=== PATIENT | female | born 1945 | race Caucasian/White ===

== ENCOUNTER 2016-08-31 19:28 | Inpatient (IN) ==
[2016-09-01] MEDS ORDERED: Ipratropium/Albuterol Neb 3 ML IH ONE (00:36)
[2016-09-01 00:55] LABS: Basophils # 0.1 K/mcL (0.0-0.2); Basophils % 1.6 %; Eosinophils # 1.2 K/mcL (0.0-0.6); Eosinophils % 13.2 %; Hematocrit 43.1 % (35.3-44.9); Hemoglobin 14.5 g/dL (11.5-15.4); Immature Granulocytes % 0.3 % (0-4); Immature Platelets 3.9 % (1.1-6.1); Lymphocytes # 2.8 K/mcL (0.6-4.6); Lymphocytes % 31.7 %; Mean Corpuscular HGB Conc 33.6 g/dL (31.6-35.5); Mean Corpuscular Hemoglobin 31.2 pg (28.0-33.3); Mean Corpuscular Volume 92.7 fL (83.0-100.0); Mean Platelet Volume 10.3 fL (9.4-12.4); Monocytes # 0.6 K/mcL (0.0-1.3); Monocytes % 7.2 %; Platelet Count 366 K/mcL (140-400); Red Blood Count 4.65 M/mcL (3.82-4.97); Red Cell Distribution Width 13.3 % (11.5-14.5)
[2016-09-01 01:10] LABS: BUN/Creatinine Ratio 14 (6-26); Blood Urea Nitrogen 15 mg/dL (7-20); Calcium 10.4 mg/dL (8.6-10.8); Carbon Dioxide 29 mEq/L (19-29); Chloride 99 mEq/L (98-109); Glucose 279 mg/dL (70-99); Osmolality,Calculated 295 (280-300); Potassium 3.5 mEq/L (3.5-4.5); Sodium 137 mEq/L (136-145); eGFR For African Americans > 60 (> 60); eGFR For Non-African Americans 51 (> 60)
[2016-09-01] MEDS ORDERED: methylPREDNISolone 125 MG/2 ML VIAL IVP ONE (01:24)
[2016-09-01] MEDS ORDERED: Levofloxacin 750 MG/150 ML 750 MG/150 ML BAG IVPB ONE (01:25)
--- NOTE | 2016-09-01 01:58 | Emergency Department Note ---
Disposition Clinical Impression: Community acquired pneumonia Disposition: Admitted As Inpatient Condition: Good SOB HPI - General Chief Complaint: ED Shortness of Breath/Dyspnea Stated Complaint: "Poss. Pneumonia/COPD/" Time Seen by Provider: 08/31/16 23:27 Source: patient Mode of arrival: private vehicle Limitations: no limitations Nursing Notes Reviewed: Yes Vital Signs Reviewed: Yes - History of Present Illness 71-year-old female history of oxygen-dependent COPD 2 L continuous with CPAP at night who presents to the ER with a chief complaint of cough and shortness of breath. Patient reports that she has been ill for most of this where. She states worsening shortness of breath and cough for the last week in duration. Patient reports intermittent cough with productive green sputum. Patient denies fevers, chest pain, sick contacts. Denies any history of MS, DVT or PE. Patient reports that she had increased her oxygen at home. No other complaints. Pt Subjective Complaint: shortness of breath, cough Onset (ago): week(s) Context: recent illness Severity: moderate Consistency/Duration: constant Improves with: oxygen Worsens with: nothing Known history of: COPD Associated symptoms: Reports: cough, wheezing, sputum production. Denies: chest pain, fever, nausea/vomiting Treatment prior to arrival: oxygen Cough present: Yes Cough Description: Involuntary Cough Frequency: Intermittent Sputum production: Yes Sputum Amount: Small Sputum Color: Green - Related Data Home oxygen amount: 2 liters Home Medications Medication Instructions Recorded Confirmed Albuterol Sulfate [Proair Hfa] 2 puff IH Q4H PRN 09/10/15 09/01/16 Alprazolam [Xanax 1 MG Tablet] 1 mg PO BID PRN 09/10/15 09/01/16 Budesonide/Formoterol 160/4.5 2 puff IH BIDR 09/10/15 09/01/16 [Symbicort 160/4.5] Bupropion HCl [Bupropion HCl Sr] 200 mg PO DAILY 09/10/15 09/01/16 Lisinopril/Hydrochlorothiazide 1 tab PO DAILY 09/10/15 09/01/16 [Zestoretic 20-12.5 mg Tablet] Metformin HCl [Fortamet] 500 mg PO BID 09/10/15 09/01/16 Quetiapine Fumarate [Seroquel] 50 mg PO HS 09/10/15 09/01/16 Tiotropium [Spiriva] 1 cap IH DAILY 09/10/15 09/01/16 Venlafaxine XR (24 HR) [Effexor Xr] 150 mg PO DAILY 09/10/15 09/01/16 Albuterol Neb [Proventil Neb] 2.5 mg IH Q6H PRN 09/01/16 09/01/16 Allergies Allergy/AdvReac Type Severity Reaction Status Date / Time morphine Allergy Hallucinati Verified 08/31/16 21:28 ng simvastatin AdvReac Cramping Verified 08/31/16 21:28 of the Muscles All systems ED: reviewed and negative except as stated. Constitutional: Denies: fever Cardiovascular: Denies: chest pain Respiratory: Reports: cough, dyspnea, sputum production Gastrointestinal: Denies: abdominal pain, nausea, vomiting Past Medical History - Past Medical History Attestation: Yes The following information was validated with the patient. Source: patient Medical history: Reports: COPD, diabetes, hyperlipidemia, hypertension, other Surgical history: Reports: non-contributory Psychiatric history: Reports: depression - Social History Smoking Status: Current every day smoker Smokeless Tobacco Status: No Alcohol use: Reports: none Drug use: Reports: none Physical Exam - General Limitations: no limitations General appearance: alert, in no apparent distress - Head Head exam: atraumatic, normocephalic, normal inspection - Eye Eye exam: Present: normal appearance, EOMI - ENT ENT exam: normal exam - Neck Neck exam: Present: normal inspection - Chest Chest inspection: Present: normal inspection, symmetric chest wall rise - Respiratory Respiratory exam: Present: wheezes (Patient exhibits bilateral end expiratory wheezing with mild accessory muscle use.), accessory muscle use, prolonged expiratory phase. Absent: respiratory distress - Cardiovascular Cardiovascular exam: Present: normal rhythm, tachycardia, normal heart sounds - Abdominal Exam Abdominal exam: Present: soft, Non-Tender. Absent: tenderness - Extremities Exam Extremities exam: Present: normal inspection, full ROM - Expanded Upper Extremity Exam Shoulder exam: Present: normal inspection, full ROM Arm exam: Present: normal inspection, full ROM Elbow exam: Present: normal inspection, full ROM Forearm/Wrist exam: Present: normal inspection, full ROM Hand exam: Present: normal inspection, full ROM - Expanded Lower Extremity Exam Hip/Pelvis exam: Present: normal inspection, full ROM Upper leg exam: Present: normal inspection, full ROM Knee exam: Present: normal inspection, full ROM Lower leg exam: Present: normal inspection, full ROM Ankle exam: Present: normal inspection, full ROM Foot/toe exam: Present: normal inspection, full ROM - Neurological Exam Neurological exam: Present: alert - Psychiatric Psychiatric exam: Present: normal affect, normal mood - Skin Skin exam: Present: warm, dry, intact, normal color Course Course Narrative: Patient seen and examined. Vital signs reviewed. We will get an EKG, chest x- ray as well as basic labs. Reviewed her chest x-ray performed earlier which shows concern for left lower lobe pneumonia. We will order a sputum culture and begin the patient on Levaquin. In the meantime we will give her some breathing treatments and Solu-Medrol. Vital Signs Temperature 98.1 F 08/31/16 21:25 Pulse Rate 101 08/31/16 21:25 Respiratory Rate 20 08/31/16 21:25 Blood Pressure 141/95 08/31/16 21:25 O2 Sat by Pulse Oximetry 95 08/31/16 21:25 Temperature 97.7 F 09/01/16 22:51 Pulse Rate 108 09/01/16 22:51 Respiratory Rate 20 09/02/16 00:16 Blood Pressure 112/70 09/01/16 22:51 O2 Sat by Pulse Oximetry 93 L 09/02/16 00:16 Oxygen Delivery Oxygen Delivery Nasal Cannula Shortness of Breath/Dyspnea - [facility] Narrative Medical decision making narrative: 71-year-old female presents to the ER due to cough and shortness of breath for one week in duration. EKG here is sinus rhythm. Chest x-ray shows concern for left lower lobe infiltrate versus atelectasis. She has had worsening cough and productive sputum for one week. No recent hospitalizations. We will treat her for community-acquired pneumonia. Sputum and blood cultures obtained. Patient given Levaquin. Admitted to the hospitalist service. - Lab Data Lab results reviewed: Yes I reviewed the patient's lab results. Result diagrams: 09/01/16 00:47 09/01/16 00:47 Lab Results 09/01/16 09/01/16 09/01/16 Range/Units 00:47 00:47 00:47 WBC 8.7 (4.3-11.1) K/mcL RBC 4.65 (3.82-4.97) M/mcL Hgb 14.5 (11.5-15.4) g/dL Hct 43.1 (35.3-44.9) % MCV 92.7 (83.0-100.0) fL MCH 31.2 (28.0-33.3) pg MCHC 33.6 (31.6-35.5) g/dL RDW 13.3 (11.5-14.5) % Plt Count 366 (140-400) K/mcL MPV 10.3 (9.4-12.4) fL Immature Gran % 0.3 (0-4) % Seg Neutrophils % 46.0 % Lymphocytes % 31.7 % Monocytes % 7.2 % Eosinophils % 13.2 % Basophils % 1.6 % Neutrophils # 4.0 (1.6-8.9) K/mcL Lymphocytes # 2.8 (0.6-4.6) K/mcL Monocytes # 0.6 (0.0-1.3) K/mcL Eosinophils # 1.2 H (0.0-0.6) K/mcL Basophils # 0.1 (0.0-0.2) K/mcL Immature Plt Fraction 3.9 (1.1-6.1) % Sodium 137 (136-145) mEq/L Potassium 3.5 (3.5-4.5) mEq/L Chloride 99 (98-109) mEq/L Carbon Dioxide 29 (19-29) mEq/L BUN 15 (7-20) mg/dL Creatinine 1.07 (0.57-1.11) mg/dL Est GFR ( Amer) > 60 (> 60) Est GFR (Non-Af Amer) 51 L (> 60) BUN/Creatinine Ratio 14 (6-26) Glucose 279 H (70-99) mg/dL POC Glucose (58-89) Est Mean Plasma Glucose mg/dl Hemoglobin A1c ( - 5.6) % Calculated Osmolality 295 (280-300) Calcium 10.4 (8.6-10.8) mg/dL Troponin I 0.01 (0-0.03) ng/mL B-Natriuretic Peptide (0-100) pg/mL 09/01/16 09/01/16 09/01/16 Range/Units 00:47 00:47 08:33 WBC (4.3-11.1) K/mcL RBC (3.82-4.97) M/mcL Hgb (11.5-15.4) g/dL Hct (35.3-44.9) % MCV (83.0-100.0) fL MCH (28.0-33.3) pg MCHC (31.6-35.5) g/dL RDW (11.5-14.5) % Plt Count (140-400) K/mcL MPV (9.4-12.4) fL Immature Gran % (0-4) % Seg Neutrophils % % Lymphocytes % % Monocytes % % Eosinophils % % Basophils % % Neutrophils # (1.6-8.9) K/mcL Lymphocytes # (0.6-4.6) K/mcL Monocytes # (0.0-1.3) K/mcL Eosinophils # (0.0-0.6) K/mcL Basophils # (0.0-0.2) K/mcL Immature Plt Fraction (1.1-6.1) % Sodium (136-145) mEq/L Potassium (3.5-4.5) mEq/L Chloride (98-109) mEq/L Carbon Dioxide (19-29) mEq/L BUN (7-20) mg/dL Creatinine (0.57-1.11) mg/dL Est GFR ( Amer) (> 60) Est GFR (Non-Af Amer) (> 60) BUN/Creatinine Ratio (6-26) Glucose (70-99) mg/dL POC Glucose 393 H (58-89) Est Mean Plasma Glucose 200 mg/dl Hemoglobin A1c 8.6 H ( - 5.6) % Calculated Osmolality (280-300) Calcium (8.6-10.8) mg/dL Troponin I (0-0.03) ng/mL B-Natriuretic Peptide < 10 (0-100) pg/mL - Radiology Data Radiology results reviewed: Yes I reviewed the patient's radiology results. Chest X-Ray 08/31/16 21:29 IMPRESSION: Left lower lobe atelectasis or, less likely, pneumonia. D/ / Gerrado Segovia MD / Gerardo Segovia MD Interpreting Provider: Gerardo Segovia MD - EKG Data EKG attestation: Yes I reviewed and interpreted this EKG. EKG results narrative: EKG demonstrates sinus rhythm with a rate of 91 bpm. Normal axis. MD interval 163 QRS duration 82 QTc 387 T wave flattening in lead V1 and V2 unchanged from previous. No ST elevations or depressions. No acute ischemic findings. Sanjeev - Sanjeev Situation: Demographics, MOA Background: Presenting Complaint, Relevant PMH, Meds, & Allergies Assessment: Vital Signs, Course and respsone to treatment, Exam Concerns, Patient/Family Expectation, Pertinant Lab Results, Outstanding Labs Recommendation: Barrier(s) to disposition, Recommendation based on pending studies, treatments, or consults SBean Report Given to: Dr. Nikolay Pace Repor Time: 02:11 Attestation Statement - Attestation Attestation: I personally interviewed and examined this patient and my medical decision- making was reviewed with the ED Resident Physician, Dr. Taylor. I agree with the documented findings, disposition and treatment plan as described in the documentation. Patient is a 71-year-old white female with a history of COPD who comes in today with complaints of gradually worsening productive cough and subjective fevers and chills and increased shortness of breath or difficulty breathing. Patient at bedside is hypoxic on supplemental O2, conversational dyspnea and noticeable increased work of breathing with tachypnea. Patient denies any foreign chest pain or pressure associated with this shortness of breath no increase in lower extremity edema or abdominal bloating. No abdominal pain, flank pain, nausea vomiting or posttussive emesis. Patient was placed on nasal cannula oxygen higher than home O2. He was given IV steroids and albuterol nebs. Two-view chest x-ray shows right lower lobe infiltrate and on auscultation of the lungs she has diminished breath sounds in the right base. Labs are unremarkable with the exception of a mild elevation in her blood glucose. No evidence of acidosis. Troponin and BNP are within normal limits. EKG shows normal sinus rhythm at 91 bpm with no acute ST or T-wave changes nonspecific findings. Following breathing treatments patient still has increased work of breathing and hypoxia on room air. We will admit the patient for right lower lobe pneumonia with hypoxia and acute exacerbation of COPD. Patient is improved clinically following aerosols although still requiring supplemental nasal cannula oxygen to maintain sats. IV antibiotics were administered and patient' s admission is pending at this time.
[2016-09-01] MEDS ORDERED: Naloxone 0.4 MG/ML INJ IVP PRN (07:32)
[2016-09-01] MEDS ORDERED: *HR* OxyCODONE Immed Rel 5 MG TABLET PO PRN (07:32)
[2016-09-01] MEDS ORDERED: Acetaminophen 325 MG TABLET PO PRN (07:32)
[2016-09-01] MEDS ORDERED: *HR* Dextrose 50 % in Water (Syg) 50 ML SYRINGE IVP PRN (07:37)
[2016-09-01] MEDS ORDERED: Dextrose Gel 15 GM PO PRN ×2 (07:37)
[2016-09-01] MEDS ORDERED: D5% in Water 1,000 ML IV PRN (07:37)
[2016-09-01] MEDS: Insulin LISPRO 300 UNITS/3 ML VIAL SQ SCH ×6 (08:54→17:21)
[2016-09-01 09:31] LABS: Hemoglobin A1C 8.6 %
--- NOTE | 2016-09-01 09:41 | Internal Med History&Physical ---
Date of Encounter: 09/01/16 Time of Encounter: 09:36 Assessment and Plan (1) COPD exacerbation Current visit: Yes Status: Acute We will treat patient with IV Solu-Medrol, inhaled albuterol and Atrovent and supplemental oxygen by nasal cannula to maintain oxygen saturation above 92%. (2) Respiratory distress Current visit: Yes Status: Acute Oxygen supplementation and Ativan as needed for anxiety. (3) Acute respiratory failure with hypoxia Current visit: Yes Status: Acute Supplemental oxygen. BiPAP as needed. (4) Diabetes mellitus type 2, insulin dependent Current visit: Yes Status: Acute Insulin sliding scale. Add Levemir insulin. Hold oral antidiabetic medication. (5) DVT prophylaxis Current visit: Yes Status: Acute Encourage early ambulation. She does not require pharmacological prophylaxis. Internal Medicine - H&P: HPI Chief complaint: Shortness of breath Admitted From: Emergency Dept Plans for Post Hospital Care: Home History of present illness: Ms. Metcalf is a 71 year old female with past medical history significant for hypertension diabetes and COPD who presented to the hospital for 1 week history of worsening shortness of breath which became severe both at rest and exacerbated by minimal exertion. Reports associated cough wheezing and severe anxiety. Denies any sputum production. She presented to the hospital for evaluation and was found to be in respiratory distress and was treated with supplemental oxygen, inhaled dual nebs and Solu-Medrol. She was referred for admission A 10 point review of systems was positive for chronic back pain, chills no fevers and shortness of breath and anxiety as above. The remainder of the 10 point review of systems was negative Past medical history as above Surgical history right knee and right ankle surgery Family history positive for Alzheimer's dementia and the patient's father and diabetes and heart failure and the patient's mother. Social history the patient is a chronic smoker of 10 cigarettes a day she denies alcohol and drug use. Past Med Surg Social Fam HX - Past Medical History Medical history: COPD, diabetes, hyperlipidemia, hypertension, other Psychiatric history: depression - Past Surgical History Surgical History: non-contributory - Social History Smoking Status: Current every day smoker Smokeless Tobacco Status: No Alcohol use: none Drug use: none - Family History Mother History Unknown: Yes Internal Medicine - H&P: Meds Albuterol Sulfate [Proair Hfa] 2 puff IH Q4H PRN 09/10/15 [History] Alprazolam [Xanax 1 MG Tablet] 1 mg PO BID PRN 09/10/15 [History] Budesonide/Formoterol 160/4.5 [Symbicort 160/4.5] 2 puff IH BIDR 09/10/15 [ History] Bupropion HCl [Bupropion HCl Sr] 200 mg PO DAILY 09/10/15 [History] Lisinopril/Hydrochlorothiazide [Zestoretic 20-12.5 mg Tablet] 1 tab PO DAILY [History] Metformin HCl [Fortamet] 500 mg PO BID 09/10/15 [History] Quetiapine Fumarate [Seroquel] 50 mg PO HS 09/10/15 [History] Tiotropium [Spiriva] 1 cap IH DAILY 09/10/15 [History] Venlafaxine XR (24 HR) [Effexor Xr] 150 mg PO DAILY 09/10/15 [History] Albuterol Neb [Proventil Neb] 2.5 mg IH Q6H PRN 09/01/16 [History] Allergies morphine Allergy (Verified 08/31/16 21:28) Hallucinating simvastatin Adverse Reaction (Verified 08/31/16 21:28) Cramping of the Muscles All Systems PM: A 10-system review of systems was performed and is negative for pertinent findings except as documented above in the HPI. - Constitutional Vitals: Temp Pulse Resp BP Pulse Ox 97.5 F L 98 28 128/82 92 L 09/01/16 07:17 09/01/16 07:17 09/01/16 07:17 09/01/16 07:17 09/01/16 07:17 General appearance: Present: A&O X 3 Exam: Appears anxious, moderate respiratory distress, speaks in broken sentences. - Eye Eye exam: Present: PERRL, conjuntiva pink, sclera anicteric Pupils: Present: PERRL - Neck Neck exam general surgery: Present: supple, trachea midline. Absent: lymphadenopathy - Respiratory Respiratory exam: Present: prolonged expiratory phase, wheezes, tachypnea. Absent: accessory muscle use, rales, rhonchi - Cardiovascular Cardiovascular exam: Present: RRR, +S1, +S2. Absent: diastolic murmur, gallop, rubs, systolic murmur - GI/Abdominal GI/Abdominal exam: Present: normal bowel sounds, soft, no peritoneal signs. Absent: distended, tenderness - Extremities Exam Extremities exam: Present: warm, radial pulses palpable and symetrical. Absent : calf tenderness, cyanotic, pedal edema - Neurological Exam Neurological exam: Present: CN II-XII intact, oriented X3, no focal deficits. Absent: pronater drift, facial droop, speech deficit - Skin Skin exam: Present: dry, intact Internal Med - H&P Results - Labs CBC & Chem 7: 09/01/16 00:47 09/01/16 00:47
[2016-09-01] MEDS ORDERED: Ipratropium/Albuterol Neb 3 ML IH PRN (09:46)
[2016-09-01] MEDS: Ipratropium/Albuterol Neb 3 ML IH SCH ×4 (09:48→20:10)
[2016-09-01] MEDS ORDERED: Budesonide/Formoterol 160/4.5 MDI IH SCH (10:00)
[2016-09-01] MEDS: Venlafaxine XR (24 HR) 150 MG CAP.ER.24H PO SCH (10:10)
[2016-09-01] MEDS: Lisinopril-HCTZ 20-12.5mg TABLET PO SCH (10:10)
[2016-09-01] MEDS: ALPRAZolam 1 MG TABLET PO PRN ×2 (10:16→20:56)
[2016-09-01] MEDS: BuPROPion SR (12 HR) 100 MG TABLET PO SCH (10:16)
[2016-09-01 10:22] LABS: ABG Base Excess 0.7 mEq/L (-2.0 to 3.0); ABG HCO3 24.5 mEQ/L (21-27); ABG Oxygen Saturation 95 % (95-98); ABG PCO2 36 mmHg (35-45); ABG PH 7.44 pH Units (7.32-7.45); ABG PO2 75 mmHg (85-104); ABG TCO2 25.6 mEq/L (20-26)
[2016-09-01 10:24] LABS: Blood Gas FiO2 32 %
[2016-09-01] MEDS ORDERED: Insulin LISPRO 300 UNITS/3 ML VIAL SQ SCH ×2 (11:30→21:00)
[2016-09-01] MEDS: methylPREDNISolone 125 MG/2 ML VIAL IVP SCH ×3 (12:19→23:42)
--- NOTE | 2016-09-01 16:08 | Electrocardiograph Report ---
[place] [id number] Test Date: 2016-09-01 Pat Name: Nova Metcalf Department: 104 Room: 2A22 Gender: F [employer]: : 1945 Requested By: Jj Taylor Order Number: [id number] Reading MD: Aby Warren Measurements Intervals [place] Rate: 91 P: 73 WV: 163 QRS: 3 QRSD: 82 T: 116 QT: 338 QTc: 387 Interpretive Statements SINUS RHYTHM NONSPECIFIC T-WAVE ABNORMALITY Electronically Signed On 09-01-2016 16:07:29 EDT by Aby Warren
[2016-09-01] MEDS: Insulin DETEMIR 100 UNIT/ML X5UNITS SQ SCH (20:59)
[2016-09-02] MEDS: Ipratropium/Albuterol Neb 3 ML IH SCH ×7 (00:16→23:52)
[2016-09-02] MEDS: methylPREDNISolone 125 MG/2 ML VIAL IVP SCH (05:14)
[2016-09-02 06:41] LABS: Basophils % 0.1 %; Hematocrit 39.6 % (35.3-44.9); Hemoglobin 13.1 g/dL (11.5-15.4); Immature Granulocytes % 0.8 % (0-4); Lymphocytes % 7.1 %; Mean Corpuscular HGB Conc 33.1 g/dL (31.6-35.5); Mean Corpuscular Hemoglobin 30.6 pg (28.0-33.3); Mean Corpuscular Volume 92.5 fL (83.0-100.0); Mean Platelet Volume 10.6 fL (9.4-12.4); Monocytes # 0.3 K/mcL (0.0-1.3); Monocytes % 1.9 %; Platelet Count 319 K/mcL (140-400); Red Blood Count 4.28 M/mcL (3.82-4.97); Segmented Neutrophils % 90.1 %
[2016-09-02 06:44] LABS: Neutrophils # 13.2 K/mcL (1.6-8.9)
[2016-09-02 07:00] LABS: BUN/Creatinine Ratio 24 (6-26); Blood Urea Nitrogen 25 mg/dL (7-20); Calcium 9.4 mg/dL (8.6-10.8); Carbon Dioxide 26 mEq/L (19-29); Chloride 98 mEq/L (98-109); Glucose 325 mg/dL (70-99); Osmolality,Calculated 293 (280-300); Potassium 3.9 mEq/L (3.5-4.5); Sodium 133 mEq/L (136-145); eGFR For African Americans > 60 (> 60); eGFR For Non-African Americans 53 (> 60)
[2016-09-02 07:59] LABS: Adenovirus Not Detected (Not Detect); Bordetella Pertussis Not Detected (Not Detect); Chlamydophila pneumoniae Not Detected (Not Detect); Coronavirus 229E Not Detected (Not Detect); Coronavirus HKU1 Not Detected (Not Detect); Coronavirus NL63 Not Detected (Not Detect); Coronavirus OC43 Not Detected (Not Detect); Human Metapneumovirus Not Detected (Not Detect); Human Rhinovirus/Enterovirus Not Detected (Not Detect); Influenza A Subtype 2009 H1 Not Detected (Not Detect); Influenza A Untypeable Not Detected (Not Detect); Influenza B Not Detected (Not Detect); Mycoplasma pneumoniae Not Detected (Not Detect); Parainfluenza Virus 1 Not Detected (Not Detect); Parainfluenza Virus 2 Not Detected (Not Detect); Parainfluenza Virus 3 Not Detected (Not Detect); Parainfluenza Virus 4 Not Detected (Not Detect); Respiratory Syncytial Virus Not Detected (Not Detect)
[2016-09-02] MEDS: ALPRAZolam 1 MG TABLET PO PRN ×2 (08:14→20:31)
[2016-09-02] MEDS: Venlafaxine XR (24 HR) 150 MG CAP.ER.24H PO SCH (08:14)
[2016-09-02] MEDS: Lisinopril-HCTZ 20-12.5mg TABLET PO SCH (08:14)
[2016-09-02] MEDS: BuPROPion SR (12 HR) 100 MG TABLET PO SCH (08:14)
[2016-09-02] MEDS: Insulin LISPRO 300 UNITS/3 ML VIAL SQ SCH ×7 (08:15→20:36)
[2016-09-02] MEDS: predniSONE 20 MG TABLET PO SCH (08:59)
[2016-09-02] MEDS ORDERED: Levofloxacin 750 MG/150 ML 750 MG/150 ML BAG IVPB SCH (09:00)
[2016-09-02] MEDS ORDERED: Albuterol 2.5 MG/3 ML NEBULIZER IH PRN (12:21)
--- NOTE | 2016-09-02 13:12 | Internal Med Progress Note ---
<Abel Granado Hector - Last Filed: 09/02/16 13:57> Date of Encounter: 09/02/16 Time of Encounter: 13:11 - Assessment and plan (1) COPD with respiratory distress, acute Current Visit: No Status: Acute Assessment and plan: Mrs. Metcalf 71-year-old female known history of COPD uses 2 L nasal cannula oxygen at home during the day with BiPAP at night. Presented with increased shortness of breath. She was tachypneic and hypoxic requiring increased oxygen demand. Original ABG demonstrates pH 7.4, PCO2 36, PO2 75, bicarbonate 24.5. Tolerating nasal cannula oxygen with intermittent BiPAP. Plan: - Prednisone 40 mg by mouth daily - Levaquin 750 mg by mouth daily - Continue scheduled breathing treatments. (2) Diabetes mellitus type 2, insulin dependent Current Visit: Yes Status: Acute Assessment and plan: Known history of type 2 diabetes with hyperglycemic control including metformin 500 mg by mouth twice a day at home. - Hyperglycemic with glucoses greater than 300 on Levemir 14 units at bedtime, Humalog 4 units 3 times a day, low-dose sliding scale - Her hyperglycemia likely secondary to high-dose Solu-Medrol. Adjusted prednisone dose to 40 mg by mouth daily. We will increase sliding scale to high -dose but will likely need to be reduced tomorrow now that there is a reduction in steroid administration. Plan: - Before meals at bedtime glucose checks - Continue Levemir, Humalog, high-dose sliding scale. (3) DVT prophylaxis Current Visit: Yes Status: Acute Assessment and plan: 40 mg Lovenox daily. - Subjective Interval history: Ms. Metcalf has been seen and evaluated at bedside this am. She was awake, alert and interactive and tolerating her BiPAP, oxygen saturation at 90%. She said that she is breathing better with the BiPAP on and feels more comfortable. She has had difficulty at home with breathing and usually wears 2 L nasal cannula continuous; BiPAP at night. She denies cough or sputum production, fever, chills, nausea vomiting diarrhea. - Constitutional Vitals: Temp Pulse Resp BP Pulse Ox 97.6 F 102 18 123/73 90 L 09/02/16 10:30 09/02/16 10:30 09/02/16 11:15 09/02/16 10:30 09/02/16 11:15 General appearance: Present: cooperative, A&O X 3, pleasant, no acute distress - Head Head exam: Present: atraumatic, normocephalic - Eye Eye exam: Present: PERRL, conjuntiva pink, sclera anicteric Pupils: Present: PERRL - ENT ENT exam: Present: mucous membranes moist - Neck Neck exam general surgery: Present: supple, trachea midline. Absent: lymphadenopathy - Respiratory Respiratory exam: Present: wheezes. Absent: accessory muscle use, rales, rhonchi Additional comments: Diffuse wheezing all lung hernandez with inspiratory and expiratory effort. - Cardiovascular Cardiovascular exam: Present: RRR, +S1, +S2. Absent: diastolic murmur, gallop, rubs, systolic murmur - GI/Abdominal GI/Abdominal exam: Present: normal bowel sounds, soft, no peritoneal signs. Absent: distended, tenderness - Extremities Exam Extremities exam: Present: warm, radial pulses palpable and symetrical. Absent : calf tenderness, cyanotic, pedal edema - Neurological Exam Neurological exam: Present: alert, oriented X3, no focal deficits. Absent: pronater drift, facial droop, speech deficit - Psychiatric Psychiatric exam: Present: normal affect, normal mood - Skin Skin exam: Present: dry, intact Internal Medicine: Result - Labs CBC & Chem 7: 09/02/16 05:37 09/02/16 05:37 Labs: Short CBC 09/02/16 Range/Units 05:37 WBC 14.7 H D (4.3-11.1) K/mcL Hgb 13.1 (11.5-15.4) g/dL Hct 39.6 (35.3-44.9) % Plt Count 319 (140-400) K/mcL Neutrophils # 13.2 H (1.6-8.9) K/mcL BMP 09/02/16 05:37 Sodium 133 L Potassium 3.9 Chloride 98 Carbon Dioxide 26 BUN 25 H D Creatinine 1.03 Glucose 325 H Calcium 9.4 - ABG Interpretation ABG results: ABG ABG pH 7.44 pH Units (7.32-7.45) 09/01/16 10:15 ABG pCO2 36 mmHg (35-45) 09/01/16 10:15 ABG pO2 75 mmHg (85-104) L 09/01/16 10:15 ABG O2 Saturation 95 % (95-98) 09/01/16 10:15 Consult Discharge Plan - Plan Referrals: Codie Lloyd MD [Primary Care Provider] - 09/09/16 10:30 am (Please follow up as schedule!!!) <Oscar Leiva Wojciech - Last Filed: 09/02/16 17:30> - Assessment and plan (1) Acute and chronic respiratory failure with hypoxia Current Visit: Yes Status: Acute Assessment and plan: Oxygen supplementation. Treatment of COPD exacerbation (2) COPD exacerbation Current Visit: Yes Status: Acute Assessment and plan: Steroids, aerosols, abx Bipap at night (3) Diabetes mellitus type 2, insulin dependent Current Visit: Yes Status: Acute (4) Community acquired pneumonia Current Visit: Yes Status: Acute Assessment and plan: On abx coverage. (5) JUAN (obstructive sleep apnea) Current Visit: Yes Status: Acute Assessment and plan: On bipap at night. - Constitutional Vitals: Temp Pulse Resp BP Pulse Ox 98.0 F 112 20 133/77 91 L 09/02/16 15:14 09/02/16 15:14 09/02/16 16:53 09/02/16 15:14 09/02/16 16:53 Internal Medicine: Result - Labs CBC & Chem 7: 09/02/16 05:37 09/02/16 05:37 Labs: Short CBC 09/02/16 Range/Units 05:37 WBC 14.7 H D (4.3-11.1) K/mcL Hgb 13.1 (11.5-15.4) g/dL Hct 39.6 (35.3-44.9) % Plt Count 319 (140-400) K/mcL Neutrophils # 13.2 H (1.6-8.9) K/mcL BMP 09/02/16 05:37 Sodium 133 L Potassium 3.9 Chloride 98 Carbon Dioxide 26 BUN 25 H D Creatinine 1.03 Glucose 325 H Calcium 9.4 - ABG Interpretation ABG results: ABG ABG pH 7.44 pH Units (7.32-7.45) 09/01/16 10:15 ABG pCO2 36 mmHg (35-45) 09/01/16 10:15 ABG pO2 75 mmHg (85-104) L 09/01/16 10:15 ABG O2 Saturation 95 % (95-98) 09/01/16 10:15 - Attending Attestation I examined this patient and my medical decision-making was reviewed with the Resident Physician on 09/02/16. I agree with the documented findings, disposition and treatment plan as described except to the extent set forth below. Ms. Metcalf is currently admitted for acute exac COPD and hypoxemia. She is moderate to high risk due to potential for worsening respiratory status. Ms. Metcalf feels a little better than yesterday. She is still dyspneic with movement. Denies CP or GI issues. Exam Alert Comfortable in bed Mucus membranes dry Heart reg Lungs with some wheeze throughout I/P 1. Acute on chronic hypoxic resp failure 2. Acute exac COPD 3. Diabetes Further diagnoses and plan as above.
[2016-09-02] MEDS: Insulin DETEMIR 100 UNIT/ML X5UNITS SQ SCH (20:37)
[2016-09-03] MEDS ORDERED: levoFLOXacin 750 MG TABLET PO SCH (01:00)
[2016-09-03] MEDS: Ipratropium/Albuterol Neb 3 ML IH SCH ×6 (03:55→23:03)
[2016-09-03] MEDS: *HR* Enoxaparin 40 MG/0.4 ML SYRINGE SQ SCH (06:11)
[2016-09-03 07:14] LABS: BUN/Creatinine Ratio 30 (6-26); Blood Urea Nitrogen 26 mg/dL (7-20); Calcium 9.4 mg/dL (8.6-10.8); Carbon Dioxide 30 mEq/L (19-29); Chloride 101 mEq/L (98-109); Glucose 128 mg/dL (70-99); Osmolality,Calculated 294 (280-300); Potassium 3.4 mEq/L (3.5-4.5); Sodium 139 mEq/L (136-145); eGFR For African Americans > 60 (> 60); eGFR For Non-African Americans > 60 (> 60)
[2016-09-03 07:24] LABS: Hematocrit 40.2 % (35.3-44.9); Hemoglobin 13.1 g/dL (11.5-15.4); Mean Corpuscular HGB Conc 32.6 g/dL (31.6-35.5); Mean Corpuscular Hemoglobin 30.7 pg (28.0-33.3); Mean Corpuscular Volume 94.1 fL (83.0-100.0); Mean Platelet Volume 10.3 fL (9.4-12.4); Platelet Count 326 K/mcL (140-400); Red Blood Count 4.27 M/mcL (3.82-4.97); Red Cell Distribution Width 13.1 % (11.5-14.5)
[2016-09-03] MEDS: Insulin LISPRO 300 UNITS/3 ML VIAL SQ SCH ×7 (07:54→22:31)
[2016-09-03] MEDS: Lisinopril-HCTZ 20-12.5mg TABLET PO SCH (07:58)
[2016-09-03] MEDS: predniSONE 20 MG TABLET PO SCH (07:58)
[2016-09-03] MEDS: levoFLOXacin 750 MG TABLET PO SCH (07:58)
[2016-09-03] MEDS: BuPROPion SR (12 HR) 100 MG TABLET PO SCH (07:58)
[2016-09-03] MEDS: Venlafaxine XR (24 HR) 150 MG CAP.ER.24H PO SCH (07:58)
[2016-09-03] MEDS: ALPRAZolam 1 MG TABLET PO PRN ×2 (10:32→20:50)
--- NOTE | 2016-09-03 12:52 | Internal Med Progress Note ---
<Abel Granado Hector - Last Filed: 09/03/16 12:49> Date of Encounter: 09/03/16 Time of Encounter: 12:50 - Assessment and plan (1) COPD with respiratory distress, acute Current Visit: No Status: Acute Assessment and plan: Mrs. Metcalf 71-year-old female known history of COPD uses 2 L nasal cannula oxygen at home during the day with BiPAP at night. Presented with increased shortness of breath. She was tachypneic and hypoxic requiring increased oxygen demand. Original ABG demonstrates pH 7.4, PCO2 36, PO2 75, bicarbonate 24.5. Tolerating nasal cannula oxygen with intermittent BiPAP. 09/03/2016 patient seen and evaluated at bedside and clinically improving. Oxygen requirements reduced. Plan: - Prednisone 40 mg by mouth daily - Levaquin 750 mg by mouth daily - Continue scheduled breathing treatments. - Plan for discharge tomorrow if patient continues to remain stable. (2) Diabetes mellitus type 2, insulin dependent Current Visit: Yes Status: Acute Assessment and plan: Known history of type 2 diabetes with hyperglycemic control including metformin 500 mg by mouth twice a day at home. Glucoses were elevated overnight but are stable today. Improvement after starting by mouth prednisone. Plan: - Before meals at bedtime glucose checks - Continue Levemir, Humalog, high-dose sliding scale. (3) Hypokalemia Current Visit: Yes Status: Acute Assessment and plan: Potassium 3.4, demonstrated low potassium since admission. Plan: Potassium chloride 40 once Recheck potassium in a.m. (4) DVT prophylaxis Current Visit: Yes Status: Acute Assessment and plan: 40 mg Lovenox daily. - Subjective Interval history: Ms. Metcalf has been seen and evaluated at bedside this am. She was awake, alert and interactive and tolerating nasal cannula. She has had coughing but describes it as dry and without production. She denies any chest discomfort, CP , chest pressure or palpitations. She has not had a bowel movement in 2 days but says this is not abnormal. She has no further questions. - Constitutional Vitals: Temp Pulse Resp BP Pulse Ox 98.2 F 84 18 149/86 96 09/03/16 11:38 09/03/16 11:38 09/03/16 11:29 09/03/16 11:38 09/03/16 11:38 General appearance: Present: cooperative, A&O X 3, pleasant, no acute distress - Head Head exam: Present: atraumatic, normocephalic - Eye Eye exam: Present: PERRL, conjuntiva pink, sclera anicteric Pupils: Present: PERRL - ENT ENT exam: Present: mucous membranes moist - Neck Neck exam general surgery: Present: supple, trachea midline. Absent: lymphadenopathy - Respiratory Respiratory exam: Present: decreased breath sounds, wheezes (Diffuse inspiratory expiratory wheezing, reduced breath sounds bilateral but improving.) . Absent: accessory muscle use, rales, rhonchi - Cardiovascular Cardiovascular exam: Present: RRR, +S1, +S2. Absent: diastolic murmur, gallop, rubs, systolic murmur - GI/Abdominal GI/Abdominal exam: Present: normal bowel sounds, soft, no peritoneal signs. Absent: distended, tenderness - Extremities Exam Extremities exam: Present: warm, radial pulses palpable and symetrical. Absent : mottling, pedal edema - Neurological Exam Neurological exam: Present: CN II-XII intact, oriented X3, no focal deficits. Absent: pronater drift, facial droop, speech deficit - Psychiatric Psychiatric exam: Present: normal affect, normal mood Internal Medicine: Result - Labs CBC & Chem 7: 09/03/16 06:28 09/03/16 06:28 Labs: Short CBC 09/03/16 Range/Units 06:28 WBC 13.5 H (4.3-11.1) K/mcL Hgb 13.1 (11.5-15.4) g/dL Hct 40.2 (35.3-44.9) % Plt Count 326 (140-400) K/mcL [facility] 09/03/16 06:28 Sodium 139 Potassium 3.4 L Chloride 101 Carbon Dioxide 30 H BUN 26 H Creatinine 0.88 Glucose 128 H Calcium 9.4 - ABG Interpretation ABG results: ABG ABG pH 7.44 pH Units (7.32-7.45) 09/01/16 10:15 ABG pCO2 36 mmHg (35-45) 09/01/16 10:15 ABG pO2 75 mmHg (85-104) L 09/01/16 10:15 ABG O2 Saturation 95 % (95-98) 09/01/16 10:15 Consult Discharge Plan - Plan Referrals: Codie Lloyd MD [Primary Care Provider] - 09/09/16 10:30 am (Please follow up as schedule!!!) <Oscar Leiva - Last Filed: 09/03/16 18:15> - Assessment and plan (1) Acute and chronic respiratory failure with hypoxia Current Visit: Yes Status: Acute Assessment and plan: Continue to wean oxygen as able. (2) COPD exacerbation Current Visit: Yes Status: Acute (3) Diabetes mellitus type 2, insulin dependent Current Visit: Yes Status: Acute (4) Community acquired pneumonia Current Visit: Yes Status: Acute (5) JUAN (obstructive sleep apnea) Current Visit: Yes Status: Acute - Constitutional Vitals: Temp Pulse Resp BP Pulse Ox 97.6 F 84 16 154/85 93 L 09/03/16 16:28 09/03/16 16:28 09/03/16 16:28 09/03/16 16:28 09/03/16 16:28 Internal Medicine: Result - Labs CBC & Chem 7: 09/03/16 06:28 09/03/16 06:28 Labs: Short CBC 09/03/16 Range/Units 06:28 WBC 13.5 H (4.3-11.1) K/mcL Hgb 13.1 (11.5-15.4) g/dL Hct 40.2 (35.3-44.9) % Plt Count 326 (140-400) K/mcL [facility] 09/03/16 06:28 Sodium 139 Potassium 3.4 L Chloride 101 Carbon Dioxide 30 H BUN 26 H Creatinine 0.88 Glucose 128 H Calcium 9.4 - ABG Interpretation ABG results: ABG ABG pH 7.44 pH Units (7.32-7.45) 09/01/16 10:15 ABG pCO2 36 mmHg (35-45) 09/01/16 10:15 ABG pO2 75 mmHg (85-104) L 09/01/16 10:15 ABG O2 Saturation 95 % (95-98) 09/01/16 10:15 - Attending Attestation I examined this patient and my medical decision-making was reviewed with the Resident Physician on 09/03/16. I agree with the documented findings, disposition and treatment plan as described except to the extent set forth below. Ms. Metcalf is currently admitted for acute on chronic hypoxic resp failure due to COPD. She is moderate to high risk due to potential of worsening respiratory status. Ms. Metcalf is beginning to feel better. She is breathing better and tolerating more activity. No new symptoms. No GI symptoms Exam Alert. Comfortable. Resting on bipap Heart reg Lungs with scant wheeze I/P 1. Acute on chronic hypoxic resp failure 2. Acute exac COPD Further diagnoses and plan as above.
[2016-09-03] MEDS: Insulin DETEMIR 100 UNIT/ML X5UNITS SQ SCH (20:51)
[2016-09-04] MEDS: Ipratropium/Albuterol Neb 3 ML IH SCH ×6 (03:28→23:53)
[2016-09-04] MEDS: *HR* Enoxaparin 40 MG/0.4 ML SYRINGE SQ SCH (04:57)
[2016-09-04 06:36] LABS: Basophils # 0.1 K/mcL (0.0-0.2); Basophils % 0.5 %; Eosinophils # 0.2 K/mcL (0.0-0.6); Eosinophils % 2.3 %; Hemoglobin 13.5 g/dL (11.5-15.4); Immature Granulocytes % 1.1 % (0-4); Lymphocytes # 3.2 K/mcL (0.6-4.6); Lymphocytes % 34.1 %; Mean Corpuscular HGB Conc 32.1 g/dL (31.6-35.5); Mean Corpuscular Hemoglobin 30.3 pg (28.0-33.3); Mean Corpuscular Volume 94.2 fL (83.0-100.0); Mean Platelet Volume 10.2 fL (9.4-12.4); Monocytes # 0.9 K/mcL (0.0-1.3); Monocytes % 9.4 %; Neutrophils # 4.9 K/mcL (1.6-8.9); Platelet Count 316 K/mcL (140-400); Red Blood Count 4.46 M/mcL (3.82-4.97); Red Cell Distribution Width 12.9 % (11.5-14.5); Segmented Neutrophils % 52.6 %
[2016-09-04 06:56] LABS: Alanine Aminotransferase 18 Units/L (0-55); Alkaline Phosphatase 84 Units/L (38-126); Aspartate Amino Transferase 11 Units/L (5-34); BUN/Creatinine Ratio 29 (6-26); Bilirubin,Total 0.2 mg/dL (0.2-1.2); Blood Urea Nitrogen 23 mg/dL (7-20); Calcium 9.7 mg/dL (8.6-10.8); Carbon Dioxide 29 mEq/L (19-29); Chloride 101 mEq/L (98-109); Globulin 3.1 g/dL (2.4-3.5); Glucose 97 mg/dL (70-99); Osmolality,Calculated 292 (280-300); Potassium 3.6 mEq/L (3.5-4.5); Sodium 139 mEq/L (136-145); Total Protein 6.1 g/dL (6.0-8.3); eGFR For African Americans > 60 (> 60); eGFR For Non-African Americans > 60 (> 60)
[2016-09-04] MEDS: Insulin LISPRO 300 UNITS/3 ML VIAL SQ SCH ×7 (08:00→20:37)
[2016-09-04] MEDS: levoFLOXacin 750 MG TABLET PO SCH (08:01)
[2016-09-04] MEDS: Venlafaxine XR (24 HR) 150 MG CAP.ER.24H PO SCH (08:01)
[2016-09-04] MEDS: Lisinopril-HCTZ 20-12.5mg TABLET PO SCH (08:01)
[2016-09-04] MEDS: BuPROPion SR (12 HR) 100 MG TABLET PO SCH (08:01)
[2016-09-04] MEDS: predniSONE 20 MG TABLET PO SCH (08:01)
--- NOTE | 2016-09-04 08:21 | Discharge Summary ---
Time of Encounter: 08:19 - Discharge Diagnosis (1) COPD with respiratory distress, acute Priority: Primary Status: Acute (2) Diabetes mellitus type 2, insulin dependent Priority: Secondary Status: Acute (3) Hypokalemia Priority: Secondary Status: Acute (4) DVT prophylaxis Priority: Secondary Status: Acute - Discharge Medications Home Medications: Albuterol Sulfate [Proair Hfa] 2 puff IH Q4H PRN 09/10/15 [History] Alprazolam [Xanax 1 MG Tablet] 1 mg PO BID PRN 09/10/15 [History] Budesonide/Formoterol 160/4.5 [Symbicort 160/4.5] 2 puff IH BIDR 09/10/15 [ History] Bupropion HCl [Bupropion HCl Sr] 200 mg PO DAILY 09/10/15 [History] Lisinopril/Hydrochlorothiazide [Zestoretic 20-12.5 mg Tablet] 1 tab PO DAILY [History] Metformin HCl [Fortamet] 500 mg PO BID 09/10/15 [History] Quetiapine Fumarate [Seroquel] 50 mg PO HS 09/10/15 [History] Tiotropium [Spiriva] 1 cap IH DAILY 09/10/15 [History] Venlafaxine XR (24 HR) [Effexor Xr] 150 mg PO DAILY 09/10/15 [History] Albuterol Neb [Proventil Neb] 2.5 mg IH Q6H PRN 09/01/16 [History] Allergies/Adverse Reactions: Allergies morphine Allergy (Verified 08/31/16 21:28) Hallucinating simvastatin Adverse Reaction (Verified 08/31/16 21:28) Cramping of the Muscles Date of admission: 09/01/16 09:55 Primary care physician: Codie Lloyd MD Discharging clinician: Abel Granado Anticipated date of discharge: 09/04/16 - Patient Status Disposition: Home, Self-Care Condition: Good Functional capacity at discharge: independent ambulation Overall status at discharge: patient is progressing back to baseline - Discharge Instructions Follow Up With: Codie Lloyd MD [Primary Care Provider] - 09/09/16 10:30 am (Please follow up as schedule!!!) Additional Instructions: Follow up with your PCP in the next 3-5 days. Complete Rx as prescribed. If symptoms do not improve or worsen contact your PCP for evaluation or Return to the Emergency department. - Diet and Activity Activity: increase activity as tolerated, wear oxygen at all times Diet: advance to your usual diet Hospital course: Ms. Metcalf is a 71 year old female - Time Spent with Patient Total time spent providing and/or coordinating discharge services: - Constitutional Vitals: Temp Pulse Resp BP Pulse Ox 97.7 F 70 18 137/85 89 L 09/04/16 07:48 09/04/16 07:48 09/04/16 07:48 09/04/16 07:48 09/04/16 07:48 General appearance: Present: cooperative, A&O X 3, pleasant, no acute distress
[2016-09-04 11:19] LABS: ABG Base Excess 9.5 mEq/L (-2.0 to 3.0); ABG HCO3 35.8 mEQ/L (21-27); ABG Oxygen Saturation 87 % (95-98); ABG PCO2 54 mmHg (35-45); ABG PH 7.43 pH Units (7.32-7.45); ABG PO2 52 mmHg (85-104); ABG TCO2 37.5 mEq/L (20-26); Blood Gas FiO2 32 %
--- NOTE | 2016-09-04 13:20 | Internal Med Progress Note ---
<Abel Granado - Last Filed: 09/04/16 13:18> Date of Encounter: 09/04/16 Time of Encounter: 13:19 - Assessment and plan (1) COPD with respiratory distress, acute Current Visit: No Status: Acute Assessment and plan: Mrs. Metcalf 71-year-old female known history of COPD uses 2 L nasal cannula oxygen at home during the day with BiPAP at night. Presented with increased shortness of breath. She was tachypneic and hypoxic requiring increased oxygen demand. Original ABG demonstrates pH 7.4, PCO2 36, PO2 75, bicarbonate 24.5. Tolerating nasal cannula oxygen with intermittent BiPAP. 09/03/2016 patient seen and evaluated at bedside and clinically improving. Oxygen requirements reduced. 09/04/2016: Ms. Metcalf is feeling more short of breath this morning. With her CPAP on her oxygen sats were 89%. ABG demonstrates pH 7.43, PCO2 54, PO2 52, bicarbonate 35.8. Serum bicarbonate 29. Patient's oxygen saturations improved with BiPAP. Plan: - Prednisone 40 mg by mouth daily - Levaquin 750 mg by mouth daily - Continue scheduled breathing treatments. - Patient will undergo BiPAP qualification site. - Plan for discharge tomorrow if patient continues to remain stable. (2) Diabetes mellitus type 2, insulin dependent Current Visit: Yes Status: Acute Assessment and plan: Known history of type 2 diabetes with hyperglycemic control including metformin 500 mg by mouth twice a day at home. Glucoses were elevated overnight but are stable today. Improvement after starting by mouth prednisone. 09/04/2016: Glucose stable. Plan: - Before meals at bedtime glucose checks - Continue Levemir, Humalog, high-dose sliding scale. (3) Hypokalemia Current Visit: Yes Status: Acute Assessment and plan: Potassium 3.6, Will continue with PO replacement. Plan: Potassium chloride 40 once Recheck potassium in a.m. (4) DVT prophylaxis Current Visit: Yes Status: Acute Assessment and plan: 40 mg Lovenox daily. - Subjective Interval history: Ms. Metcalf has been seen and evaluated at bedside this am. She was awake, alert and interactive and tolerating nasal cannula. She feels tired this morning and short of breath. She feels that she needs to be wearing her CPAP machine because of nasal cannula oxygen is not working for her. She feels short of breath. - Constitutional Vitals: Temp Pulse Resp BP Pulse Ox 97 F L 82 23 136/86 91 L 09/04/16 11:28 09/04/16 11:28 09/04/16 11:45 09/04/16 11:28 09/04/16 11:45 General appearance: Present: cooperative, A&O X 3, pleasant, no acute distress - Head Head exam: Present: atraumatic, normocephalic - Eye Eye exam: Present: PERRL, conjuntiva pink, sclera anicteric Pupils: Present: PERRL - ENT ENT exam: Present: mucous membranes moist - Neck Neck exam general surgery: Present: supple, trachea midline. Absent: lymphadenopathy - Respiratory Respiratory exam: Present: decreased breath sounds, wheezes Additional comments: Diffuse restrictive bronchial vesicular breath sounds - Cardiovascular Cardiovascular exam: Present: RRR, +S1, +S2. Absent: diastolic murmur, gallop, rubs, systolic murmur - GI/Abdominal GI/Abdominal exam: Present: normal bowel sounds, soft, no peritoneal signs. Absent: distended, tenderness - Extremities Exam Extremities exam: Present: warm, radial pulses palpable and symetrical. Absent : calf tenderness, cyanotic, pedal edema - Neurological Exam Neurological exam: Present: alert, oriented X3, no focal deficits, strengths equal and symetr throughout. Absent: pronater drift, facial droop, speech deficit - Psychiatric Psychiatric exam: Present: normal affect, normal mood - Skin Skin exam: Present: dry, intact Internal Medicine: Result - Labs CBC & Chem 7: 09/04/16 05:53 09/04/16 05:53 Labs: Short CBC 09/04/16 Range/Units 05:53 WBC 9.4 (4.3-11.1) K/mcL Hgb 13.5 (11.5-15.4) g/dL Hct 42.0 (35.3-44.9) % Plt Count 316 (140-400) K/mcL Neutrophils # 4.9 (1.6-8.9) K/mcL BMP 09/04/16 05:53 Sodium 139 Potassium 3.6 Chloride 101 Carbon Dioxide 29 BUN 23 H Creatinine 0.80 Glucose 97 Calcium 9.7 Liver Function 09/04/16 Range/Units 05:53 Total Bilirubin 0.2 (0.2-1.2) mg/dL AST 11 (5-34) Units/L ALT 18 (0-55) Units/L Alkaline Phosphatase 84 (38-126) Units/L Albumin 3.0 L (3.5-5.0) g/dL - ABG Interpretation ABG results: ABG ABG pH 7.43 pH Units (7.32-7.45) 09/04/16 11:12 ABG pCO2 54 mmHg (35-45) H 09/04/16 11:12 ABG pO2 52 mmHg (85-104) L 09/04/16 11:12 ABG O2 Saturation 87 % (95-98) L 09/04/16 11:12 - Impressions Impressions Chest X-Ray 09/04/16 08:46 IMPRESSION: 1. Hyperexpanded lungs as can be seen with COPD. 2. Mild bibasilar atelectasis. D/ / Mert Us MD / Mert Us MD Interpreting Provider: Mert Us MD Consult Discharge Plan - Plan Additional Instructions: Follow up with your PCP in the next 3-5 days. Complete Rx as prescribed. If symptoms do not improve or worsen contact your PCP for evaluation or Return to the Emergency department. Referrals: Codie Lloyd MD [Primary Care Provider] - 09/09/16 10:30 am (Please follow up as schedule!!!) <Oscar Leiva - Last Filed: 09/04/16 14:53> - Assessment and plan (1) Acute and chronic respiratory failure with hypoxia Current Visit: Yes Status: Acute (2) Acute hypercapnic respiratory failure Current Visit: Yes Status: Acute Assessment and plan: Trial of bipap this afternoon. (3) COPD exacerbation Current Visit: Yes Status: Acute (4) Diabetes mellitus type 2, insulin dependent Current Visit: Yes Status: Acute (5) Community acquired pneumonia Current Visit: Yes Status: Acute (6) JUAN (obstructive sleep apnea) Current Visit: Yes Status: Acute - Constitutional Vitals: Temp Pulse Resp BP Pulse Ox 97 F L 82 23 136/86 91 L 09/04/16 11:28 09/04/16 11:28 09/04/16 11:45 09/04/16 11:28 09/04/16 11:45 Internal Medicine: Result - Labs CBC & Chem 7: 09/04/16 05:53 09/04/16 05:53 Labs: Short CBC 09/04/16 Range/Units 05:53 WBC 9.4 (4.3-11.1) K/mcL Hgb 13.5 (11.5-15.4) g/dL Hct 42.0 (35.3-44.9) % Plt Count 316 (140-400) K/mcL Neutrophils # 4.9 (1.6-8.9) K/mcL BMP 09/04/16 05:53 Sodium 139 Potassium 3.6 Chloride 101 Carbon Dioxide 29 BUN 23 H Creatinine 0.80 Glucose 97 Calcium 9.7 Liver Function 09/04/16 Range/Units 05:53 Total Bilirubin 0.2 (0.2-1.2) mg/dL AST 11 (5-34) Units/L ALT 18 (0-55) Units/L Alkaline Phosphatase 84 (38-126) Units/L Albumin 3.0 L (3.5-5.0) g/dL - ABG Interpretation ABG results: ABG ABG pH 7.43 pH Units (7.32-7.45) 09/04/16 11:12 ABG pCO2 54 mmHg (35-45) H 09/04/16 11:12 ABG pO2 52 mmHg (85-104) L 09/04/16 11:12 ABG O2 Saturation 87 % (95-98) L 09/04/16 11:12 - Impressions Impressions Chest X-Ray 09/04/16 08:46 IMPRESSION: 1. Hyperexpanded lungs as can be seen with COPD. 2. Mild bibasilar atelectasis. D/ / Mert Us MD / Mert Us MD Interpreting Provider: Mert Us MD - Attending Attestation I examined this patient and my medical decision-making was reviewed with the Resident Physician on 09/04/16. I agree with the documented findings, disposition and treatment plan as described except to the extent set forth below. Ms. Metcalf is currently admitted for acute on chronic hypoxic respiratory failure. She is moderate to high risk due to potential for worsening respiratory status. Ms. Metcalf feels very tired. She slept most of yesterday and is still tired. She feels more dyspneic as well. No fever or chills. No GI symptoms Exam Alert. Comfortable Heart reg Lungs diminished with scattered rhonchi No edema ABGs - Acute resp acidosis and metabolic alkalosis I/P 1. Resp acidosis - trial of bipap and nighttime qualification study. 2. Acute exac COPD 3. DM Further diagnoses and plan as above.
[2016-09-04] MEDS: ALPRAZolam 1 MG TABLET PO PRN ×3 (14:02→23:43)
[2016-09-04] MEDS: Insulin DETEMIR 100 UNIT/ML X5UNITS SQ SCH (20:37)
[2016-09-05] MEDS: Ipratropium/Albuterol Neb 3 ML IH SCH ×6 (03:48→23:12)
[2016-09-05 04:08] LABS: ABG Base Excess 12.8 mEq/L (-2.0 to 3.0); ABG HCO3 40.2 mEQ/L (21-27); ABG Oxygen Saturation 86 % (95-98); ABG PCO2 62 mmHg (35-45); ABG PH 7.42 pH Units (7.32-7.45); ABG TCO2 42.1 mEq/L (20-26); Blood Gas Liter Flow 3 L/MIN
[2016-09-05 04:09] LABS: ABG PO2 50 mmHg (85-104)
[2016-09-05] MEDS: ALPRAZolam 1 MG TABLET PO PRN (06:00)
[2016-09-05] MEDS: *HR* Enoxaparin 40 MG/0.4 ML SYRINGE SQ SCH (06:21)
[2016-09-05] MEDS: predniSONE 20 MG TABLET PO SCH (07:41)
[2016-09-05] MEDS: Lisinopril-HCTZ 20-12.5mg TABLET PO SCH (07:41)
[2016-09-05] MEDS: BuPROPion SR (12 HR) 100 MG TABLET PO SCH (07:41)
[2016-09-05] MEDS: Venlafaxine XR (24 HR) 150 MG CAP.ER.24H PO SCH (07:41)
[2016-09-05] MEDS: levoFLOXacin 750 MG TABLET PO SCH (07:41)
[2016-09-05 07:51] LABS: Basophils # 0.1 K/mcL (0.0-0.2); Basophils % 0.5 %; Eosinophils # 0.3 K/mcL (0.0-0.6); Eosinophils % 2.4 %; Hemoglobin 14.5 g/dL (11.5-15.4); Immature Granulocytes % 0.9 % (0-4); Lymphocytes # 2.9 K/mcL (0.6-4.6); Lymphocytes % 27.3 %; Mean Corpuscular Hemoglobin 30.7 pg (28.0-33.3); Mean Corpuscular Volume 93.2 fL (83.0-100.0); Mean Platelet Volume 10.6 fL (9.4-12.4); Monocytes # 0.7 K/mcL (0.0-1.3); Monocytes % 6.7 %; Neutrophils # 6.7 K/mcL (1.6-8.9); Platelet Count 336 K/mcL (140-400); Red Blood Count 4.72 M/mcL (3.82-4.97); Red Cell Distribution Width 12.7 % (11.5-14.5); Segmented Neutrophils % 62.2 %
[2016-09-05] MEDS: Insulin LISPRO 300 UNITS/3 ML VIAL SQ SCH ×7 (07:54→22:00)
[2016-09-05 08:08] LABS: Alanine Aminotransferase 20 Units/L (0-55); Albumin 3.1 g/dL (3.5-5.0); Albumin/Globulin Ratio 0.9 (1.1-2.2); Alkaline Phosphatase 80 Units/L (38-126); Aspartate Amino Transferase 13 Units/L (5-34); BUN/Creatinine Ratio 24 (6-26); Bilirubin,Total 0.3 mg/dL (0.2-1.2); Blood Urea Nitrogen 21 mg/dL (7-20); Calcium 9.8 mg/dL (8.6-10.8); Carbon Dioxide 31 mEq/L (19-29); Chloride 100 mEq/L (98-109); Globulin 3.3 g/dL (2.4-3.5); Glucose 83 mg/dL (70-99); Osmolality,Calculated 292 (280-300); Potassium 3.5 mEq/L (3.5-4.5); Sodium 140 mEq/L (136-145); Total Protein 6.4 g/dL (6.0-8.3); eGFR For African Americans > 60 (> 60); eGFR For Non-African Americans > 60 (> 60)
--- NOTE | 2016-09-05 16:48 | Internal Med Progress Note ---
Date of Encounter: 09/05/16 Time of Encounter: 08:30 - Assessment and plan (1) Acute and chronic respiratory failure with hypoxia Current Visit: Yes Status: Acute Assessment and plan: Doing better with bipap. Need to make arrangements at home. (2) Acute hypercapnic respiratory failure Current Visit: Yes Status: Acute Assessment and plan: Qualified for bipap at night. Will attempt to make arrangements with home care. (3) COPD exacerbation Current Visit: Yes Status: Acute Assessment and plan: Steroids, aerosols, abx Bipap at night Continue treatment for tonight. (4) Diabetes mellitus type 2, insulin dependent Current Visit: Yes Status: Acute Assessment and plan: Known history of type 2 diabetes with hyperglycemic control including metformin 500 mg by mouth twice a day at home. Glucoses were elevated overnight but are stable today. Improvement after starting by mouth prednisone. 09/05/2016: Glucose stable. Plan: - Before meals at bedtime glucose checks - Continue Levemir, Humalog, high-dose sliding scale. (5) Community acquired pneumonia Current Visit: Yes Status: Acute Assessment and plan: On abx coverage. (6) JUAN (obstructive sleep apnea) Current Visit: Yes Status: Acute Assessment and plan: On bipap at night. - Subjective Interval history: Ms. Metcalf is currently admitted for acute hypoxic respiratory failure. She is moderate to high risk due to potential for worsening respiratory status. Ms. Metcalf is still quite dyspneic. She seems to be doing better with bipap and did qualify. No CP. No GI symptoms. Slept OK last night. - Constitutional Vitals: Temp Pulse Resp BP Pulse Ox 97.5 F L 83 18 127/80 92 L 09/05/16 11:28 09/05/16 11:28 09/05/16 11:28 09/05/16 11:28 09/05/16 11:28 General appearance: Present: cooperative, A&O X 3, pleasant, no acute distress - Head Head exam: Present: normocephalic - Eye Eye exam: Present: conjuntiva pink - ENT ENT exam: Present: mucous membranes moist - Respiratory Respiratory exam: Present: decreased breath sounds, wheezes - Cardiovascular Cardiovascular exam: Present: RRR - GI/Abdominal GI/Abdominal exam: Present: soft. Absent: tenderness - Extremities Exam Extremities exam: Present: pedal edema, warm - Neurological Exam Neurological exam: Present: alert, oriented X3 - Psychiatric Psychiatric exam: Present: normal affect, normal mood - Skin Skin exam: Present: dry, warm. Absent: rash Internal Medicine: Result - Labs CBC & Chem 7: 09/05/16 06:45 09/05/16 06:45 Labs: Short CBC 09/05/16 Range/Units 06:45 WBC 10.7 (4.3-11.1) K/mcL Hgb 14.5 (11.5-15.4) g/dL Hct 44.0 (35.3-44.9) % Plt Count 336 (140-400) K/mcL Neutrophils # 6.7 (1.6-8.9) K/mcL BMP 09/05/16 06:45 Sodium 140 Potassium 3.5 Chloride 100 Carbon Dioxide 31 H BUN 21 H Creatinine 0.89 Glucose 83 Calcium 9.8 Liver Function 09/05/16 Range/Units 06:45 Total Bilirubin 0.3 (0.2-1.2) mg/dL AST 13 (5-34) Units/L ALT 20 (0-55) Units/L Alkaline Phosphatase 80 (38-126) Units/L Albumin 3.1 L (3.5-5.0) g/dL - ABG Interpretation ABG results: ABG ABG pH 7.42 pH Units (7.32-7.45) 09/05/16 04:00 ABG pCO2 62 mmHg (35-45) H 09/05/16 04:00 ABG pO2 50 mmHg (85-104) L* 09/05/16 04:00 ABG O2 Saturation 86 % (95-98) L 09/05/16 04:00 Consult Discharge Plan - Plan Additional Instructions: Follow up with your PCP in the next 3-5 days. Complete Rx as prescribed. If symptoms do not improve or worsen contact your PCP for evaluation or Return to the Emergency department. Referrals: Codie Lloyd MD [Primary Care Provider] - 09/09/16 10:30 am (Please follow up as schedule!!!)
[2016-09-05] MEDS: Insulin DETEMIR 100 UNIT/ML X5UNITS SQ SCH (22:00)
[2016-09-06] MEDS: Ipratropium/Albuterol Neb 3 ML IH SCH ×6 (03:36→23:48)
[2016-09-06] MEDS: *HR* Enoxaparin 40 MG/0.4 ML SYRINGE SQ SCH (05:57)
[2016-09-06] MEDS: Venlafaxine XR (24 HR) 150 MG CAP.ER.24H PO SCH (08:50)
[2016-09-06] MEDS: Lisinopril-HCTZ 20-12.5mg TABLET PO SCH (08:50)
[2016-09-06] MEDS: levoFLOXacin 750 MG TABLET PO SCH (08:50)
[2016-09-06] MEDS: predniSONE 20 MG TABLET PO SCH (08:50)
[2016-09-06] MEDS: BuPROPion SR (12 HR) 100 MG TABLET PO SCH (08:50)
[2016-09-06] MEDS: Insulin LISPRO 300 UNITS/3 ML VIAL SQ SCH ×7 (08:50→22:24)
[2016-09-06] MEDS: ALPRAZolam 1 MG TABLET PO PRN ×2 (08:50→20:10)
--- NOTE | 2016-09-06 15:25 | Internal Med Progress Note ---
Date of Encounter: 09/06/16 Time of Encounter: 07:40 - Assessment and plan (1) Acute and chronic respiratory failure with hypoxia Current Visit: Yes Status: Acute Assessment and plan: She is doing better on bipap at night. Will need set up at home and I have been unable to coordinate it this weekend. (2) Acute hypercapnic respiratory failure Current Visit: Yes Status: Acute Assessment and plan: Qualified for bipap at night. Plan d/c home on bipap tomorrow. (3) COPD exacerbation Current Visit: Yes Status: Acute Assessment and plan: Steroids, aerosols, abx Bipap at night Continue treatment (4) Diabetes mellitus type 2, insulin dependent Current Visit: Yes Status: Acute Assessment and plan: Known history of type 2 diabetes with hyperglycemic control including metformin 500 mg by mouth twice a day at home. Glucoses were elevated overnight but are stable today. Improvement after starting by mouth prednisone. 09/05/2016: Glucose stable. Plan: - Before meals at bedtime glucose checks - Continue Levemir, Humalog, high-dose sliding scale. (5) Community acquired pneumonia Current Visit: Yes Status: Acute Assessment and plan: On abx coverage. (6) JUAN (obstructive sleep apnea) Current Visit: Yes Status: Acute Assessment and plan: On bipap at night. - Subjective Interval history: Ms. Metcalf is currently admitted for acute hypoxic respiratory failure. She is moderate to high risk due to potential for worsening respiratory status. Ms. Metcalf feels better today after using bipap last night. No new issues. Feels ready to go home but needs bipap. I spoke to [facility] care that referred me to [place] [facility]. I spoke to [place] [facility] and was told this cannot be set up on the weekend and will have to wait till Wednesday. - Constitutional Vitals: Temp Pulse Resp BP Pulse Ox 97.8 F 76 18 114/67 91 L 09/06/16 04:30 09/06/16 04:30 09/06/16 10:57 09/06/16 04:30 09/06/16 10:57 General appearance: Present: cooperative, A&O X 3, pleasant, no acute distress - Head Head exam: Present: normocephalic - Eye Eye exam: Present: conjuntiva pink - ENT ENT exam: Present: mucous membranes dry - Respiratory Respiratory exam: Present: decreased breath sounds. Absent: wheezes - Cardiovascular Cardiovascular exam: Present: RRR. Absent: tachycardia - GI/Abdominal GI/Abdominal exam: Present: soft. Absent: tenderness - Extremities Exam Extremities exam: Present: warm. Absent: pedal edema - Neurological Exam Neurological exam: Present: alert, oriented X3 - Psychiatric Psychiatric exam: Present: normal affect, normal mood - Skin Skin exam: Present: warm. Absent: rash Internal Medicine: Result - Labs CBC & Chem 7: 09/05/16 06:45 09/05/16 06:45 - ABG Interpretation ABG results: ABG ABG pH 7.42 pH Units (7.32-7.45) 09/05/16 04:00 ABG pCO2 62 mmHg (35-45) H 09/05/16 04:00 ABG pO2 50 mmHg (85-104) L* 09/05/16 04:00 ABG O2 Saturation 86 % (95-98) L 09/05/16 04:00 Consult Discharge Plan - Plan Additional Instructions: Follow up with your PCP in the next 3-5 days. Complete Rx as prescribed. If symptoms do not improve or worsen contact your PCP for evaluation or Return to the Emergency department. Referrals: Codie Lloyd MD [Primary Care Provider] - 09/09/16 10:30 am (Please follow up as schedule!!!)
[2016-09-06] MEDS: Insulin DETEMIR 100 UNIT/ML X5UNITS SQ SCH (20:10)
[2016-09-07] MEDS: Ipratropium/Albuterol Neb 3 ML IH SCH ×3 (03:57→11:25)
[2016-09-07] MEDS: *HR* Enoxaparin 40 MG/0.4 ML SYRINGE SQ SCH (06:08)
[2016-09-07] MEDS: Insulin LISPRO 300 UNITS/3 ML VIAL SQ SCH ×4 (08:13→11:40)
[2016-09-07] MEDS: predniSONE 20 MG TABLET PO SCH (08:18)
[2016-09-07] MEDS: Venlafaxine XR (24 HR) 150 MG CAP.ER.24H PO SCH (08:18)
[2016-09-07] MEDS: levoFLOXacin 750 MG TABLET PO SCH (08:18)
[2016-09-07] MEDS: BuPROPion SR (12 HR) 100 MG TABLET PO SCH (08:19)
[2016-09-07] MEDS: Lisinopril-HCTZ 20-12.5mg TABLET PO SCH (08:59)
--- NOTE | 2016-09-07 11:22 | Discharge Summary ---
<Abel Granado - Last Filed: 09/07/16 15:07> Date of Encounter: 09/07/16 Time of Encounter: 11:20 - Discharge Diagnosis (1) COPD with respiratory distress, acute Priority: Primary Status: Acute (2) Diabetes mellitus type 2, insulin dependent Priority: Primary Status: Acute (3) Hypokalemia Priority: Primary Status: Acute (4) DVT prophylaxis Priority: Primary Status: Acute - Discharge Medications Home Medications: Albuterol Sulfate [Proair Hfa] 2 puff IH Q4H PRN 09/10/15 [History] Alprazolam [Xanax 1 MG Tablet] 1 mg PO BID PRN 09/10/15 [History] Budesonide/Formoterol 160/4.5 [Symbicort 160/4.5] 2 puff IH BIDR 09/10/15 [ History] Bupropion HCl [Bupropion HCl Sr] 200 mg PO DAILY 09/10/15 [History] Lisinopril/Hydrochlorothiazide [Zestoretic 20-12.5 mg Tablet] 1 tab PO DAILY [History] Metformin HCl [Fortamet] 500 mg PO BID 09/10/15 [History] Quetiapine Fumarate [Seroquel] 50 mg PO HS 09/10/15 [History] Tiotropium [Spiriva] 1 cap IH DAILY 09/10/15 [History] Venlafaxine XR (24 HR) [Effexor Xr] 150 mg PO DAILY 09/10/15 [History] Albuterol Neb [Proventil Neb] 2.5 mg IH Q6H PRN 09/01/16 [History] Allergies/Adverse Reactions: Allergies morphine Allergy (Verified 08/31/16 21:28) Hallucinating simvastatin Adverse Reaction (Verified 08/31/16 21:28) Cramping of the Muscles Date of admission: 09/01/16 09:55 Primary care physician: Codie Lloyd MD Discharging clinician: Abel Granado Anticipated date of discharge: 09/07/16 - Patient Status Disposition: Home, Self-Care Condition: Good Functional capacity at discharge: independent ambulation Overall status at discharge: patient is progressing back to baseline - Discharge Instructions Instructions: Using Oxygen at Home (DC), Chronic Obstructive Pulmonary Disease (DC), BiPAP (GEN) Follow Up With: Codie Lloyd MD [Primary Care Provider] - 09/09/16 10:30 am (Please follow up as schedule!!!) Additional Instructions: Follow up with your PCP in the next 3-5 days. Complete Rx as prescribed. If symptoms do not improve or worsen contact your PCP for evaluation or Return to the Emergency department. - Diet and Activity Activity: increase activity as tolerated Diet: advance to your usual diet Interval History: Mrs. Metcalf 71-year-old female with past medical history significant for hypertension, diabetes, COPD presented to [facility] with one -week history of worsening shortness of breath that progressed to shortness of breath at rest and with exertion minimally. Chest x-ray was completed which did not demonstrate any signs of opacification or acute disease. She was found to be hypoxic and clinical examination demonstrated COPD exacerbation. She is admitted to the general medical floor and started on IV steroids, Levaquin by mouth daily. She was placed on nasal cannula oxygen with her home baseline O2 2 L she required 3-4 L and occasionally wore her CPAP as she thought it improved her shortness of breath. She was switched over the by mouth prednisone daily. Despite the patient wearing her CPAP she continued to have difficulty with shortness of breath and was placed on BiPAP. She underwent BiPAP qualifications for which she met. Patient's ABG demonstrated pH 7.42, PCO2 62, PO2 50, bicarbonate 40.2. Through the remainder of her hospitalization she continued to clinically improve and completed her course of oral antibiotics and oral steroids. She was weaned down to her home baseline of 2 L nasal cane oxygens and discharged on 09/07/2016 with BiPAP set up. During her hospitalization her underlying chronic diseases were also addressed with treatment for her diabetes, hypertension. Hospital course: Ms. Metcalf is a 71 year old female - Time Spent with Patient Total time spent providing and/or coordinating discharge services: - Constitutional Vitals: Temp Pulse Resp BP Pulse Ox 97.6 F 84 19 103/67 93 L 09/07/16 07:42 09/07/16 07:42 09/07/16 07:42 09/07/16 07:42 09/07/16 08:15 General appearance: Present: cooperative, A&O X 3, pleasant, no acute distress - Head Head exam: Present: atraumatic, normocephalic - Eye Eye exam: Present: PERRL, conjuntiva pink, sclera anicteric Pupils: Present: PERRL - ENT ENT exam: Present: mucous membranes moist - Neck Neck exam general surgery: Present: supple, trachea midline. Absent: lymphadenopathy - Respiratory Respiratory exam: Present: CTAB. Absent: accessory muscle use, rales, rhonchi, wheezes - Cardiovascular Cardiovascular exam: Present: RRR, +S1, +S2. Absent: diastolic murmur, gallop, rubs, systolic murmur - GI/Abdominal GI/Abdominal exam: Present: normal bowel sounds, soft, no peritoneal signs. Absent: distended, tenderness - Extremities Exam Extremities exam: Present: warm, radial pulses palpable and symetrical. Absent : calf tenderness, cyanotic, pedal edema - Neurological Exam Neurological exam: Present: CN II-XII intact, oriented X3, no focal deficits. Absent: pronater drift, facial droop, speech deficit - Psychiatric Psychiatric exam: Present: normal affect, normal mood <Oscar Leiva - Last Filed: 09/07/16 18:52> - Discharge Diagnosis (1) Acute and chronic respiratory failure with hypoxia Status: Acute (2) Acute hypercapnic respiratory failure Priority: Primary Status: Acute (3) COPD exacerbation Priority: Primary Status: Acute (4) Diabetes mellitus type 2, insulin dependent Status: Acute (5) Community acquired pneumonia Priority: Secondary Status: Acute (6) JUAN (obstructive sleep apnea) Priority: Secondary Status: Acute Date of admission: 09/01/16 09:55 Primary care physician: Codie Lloyd MD Hospital course: Ms. Metcalf is a 71 year old female - Time Spent with Patient Total time spent providing and/or coordinating discharge services: 40min - Constitutional Vitals: Temp Pulse Resp BP Pulse Ox 97.9 F 82 17 108/62 92 L 09/07/16 11:39 09/07/16 11:39 09/07/16 11:39 09/07/16 11:39 09/07/16 11:39 - Attending Attestation I examined this patient and my medical decision-making was reviewed with the Resident Physician on 09/07/16. I agree with the documented findings, disposition and treatment plan as described except to the extent set forth below. Ms. Metcalf feels well today. Bipap has been set up and is ready at home. Exam Alert. Comfortable Heart reg Lungs clear Plan D/C home today. Follow up as outpatient.
[2016-09-07 11:40] VITALS: BP 108/62
[2016-09-07] MEDS ORDERED: FLU VACC QS2016-17 36MOS UP/PF 0.5 ML SYRINGE IM ONE (13:42)
== END 2016-09-07 14:09 | disposition home or self-care (01) | DRG 189 ==
LOC: 2ANU 19:28 → EMEROO 19:28 → 2ANU 09-01 03:01
PROVIDERS: ADMIT Internal Medicine; ATTEND Internal Medicine

== ENCOUNTER 2016-10-23 21:53 | Inpatient (IN) ==
[2016-10-23] MEDS ORDERED: Ipratropium/Albuterol Neb 3 ML ONE (21:59)
[2016-10-23] MEDS ORDERED: Azithromycin 500 MG in D5% in Water 250 ML IVPB ONE (22:03)
[2016-10-23] MEDS ORDERED: methylPREDNISolone 125 MG/2 ML VIAL IVP ONE (22:03)
[2016-10-23] MEDS ORDERED: Ipratropium/Albuterol Neb 3 ML IH ONE (22:03)
[2016-10-23] MEDS ORDERED: *HR* LORazepam 2 MG/ML VIAL IVP ONE (22:07)
[2016-10-23 22:51] LABS: Basophils # 0.1 K/mcL (0.0-0.2); Basophils % 1.1 %; Eosinophils # 0.9 K/mcL (0.0-0.6); Eosinophils % 6.9 %; Hematocrit 43.5 % (35.3-44.9); Hemoglobin 13.9 g/dL (11.5-15.4); Immature Granulocytes % 0.3 % (0-4); Immature Platelets 4.9 % (1.1-6.1); Lymphocytes # 2.4 K/mcL (0.6-4.6); Lymphocytes % 19.1 %; Mean Corpuscular Hemoglobin 29.6 pg (28.0-33.3); Mean Corpuscular Volume 92.8 fL (83.0-100.0); Monocytes # 0.7 K/mcL (0.0-1.3); Monocytes % 5.7 %; Neutrophils # 8.4 K/mcL (1.6-8.9); Platelet Count 333 K/mcL (140-400); Red Blood Count 4.69 M/mcL (3.82-4.97); Red Cell Distribution Width 12.6 % (11.5-14.5); Segmented Neutrophils % 66.9 %
[2016-10-23 22:55] LABS: VBG HCO3 32.8 mEq/L (21-27); VBG PH 7.4 pH Units (7.32-7.42)
[2016-10-23 23:04] LABS: BUN/Creatinine Ratio 22 (6-26); Blood Urea Nitrogen 20 mg/dL (7-20); Calcium 10.2 mg/dL (8.6-10.8); Carbon Dioxide 30 mEq/L (19-29); Chloride 98 mEq/L (98-109); Glucose 223 mg/dL (70-99); Osmolality,Calculated 302 (280-300); Potassium 3.3 mEq/L (3.5-4.5); Sodium 141 mEq/L (136-145); eGFR For African Americans > 60 (> 60); eGFR For Non-African Americans 59 (> 60)
--- NOTE | 2016-10-24 00:28 | Emergency Department Note ---
Disposition Clinical Impression: COPD exacerbation Disposition: Admitted As Inpatient Condition: Serious General Adult HPI - General Chief complaint: ED Shortness of Breath/Dyspnea Stated complaint: SOB Source: patient Limitations: no limitations Nursing Notes Reviewed: Yes Vital Signs Reviewed: Yes - History of Present Illness HPI Narrative: This is a 71-year-old female presents with concern for dyspnea. She has a history of COPD. Today she had increasing dyspnea and was not responsive to her home oxygen or bronchodilator treatments. She had no increase in productive sputum. She has no hemoptysis. She has no Pain or leg tenderness. She has no fever or chills. She admits that her dyspnea has been worsening over the past week. . Pain Scale: 0 - Related Data Home Medications Medication Instructions Recorded Confirmed ALPRAZolam [Xanax 1 MG Tablet] 1 mg PO BID PRN 09/10/15 10/23/16 Albuterol Sulfate [Proair Hfa] 2 puff IH Q4H PRN 09/10/15 10/23/16 Lisinopril/Hydrochlorothiazide 2 tab PO DAILY 09/10/15 10/23/16 [Zestoretic 20-12.5 mg Tablet] Metformin HCl [Fortamet] 1,500 mg PO DAILY 09/10/15 10/23/16 Quetiapine Fumarate [Seroquel] 50 mg PO HS 09/10/15 10/23/16 Tiotropium [Spiriva] 18 mcg IH DAILY 09/10/15 10/23/16 Venlafaxine XR (24 HR) [Effexor Xr] 150 mg PO DAILY 09/10/15 10/23/16 buPROPion HCl [Bupropion HCl Sr] 200 mg PO QAM 09/10/15 10/23/16 Albuterol Neb [Proventil Neb] 2.5 mg IH Q6H 09/01/16 10/23/16 Ipratropium/Albuterol Neb [Duoneb] 3 ml IH Q6HR PRN 10/23/16 10/23/16 Allergies Allergy/AdvReac Type Severity Reaction Status Date / Time morphine Allergy Hallucinati Verified 08/31/16 21:28 ng simvastatin AdvReac Cramping Verified 08/31/16 21:28 of the Muscles All systems ED: reviewed and negative except as stated. Constitutional: Reports: as per HPI Eyes: Reports: as per HPI ENT ED: Reports: as per HPI Past Medical History - Past Medical History Medical history: Reports: asthma, COPD, diabetes, hyperlipidemia, hypertension, other Surgical history: Reports: non-contributory Psychiatric history: Reports: anxiety, depression - Social History Smoking Status: Current every day smoker Smokeless Tobacco Status: No Alcohol use: Reports: none Drug use: Reports: none Physical Exam - General Limitations: no limitations General appearance: alert - Head Head exam: atraumatic - Eye Eye exam: Present: normal appearance - ENT ENT exam: normal exam - Neck Neck exam: Present: normal inspection - Chest Chest inspection: Present: normal inspection - Respiratory Respiratory exam: Present: wheezes - Cardiovascular Cardiovascular exam: Present: regular rate, normal rhythm - Abdominal Exam Abdominal exam: Present: soft, Non-Tender - Extremities Exam Extremities exam: Present: normal inspection, full ROM - Expanded Lower Extremity Exam Hip/Pelvis exam: Present: normal inspection, full ROM Upper leg exam: Present: normal inspection, full ROM Foot/toe exam: Present: normal inspection Neurovascular/Tendon exam: Present: normal capillary refill Gait: observed and normal - Back Exam Back exam: Present: normal inspection, full ROM - Neurological Exam Neurological exam: Present: alert, oriented X3, CN II-XII intact - Psychiatric Psychiatric exam: Present: normal affect, normal mood - Skin Skin exam: Present: warm, dry Course Vital Signs Temperature 98 F 10/23/16 21:55 Pulse Rate 109 10/23/16 21:55 Respiratory Rate 28 10/23/16 21:55 Blood Pressure 143/105 10/23/16 21:55 O2 Sat by Pulse Oximetry 88 10/23/16 21:55 Temperature 98 F 10/23/16 21:55 Pulse Rate 97 10/23/16 23:39 Respiratory Rate 20 10/24/16 00:19 Blood Pressure 109/91 10/24/16 00:19 O2 Sat by Pulse Oximetry 96 10/23/16 23:39 Oxygen Delivery Oxygen Delivery Bipap Medical Decision Making - [facility] Narrative Medical decision making narrative: EMS was called and the patient was found to be hypoxemic. She was initiated on bronchodilator treatments prior to arrival. She did have increase in her SPO2 was still having moderate dyspnea. She does wear BiPAP at home. I did proceed with initiation of BiPAP therapy. Antibiotic therapy was initiated for COPD exacerbation. Cultures were sent. Bronchodilator treatments were provided. Additionally steroids were administered. The patient will be admitted to the hospitalist team. Her blood gas does not demonstrate significant arrangement however clinically she does have signs of COPD exacerbation. I would proceed with admission for bronchodilator treatments, BiPAP needs and antibiotic therapy - Medical Records Medical records reviewed: Yes I reviewed the patient's medical records. - Lab Data Lab results reviewed: Yes I reviewed the patient's lab results. Result diagrams: 10/23/16 22:39 10/23/16 22:39 Lab Results 10/23/16 10/23/16 10/23/16 Range/Units 22:39 22:39 22:39 WBC 12.6 H (4.3-11.1) K/mcL RBC 4.69 (3.82-4.97) M/mcL Hgb 13.9 (11.5-15.4) g/dL Hct 43.5 (35.3-44.9) % MCV 92.8 (83.0-100.0) fL MCH 29.6 (28.0-33.3) pg MCHC 32.0 (31.6-35.5) g/dL RDW 12.6 (11.5-14.5) % Plt Count 333 (140-400) K/mcL MPV 10.0 (9.4-12.4) fL Immature Gran % 0.3 (0-4) % Seg Neutrophils % 66.9 % Lymphocytes % 19.1 % Monocytes % 5.7 % Eosinophils % 6.9 % Basophils % 1.1 % Neutrophils # 8.4 (1.6-8.9) K/mcL Lymphocytes # 2.4 (0.6-4.6) K/mcL Monocytes # 0.7 (0.0-1.3) K/mcL Eosinophils # 0.9 H (0.0-0.6) K/mcL Basophils # 0.1 (0.0-0.2) K/mcL Immature Plt Fraction 4.9 (1.1-6.1) % VBG pH (7.32-7.42) pH Units VBG pCO2 (41-51) mmHg VBG pO2 (25-40) mmHg VBG HCO3 (21-27) mEq/L Sodium 141 (136-145) mEq/L Potassium 3.3 L (3.5-4.5) mEq/L Chloride 98 (98-109) mEq/L Carbon Dioxide 30 H (19-29) mEq/L BUN 20 (7-20) mg/dL Creatinine 0.93 (0.57-1.11) mg/dL Est GFR ( Amer) > 60 (> 60) Est GFR (Non-Af Amer) 59 L (> 60) BUN/Creatinine Ratio 22 (6-26) Glucose 223 H (70-99) mg/dL Calculated Osmolality 302 H (280-300) Calcium 10.2 (8.6-10.8) mg/dL Troponin I 0.02 (0-0.03) ng/mL B-Natriuretic Peptide (0-100) pg/mL 10/23/16 10/23/16 Range/Units 22:39 22:39 WBC (4.3-11.1) K/mcL RBC (3.82-4.97) M/mcL Hgb (11.5-15.4) g/dL Hct (35.3-44.9) % MCV (83.0-100.0) fL MCH (28.0-33.3) pg MCHC (31.6-35.5) g/dL RDW (11.5-14.5) % Plt Count (140-400) K/mcL MPV (9.4-12.4) fL Immature Gran % (0-4) % Seg Neutrophils % % Lymphocytes % % Monocytes % % Eosinophils % % Basophils % % Neutrophils # (1.6-8.9) K/mcL Lymphocytes # (0.6-4.6) K/mcL Monocytes # (0.0-1.3) K/mcL Eosinophils # (0.0-0.6) K/mcL Basophils # (0.0-0.2) K/mcL Immature Plt Fraction (1.1-6.1) % VBG pH 7.40 (7.32-7.42) pH Units VBG pCO2 53 H (41-51) mmHg VBG pO2 79 H (25-40) mmHg VBG HCO3 32.8 H (21-27) mEq/L Sodium (136-145) mEq/L Potassium (3.5-4.5) mEq/L Chloride (98-109) mEq/L Carbon Dioxide (19-29) mEq/L BUN (7-20) mg/dL Creatinine (0.57-1.11) mg/dL Est GFR ( Amer) (> 60) Est GFR (Non-Af Amer) (> 60) BUN/Creatinine Ratio (6-26) Glucose (70-99) mg/dL Calculated Osmolality (280-300) Calcium (8.6-10.8) mg/dL Troponin I (0-0.03) ng/mL B-Natriuretic Peptide 33 (0-100) pg/mL Critical Care Time Total Critical Care Time: 31 Attestation: I spent greater than 31 minutes providing acute critical care to this patient having respiratory failure. She required noninvasive ventilatory support. Critical care time was excluding billable procedures.
[2016-10-24] MEDS ORDERED: D5% in Water 1,000 ML IVC PRN (05:58)
[2016-10-24] MEDS ORDERED: Naloxone 0.4 MG/ML INJ IVP PRN (05:58)
[2016-10-24] MEDS ORDERED: Albuterol 2.5 MG/3 ML NEBULIZER IH PRN (05:58)
[2016-10-24] MEDS ORDERED: Acetaminophen 325 MG TABLET PO PRN (05:58)
[2016-10-24] MEDS ORDERED: *HR* Dextrose 50 % in Water (Syg) 50 ML SYRINGE IVP PRN (05:58)
[2016-10-24] MEDS ORDERED: Dextrose Gel 15 GM PO PRN ×2 (05:58)
[2016-10-24] MEDS ORDERED: Ondansetron 4 MG/2 ML VIAL IVP PRN (05:58)
--- NOTE | 2016-10-24 06:15 | Internal Med History&Physical ---
Date of Encounter: 10/24/16 Time of Encounter: 06:08 Assessment and Plan (1) Acute and chronic respiratory failure with hypoxia Current visit: No Status: Acute 1. Pt on BiPap since ER admission. 2. She feels better on BiPap. Will continue it QHS and PRN for daytime. 3. Wean oxygen as able to maintain O2 sats 88-92%. 4. Frequent aerosols with Mucomyst added. 5. Patient smoke free for the last month and a half. (2) COPD exacerbation Current visit: No Status: Acute 1. IV steroids, IV antibiotics, frequent aerosols, supportive measures as above. 2. Pt currently smoke free. 3. Wean off BiPap as tolerated. (3) Type 2 diabetes mellitus Current visit: Yes Status: Chronic 1. Hold Metformin. 2. Will check A1C. 3. Will use SSI for coverage and adjust as necessary. 4. Monitor glucose and adjust accordingly. Qualifiers: Diabetes mellitus complication status: without complication Diabetes mellitus intermediate project manager insulin use: without intermediate project manager use Qualified Code(s): E11.9 - Type 2 diabetes mellitus without complications (4) DVT prophylaxis Current visit: No Status: Acute 1. Heparin SQ. Internal Medicine - H&P: HPI Chief complaint: cough, wheeze, SOB Admitted From: Emergency Dept Plans for Post Hospital Care: Home History of present illness: Ms. Metcalf is a 71 year old female who presents with about 1 week history of coughing, wheezing, worsening shortness of breath, and progressive respiratory distress. She wears oxygen at home and uses a nebulizer, but, despite these, her symptoms worsened to the point where she could not catch her breath. She was having significant anxiety and air hunger. She therefore came to the ER for evaluation. She was seen and evaluated and treated for COPD flareups with respiratory failure. She was placed on BiPAP with stabilization of symptoms. She was subsequently admitted to the hospitalist service. Upon my assessment of the patient, she is sleeping comfortably on the BiPAP. I temporarily removed her BiPAP to assess her and to talk with her. She had a little increased shortness of breath and air hunger off BiPAP, but she seems to be improving compared to her presentation in the ER. She is audibly wheezing, tachypneic, using accessory muscles to breathe, and has some conversational dyspnea. Nonetheless, she states she has improved immensely since her ER visit tonight. She denies any fevers, but she does confirm her cough, congestion, profound wheezing and shortness of breath, and anxiety secondary to her air hunger. She was recently hospitalized about a month and half ago for similar symptoms. She had been a chronic heavy smoker until then. However, she has been smoke free since her last admission about a month and half ago. She denies any ill contacts other than her hospital exposure last month or two. She denies any vomiting or diarrhea. Appetite has been stable. Past Med Surg Social Fam HX - Past Medical History Attestation: Yes The following information was validated with the patient. Source: patient, old records reviewed Medical history: asthma, COPD, diabetes, hyperlipidemia, hypertension Psychiatric history: anxiety, depression - Past Surgical History Surgical History: orthopedic, other (right knee and ankle) - Social History Smoking Status: Former smoker Smokeless Tobacco Status: No Alcohol use: none Drug use: none Current living situation: Home, With Family Activity Level: Independent ambulation, Uses cane/walker - Family History Mother Living Status: Cause of : chf Hx Family Cardiac Disorders: Yes (chf) Hx Family Endocrine Disorder: Yes (dm) Father Living Status: Age at : 71 Cause of : alzheimers Internal Medicine - H&P: Meds ALPRAZolam [Xanax 1 MG Tablet] 1 mg PO BID PRN 09/10/15 [History] Albuterol Sulfate [Proair Hfa] 2 puff IH Q4H PRN 09/10/15 [History] Lisinopril/Hydrochlorothiazide [Zestoretic 20-12.5 mg Tablet] 2 tab PO DAILY [History] Metformin HCl [Fortamet] 1,500 mg PO DAILY 09/10/15 [History] Quetiapine Fumarate [Seroquel] 50 mg PO HS 09/10/15 [History] Tiotropium [Spiriva] 18 mcg IH DAILY 09/10/15 [History] Venlafaxine XR (24 HR) [Effexor Xr] 150 mg PO DAILY 09/10/15 [History] buPROPion HCl [Bupropion HCl Sr] 200 mg PO QAM 09/10/15 [History] Albuterol Neb [Proventil Neb] 2.5 mg IH Q6H 09/01/16 [History] Ipratropium/Albuterol Neb [Duoneb] 3 ml IH Q6HR PRN 10/23/16 [History] Allergies morphine Allergy (Verified 08/31/16 21:28) Hallucinating simvastatin Adverse Reaction (Verified 08/31/16 21:28) Cramping of the Muscles - Constitutional Constitutional: no chills, no fever(s) - EENT Eyes: no blurry vision, no change in vision Ears: no ear pain, no tinnitus Nose, mouth and throat: nasal congestion, post-nasal drip, no sinus pain, no sinus pressure, no sore throat - Cardiovascular Cardiovascular ROS IM: dyspnea, dyspnea on exertion, no chest pain, no edema, no lightheadedness, no syncope - Respiratory Respiratory: cough, dyspnea, dyspnea on exertion, wheezing, chest congestion, excessive phlegm production, change in phlegm color, no hemoptysis, no pain on inspiration - Gastrointestinal Gastrointestinal: no abdominal pain, no diarrhea, no hematemesis, no hematochezia, no melena, no vomiting - Genitourinary Genitourinary: no dysuria, no flank pain, no hematuria - Musculoskeletal Musculoskeletal ROS IM: arthralgias, no back pain - Integumentary Integumentary IM: no rash, no jaundice - Neurological Neurological ROS: no disequilibrium, no dizziness, no focal weakness, no frequent falls, no headache(s) - Psychiatric Psychiatric: no anxiety, no confusion - Endocrine Endocrine IM: no cold intolerance, no heat intolerance, no polydipsia, no polyuria - Hematologic/Lymphatic Hematologic/Lymphatic: easy bruising, no lymphadenopathy - Allergic/Immunologic Allergic/Immunologic: wheezing, no GI upset with certain foods - Constitutional Vitals: Temp Pulse Resp BP Pulse Ox 97.0 F L 87 14 134/94 92 10/24/16 05:13 10/24/16 05:13 10/24/16 05:13 10/24/16 05:13 10/24/16 05:13 General appearance: Present: cooperative, mild distress, A&O X 3, pleasant, answers questions appropriately - Head Head exam: Present: atraumatic, normal inspection - Expanded Head Exam Head exam expanded: Absent: abrasion, contusion, general tenderness - Eye Eye exam: Present: EOMI, normal appearance, PERRL. Absent: scleral icterus Pupils: Present: normal accommodation - ENT ENT exam: Present: mucous membranes dry, normal exam, normal oropharynx - Neck Neck exam general surgery: Present: full ROM, supple. Absent: lymphadenopathy, nuchal rigidity, thyromegaly - Respiratory Respiratory exam: Present: accessory muscle use, decreased breath sounds, prolonged expiratory phase, respiratory distress (mild), rhonchi, wheezes, tachypnea. Absent: CTAB, rales - Cardiovascular Cardiovascular exam: Present: RRR, +S1, +S2. Absent: diastolic murmur, systolic murmur - GI/Abdominal GI/Abdominal exam: Present: normal bowel sounds, soft. Absent: guarding, hepatomegaly, mass, rebound, splenomegaly, tenderness - Extremities Exam Extremities exam: Present: full ROM. Absent: calf tenderness, tenderness, warm - Back Exam Back exam: Present: normal inspection. Absent: CVA tenderness (L), CVA tenderness (R) - Neurological Exam Neurological exam: Present: alert, CN II-XII intact, oriented X3, no focal deficits, strengths equal and symetr throughout - Psychiatric Psychiatric exam: Present: normal affect, normal mood - Skin Skin exam: Present: dry, warm Internal Med - H&P Results - Labs CBC & Chem 7: 10/23/16 22:39 10/23/16 22:39 - Diagnostic Studies Chest x-ray Status: image reviewed by me (negative)
[2016-10-24 06:38] LABS: Basophils % 0.4 %; Eosinophils % 0.3 %; Hematocrit 42.7 % (35.3-44.9); Hemoglobin 13.9 g/dL (11.5-15.4); Immature Granulocytes % 0.5 % (0-4); Lymphocytes # 0.7 K/mcL (0.6-4.6); Mean Corpuscular HGB Conc 32.6 g/dL (31.6-35.5); Mean Corpuscular Hemoglobin 30.3 pg (28.0-33.3); Mean Platelet Volume 10.4 fL (9.4-12.4); Monocytes # 0.1 K/mcL (0.0-1.3); Neutrophils # 6.9 K/mcL (1.6-8.9); Platelet Count 306 K/mcL (140-400); Red Blood Count 4.59 M/mcL (3.82-4.97); Red Cell Distribution Width 12.8 % (11.5-14.5); Segmented Neutrophils % 88.8 %
[2016-10-24 06:43] LABS: BUN/Creatinine Ratio 26 (6-26); Blood Urea Nitrogen 24 mg/dL (7-20); Calcium 10.2 mg/dL (8.6-10.8); Carbon Dioxide 25 mEq/L (19-29); Chloride 99 mEq/L (98-109); Glucose 239 mg/dL (70-99); Osmolality,Calculated 300 (280-300); Potassium 3.8 mEq/L (3.5-4.5); Sodium 139 mEq/L (136-145); eGFR For African Americans > 60 (> 60); eGFR For Non-African Americans > 60 (> 60)
[2016-10-24] MEDS: *HR* Heparin 5,000 UNIT/ML VIAL SQ SCH ×2 (06:57→17:09)
[2016-10-24 07:02] LABS: Platelet Estimate Normal (Normal)
[2016-10-24 07:41] LABS: Hemoglobin A1C 7.8 %
[2016-10-24] MEDS: Azithromycin 250 MG TABLET PO SCH (09:03)
[2016-10-24] MEDS: Acetylcysteine 10% 2 ML INHSOL IH SCH ×4 (09:03→23:19)
[2016-10-24] MEDS: Ipratropium/Albuterol Neb 3 ML IH SCH ×4 (09:03→21:52)
[2016-10-24] MEDS: Venlafaxine XR (24 HR) 150 MG CAP.ER.24H PO SCH (09:04)
[2016-10-24] MEDS: BuPROPion SR (12 HR) 100 MG TABLET PO SCH (09:04)
[2016-10-24] MEDS: Insulin LISPRO 300 UNITS/3 ML VIAL SQ SCH ×4 (09:04→21:07)
[2016-10-24] MEDS: methylPREDNISolone 125 MG/2 ML VIAL IVP SCH ×2 (09:05→17:10)
[2016-10-24] MEDS: 0.9 % Sodium Chloride w KCl 20 MEQ/1,000 ML MLS IVC SCH (09:06)
[2016-10-24] MEDS ORDERED: GuaiFENesin Liq 200 MG/10 ML UDC PO PRN (11:39)
[2016-10-24] MEDS ORDERED: GuaiFENesin Liq 200 MG/10 ML UDC PO SCH (12:00)
[2016-10-24] MEDS: ALPRAZolam 1 MG TABLET PO PRN (21:06)
[2016-10-25] MEDS: methylPREDNISolone 125 MG/2 ML VIAL IVP SCH ×4 (00:12→23:40)
[2016-10-25] MEDS: 0.9 % Sodium Chloride w KCl 20 MEQ/1,000 ML MLS IVC SCH (00:15)
[2016-10-25] MEDS: Ipratropium/Albuterol Neb 3 ML IH SCH ×4 (04:48→22:45)
[2016-10-25] MEDS: Acetylcysteine 10% 2 ML INHSOL IH SCH ×4 (04:49→22:45)
[2016-10-25] MEDS: *HR* Heparin 5,000 UNIT/ML VIAL SQ SCH ×2 (05:36→17:39)
[2016-10-25] MEDS: Azithromycin 250 MG TABLET PO SCH (05:37)
[2016-10-25] MEDS: Venlafaxine XR (24 HR) 150 MG CAP.ER.24H PO SCH (09:31)
[2016-10-25] MEDS: Insulin LISPRO 300 UNITS/3 ML VIAL SQ SCH ×4 (09:31→20:27)
[2016-10-25] MEDS: BuPROPion SR (12 HR) 100 MG TABLET PO SCH (09:31)
--- NOTE | 2016-10-25 10:03 | Internal Med Progress Note ---
Date of Encounter: 10/25/16 Time of Encounter: 09:45 - Assessment and plan (1) Acute and chronic respiratory failure with hypoxia Current Visit: Yes Status: Acute Assessment and plan: Wean oxygen down as able. Continue supportive care at this time. (2) COPD exacerbation Current Visit: Yes Status: Acute Assessment and plan: Continues to have significant issues with secretions. On aerosols, steroids, abx and oxygen. Will make sure on mucolytic. Continuing same plan of care for today. (3) Type 2 diabetes mellitus Current Visit: Yes Status: Chronic Assessment and plan: Blood sugars worse with steroids. Continue meds and coverage. Qualifiers: Diabetes mellitus complication status: with hyperglycemia Diabetes mellitus medical terminologist insulin use: without jail use Qualified Code(s): E11.65 - Type 2 diabetes mellitus with hyperglycemia (4) JUAN (obstructive sleep apnea) Current Visit: Yes Status: Chronic Assessment and plan: Continue home treatment. - Subjective Interval history: Ms. Metcalf is currently admitted for acute exac COPD and hypoxic resp failure. She is moderate to high risk due to potential for worsening respiratory status. Ms Metcalf feels OK but still has a lot of congestion in her chest. She is having trouble mobilizing secretions especially from L side. No fever or chills. No GI symptoms. - Constitutional Vitals: Temp Pulse Resp BP Pulse Ox 98.3 F 108 18 163/98 91 10/25/16 07:38 10/25/16 07:38 10/25/16 07:38 10/25/16 07:38 10/25/16 07:38 General appearance: Present: cooperative, A&O X 3, pleasant, answers questions appropriately - Head Head exam: Present: normocephalic - Eye Eye exam: Present: EOMI, conjuntiva pink - ENT ENT exam: Present: mucous membranes moist - Respiratory Respiratory exam: Present: prolonged expiratory phase, rhonchi, wheezes - Cardiovascular Cardiovascular exam: Present: RRR. Absent: systolic murmur, tachycardia - GI/Abdominal GI/Abdominal exam: Present: soft. Absent: mass, tenderness - Extremities Exam Extremities exam: Present: warm. Absent: pedal edema, tenderness - Neurological Exam Neurological exam: Present: alert, oriented X3, no focal deficits - Psychiatric Psychiatric exam: Present: normal affect, normal mood - Skin Skin exam: Present: dry, warm. Absent: rash Internal Medicine: Result - Labs CBC & Chem 7: 10/24/16 06:23 10/24/16 06:23 Consult Discharge Plan - Plan Referrals: Codie Lloyd MD [Primary Care Provider] -
[2016-10-25] MEDS: Lisinopril-HCTZ 20-12.5mg TABLET PO SCH (12:26)
--- NOTE | 2016-10-25 12:35 | Electrocardiograph Report ---
[place] [id number] Test Date: 2016-10-23 Pat Name: Nova Metcalf Department: 105 Room: 2N8 Gender: F Irrigator: ADITHYA : 1945 Requested By: Som Mari Order Number: [id number] Reading MD: Pj Warren Measurements Intervals [place] Rate: 106 P: 73 GA: 148 QRS: 31 QRSD: 77 T: 71 QT: 328 QTc: 390 Interpretive Statements SINUS TACHYCARDIA ABNORMAL RHYTHM ECG Electronically Signed On 10-25-2016 12:34:18 EDT by Pj Warren
[2016-10-25] MEDS: ALPRAZolam 1 MG TABLET PO PRN (20:26)
[2016-10-26 03:49] LABS: Hematocrit 40.8 % (35.3-44.9); Hemoglobin 13.3 g/dL (11.5-15.4); Mean Corpuscular HGB Conc 32.6 g/dL (31.6-35.5); Mean Corpuscular Hemoglobin 29.5 pg (28.0-33.3); Mean Corpuscular Volume 90.5 fL (83.0-100.0); Mean Platelet Volume 10.4 fL (9.4-12.4); Platelet Count 342 K/mcL (140-400); Red Blood Count 4.51 M/mcL (3.82-4.97); Red Cell Distribution Width 12.1 % (11.5-14.5)
[2016-10-26 03:56] LABS: BUN/Creatinine Ratio 29 (6-26); Blood Urea Nitrogen 25 mg/dL (7-20); Calcium 10.2 mg/dL (8.6-10.8); Carbon Dioxide 28 mEq/L (19-29); Chloride 98 mEq/L (98-109); Glucose 269 mg/dL (70-99); Magnesium 1.9 mg/dL (1.6-2.6); Osmolality,Calculated 298 (280-300); Potassium 3.8 mEq/L (3.5-4.5); Sodium 137 mEq/L (136-145); eGFR For African Americans > 60 (> 60); eGFR For Non-African Americans > 60 (> 60)
[2016-10-26] MEDS: Ipratropium/Albuterol Neb 3 ML IH SCH ×4 (04:30→21:10)
[2016-10-26] MEDS: Acetylcysteine 10% 2 ML INHSOL IH SCH ×3 (04:30→16:06)
[2016-10-26] MEDS: Azithromycin 250 MG TABLET PO SCH (05:35)
[2016-10-26] MEDS: *HR* Heparin 5,000 UNIT/ML VIAL SQ SCH ×2 (05:36→17:34)
[2016-10-26] MEDS: Lisinopril-HCTZ 20-12.5mg TABLET PO SCH (08:42)
[2016-10-26] MEDS: ALPRAZolam 1 MG TABLET PO PRN ×3 (08:42→20:33)
[2016-10-26] MEDS: BuPROPion SR (12 HR) 100 MG TABLET PO SCH (08:43)
[2016-10-26] MEDS: methylPREDNISolone 125 MG/2 ML VIAL IVP SCH ×2 (08:43→17:34)
[2016-10-26] MEDS: Venlafaxine XR (24 HR) 150 MG CAP.ER.24H PO SCH (08:43)
[2016-10-26] MEDS: Insulin LISPRO 300 UNITS/3 ML VIAL SQ SCH ×4 (08:44→20:33)
--- NOTE | 2016-10-26 11:34 | Internal Med Progress Note ---
<Kamari Jimenes - Last Filed: 10/26/16 16:34> Date of Encounter: 10/26/16 Time of Encounter: 11:32 - Assessment and plan (1) Acute and chronic respiratory failure with hypoxia Current Visit: Yes Status: Acute Assessment and plan: 71-year-old female history of COPD, generalized anxiety disorder, hypertension presents with chief complaint of shortness of breath that has been worsening for the last 3 days with worsening cough that is nonproductive. Patient states that she had increasing chest congestion, and her shortness of breath was refractory to bronchodilators, nebulizer treatments. She is on 2 L of oxygen at home. Patient was admitted for COPD exacerbation. Last month patient was discharged for pneumonia and she has had multiple previous admissions for COPD exacerbation. Patient had chest CT on 02/27 which showed 2-3 mm pulmonary nodules scattered throughout. Patient quit tobacco smoking 1 month ago. Secondary to COPD exacerbation. Chest x-ray is negative for any acute process. Lung exam clear to auscultation bilaterally however patient continues to have symptoms of shortness of breath and chest tightness. PFTs: FEV1/FVC <80%, FEV1 65%, obstructive process. Continue ceftriaxone, azithromycin, prednisone, bronchodilators, acetylcysteine. Patient states that the acetylcysteine has not helped break down her sputum. Repeat CT chest w/ contrast. (2) Chest tightness Current Visit: Yes Status: Acute Assessment and plan: Patient states that she had chest tightness starting this morning. If substernal, does not radiate, not associated nausea, sweating, does not worsen or improve her shortness of breath. On admission troponin was 0.02. She was sinus tachycardic. Patient does have a history of anxiety and states that she has had similar symptoms with panic attacks. She has risk factors for heart disease including history of smoking, age, hypertension, hyperlipidemia, sleep apnea. We will obtain echocardiogram for further evaluation. We will start patient on 81 mg aspirin and atorvastatin 40 mg. (3) COPD exacerbation Current Visit: Yes Status: Acute Assessment and plan: Continue bronchodilators, Solu-Medrol, ceftriaxone, Zithromax. patient is right now requiring 3 L oxygen via nasal cannula which is increased over 2 L at home. Continue to monitor respiratory status. (4) JUAN (obstructive sleep apnea) Current Visit: Yes Status: Chronic Assessment and plan: Patient is on BiPAP at night at home. She states that it does not seem to be helping her breathing. We will consult respiratory for evaluation of BiPAP settings. (5) DVT prophylaxis Current Visit: Yes Status: Acute Assessment and plan: Heparin subcutaneous. (6) Type 2 diabetes mellitus Current Visit: Yes Status: Chronic Assessment and plan: Patient's glucose has been elevated secondary to steroid use. start 20 units Levemir at night. Continue sliding scale insulin. Continue diabetic diet. Qualifiers: Diabetes mellitus complication status: with hyperglycemia Diabetes mellitus residential insulin use: without tank terminal gauger use Qualified Code(s): E11.65 - Type 2 diabetes mellitus with hyperglycemia (7) Anxiety Current Visit: Yes Status: Acute Assessment and plan: Patient has history of generalized anxiety. She is being treated with Wellbutrin, Seroquel, Xanax, venlafaxine. We will continue this today. - Subjective Interval history: This morning patient states that she has substernal chest tightness. She has not had this at admission. Chest tightness does not worsen or improve with breathing. She denies any nausea, sweating, lightheadedness. Patient's shortness of breath is improved since admission. She is requiring 3 L of oxygen via nasal cannula an increase from her 2 L at home. Patient does say she has history of anxiety, panic attacks and has chest tightness during those episodes. Patient also states that she has BiPAP at night which does not seem to help her. She may require a change of BiPAP settings. - Constitutional Vitals: Temp Pulse Resp BP Pulse Ox 97.2 F L 87 16 154/88 95 10/26/16 07:06 10/26/16 09:01 10/26/16 10:50 10/26/16 09:01 10/26/16 10:50 General appearance: Present: cooperative, A&O X 3, pleasant, answers questions appropriately - Respiratory Respiratory exam: Present: CTAB - Cardiovascular Cardiovascular exam: Present: RRR, +S1, +S2. Absent: diastolic murmur, gallop, rubs, systolic murmur - Extremities Exam Extremities exam: Present: warm, radial pulses palpable and symetrical. Absent : calf tenderness, cyanotic, pedal edema - Psychiatric Psychiatric exam: Present: anxious Internal Medicine: Result - Labs CBC & Chem 7: 10/26/16 03:31 10/26/16 03:31 Labs: Short CBC 10/26/16 Range/Units 03:31 WBC 16.8 H D (4.3-11.1) K/mcL Hgb 13.3 (11.5-15.4) g/dL Hct 40.8 (35.3-44.9) % Plt Count 342 (140-400) K/mcL [facility] 10/26/16 03:31 Sodium 137 Potassium 3.8 Chloride 98 Carbon Dioxide 28 BUN 25 H Creatinine 0.85 Glucose 269 H Calcium 10.2 Consult Discharge Plan - Plan Referrals: Codie Lloyd MD [Primary Care Provider] - <Oscar Leiva - Last Filed: 10/26/16 18:10> Date of Encounter: 10/26/16 - Assessment and plan (1) Acute and chronic respiratory failure with hypoxia Current Visit: Yes Status: Acute (2) COPD exacerbation Current Visit: Yes Status: Acute (3) Type 2 diabetes mellitus Current Visit: Yes Status: Chronic Qualifiers: Diabetes mellitus complication status: with hyperglycemia Diabetes mellitus tank terminal gauger insulin use: without residential use Qualified Code(s): E11.65 - Type 2 diabetes mellitus with hyperglycemia (4) JUAN (obstructive sleep apnea) Current Visit: Yes Status: Chronic (5) Anxiety Current Visit: Yes Status: Acute - Constitutional Vitals: Temp Pulse Resp BP Pulse Ox 98.0 F 88 20 161/96 91 10/26/16 15:39 10/26/16 15:39 10/26/16 16:08 10/26/16 15:39 10/26/16 16:08 Internal Medicine: Result - Labs CBC & Chem 7: 10/26/16 03:31 10/26/16 03:31 Labs: Short CBC 10/26/16 Range/Units 03:31 WBC 16.8 H D (4.3-11.1) K/mcL Hgb 13.3 (11.5-15.4) g/dL Hct 40.8 (35.3-44.9) % Plt Count 342 (140-400) K/mcL [facility] 10/26/16 03:31 Sodium 137 Potassium 3.8 Chloride 98 Carbon Dioxide 28 BUN 25 H Creatinine 0.85 Glucose 269 H Calcium 10.2 - Impressions Impressions Chest CT 10/26/16 13:45 IMPRESSION: Bronchitis, with endobronchial secretions within lower lobe bronchi and bilateral lower lobe atelectasis Chronic atelectasis in the right middle lobe and lingula Pulmonary emphysema and stable tiny left lung nodules compatible with granulomas D/ / Kendrick Sheikh MD / Kendrick Sheikh MD Interpreting Provider: Kendrick Sheikh MD - Attending Attestation I examined this patient and my medical decision-making was reviewed with the Resident Physician on 10/26/16. I agree with the documented findings, disposition and treatment plan as described except to the extent set forth below. Ms. Metcalf is currently admitted for acute resp failure and COPD. She is moderate to high risk due to potential for worsening resp status. Ms. Metcalf had a panic attack this AM. She is worried about the progression of her disease and the future. She is breathing better now. Exam Alert. Comfortable Some wheeze noted at rest Heart reg I/P 1. Resp failure 2. COPD Further diagnoses and plan as above.
[2016-10-26] MEDS: Aspirin Enteric Coated 81 MG Tablet PO SCH (15:11)
--- NOTE | 2016-10-26 15:57 | Pulmonology Consult Note ---
<LoyAbel Young - Last Filed: 10/26/16 17:34> Date of Encounter: 10/26/16 Time of Encounter: 15:52 Assessment and Plan (1) Acute and chronic respiratory failure with hypoxia Current Visit: Yes Status: Acute 71-year-old female with a history of moderate COPD, oxygen dependent on 2 L at home, obstructive sleep apnea admitted to the emergency department on 2016 with acute respiratory distress with a VBG of pH 7.40, PCO2 53, PO2 79 and bicarbonate 32.8 and was placed on BiPAP. - She is currently on 3 L nasal cannula oxygen, continues to have dyspnea but improving clinically. - Chest CT demonstrated bronchitis with endobronchial secretions within lower lobe bronchiolitis and bilateral lower lobe atelectasis, chronic atelectasis and right middle lobe and lingula, pulmonary emphysema and stable tiny left lung nodules compatible with granulomas. Atalectasis may be from mucous causing distal bronchial obstruction, in association with recurrent COPD exacerbations will likely benefit from Bronchoscope. Plan: - Continue treatment of acute COPD exacerbation - Continue to wean oxygen down to patient's baseline with a goal oxygen saturation of 89-92% - Continue DuoNeb every 6 hours scheduled, albuterol nebulizer every 2 hours when necessary - Discontinue methylprednisone and start prednisone by mouth 40 mg for a total of 5 days. - Discontinue acetylcysteine inhaled - NPO after midnight for possible bronchoscopy tomorrow - Start scheduled Acapella at bedside (2) COPD exacerbation Current Visit: Yes Status: Acute Known history of COPD requiring 2 L oxygen baseline at home, recent hospital discharge for acute COPD exacerbation in August 2016. - Current symptoms of hypoxia, increased oxygen demand, admitted with leukocytosis, currently leukocytosis likely secondary to steroids. - Pulmonary function tests completed 03/13/2016 demonstrated [id number] 63% pre- bronchial and 65% post-bronchial, FEV1 was 65% pre-bronchial and 68% post- bronchial correlates with a gold stage II moderate COPD. - Home therapies include Spiriva, DuoNeb's every 6 hours when necessary, albuterol nebulizer every 6 hours when necessary, pro-air inhaler every 4 hours when necessary, nasal cannula oxygen. Plan: - Treatments and steroids as listed above - Continue azithromycin and ceftriaxone (3) JUAN (obstructive sleep apnea) Current Visit: Yes Status: Chronic Patient has checked his sleep apnea uses BiPAP at home. - Continue BiPAP therapy during inpatient stay. (4) Diabetes mellitus type 2, insulin dependent Current Visit: No Status: Acute Patient is a known type II diabetic with a hemoglobin A1c of 7.8. Patient is been hyperglycemic since admission. Current therapy is complicated by IV Solu- Medrol. Plan: Continue ACHS glucose checks - Continue treatment with basal insulin and in patient's sliding scale. Defer diabetes control to primary team - Appropriate glucose control is optimal for healing. History of Present Illness Consult date: 10/26/16 Requesting physician: Kamari Jimenes Reason for consult: hypoxemia Chief complaint: shortness of breath History of present illness: Mrs. Metcalf 71-year-old female with known COPD 2 L oxygen dependent at home, obstructive sleep apnea with BiPAP use at night, hypertension, type 2 diabetes was admitted to [facility] 10/24/2016 with COPD exacerbation. She presented with 1 week history of coughing, wheezing, worsening shortness of breath, and progressive respiratory distress. She wears oxygen at home and uses a nebulizer, but, despite these, her symptoms worsened to the point where she could not catch her breath. She describes symptoms of air hunger and induced anxiety. She has been coughing without sputum production. She denies any fevers, chills, sweating, hemoptysis, weight loss. She was recently discharged 09/07/2016 after treatment for acute COPD exacerbation. She has been wearing her BiPAP nightly, wears 2 L nasal cannula oxygen throughout the day. She has been compliant with her inhalers and nebulizers. She followed up recently with Dr. Clayton post hospitalization in the outpatient pulmonology clinic in the evening of September. 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 She denies any dust or other toxic exposures. She has a 50 year pack history regarding smoking and quit after her last hospitalization in August. She has not smoked since. Past Med Surg Social Fam HX - Past Medical History Medical history: asthma, COPD, diabetes, hyperlipidemia, hypertension Psychiatric history: anxiety, depression - Past Surgical History Surgical History: orthopedic, other (right knee and ankle) - Social History Smoking Status: Former smoker Smokeless Tobacco Status: No Alcohol use: none Drug use: none - Family History Mother Living Status: Cause of : chf Hx Family Cardiac Disorders: Yes (chf) Hx Family Endocrine Disorder: Yes (dm) Father Living Status: Age at : 71 Cause of : alzheimers Medications and Allergies ALPRAZolam [Xanax 1 MG Tablet] 1 mg PO BID PRN 09/10/15 [History] Albuterol Sulfate [Proair Hfa] 2 puff IH Q4H PRN 09/10/15 [History] Lisinopril/Hydrochlorothiazide [Zestoretic 20-12.5 mg Tablet] 2 tab PO DAILY [History] Metformin HCl [Fortamet] 1,500 mg PO DAILY 09/10/15 [History] Quetiapine Fumarate [Seroquel] 50 mg PO HS 09/10/15 [History] Tiotropium [Spiriva] 18 mcg IH DAILY 09/10/15 [History] Venlafaxine XR (24 HR) [Effexor Xr] 150 mg PO DAILY 09/10/15 [History] buPROPion HCl [Bupropion HCl Sr] 200 mg PO QAM 09/10/15 [History] Albuterol Neb [Proventil Neb] 2.5 mg IH Q6H 09/01/16 [History] Ipratropium/Albuterol Neb [Duoneb] 3 ml IH Q6HR PRN 10/23/16 [History] Allergies morphine Allergy (Verified 08/31/16 21:28) Hallucinating simvastatin Adverse Reaction (Verified 08/31/16 21:28) Cramping of the Muscles All Systems: A 10-system review of systems was performed and is negative for pertinent findings except as documented above in the HPI. - Constitutional Constitutional: no anorexia, no chills, no excessive sweating, no fatigue, no night sweats, no weakness - EENT Eyes: no loss of vision - Cardiovascular Cardiovascular: dyspnea, dyspnea on exertion, no chest pain, no edema, no irregular heart rhythm, no leg edema, no orthopnea - Respiratory Respiratory: cough, dyspnea, dyspnea on exertion, wheezing, chest congestion, no hemoptysis, no excessive phlegm production - Gastrointestinal Gastrointestinal: no abdominal pain - Genitourinary Genitourinary: no dysuria, no urinary frequency - Musculoskeletal Musculoskeletal: no weakness, no myalgias, no numbness - Neurological Neurological: no dizziness, no weakness - Psychiatric Psychiatric: no anxiety - Allergic/Immunologic Allergic/Immunologic: wheezing, no throat swelling, no itchy eyes Physical Examination Vital Signs: Vital Signs, Last 4 Hours Temp Pulse Resp BP Pulse Ox 10/26/16 15:39 98.0 F 88 16 161/96 91 10/26/16 15:23 89 20 153/82 92 10/26/16 15:20 94 10/26/16 11:57 97.2 F L 94 16 131/96 94 General appearance: no acute distress, alert Eyes: nonicteric ENT: oropharynx moist Mallampati (class): 3 Neck: supple Effort: normal Inspection: normal Auscultation: bilateral: wheezes, rhonchi Cardiovascular: regular rate and rhythm Gastrointestinal: normoactive bowel sounds, soft, non-distended Integumentary: normal Extremities: no cyanosis, pink and warm Musculoskeletal: no deformities normal mental status, non-focal exam, pupils equal and round mood appropriate, affect normal Results - Laboratory Findings CBC and BMP: 10/26/16 03:31 10/26/16 03:31 Abnormal lab findings: Abnormal lab results WBC 16.8 K/mcL (4.3-11.1) H D 10/26/16 03:31 VBG pCO2 53 mmHg (41-51) H 10/23/16 22:39 VBG pO2 79 mmHg (25-40) H 10/23/16 22:39 VBG HCO3 32.8 mEq/L (21-27) H 10/23/16 22:39 BUN 25 mg/dL (7-20) H 10/26/16 03:31 BUN/Creatinine Ratio 29 (6-26) H 10/26/16 03:31 Glucose 269 mg/dL (70-99) H 10/26/16 03:31 POC Glucose 264 (58-89) H 10/25/16 20:07 Hemoglobin A1c 7.8 % (-5.6) H 10/24/16 06:23 - Clinical Findings Intake & Output: Intake & Output 10/25/16 10/26/16 10/26/16 23:59 07:59 15:59 Intake Total 240 / 240 1050 / 1050 Output Total 1999 / 1999 2600 / 2600 Balance -1760 / -1760 -1550 / -1550 Weight 78.1 kg 78.1 kg 78.1 kg Consult Discharge Plan - Plan Referrals: Codie Lloyd MD [Primary Care Provider] - <Otf Gibbons W - Last Filed: 10/26/16 17:51> Date of Encounter: 10/26/16 All Systems: A 10-system review of systems was performed and is negative for pertinent findings except as documented above in the HPI. Physical Examination Vital Signs: Vital Signs, Last 4 Hours Temp Pulse Resp BP Pulse Ox 10/26/16 16:08 20 91 10/26/16 15:39 98.0 F 88 16 161/96 91 10/26/16 15:23 89 20 153/82 92 10/26/16 15:20 94 Results - Laboratory Findings CBC and BMP: 10/26/16 03:31 10/26/16 03:31 Abnormal lab findings: Abnormal lab results WBC 16.8 K/mcL (4.3-11.1) H D 10/26/16 03:31 VBG pCO2 53 mmHg (41-51) H 10/23/16 22:39 VBG pO2 79 mmHg (25-40) H 10/23/16 22:39 VBG HCO3 32.8 mEq/L (21-27) H 10/23/16 22:39 BUN 25 mg/dL (7-20) H 10/26/16 03:31 BUN/Creatinine Ratio 29 (6-26) H 10/26/16 03:31 Glucose 269 mg/dL (70-99) H 10/26/16 03:31 POC Glucose 273 (58-89) H 10/26/16 07:10 Hemoglobin A1c 7.8 % (-5.6) H 10/24/16 06:23 - Clinical Findings Intake & Output: Intake & Output 10/26/16 10/26/16 10/26/16 07:59 15:59 23:59 Intake Total 1050 / 1050 Output Total 2600 / 2600 Balance -1550 / -1550 Weight 78.1 kg 78.1 kg - Attending Attestation I examined this patient and my medical decision-making was reviewed with the RN ONCOLOGY RESEARCH/PA/Advanced Practice Nurse/Resident Physician. I agree with the documented findings, disposition and treatment plan as described except to the extent set forth below. This is a 71-year-old woman with COPD with multiple admissions for exacerbation. Presented with acute dyspnea consistent with prior COPD exacerbations despite bronchodilators IV steroids and bilevel positive airway pressure patient's clinical course was not improving repeat CT scan notable for continued right middle lobe atelectasis. When evaluated patient today she was much more comfortable breathing was still mildly labored but improved per her she continues to have cough but has been unable to mobilize secretions which has to some degree been improved with use of guaifenesin I recommend transitioning from IV to antral steroids prednisone taper starting at 40 mg daily can be decreased over 2 weeks Empiric azithromycin is reasonable antimicrobial coverage Continue bronchodilators as scheduled Stop N-acetylcysteine both IV and by mouth formulations I recommend bedside incentive spirometer and Acapella therapy scheduled 3 times a day; ambulation and out of bed to chair would also help I discussed with the patient and given ongoing evidence of atelectasis on the right side and patient's prior smoking history recommend proceeding with bronchoscopy this will also help rule out atypical infection such as nontuberculous mycobacteria or less likely fungal Continue positive airway pressure at night for patient's known diagnosis of obstructive sleep apnea A bronchoscopy is recommended. The procedure , risks, benefits, complications, and expected outcomes have been reviewed. Benefits of diagnosis, as well as risks to include bleeding, infection, pneumothorax which may require surgical intervention, and in a small population. The patient is aware that sometimes test is nondiagnostic. Discussed with patient and agrees to proceed. I updated the primary internal medicine service attending Dr. Leiva with my impression and recommendations
[2016-10-26] MEDS: Insulin DETEMIR 100 UNIT/ML X5UNITS SQ SCH (20:33)
[2016-10-27] MEDS: Ipratropium/Albuterol Neb 3 ML IH SCH ×4 (03:35→22:48)
[2016-10-27 03:59] LABS: Basophils % 0.3 %; Hematocrit 40.9 % (35.3-44.9); Hemoglobin 13.5 g/dL (11.5-15.4); Immature Granulocytes % 2.6 % (0-4); Lymphocytes # 1.4 K/mcL (0.6-4.6); Lymphocytes % 8.9 %; Mean Corpuscular Hemoglobin 29.7 pg (28.0-33.3); Mean Corpuscular Volume 90.1 fL (83.0-100.0); Mean Platelet Volume 10.3 fL (9.4-12.4); Monocytes # 0.9 K/mcL (0.0-1.3); Monocytes % 5.7 %; Neutrophils # 13.2 K/mcL (1.6-8.9); Platelet Count 352 K/mcL (140-400); Red Blood Count 4.54 M/mcL (3.82-4.97); Red Cell Distribution Width 12.3 % (11.5-14.5); Segmented Neutrophils % 82.5 %
[2016-10-27 04:11] LABS: BUN/Creatinine Ratio 28 (6-26); Blood Urea Nitrogen 26 mg/dL (7-20); Calcium 9.8 mg/dL (8.6-10.8); Carbon Dioxide 29 mEq/L (19-29); Chloride 97 mEq/L (98-109); Glucose 252 mg/dL (70-99); Osmolality,Calculated 293 (280-300); Potassium 3.6 mEq/L (3.5-4.5); Sodium 135 mEq/L (136-145); eGFR For African Americans > 60 (> 60); eGFR For Non-African Americans 59 (> 60)
[2016-10-27] MEDS: *HR* Heparin 5,000 UNIT/ML VIAL SQ SCH ×2 (05:12→16:50)
[2016-10-27] MEDS: Azithromycin 250 MG TABLET PO SCH (05:18)
--- NOTE | 2016-10-27 07:11 | Pulmonology Progress Note ---
Date of Encounter: 10/27/16 Time of Encounter: 07:11 Assessment and Plan (1) Acute and chronic respiratory failure with hypoxia Current Visit: Yes Status: Acute 71-year-old woman with COPD presenting with acute on chronic respiratory failure from COPD exacerbation CT findings notable for right middle lobe atelectasis which has been chronic Overall appears responding to therapy Recommend transitioned to enteral prednisone 40 mg to complete two-week taper Continue home bronchodilators and supplemental short acting bronchodilators as needed Agree with treatment with azithromycin 5 days Would encourage airway clearance including incentive spirometry and Acapella 3 times daily to chair and ambulation Plan for bronchoscopy tomorrow morning keep nothing by mouth at midnight Plan discussed with patient along with nursing staff (2) Atelectasis of right lung Current Visit: Yes Status: Acute (3) COPD exacerbation Current Visit: Yes Status: Acute (4) JUAN (obstructive sleep apnea) Current Visit: Yes Status: Chronic (5) COPD exacerbation Current Visit: Yes Status: Acute Subjective Principal diagnosis: COPD exacerbation Interval history: Saw the patient issues waking up this morning she says that she is comfortable breathing has improved a bit over the course of the evening she wore positive airway pressure mask for the entire night was getting ready to undergo an echocardiogram Objective PUL Vital signs: Last Vital Signs Temp 97.6 F 10/27/16 03:36 Pulse 68 10/27/16 03:36 Resp 18 10/27/16 03:36 BP 134/88 10/27/16 03:36 Pulse Ox 94 10/27/16 03:36 General appearance: no acute distress Effort: normal Auscultation: bilateral: diminished breath sounds, wheezes Cardiovascular: regular rate and rhythm Extremities: no clubbing normal mental status, non-focal exam Results - Laboratory Findings CBC and BMP: 10/27/16 03:48 10/27/16 03:48 Abnormal lab findings: Abnormal lab results WBC 15.9 K/mcL (4.3-11.1) H 10/27/16 03:48 Neutrophils # 13.2 K/mcL (1.6-8.9) H 10/27/16 03:48 VBG pCO2 53 mmHg (41-51) H 10/23/16 22:39 VBG pO2 79 mmHg (25-40) H 10/23/16 22:39 VBG HCO3 32.8 mEq/L (21-27) H 10/23/16 22:39 Sodium 135 mEq/L (136-145) L 10/27/16 03:48 Chloride 97 mEq/L (98-109) L 10/27/16 03:48 BUN 26 mg/dL (7-20) H 10/27/16 03:48 Est GFR (Non-Af Amer) 59 (> 60) L 10/27/16 03:48 BUN/Creatinine Ratio 28 (6-26) H 10/27/16 03:48 Glucose 252 mg/dL (70-99) H 10/27/16 03:48 POC Glucose 385 (58-89) H 10/26/16 20:31 Hemoglobin A1c 7.8 % (-5.6) H 10/24/16 06:23 - Clinical Findings Intake & Output: Intake & Output 10/26/16 10/26/16 10/27/16 15:59 23:59 07:59 Intake Total 1050 / 1050 400 / 400 Output Total 2600 / 2600 1000 / 1000 Balance -1550 / -1550 400 / 400 -1000 / -1000 Weight 78.1 kg 79.3 kg Consult Discharge Plan - Plan Referrals: Codie Lloyd MD [Primary Care Provider] -
[2016-10-27] MEDS: Venlafaxine XR (24 HR) 150 MG CAP.ER.24H PO SCH (08:29)
[2016-10-27] MEDS: predniSONE 20 MG TABLET PO SCH (08:29)
[2016-10-27] MEDS: ALPRAZolam 1 MG TABLET PO PRN ×2 (08:29→20:09)
[2016-10-27] MEDS: Lisinopril-HCTZ 20-12.5mg TABLET PO SCH (08:29)
[2016-10-27] MEDS: BuPROPion SR (12 HR) 100 MG TABLET PO SCH (08:29)
[2016-10-27] MEDS: Aspirin Enteric Coated 81 MG Tablet PO SCH (08:29)
[2016-10-27] MEDS: Insulin LISPRO 300 UNITS/3 ML VIAL SQ SCH ×6 (08:32→20:10)
--- NOTE | 2016-10-27 10:25 | Internal Med Progress Note ---
<Kamari Jimenes - Last Filed: 10/27/16 11:24> Date of Encounter: 10/27/16 Time of Encounter: 10:23 - Assessment and plan (1) Acute and chronic respiratory failure with hypoxia Current Visit: Yes Status: Acute Assessment and plan: 71-year-old female history of COPD, generalized anxiety disorder, hypertension presents with chief complaint of shortness of breath that has been worsening for the last 3 days with worsening cough that is nonproductive. Patient states that she had increasing chest congestion, and her shortness of breath was refractory to bronchodilators, nebulizer treatments. She is on 2 L of oxygen at home. Patient was admitted for COPD exacerbation. Last month patient was discharged for pneumonia and she has had multiple previous admissions for COPD exacerbation. Patient had chest CT on 02/27 which showed 2-3 mm pulmonary nodules scattered throughout. Patient quit tobacco smoking 1 month ago. Secondary to COPD exacerbation. Chest x-ray is negative for any acute process. PFTs: FEV1/FVC <80%, FEV1 65%, obstructive process. Continue ceftriaxone, azithromycin prednisone for total of five days. Continue bronchodilators, acetylcysteine. Patient states that the acetylcysteine has not helped break down her sputum. CT chest showed stable microgranulomas and atelectasis of right middle lobe that has worsened when compared to her CT chest in February. Patient will undergo bronchoscopy tomorrow. (2) Chest tightness Current Visit: Yes Status: Acute Assessment and plan: Patient states that she had chest tightness starting this morning. If substernal, does not radiate, not associated nausea, sweating, does not worsen or improve her shortness of breath. On admission troponin was 0.02. She was sinus tachycardic. Patient does have a history of anxiety and states that she has had similar symptoms with panic attacks. She has risk factors for heart disease including history of smoking, age, hypertension, hyperlipidemia, sleep apnea. Echocardiogram results pending. Continue 81 mg aspirin and atorvastatin 40 mg. Patient also was hypertensive. She was started on lisinopril. We will continue this. Her blood pressure this morning was 130/88. (3) COPD exacerbation Current Visit: Yes Status: Acute Assessment and plan: Continue bronchodilators, prednisone , ceftriaxone, Zithromax. patient is right now requiring 3 L oxygen via nasal cannula which is increased over 2 L at home. Continue to monitor respiratory status. (4) JUAN (obstructive sleep apnea) Current Visit: Yes Status: Chronic Assessment and plan: Patient is on BiPAP at night at home. She states that it does not seem to be helping her breathing. We will consult respiratory for evaluation of BiPAP settings. (5) DVT prophylaxis Current Visit: Yes Status: Acute Assessment and plan: Heparin subcutaneous. (6) Type 2 diabetes mellitus Current Visit: Yes Status: Chronic Assessment and plan: Patient's glucose has been elevated secondary to steroid use. Continue basal insulin and start preprandial insulin at 6 units. Continue sliding scale insulin. Continue diabetic diet. Qualifiers: Diabetes mellitus complication status: with hyperglycemia Diabetes mellitus chcf insulin use: without watermaster use Qualified Code(s): E11.65 - Type 2 diabetes mellitus with hyperglycemia (7) Anxiety Current Visit: Yes Status: Acute Assessment and plan: Patient has history of generalized anxiety. She is being treated with Wellbutrin, Seroquel, Xanax, venlafaxine. We will continue this today. Patient's anxiety has improved compared to yesterday. (8) Goals of care, counseling/discussion Current Visit: Yes Status: Acute Assessment and plan: Patient would like to discuss progression of her lung disease and had a conversation about what end-of-life would entail. Patient had a sister who secondary to emphysema, and her family and the patient had a difficult time when he came to end of life decisions. We will contact palliative care's of patient can have her questions answered. Patient also would like to establish a power of litigation attorney associate and advanced directives. - Subjective Interval history: Substernal chest pain has improved. Patient states her shortness of breath is improved as well. Patient would like to have a conversation with palliative care about goals of care. No problems overnight. Patient states her anxiety is much better controlled today. - Constitutional Vitals: Temp Pulse Resp BP Pulse Ox 97.9 F 87 15 150/96 93 10/27/16 08:30 10/27/16 08:30 10/27/16 08:30 10/27/16 08:30 10/27/16 08:30 General appearance: Present: cooperative, A&O X 3, pleasant, answers questions appropriately - Respiratory Respiratory exam: Present: decreased breath sounds, rhonchi (Right upper and middle lobe.) - Cardiovascular Cardiovascular exam: Present: RRR, +S1, +S2. Absent: diastolic murmur, gallop, rubs, systolic murmur - GI/Abdominal GI/Abdominal exam: Present: normal bowel sounds, soft, no peritoneal signs. Absent: distended, tenderness - Extremities Exam Extremities exam: Present: warm, radial pulses palpable and symetrical. Absent : calf tenderness, cyanotic, pedal edema - Psychiatric Psychiatric exam: Present: normal affect, normal mood Internal Medicine: Result - Labs CBC & Chem 7: 10/27/16 03:48 10/27/16 03:48 Labs: Short CBC 10/27/16 Range/Units 03:48 WBC 15.9 H (4.3-11.1) K/mcL Hgb 13.5 (11.5-15.4) g/dL Hct 40.9 (35.3-44.9) % Plt Count 352 (140-400) K/mcL Neutrophils # 13.2 H (1.6-8.9) K/mcL BMP 10/27/16 03:48 Sodium 135 L Potassium 3.6 Chloride 97 L Carbon Dioxide 29 BUN 26 H Creatinine 0.94 Glucose 252 H Calcium 9.8 - Impressions Impressions Chest CT 10/26/16 13:45 IMPRESSION: Bronchitis, with endobronchial secretions within lower lobe bronchi and bilateral lower lobe atelectasis Chronic atelectasis in the right middle lobe and lingula Pulmonary emphysema and stable tiny left lung nodules compatible with granulomas D/ / Kendrick Sheikh MD / Kendrick Sheikh MD Interpreting Provider: Kednrick Sheikh MD Consult Discharge Plan - Plan Referrals: Codie Lloyd MD [Primary Care Provider] - <Oscar Leiva - Last Filed: 10/27/16 16:24> Date of Encounter: 10/27/16 - Assessment and plan (1) Acute and chronic respiratory failure with hypoxia Current Visit: Yes Status: Acute (2) COPD exacerbation Current Visit: Yes Status: Acute (3) Type 2 diabetes mellitus Current Visit: Yes Status: Chronic Qualifiers: Diabetes mellitus complication status: with hyperglycemia Diabetes mellitus chcf insulin use: without watermaster use Qualified Code(s): E11.65 - Type 2 diabetes mellitus with hyperglycemia (4) JUAN (obstructive sleep apnea) Current Visit: Yes Status: Chronic (5) Anxiety Current Visit: Yes Status: Acute - Constitutional Vitals: Temp Pulse Resp BP Pulse Ox 97.8 F 89 18 153/98 93 10/27/16 11:29 10/27/16 11:29 10/27/16 15:23 10/27/16 11:29 10/27/16 15:23 Internal Medicine: Result - Labs CBC & Chem 7: 10/27/16 03:48 10/27/16 03:48 Labs: Short CBC 10/27/16 Range/Units 03:48 WBC 15.9 H (4.3-11.1) K/mcL Hgb 13.5 (11.5-15.4) g/dL Hct 40.9 (35.3-44.9) % Plt Count 352 (140-400) K/mcL Neutrophils # 13.2 H (1.6-8.9) K/mcL BMP 10/27/16 03:48 Sodium 135 L Potassium 3.6 Chloride 97 L Carbon Dioxide 29 BUN 26 H Creatinine 0.94 Glucose 252 H Calcium 9.8 - Attending Attestation I examined this patient and my medical decision-making was reviewed with the Resident Physician on 10/27/16. I agree with the documented findings, disposition and treatment plan as described except to the extent set forth below. Ms. Metcalf is currently admitted for acute exac COPD and hypoxemia. She is to have bronch tomorrow. She is moderate to high risk due to potential for worsening respiratory status. Ms. Metcalf feels OK. Her breathing is slowly improving every day. Cough still present. Congested but seems better. No fever or chills. Exam Alert. Comfortable Heart reg Diminished lungs. I/P 1. Hypoxic resp failure 2. COPD 3. Bronch tomorrow. Further diagnoses and plan as above.
--- NOTE | 2016-10-27 10:33 | ECHO - Doppler Report ---
Echocardiogram Name: Nova Metcalf Date of Study: 10/27/2016 Date: 1945 Ht: 61.0 in Medical Record#: [id number] Age: 71 Wt: 174.0 lb Gender: Female BSA: 1.78 Order #: [id number] Location: [facility] Room #: [id number] Reading Physician: Yue Mccord DO Parimutuel Cashier: Cyndy Oro RDCS Ordering Physician: Kamari Jimenes DO Primary Physician: Estefanía Lloyd MD Indications: Shortness of breath Impressions: LVEF 50-55%. There is evidence of mild diastolic dysfunction of the left ventricle. Normal right ventricular size and function. No significant valvular dysfunction. No pulmonary hypertension. Left Ventricular Wall Motion: Rest Echo Findings All wall segments showed normal motion. Findings: Study Quality * Technically adequate exam. ECG Findings * Normal sinus rhythm. Left Ventricle * Normal LV chamber size, wall thickness and function. * Mild left ventricular diastolic dysfunction. * LVEF 50-55%. Left Atrium * Normal left atrial size. Aortic Valve * No aortic regurgitation. * Aortic valve not well visualized. * No aortic stenosis. Mitral Valve * No mitral regurgitation. * Normal mitral valve structure. * No mitral stenosis. Tricuspid Valve * Tricuspid valve not well visualized. * No tricuspid regurgitation. * Estimated RA pressure is 3 mmHg. Pulmonic Valve * Pulmonic valve is not well visualized. * No pulmonic stenosis. * No pulmonic regurgitation. Pulmonary Artery * Pulmonary artery not well visualized. Right Atrium * Normal right atrial size. Right Ventricle * Normal right ventricular structure and function. Interatrial Septum * No evidence of PFO by color Doppler. Pericardium * There is no pericardial effusion present. IVC * Normal IVC dimensions and inspiratory collapse. Aorta * Normally sized aortic root. History Hypertension Diabetes Hypercholesteremia Family History of CAD Measurements: BP: 134/ 88 2D Normal Values RVIDd: 2.73 cm <2.7 cm IVSd: .91 cm 0.6 - 1.0 cm LVIDd: 4.81 cm 3.7 - 5.6 cm LVPWd: .90 cm 0.6 - 1.1 cm LVIDs: 2.31 cm 1.5 - 3.6 cm AO: 3.10 cm < 4.0 cm LA: 3.40 cm 2.0 - 4.0cm %FS: 52.00 cm >25 % LA volume: 29 Mitral Valve Peak E:.83 m/sec Peak A:1.13 m/sec E/A Ratio:0.7 Peak E' Lat Dave:6.64 cm/s Peak E' Med Dave:5.87 cm/s E/E' Lat Ratio:12.6 E/E' Med Ratio:14.2 Updated by Yue Mccord on 10/27/2016 10:26:11 AM electronically signed on 10/27/2016 10:26:46 AM with status of Final [employer]rera: 1=Normal, 2=Hypokinesis, 3=Akinesis, 4=Dyskinesis, 5=Aneurysmal, 6=Hyperkinetic, X=Not Visualized (Blank)=Missing
--- NOTE | 2016-10-27 14:13 | Palliative - Consult Note ---
Date of Encounter: 10/27/16 Time of Encounter: 14:00 - Assessment and Plan (1) Dyspnea Current Visit: Yes Status: Acute Assessment and plan: Improved with current therapy including steroids, bronchodilators, oxygen, and intermittent bipap. Monitor and follow pulmonology recommendations Qualifiers: Dyspnea type: unspecified Qualified Code(s): R06.00 - Dyspnea, unspecified (2) Anxiety Current Visit: Yes Status: Acute Assessment and plan: She is on multiple medications prescribed from mental health including effexor, wellbutrin, xanax, and seroquel. Continues with home regimen. Monitor. Discussed some relaxation techniques, and discussed how advanced care planning and including her daughters in conversations regarding her wishes for future decisions can help alleviate some anxiety as well. (3) Counseling regarding advanced care planning and goals of care Current Visit: Yes Status: Acute Assessment and plan: Discussed at length trajectory of COPD illness as requesting by patient, and we discussed some decision that may need made in the future pertaining to her health care. Discussed completing POA and forms given to pt for review and will complete tomorrow after she has time to discuss with daughters. She has stopped smoking which will hopefully slow the progress of her lung disease. She follows closely with primary physician and veterinary surgery technologist and states that she is compliant with medications. She has oxygen/neb/bipap through [facility]. She desires to remain full code status at this time, but however, does not desire care home life sustaining measures if she were doing poorly and unable to wean off of ventilator. We discussed how important it is for her to have conversations with her daughters regarding her wishes, and that would take a great deal of stress off of them if they were ever in a position to make medical decisions for her. She acknowledged and stated that she would speak with them. We also discussed that if/when her health fails, or lung disease progresses, there are options to help keep her comfortable and prevent/ alleviate suffering at the end of life. She has a great deal of anxiety r/t this as she witnessed family members who did not have a comfortable passing. Will make f/u visit tomorrow re: completion of healthcare POA. Thanks for the consult on this very nice lady. (4) COPD exacerbation Current Visit: Yes Status: Acute (5) Acute and chronic respiratory failure with hypoxia Current Visit: Yes Status: Acute Palliative-CN HPI - Data of Consult Requesting Physician: Oscar Leiva DO Primary Care Provider: Codie Lloyd MD - Consult Narrative History of present illness: Ms. Metcalf is a very pleasant 71 year old female with a history of moderate COPD who presented with increasing shortness of breath of 1 week duration with c /o coughing, wheezing and respiratory distress. She was admitted and is currently receiving treatment for COPD exacerbation and respiratory failure. Was requiring bipap initially, but has not required recently. States her breathing is much better and she is hoping to be discharged later tomorrow after bronchoscopy. Currently pt of Dr. Tony Gibbons with [facility], Dr. Jerson Lloyd as primary physician, and also follows for mental health counseling with Jacey Carter NP. She states she has been smoke free for close to 2 months. At my visit, her sister is at bedside and she appears in no acute distress. She is able to speak in complete sentences, however, does need occasional rest breaks to ease breathlessness during conversation. She expresses a lot of anxiety related to her illness, and states she has had experiences with other family members who became ill and had difficult time at end of life. Palliative care was consulted to assist with goals of care discussions and advanced care planning. CC: Oscar Leiva DO Past Med Surg Social Fam HX - Past Medical History Medical history: asthma, COPD, diabetes, hyperlipidemia, hypertension Psychiatric history: anxiety, depression - Past Surgical History Surgical History: orthopedic, other (right knee and ankle) - Social History Smoking Status: Former smoker Smokeless Tobacco Status: No Alcohol use: none Drug use: none - Family History Mother Living Status: Cause of : chf Hx Family Cardiac Disorders: Yes (chf) Hx Family Endocrine Disorder: Yes (dm) Father Living Status: Age at : 71 Cause of : alzheimers Medications and Allergies ALPRAZolam [Xanax 1 MG Tablet] 1 mg PO BID PRN 09/10/15 [History] Albuterol Sulfate [Proair Hfa] 2 puff IH Q4H PRN 09/10/15 [History] Lisinopril/Hydrochlorothiazide [Zestoretic 20-12.5 mg Tablet] 2 tab PO DAILY [History] Metformin HCl [Fortamet] 1,500 mg PO DAILY 09/10/15 [History] Quetiapine Fumarate [Seroquel] 50 mg PO HS 09/10/15 [History] Tiotropium [Spiriva] 18 mcg IH DAILY 09/10/15 [History] Venlafaxine XR (24 HR) [Effexor Xr] 150 mg PO DAILY 09/10/15 [History] buPROPion HCl [Bupropion HCl Sr] 200 mg PO QAM 09/10/15 [History] Albuterol Neb [Proventil Neb] 2.5 mg IH Q6H 09/01/16 [History] Ipratropium/Albuterol Neb [Duoneb] 3 ml IH Q6HR PRN 10/23/16 [History] Allergies morphine Allergy (Verified 08/31/16 21:28) Hallucinating simvastatin Adverse Reaction (Verified 08/31/16 21:28) Cramping of the Muscles All systems: reviewed and no additional remarkable complaints except as stated ( dry cough, shortness of breath with any activity, anxiety, hemmorhoids,) Palliative Care-Exam - Constitutional Vitals: Temp Pulse Resp BP Pulse Ox 97.8 F 89 16 153/98 93 10/27/16 11:29 10/27/16 11:29 10/27/16 11:29 10/27/16 11:29 10/27/16 11:29 General appearance: Present: no acute distress - Head Head Exam: Present: normal inspection, normocephalic - Eye Eye exam: Present: normal appearance, PERRL - Respiratory Respiratory exam: Present: decreased breath sounds, CTAB Additional comments: faint expiratory wheezed posterior chest - Cardiovascular Cardiovascular exam: Present: +S1, +S2 - GI/Abdominal Exam GI/Abdominal exam: Present: normal bowel sounds, soft - Extremities Exam Extremities exam: Present: normal capillary refill, normal inspection - Neurological Exam Neurological exam: Present: alert, oriented X3, strengths equal and symetr throughout - Skin Skin exam: Present: dry, pallor, warm Internal Medicine - CN: Reslt - Labs CBC & Chem 7: 10/27/16 03:48 10/27/16 03:48 Labs: Short CBC 10/27/16 Range/Units 03:48 WBC 15.9 H (4.3-11.1) K/mcL Hgb 13.5 (11.5-15.4) g/dL Hct 40.9 (35.3-44.9) % Plt Count 352 (140-400) K/mcL Neutrophils # 13.2 H (1.6-8.9) K/mcL BMP 10/27/16 03:48 Sodium 135 L Potassium 3.6 Chloride 97 L Carbon Dioxide 29 BUN 26 H Creatinine 0.94 Glucose 252 H Calcium 9.8 - Impressions Impressions Chest CT 10/26/16 13:45 IMPRESSION: Bronchitis, with endobronchial secretions within lower lobe bronchi and bilateral lower lobe atelectasis Chronic atelectasis in the right middle lobe and lingula Pulmonary emphysema and stable tiny left lung nodules compatible with granulomas D/ / Kendrick Sheikh MD / Kendrick Sheikh MD Interpreting Provider: Kendrick Sheikh MD Consult Discharge Plan - Plan Referrals: Codie Lloyd MD [Primary Care Provider] - Palliative Quality Palliative Quality: Screen for Code Status: Yes, Screen for Goals of Care: Yes, Screen for Pain: Yes, If Pain Regimen Started, Initiate Bowel Regimen: NA, Screen for Nausea/Vomitting: Yes
[2016-10-27] MEDS: Insulin DETEMIR 100 UNIT/ML X5UNITS SQ SCH (20:11)
[2016-10-28] MEDS: Ipratropium/Albuterol Neb 3 ML IH SCH ×3 (04:05→16:26)
[2016-10-28] MEDS: *HR* Heparin 5,000 UNIT/ML VIAL SQ SCH (04:54)
[2016-10-28] MEDS: Azithromycin 250 MG TABLET PO SCH (06:40)
[2016-10-28] MEDS ORDERED: *HR* Midazolam HCl 5 MG/5 ML VIAL IVP PRN (07:06)
[2016-10-28] MEDS ORDERED: Tetracaine/Benzocaine/Butamben 200MG/SPRAY (100SPY/BOT) MM ONE (07:06)
[2016-10-28] MEDS ORDERED: *HR* EPINEPHrine 1 MG/10 ML SYRINGE INTRATRACH PRN (07:06)
--- NOTE | 2016-10-28 07:06 | Pre-Sedation Evaluation ---
Pre-sedation evaluation - Pre-sedation checklist Date of procedure: 10/28/16 Procedure: Bronchoscopy Recent Vitals: Last Vital Signs Temp 97.7 F 10/28/16 07:01 Pulse 72 10/28/16 07:01 Resp 18 10/28/16 07:01 BP 140/94 10/28/16 07:01 Pulse Ox 92 10/28/16 07:01 H&P (including ROS) documented in medical record: Yes Previous reaction to sedatives/anesthetics: No Dietary Status: NPO after Midnight Airway Assessment: Patient can open mouth completely, TMJ function normal Dentition: dentures removed Possible difficult airway: Yes If Yes;: History of Obstructive Sleep Apnea ASA Classification *see protocol: CLASS IV-Severe systemic disease/constant threat to pt's life Plan of Care: Pt appropriate candidate for procedure/moderate/conscious sedation , Risks/benefits of procedure/sedation discussed w/ patient/family
[2016-10-28] MEDS ORDERED: 0.9 % Sodium Chloride 1,000 ML IVC SCH (07:15)
[2016-10-28] MEDS ORDERED: *HR* Midazolam HCl 5 MG/5 ML VIAL IVP ONE (08:53)
[2016-10-28] MEDS ORDERED: Lidocaine Viscous Oral Soln 15 ML SOLUTION ONE (08:54)
[2016-10-28] MEDS ORDERED: *HR* FentaNYL (PF) 100 MCG/2 ML VIAL ONE (08:54)
[2016-10-28] MEDS: *HR* FentaNYL (PF) 100 MCG/2 ML VIAL IVP PRN ×2 (09:44→09:47)
--- NOTE | 2016-10-28 11:03 | Event Note ---
Date of Encounter: 10/28/16 Time of Encounter: 11:01 Status post bronchoscopy. Patient tolerated procedure well. Right middle lobe notable for chronic inflammation and narrowing but I was able to internally visualize the entire right middle lobe were no endobronchial obstructing lesions BAL was performed in this area along with cytological brushing From pulmonary standpoint no further recommendations at this time pending results of BAL/cytology I would like to follow-up with the patient within a month at discharge Pulmonary signing off please call with any questions
[2016-10-28 11:09] VITALS: BP 135/84
[2016-10-28] MEDS: Insulin LISPRO 300 UNITS/3 ML VIAL SQ SCH ×4 (11:15→12:19)
--- NOTE | 2016-10-28 11:29 | Event Note ---
Date of Encounter: 10/28/16 Time of Encounter: 11:20 Patient awake and alert, 2 sisters at bedside. Bronchoscopy completed this am. Patient feeling well hoping to get home. She wants to wait and complete power of employment attorney when she can sit down and discuss with her 2 daughters. Informed her she would require notary or 2 non-related witnesses to sign to make it valid. She verbalized understanding. She expressed no other questions for follow up from goals of care discussion yesterday. Palliative will sign off. Please reconsult if needed.
--- NOTE | 2016-10-28 11:58 | Cardiology Consult Note ---
Date of Encounter: 10/28/16 Assessment and Plan (1) Diabetes mellitus type 2, insulin dependent Current Visit: No Status: Acute Discussion w patient/family: The assessment and plan as outlined above was discussed with the patient and/or family members who expressed understanding and agreement. All questions were answered. Thank you for involving us in the care of your patient. Please call with any questions. History of Present Illness History of present illness: Ms. Metcalf is a 71 year old female Past Med Surg Social Fam HX - Past Medical History Medical history: asthma, COPD, diabetes, hyperlipidemia, hypertension Psychiatric history: anxiety, depression - Past Surgical History Surgical History: orthopedic, other (right knee and ankle) - Social History Smoking Status: Former smoker Smokeless Tobacco Status: No Alcohol use: none Drug use: none - Family History Mother Living Status: Cause of : chf Hx Family Cardiac Disorders: Yes (chf) Hx Family Endocrine Disorder: Yes (dm) Father Living Status: Age at : 71 Cause of : alzheimers Medications and Allergies ALPRAZolam [Xanax 1 MG Tablet] 1 mg PO BID PRN 09/10/15 [History] Albuterol Sulfate [Proair Hfa] 2 puff IH Q4H PRN 09/10/15 [History] Lisinopril/Hydrochlorothiazide [Zestoretic 20-12.5 mg Tablet] 2 tab PO DAILY [History] Metformin HCl [Fortamet] 1,500 mg PO DAILY 09/10/15 [History] Quetiapine Fumarate [Seroquel] 50 mg PO HS 09/10/15 [History] Tiotropium [Spiriva] 18 mcg IH DAILY 09/10/15 [History] Venlafaxine XR (24 HR) [Effexor Xr] 150 mg PO DAILY 09/10/15 [History] buPROPion HCl [Bupropion HCl Sr] 200 mg PO QAM 09/10/15 [History] Albuterol Neb [Proventil Neb] 2.5 mg IH Q6H 09/01/16 [History] Ipratropium/Albuterol Neb [Duoneb] 3 ml IH Q6HR PRN 10/23/16 [History] Allergies morphine Allergy (Verified 08/31/16 21:28) Hallucinating simvastatin Adverse Reaction (Verified 08/31/16 21:28) Cramping of the Muscles All Systems Review: A 10-system review of systems was performed and is negative for pertinent findings except as documented above in the HPI. Physical Examination Vital Signs, Last 4 Hours Temp Pulse Resp BP Pulse Ox 10/28/16 11:27 97 91 10/28/16 11:00 97.8 F 72 97 135/84 91 10/28/16 09:54 97.7 F 83 16 164/95 90 10/28/16 09:49 97.7 F 82 16 151/92 94 10/28/16 09:44 97.7 F 78 16 147/103 93 10/28/16 09:39 97.7 F 68 16 151/92 96 10/28/16 09:34 97.7 F 71 16 117/67 100 Results 10/27/16 03:48 10/27/16 03:48 Active Medications Acetaminophen (Tylenol) 650 mg PO Q6HR PRN PRN Reason: Mild Pain (1-3) Stop: 04/25/17 05:59 Albuterol Sulfate (Proventil Neb) 2.5 mg IH Q2H PRN; Protocol PRN Reason: Shortness Of Breath/Wheezing Stop: 04/25/17 05:59 Albuterol/Ipratropium (Duoneb) 3 ml IH [id number] CHELLE PRN Reason: Protocol Stop: 04/25/17 06:01 Last Admin: 10/28/16 11:26 Dose: 3 ml Alprazolam (Xanax) 1 mg PO BID PRN; Protocol PRN Reason: Anxiety Stop: 04/25/17 06:06 Last Admin: 10/27/16 20:09 Dose: 1 mg Aspirin (Aspirin Ec) 81 mg PO DAILY CHELLE Stop: 04/27/17 12:01 Last Admin: 10/27/16 08:29 Dose: 81 mg Atorvastatin Calcium (Lipitor) 40 mg PO HS CHELLE Stop: 04/27/17 12:01 Last Admin: 10/27/16 20:09 Dose: 40 mg Azithromycin (Zithromax) 250 mg PO Q24H CHELLE Stop: 04/25/17 06:01 Last Admin: 10/28/16 06:40 Dose: 250 mg Bupropion HCl (Wellbutrin Sr) 200 mg PO QAM CHELLE Stop: 04/25/17 09:01 Last Admin: 10/27/16 08:29 Dose: 200 mg Dextrose/Water (Dextrose 50% (Syg)) 25 ml IVP AD PRN PRN Reason: Hypoglycemia Stop: 04/25/17 05:59 Glucagon (Glucagen) 1 mg IM ONCE PRN PRN Reason: Hypoglycemia Stop: 04/25/17 05:59 Glucose (Gluctose) 15 gm PO ONCE PRN PRN Reason: Hypoglycemia Stop: 04/25/17 05:59 Glucose (Gluctose) 30 gm PO ONCE PRN PRN Reason: Hypoglycemia Stop: 04/25/17 05:59 Guaifenesin (Mucinex) 1,200 mg PO BID [facility] Stop: 04/26/17 11:01 Last Admin: 10/27/16 20:09 Dose: 1,200 mg Lisinopril/HCTZ (Prinzide 20-12.5) 2 each PO DAILY [facility] Stop: 04/26/17 12:16 Last Admin: 10/27/16 08:29 Dose: 2 each Heparin Sodium (Porcine) (Heparin) 5,000 unit SQ Q12HCO [facility] Stop: 04/25/17 06:01 Last Admin: 10/28/16 04:54 Dose: Not Given Ceftriaxone Sodium 1,000 mg/ (Dextrose) 100 mls @ 200 mls/hr IVPB Q24H [facility] Stop: 04/25/17 06:01 Last Admin: 10/28/16 06:40 Dose: 200 mls/hr Dextrose (Dextrose 5%) 1,000 mls @ 100 mls/hr IVC .Q10H PRN PRN Reason: HYPOGLYCEMIA Stop: 04/25/17 05:59 Sodium Chloride (0.9 % Sodium Chloride) 1,000 mls @ 50 mls/hr IVC .Q20H [facility] Stop: 04/29/17 07:16 Last Admin: 10/28/16 11:17 Dose: Not Given Insulin Detemir (Levemir) 20 unit 0.25 unit/kg (20 unit) SQ [facility] Stop: 04/27/17 21:01 Last Admin: 10/27/16 20:11 Dose: 20 unit Insulin Human Lispro (Humalog) 0 units SQ TIDAC [facility] PRN Reason: Protocol Stop: 04/25/17 07:31 Last Admin: 10/28/16 11:15 Dose: Not Given Insulin Human Lispro (Humalog) 0 units SQ HS [facility] PRN Reason: Protocol Stop: 04/25/17 21:01 Last Admin: 10/27/16 20:10 Dose: 3 units Insulin Human Lispro (Humalog) 6 units 0.08 units/kg (6 units) SQ TIDWM CHELLE Stop: 04/28/17 12:01 Last Admin: 10/28/16 11:16 Dose: Not Given Naloxone HCl (Narcan) 0.4 mg IVP Q2MIN PRN PRN Reason: Opioid Reversal Stop: 04/25/17 05:59 Ondansetron HCl (Zofran) 4 mg IVP Q8HR PRN PRN Reason: Nausea And Vomiting Stop: 04/25/17 05:59 Prednisone (Prednisone) 40 mg PO DAILY [facility] Stop: 04/28/17 09:01 Last Admin: 10/27/16 08:29 Dose: 40 mg Quetiapine Fumarate (Seroquel) 50 mg PO HS CHELLE PRN Reason: Protocol Stop: 04/27/17 21:01 Last Admin: 10/27/16 20:08 Dose: 50 mg Venlafaxine HCl (Effexor Xr) 150 mg PO DAILY CHELLE PRN Reason: Protocol Stop: 04/25/17 09:01 Last Admin: 10/27/16 08:29 Dose: 150 mg - EKG Interpretation EKG results cardiology: other Consult Discharge Plan - Plan Referrals: Codie Lloyd MD [Primary Care Provider] -
[2016-10-28] MEDS: BuPROPion SR (12 HR) 100 MG TABLET PO SCH (12:15)
[2016-10-28] MEDS: Aspirin Enteric Coated 81 MG Tablet PO SCH (12:15)
[2016-10-28] MEDS: Lisinopril-HCTZ 20-12.5mg TABLET PO SCH (12:16)
[2016-10-28] MEDS: Venlafaxine XR (24 HR) 150 MG CAP.ER.24H PO SCH (12:16)
[2016-10-28] MEDS: predniSONE 20 MG TABLET PO SCH (12:16)
--- NOTE | 2016-10-28 13:44 | Discharge Summary ---
<Kamari Jimenes - Last Filed: 10/28/16 15:43> Date of Encounter: 10/28/16 Time of Encounter: 13:38 - Discharge Diagnosis (1) Acute and chronic respiratory failure with hypoxia Priority: Primary Status: Acute (2) Chest tightness Priority: Secondary Status: Acute (3) COPD exacerbation Priority: Secondary Status: Acute (4) JUAN (obstructive sleep apnea) Priority: Secondary Status: Chronic (5) DVT prophylaxis Priority: Secondary Status: Acute (6) Type 2 diabetes mellitus Priority: Secondary Status: Chronic Qualifiers: Diabetes mellitus complication status: with hyperglycemia Diabetes mellitus prison insulin use: without prison use Qualified Code(s): E11.65 - Type 2 diabetes mellitus with hyperglycemia (7) Anxiety Priority: Secondary Status: Acute (8) Goals of care, counseling/discussion Priority: Secondary Status: Acute - Discharge Medications Prescriptions: predniSONE [Prednisone] 10 mg PO TAPER #10 tab.ds.pk Home Medications: ALPRAZolam [Xanax 1 MG Tablet] 1 mg PO BID PRN 09/10/15 [History] Albuterol Sulfate [Proair Hfa] 2 puff IH Q4H PRN 09/10/15 [History] Lisinopril/Hydrochlorothiazide [Zestoretic 20-12.5 mg Tablet] 2 tab PO DAILY [History] Metformin HCl [Fortamet] 1,500 mg PO DAILY 09/10/15 [History] Quetiapine Fumarate [Seroquel] 50 mg PO HS 09/10/15 [History] Tiotropium [Spiriva] 18 mcg IH DAILY 09/10/15 [History] Venlafaxine XR (24 HR) [Effexor Xr] 150 mg PO DAILY 09/10/15 [History] buPROPion HCl [Bupropion HCl Sr] 200 mg PO QAM 09/10/15 [History] Albuterol Neb [Proventil Neb] 2.5 mg IH Q6H 09/01/16 [History] Ipratropium/Albuterol Neb [Duoneb] 3 ml IH Q6HR PRN 10/23/16 [History] predniSONE [Prednisone] 10 mg PO TAPER #10 tab.ds.pk 10/28/16 [Rx] Allergies/Adverse Reactions: Allergies morphine Allergy (Verified 08/31/16 21:28) Hallucinating simvastatin Adverse Reaction (Verified 08/31/16 21:28) Cramping of the Muscles Procedures/tests Complete & Pending: Procedures Performed prior 72 hours Category Date Time Status CT chest w con [CT] Routine Cat Scan 10/26/16 13:45 Completed EV echocardiogram Routine Y 10/27/16 11:00 Completed Date of admission: 10/24/16 05:58 Primary care physician: Codie Lloyd MD Consults: 10/26/16 11:51 Consult to Respiratory Therapy [CONS] Routine Reason for Consult: BIPAP settings evaluation. Patient states she continues to feel sob at night. Call Completed: No 10/26/16 15:28 Consult to Pulmonology [CONS] Routine Consulting Provider: Pulm Crit [facility] Sleep Elbert Reason for Consult: Ct Chest right lower lobe atelectasis. Call Completed: Yes 10/27/16 10:18 Consult to Palliative Care [CONS] Routine Comment: Consulting Provider: Palliative Care Jammie Reason for Consult: goals of care Call Completed: Yes Discharging clinician: Kamari Jimenes Anticipated date of discharge: 10/28/16 - Patient Status Disposition: Home, Self-Care Condition: Good Functional capacity at discharge: independent ambulation Overall status at discharge: patient is progressing back to baseline - Discharge Instructions Instructions: Prednisone (By mouth), Chronic Obstructive Pulmonary Disease (DC) , Anxiety (DC) Follow Up With: Codie Lloyd MD [Primary Care Provider] - 11/03/16 1:30 pm Otf Gibbons MD [Partnered Physician] - 11/30/16 3:30 pm (one month from now) Forms: ED Satisfaction Letter Additional Instructions: Please return to ER if worsening shortness of breath, productive cough, fevers, chills, chest pain. Please follow-up with pulmonology. Please follow up with primary care physician. - Diet and Activity Activity: increase activity as tolerated, wear oxygen at all times Diet: diabetic diet, low fat, low cholesterol, low salt diet Hospital course: 71-year-old female presents with chief complaint of shortness of breath that has been worsening for the last 3 days with worsening cough that is nonproductive. Patient states that she had increasing chest congestion, and her shortness of breath was refractory to bronchodilators, nebulizer treatments. She is on 2 L of oxygen at home at night. Patient was admitted for COPD exacerbation. Last month patient was discharged for pneumonia and she has had multiple previous admissions for COPD exacerbation. Patient had chest CT on 02/27 which showed 2-3 mm pulmonary nodules scattered throughout. Patient quit tobacco smoking 1 month ago. Patient was treated on ceftriaxone, azithromycin, steroids for five days, and also with broncodialators for COPD exacerbation. She was continued on home BIPAP at night. CT Chest was repeated which showed right middle lobe atelectasis worse than CT Chest on 02/2016. Pulmonology was consulted and patient underwent broncoscopy which showed: right middle lobe atelectasis, chornic inflammation. BAL was performed. Results are pending. Patient also reported chest tightness on day 2 of admission. on admission troponin was 0.02, and EKG showed sinus tachycardia. Patient has a history of anxiety and panic attacks. Her risk factors for heart disease include history of smoking, age, hypertension, hyperlipidemia, sleep apnea. Echocardiogram showed LVEF of 50-55% with mild diastolic dysfunction and no wall or valvular abnormalities, no pulmonary hypertension. Patient's chest tightness resolved on day 3 of admission. Patient's face is most likely secondary to having a panic attack as she thought her emphysema is going to kill her. Palliative care consultation to have a conversation with the patient about goals of care. She continues to be full code. Patient states she does not want long-term life sustaining measures. She completed her power of [place] attorney and advanced directives. Patient's shortness of breath improved during her stay. She will go home on a 4 day prednisone taper. She will follow up with pulmonology for BAL results in the next month. She will follow-up with her PCP the next 7 days. Patient will use 2 L of oxygen . Continue BIPAP. - Time Spent with Patient Total time spent providing and/or coordinating discharge services: - Constitutional Vitals: Temp Pulse Resp BP Pulse Ox 97.8 F 72 97 135/84 91 10/28/16 11:00 10/28/16 11:00 10/28/16 11:27 10/28/16 11:00 10/28/16 11:27 General appearance: Present: cooperative, A&O X 3, pleasant, answers questions appropriately - Head Head exam: Present: atraumatic, normocephalic - Eye Eye exam: Present: PERRL, conjuntiva pink, sclera anicteric Pupils: Present: PERRL - Neck Neck exam general surgery: Present: supple, trachea midline. Absent: lymphadenopathy - Respiratory Respiratory exam: Present: wheezes (right upper lobe other maria clear throughout ) - Cardiovascular Cardiovascular exam: Present: RRR, +S1, +S2. Absent: diastolic murmur, gallop, rubs, systolic murmur - GI/Abdominal GI/Abdominal exam: Present: normal bowel sounds, soft, no peritoneal signs. Absent: distended, tenderness - Extremities Exam Extremities exam: Present: warm, radial pulses palpable and symetrical. Absent : calf tenderness, cyanotic, pedal edema - Neurological Exam Neurological exam: Present: CN II-XII intact, oriented X3, no focal deficits. Absent: pronater drift, facial droop, speech deficit <Oscar Leiva - Last Filed: 10/28/16 17:29> Date of Encounter: 10/28/16 - Discharge Diagnosis (1) Acute and chronic respiratory failure with hypoxia Status: Acute (2) COPD exacerbation Priority: Secondary Status: Acute (3) Type 2 diabetes mellitus Status: Chronic Qualifiers: Diabetes mellitus complication status: with hyperglycemia Diabetes mellitus prison insulin use: without prison use Qualified Code(s): E11.65 - Type 2 diabetes mellitus with hyperglycemia (4) JUAN (obstructive sleep apnea) Status: Chronic (5) Anxiety Status: Acute Procedures/tests Complete & Pending: Procedures Performed prior 72 hours Category Date Time Status CT chest w con [CT] Routine Cat Scan 10/26/16 13:45 Completed EV echocardiogram Routine Y 10/27/16 11:00 Completed Date of admission: 10/24/16 05:58 Primary care physician: Codie Lloyd MD Consults: 10/26/16 11:51 Consult to Respiratory Therapy [CONS] Routine Reason for Consult: BIPAP settings evaluation. Patient states she continues to feel sob at night. Call Completed: No 10/26/16 15:28 Consult to Pulmonology [CONS] Routine Consulting Provider: Pulm Crit [facility]bert Reason for Consult: Ct Chest right lower lobe atelectasis. Call Completed: Yes 10/27/16 10:18 Consult to Palliative Care [CONS] Routine Comment: Consulting Provider: Palliative Care Elbert Reason for Consult: goals of care Call Completed: Yes Hospital course: Ms. Metcalf is a 71 year old female - Time Spent with Patient Total time spent providing and/or coordinating discharge services: 25min - Constitutional Vitals: Temp Pulse Resp BP Pulse Ox 97.8 F 72 97 135/84 89 10/28/16 11:00 10/28/16 11:00 10/28/16 11:27 10/28/16 11:00 10/28/16 13:39 - Attending Attestation I examined this patient and my medical decision-making was reviewed with the Resident Physician on 10/28/16. I agree with the documented findings, disposition and treatment plan as described except to the extent set forth below. Ms. Metcalf had bronchoscopy today and tolerated well. She feels OK now. She is afebrile with stable vitals and is ready for discharge home. Exam Alert. Comfortable No wheeze Heart reg Plan D/C home
[2016-10-28 13:54] LABS: Appearance of Body Fluid Hazy (Clear); Volume of Body Fluid 18 mL
== END 2016-10-28 16:35 | disposition home or self-care (01) | DRG 167 ==
LOC: EMEROO 21:53 → 2NENU 21:53
PROVIDERS: ADMIT Internal Medicine; ATTEND Internal Medicine
PROC: ENDOBRF (2016-10-28 15:30)

== ENCOUNTER 2017-02-08 16:59 | Inpatient (IN) ==
[2017-02-08] MEDS ORDERED: methylPREDNISolone 125 MG/2 ML VIAL IVP ONE (17:03)
[2017-02-08] MEDS ORDERED: Ipratropium/Albuterol Neb 3 ML IH ONE (17:03)
[2017-02-08] MEDS ORDERED: predniSONE 20 MG TABLET PO ONE (17:11)
--- NOTE | 2017-02-08 17:14 | Emergency Department Note ---
START Narrative - START START: I examined this patient and my medical decision-making was reviewed with the REFRIGERATION SERVICE INSPECTOR/PA/Advanced Practice Nurse/Resident Physician. I agree with the documented findings, disposition and treatment plan as described except to the extent set forth below. ED attending: Patient's emergency medicine resident Dr. CHINCHILLA. Please see copy of this note for H&P evaluation and management and ED disposition. We both had independent [id number] time contact with this patient. Briefly: A 71-year-old female by EMS for shortness of breath and wheezing. History of COPD current smoker home O2 dependent with CPAP at home. Bilateral expiratory wheezing. See urgent care week ago given steroids and "antibiotic shot". Cystoscopy was feeling better. Patient will get a trouble doing IV steroids EKG screening labs and chest x-ray. Provided 35 minutes critical care service for this patient. Disposition pending
--- NOTE | 2017-02-08 17:15 | Emergency Department Note ---
Disposition Clinical Impression: Acute exacerbation of chronic obstructive airways disease Pneumonia Qualifiers: Pneumonia type: due to unspecified organism Laterality: unspecified laterality Lung location: unspecified part of lung Qualified Code(s): J18.9 - Pneumonia, unspecified organism Disposition: Admitted As Inpatient Condition: Fair Referrals: Unassigned,Provider [Primary Care Provider] - Forms: ED Satisfaction Letter Time of Disposition: 18:49 SOB HPI - General Chief Complaint: ED Shortness of Breath/Dyspnea Stated Complaint: AALIYAH Time Seen by Provider: 02/08/17 17:02 Source: patient, EMS Limitations: no limitations Nursing Notes Reviewed: Yes Vital Signs Reviewed: Yes - History of Present Illness 71-year-old female presented to the ED via EMS complaining of shortness of breath for one week. She was seen at urgent care approximately one week ago and diagnosed with pneumonia given an antibiotic that started with "C" as well as steroids. She states these have not helped her at all. She says that the shortness of breath has increased today to where she does had a very hard time breathing. She is always on 4 L of oxygen per nasal cannula. Still smokes. She has had these COPD exacerbations before where she will had to be admitted most of them were due to pneumonia. She has never had to be intubated for these exacerbations but has had be put on a BiPAP machine. She does have a BiPAP machine at home always and as well does breathing treatments at home. She has history of diabetes and hypertension and currently still is still taking all of her medications. She has never had any cardiac history diagnosed with CHF or acute coronary syndrome. - Related Data Home Medications Medication Instructions Recorded Confirmed ALPRAZolam [Xanax 1 MG Tablet] 1 mg PO BID PRN 09/10/15 10/23/16 Albuterol Sulfate [Proair Hfa] 2 puff IH Q4H PRN 09/10/15 10/23/16 Lisinopril/Hydrochlorothiazide 2 tab PO DAILY 09/10/15 10/23/16 [Zestoretic 20-12.5 mg Tablet] Metformin HCl [Fortamet] 1,500 mg PO DAILY 09/10/15 10/23/16 Quetiapine Fumarate [Seroquel] 50 mg PO HS 09/10/15 10/23/16 Tiotropium [Spiriva] 18 mcg IH DAILY 09/10/15 10/23/16 Venlafaxine XR (24 HR) [Effexor Xr] 150 mg PO DAILY 09/10/15 10/23/16 buPROPion HCl [Bupropion HCl Sr] 200 mg PO QAM 09/10/15 10/23/16 Albuterol Neb [Proventil Neb] 2.5 mg IH Q6H 09/01/16 10/23/16 Ipratropium/Albuterol Neb [Duoneb] 3 ml IH Q6HR PRN 10/23/16 10/23/16 Previous Rx's Medication Instructions Recorded predniSONE [Prednisone] 10 mg PO TAPER #10 tab.ds.pk 10/28/16 Benzonatate [Tessalon] 200 mg PO TID PRN #30 capsule 01/26/17 GuaiFENesin ER [Mucinex] 1,200 mg PO BID #20 tbbp.12hr 01/26/17 cephALEXin [Keflex] 500 mg PO QID #40 capsule 01/26/17 predniSONE [PredniSONE] 60 mg PO DAILY 5 Days 01/26/17 Allergies Allergy/AdvReac Type Severity Reaction Status Date / Time morphine Allergy Hallucinati Verified 08/31/16 21:28 ng simvastatin AdvReac Cramping Verified 08/31/16 21:28 of the Muscles Constitutional: Denies: fever, chills, weakness, weight change Eyes: Denies: eye pain, eye discharge, vision change ENT ED: Denies: ear pain, throat pain, dental pain, hearing loss, epistaxis, congestion, dysphagia Cardiovascular: Reports: dyspnea on exertion. Denies: chest pain, palpitations , edema, syncope Respiratory: Reports: dyspnea, wheezes. Denies: cough, hemoptysis, stridor Gastrointestinal: Denies: abdominal pain, nausea, vomiting, diarrhea, constipation, hematemesis, melena, hematochezia Genitourinary: Denies: dysuria, frequency, hematuria, discharge Musculoskeletal: Denies: back pain, neck pain, arthralgia, myalgia Integumentary: Denies: rash, abrasion, lesions Neurological: Denies: headache, weakness, numbness, paresthesias, confusion, abnormal gait, vertigo Psychiatric: Denies: anxiety, depression, suicidal thoughts, homicidal thoughts , auditory hallucinations, visual hallucinations Endocrine: Denies: fatigue Hematological/Lymphatic: Denies: easy bleeding, easy bruising Allergic/Immunologic: Denies: facial swelling, urticaria Past Medical History - Past Medical History Medical history: Reports: COPD, diabetes, other Surgical history: Reports: orthopedic, other (right knee and ankle) Psychiatric history: Reports: anxiety, depression 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 history - Social History Smoking Status: Former smoker Smokeless Tobacco Status: No Alcohol use: Reports: none Drug use: Reports: none Physical Exam - General Limitations: no limitations General appearance: alert - Head Head exam: atraumatic, normocephalic, normal inspection - Eye Eye exam: Present: normal appearance, PERRL, EOMI - ENT ENT exam: normal exam, normal oropharynx, mucous membranes moist - Neck Neck exam: Present: normal inspection, full ROM, trachea midline - Chest Chest inspection: Present: normal inspection, symmetric chest wall rise - Respiratory Respiratory exam: Present: respiratory distress (Mildly distressed and very tachypneic), wheezes (Bilaterally in all lung hernandez.), accessory muscle use - Cardiovascular Cardiovascular exam: Present: regular rate, normal rhythm, normal heart sounds - Abdominal Exam Abdominal exam: Present: soft, Non-Tender. Absent: tenderness, distention, guarding, rebound, rigidity - Expanded Lower Extremity Exam Lower leg exam: Present: normal inspection, full ROM. Absent: swelling - Back Exam Back exam: Present: normal inspection, full ROM. Absent: tenderness, CVA tenderness (R), CVA tenderness (L) - Neurological Exam Neurological exam: Present: alert, oriented X3 - Skin Skin exam: Present: warm, dry, intact, normal color Course Course Narrative: 71-year-old female presents the ED with difficulty breathing for one week with a history of COPD and being on antibiotics and steroids for the past week. She states that she is still not feeling good after being diagnosed and treated for pneumonia. She has not been around any other sick contacts or around any hospitals or nursing homes. We will do a chest x-ray, CBC, BMP to look for any signs of infection that could be exacerbating her COPD. She has no history of cardiac events or CHF but will do EKG and troponin Hang any acute coronary syndromes. We will give her a triple DuoNeb treatment as well as oral prednisone. She is still on 4 L of oxygen per nasal cannula and satting at 98% is her normal home dosage of oxygen. At this time we are currently awaiting disposition pending with the chest x-ray and labs show. Patient okay with this plan at this time - Reevaluation(s) Reevaluation #1: She was reevaluated during the DuoNeb treatments and she was having a much harder time to breathe and was very to Neck at about 35-40 respirations per minute. By looking at the chest x-ray at bedside that was done on the portable machine it looked like she had some patches on the left side for possible pneumonia we will start her on Zosyn and Levaquin as well as 1 L of normal saline here with plan for admission. She was also started on BiPAP by respiratory due to her difficulty in breathing and we will reassess to see how that helps with her breathing. Also order a lactate, blood cultures. Time: 17:45 - Consultations Consultation #1: Spoke with hospitalist Sarah St who agreed to accept the patient for COPD exacerbation with pneumonia. Time: 18:45 Vital Signs O2 Sat by Pulse Oximetry 99 02/08/17 17:05 Temperature 98.1 F 02/08/17 17:06 Pulse Rate 92 02/08/17 18:40 Respiratory Rate 24 02/08/17 17:14 Blood Pressure 137/106 02/08/17 17:06 O2 Sat by Pulse Oximetry 99 02/08/17 18:40 Oxygen Delivery Oxygen Delivery Bipap Shortness of Breath/Dyspnea - MDM Narrative Medical decision making narrative: 71-year-old female presenting to the ED with shortness of breath. She was seen approximately one week ago at urgent care and diagnosed with pneumonia and given an antibiotic and steroid but states that she has not felt better since then. She is always on 4 L of oxygen by nasal cannula. She does have a CPAP machine at home to sleep with. She states that she has had COPD exacerbations in the past most of them have been due to pneumonia. She has no cardiac history or signs of CHF. She came to was via EMS after having one albuterol treatment in satting at 99% on 4 L of oxygen. After giving her a triple DuoNeb treatment she seemed a hard time breathing so we decided to put her on BiPAP to help her with her breathing. She states that she feels much better after the BiPAP and the BiPAP is still on. Due to have him be on BiPAP and history of pneumonia we decided that admission would be the best plan of action. Chest x- ray did not show pneumonia and all labs were within normal limits. Even though all labs and radiographs not show pneumonia clinically she does seem to have pneumonia that exacerbated her COPD. and blood cultures as well as gave her 1 L of normal saline and started her on Zosyn and Levaquin. Patient is okay with this plan. Spoke with hospitalist Harley St who agreed to admit the patient. Patient admitted at this time. Chest X-Ray 02/08/17 17:35 IMPRESSION: 1. No radiographic finding to account for patient's shortness of breath. D/ / Nithin Guy MD / Nithin Guy MD Interpreting Provider: Nithin Guy MD - Medical Records Medical records reviewed: Yes I reviewed the patient's medical records. - Lab Data Lab results reviewed: Yes I reviewed the patient's lab results. Result diagrams: 02/08/17 17:30 02/08/17 17:30 Lab Results 02/08/17 02/08/17 02/08/17 Range/Units 17:30 17:30 17:30 WBC 11.9 H (4.3-11.1) K/mcL RBC 4.54 (3.82-4.97) M/mcL Hgb 13.4 (11.5-15.4) g/dL Hct 42.0 (35.3-44.9) % MCV 92.5 (83.0-100.0) fL MCH 29.5 (28.0-33.3) pg MCHC 31.9 (31.6-35.5) g/dL RDW 13.2 (11.5-14.5) % Plt Count 331 (140-400) K/mcL MPV 10.3 (9.4-12.4) fL Immature Gran % 0.7 (0-4) % Seg Neutrophils % 60.8 % Lymphocytes % 22.7 % Monocytes % 6.6 % Eosinophils % 8.4 % Basophils % 0.8 % Neutrophils # 7.2 (1.6-8.9) K/mcL Lymphocytes # 2.7 (0.6-4.6) K/mcL Monocytes # 0.8 (0.0-1.3) K/mcL Eosinophils # 1.0 H (0.0-0.6) K/mcL Basophils # 0.1 (0.0-0.2) K/mcL Sodium 141 (136-145) mEq/L Potassium 3.8 (3.5-4.5) mEq/L Chloride 101 (98-109) mEq/L Carbon Dioxide 32 H (19-29) mEq/L BUN 13 (7-20) mg/dL Creatinine 0.80 (0.57-1.11) mg/dL Est GFR ( Amer) > 60 (> 60) Est GFR (Non-Af Amer) > 60 (> 60) BUN/Creatinine Ratio 16 (6-26) Glucose 173 H (70-99) mg/dL Calculated Osmolality 296 (280-300) Lactic Acid (0.5-2.2) mmol/L Calcium 10.6 (8.6-10.8) mg/dL Magnesium 1.7 (1.6-2.6) mg/dL Troponin I 0.00 (0-0.03) ng/mL 02/08/17 Range/Units 18:05 WBC (4.3-11.1) K/mcL RBC (3.82-4.97) M/mcL Hgb (11.5-15.4) g/dL Hct (35.3-44.9) % MCV (83.0-100.0) fL MCH (28.0-33.3) pg MCHC (31.6-35.5) g/dL RDW (11.5-14.5) % Plt Count (140-400) K/mcL MPV (9.4-12.4) fL Immature Gran % (0-4) % Seg Neutrophils % % Lymphocytes % % Monocytes % % Eosinophils % % Basophils % % Neutrophils # (1.6-8.9) K/mcL Lymphocytes # (0.6-4.6) K/mcL Monocytes # (0.0-1.3) K/mcL Eosinophils # (0.0-0.6) K/mcL Basophils # (0.0-0.2) K/mcL Sodium (136-145) mEq/L Potassium (3.5-4.5) mEq/L Chloride (98-109) mEq/L Carbon Dioxide (19-29) mEq/L BUN (7-20) mg/dL Creatinine (0.57-1.11) mg/dL Est GFR ( Amer) (> 60) Est GFR (Non-Af Amer) (> 60) BUN/Creatinine Ratio (6-26) Glucose (70-99) mg/dL Calculated Osmolality (280-300) Lactic Acid 1.3 (0.5-2.2) mmol/L Calcium (8.6-10.8) mg/dL Magnesium (1.6-2.6) mg/dL Troponin I (0-0.03) ng/mL - Radiology Data Radiology results reviewed: Yes I reviewed the patient's radiology results. - EKG Data EKG attestation: Yes I reviewed and interpreted this EKG. EKG results narrative: EKG was done 17:19 and reviewed by myself. This is a normal sinus rhythm EKG at a rate of 92 bpm, [place] interval 164, QRS 82, QTc 355, normal axis. There are no acute ST changes. There are no acute T-wave changes. There are no signs of any heart strain. There are no signs of the WPW or Brugada syndrome. There was no old EKG to compare with. Overall impression is this is a normal EKG with no acute changes. EKG shows normal: Reports: sinus rhythm, axis, intervals, QRS complexes, ST-T waves Rate: Reports: normal Rhythm: Reports: NSR [place]/QRS: Reports: normal When compared to previous EKG there are: previous EKG unavailable Interpretation: Reports: no acute changes, normal EKG
[2017-02-08 17:38] LABS: Basophils # 0.1 K/mcL (0.0-0.2); Basophils % 0.8 %; Eosinophils % 8.4 %; Hemoglobin 13.4 g/dL (11.5-15.4); Immature Granulocytes % 0.7 % (0-4); Lymphocytes # 2.7 K/mcL (0.6-4.6); Lymphocytes % 22.7 %; Mean Corpuscular HGB Conc 31.9 g/dL (31.6-35.5); Mean Corpuscular Hemoglobin 29.5 pg (28.0-33.3); Mean Corpuscular Volume 92.5 fL (83.0-100.0); Mean Platelet Volume 10.3 fL (9.4-12.4); Monocytes # 0.8 K/mcL (0.0-1.3); Monocytes % 6.6 %; Neutrophils # 7.2 K/mcL (1.6-8.9); Platelet Count 331 K/mcL (140-400); Red Blood Count 4.54 M/mcL (3.82-4.97); Red Cell Distribution Width 13.2 % (11.5-14.5); Segmented Neutrophils % 60.8 %
[2017-02-08] MEDS ORDERED: Levofloxacin 750 MG/150 ML 750 MG/150 ML BAG IVPB ONE (17:47)
[2017-02-08] MEDS ORDERED: Piperacillin/Tazobactam 4.5 GM in D5% in Water (Mini-Bag+) 100 ML IVPB ONE (17:47)
[2017-02-08] MEDS ORDERED: 0.9 % Sodium Chloride 1,000 ML IVC ONE (17:47)
[2017-02-08 17:50] LABS: BUN/Creatinine Ratio 16 (6-26); Blood Urea Nitrogen 13 mg/dL (7-20); Calcium 10.6 mg/dL (8.6-10.8); Carbon Dioxide 32 mEq/L (19-29); Chloride 101 mEq/L (98-109); Glucose 173 mg/dL (70-99); Osmolality,Calculated 296 (280-300); Sodium 141 mEq/L (136-145); eGFR For African Americans > 60 (> 60); eGFR For Non-African Americans > 60 (> 60)
[2017-02-08 17:53] LABS: Potassium 3.8 mEq/L (3.5-4.5)
[2017-02-08 17:59] LABS: Magnesium 1.7 mg/dL (1.6-2.6)
[2017-02-08] MEDS ORDERED: Naloxone 0.4 MG/ML INJ IVP PRN (20:47)
[2017-02-08] MEDS ORDERED: Acetaminophen 325 MG TABLET PO PRN (20:47)
[2017-02-08] MEDS ORDERED: Ipratropium/Albuterol Neb 3 ML IH PRN (20:53)
[2017-02-08] MEDS ORDERED: D5% in Water 1,000 ML IVC PRN (20:55)
[2017-02-08] MEDS ORDERED: Dextrose Gel 15 GM PO PRN ×2 (20:55)
[2017-02-08] MEDS ORDERED: *HR* Dextrose 50 % in Water (Syg) 50 ML SYRINGE IVP PRN (20:55)
[2017-02-08] MEDS ORDERED: Magnesium Sulfate 2 GM in D5% in Water 100 ML IVPB ONE (20:57)
[2017-02-08] MEDS: methylPREDNISolone 125 MG/2 ML VIAL IVP SCH (23:00)
[2017-02-08] MEDS: ALPRAZolam 1 MG TABLET PO PRN (23:01)
[2017-02-08] MEDS: Insulin LISPRO 300 UNITS/3 ML VIAL SQ SCH (23:10)
[2017-02-08] MEDS: Ipratropium/Albuterol Neb 3 ML IH SCH (23:43)
--- NOTE | 2017-02-09 02:59 | Internal Med History&Physical ---
Date of Encounter: 02/08/17 Time of Encounter: 20:00 Assessment and Plan (1) COPD exacerbation Current visit: No Status: Acute Patient has a history of COPD. Worsening shortness of breath with wheezing. Response to nebulizer treatment. Chest x-ray negative for pneumonia. - Consider COPD exacerbation. - We will continue antibiotic, steroid, nebulizer of bronchodilator. - Continue oxygen and BiPAP supportive treatment. (2) Acute respiratory failure with hypoxia Current visit: No Status: Acute Management as above. Continuous pulse oximetry monitoring. (3) Diabetes mellitus type 2, insulin dependent Current visit: No Status: Acute Cover patient with sliding scale (4) DVT prophylaxis Current visit: No Status: Acute Heparin subcutaneously (5) Anxiety Current visit: No Status: Acute Continue home medications. (6) Hypertension Current visit: Yes Status: Acute Continue home medications Qualifiers: Hypertension type: essential hypertension Qualified Code(s): I10 - Essential (primary) hypertension Internal Medicine - H&P: HPI Chief complaint: Shortness of breath Admitted From: Home Plans for Post Hospital Care: Home History of present illness: Ms. Metcalf is a 71 year old female with history of COPD, diabetes, hypertension presented to emergency room for shortness of breath. Patient said she had worsening shortness of breath since 7 days ago. Patient has cough with greenish mucus. Patient denies a fever, denies nausea or chest pain. She was admitted to the hospital several times for COPD exacerbation. No history of intubation. In the emergency room, patient was found wheezing. She was given nebulizer treatment and was placed on BiPAP. Her symptoms or has improved after treatment. She was admitted as a COPD exacerbation for further management. Past Med Surg Social Fam HX - Past Medical History Medical history: COPD, diabetes, other Psychiatric history: anxiety, depression - Past Surgical History Surgical History: orthopedic, other - Social History Smoking Status: Former smoker Smokeless Tobacco Status: No Alcohol use: none Drug use: none - Family History Mother Living Status: Age at : 70 Cause of : CHF Hx Family Cardiac Disorders: Yes (CHF) Hx Family Endocrine Disorder: Yes (DM) Father Living Status: Age at : 72 Cause of : Dementia Hx Family Neurologic Disorders: Yes Internal Medicine - H&P: Meds ALPRAZolam [Xanax 1 MG Tablet] 1 mg PO BID PRN 09/10/15 [History] Albuterol Sulfate [Proair Hfa] 2 puff IH Q4H PRN 09/10/15 [History] Lisinopril/Hydrochlorothiazide [Zestoretic 20-12.5 mg Tablet] 2 tab PO DAILY [History] Metformin HCl [Fortamet] 1,500 mg PO DAILY 09/10/15 [History] Quetiapine Fumarate [Seroquel] 50 mg PO HS 09/10/15 [History] Tiotropium [Spiriva] 18 mcg IH DAILY 09/10/15 [History] Venlafaxine XR (24 HR) [Effexor Xr] 150 mg PO DAILY 09/10/15 [History] buPROPion HCl [Bupropion HCl Sr] 200 mg PO QAM 09/10/15 [History] Albuterol Neb [Proventil Neb] 2.5 mg IH Q6H PRN 09/01/16 [History] Ipratropium/Albuterol Neb [Duoneb] 3 ml IH Q6HR PRN 10/23/16 [History] Milo-3/Dha/Epa/Fish Oil [Fish Oil 1,000 mg Softgel] 1,000 mg PO DAILY 02/08/17 [History] 3 Allergy/AdvReac Type Severity Reaction Status Date / Time morphine Allergy Hallucinati Verified 08/31/16 21:28 ng simvastatin AdvReac Cramping Verified 08/31/16 21:28 of the Muscles All Systems PM: A 10-system review of systems was performed and is negative for pertinent findings except as documented above in the HPI. - Constitutional Vitals: Temp Pulse Resp BP Pulse Ox 97 F L 86 18 128/75 96 02/08/17 20:34 02/08/17 20:34 02/08/17 23:45 02/08/17 20:34 02/08/17 23:45 General appearance: Present: mild distress, A&O X 3, answers questions appropriately - Head Head exam: Present: atraumatic, normocephalic - Eye Eye exam: Present: PERRL, conjuntiva pink, sclera anicteric Pupils: Present: PERRL - Neck Neck exam general surgery: Present: supple, trachea midline. Absent: lymphadenopathy - Respiratory Respiratory exam: Present: CTAB, wheezes (Diffused wheezes bilaterally). Absent : accessory muscle use, rales, rhonchi - Cardiovascular Cardiovascular exam: Present: RRR, +S1, +S2. Absent: diastolic murmur, gallop, rubs, systolic murmur - GI/Abdominal GI/Abdominal exam: Present: normal bowel sounds, soft, no peritoneal signs. Absent: distended, tenderness - Extremities Exam Extremities exam: Present: warm, radial pulses palpable and symmetrical. Absent : calf tenderness, cyanotic, pedal edema - Neurological Exam Neurological exam: Present: CN II-XII intact, oriented X3, no focal deficits. Absent: pronater drift, facial droop, speech deficit - Skin Skin exam: Present: dry, intact Internal Med - H&P Results - Labs CBC & Chem 7: 02/08/17 17:30 02/08/17 17:30 - EKG Data -: EKG Interpreted by Myself EKG shows normal: sinus rhythm Rate: normal
[2017-02-09] MEDS: Ipratropium/Albuterol Neb 3 ML IH SCH ×6 (03:58→23:18)
[2017-02-09] MEDS: *HR* Heparin 5,000 UNIT/ML VIAL SQ SCH ×2 (06:11→18:32)
[2017-02-09 06:16] LABS: Basophils % 0.3 %; Eosinophils % 0.2 %; Hematocrit 39.6 % (35.3-44.9); Hemoglobin 12.8 g/dL (11.5-15.4); Immature Granulocytes % 0.5 % (0-4); Lymphocytes # 0.5 K/mcL (0.6-4.6); Lymphocytes % 4.2 %; Mean Corpuscular HGB Conc 32.3 g/dL (31.6-35.5); Mean Corpuscular Hemoglobin 29.9 pg (28.0-33.3); Mean Corpuscular Volume 92.5 fL (83.0-100.0); Mean Platelet Volume 10.7 fL (9.4-12.4); Monocytes # 0.1 K/mcL (0.0-1.3); Monocytes % 0.6 %; Neutrophils # 10.9 K/mcL (1.6-8.9); Platelet Count 294 K/mcL (140-400); Red Blood Count 4.28 M/mcL (3.82-4.97); Red Cell Distribution Width 13.1 % (11.5-14.5); Segmented Neutrophils % 94.2 %
[2017-02-09 06:30] LABS: BUN/Creatinine Ratio 17 (6-26); Blood Urea Nitrogen 15 mg/dL (7-20); Calcium 9.6 mg/dL (8.6-10.8); Carbon Dioxide 27 mEq/L (19-29); Chloride 102 mEq/L (98-109); Glucose 385 mg/dL (70-99); Magnesium 1.8 mg/dL (1.6-2.6); Osmolality,Calculated 303 (280-300); Potassium 4.4 mEq/L (3.5-4.5); Sodium 138 mEq/L (136-145); eGFR For African Americans > 60 (> 60); eGFR For Non-African Americans > 60 (> 60)
[2017-02-09] MEDS: NON-FORMULARY MEDICATION 1 EACH EACH PO SCH (08:20)
[2017-02-09] MEDS: methylPREDNISolone 125 MG/2 ML VIAL IVP SCH (08:24)
[2017-02-09] MEDS: Venlafaxine XR (24 HR) 150 MG CAP.ER.24H PO SCH (08:24)
[2017-02-09] MEDS: Insulin LISPRO 300 UNITS/3 ML VIAL SQ SCH ×4 (08:25→21:00)
[2017-02-09] MEDS: BuPROPion SR (12 HR) 100 MG TABLET PO SCH (08:25)
[2017-02-09] MEDS: Lisinopril-HCTZ 20-12.5mg TABLET PO SCH (08:25)
[2017-02-09] MEDS: Doxycycline 100 MG CAPSULE PO SCH ×2 (08:38→20:58)
--- NOTE | 2017-02-09 10:28 | Event Note ---
Date of Encounter: 02/09/17 Time of Encounter: 08:30 71-year-old female admitted early this morning due to worsening shortness of breath over the past week and diagnosed as COPD exacerbation. Currently, the patient reports that she is more short of breath than her baseline. She reports chronic use of oxygen at 4 L at home around the clock. She also reports cough, wheezing. She reports some chest tightness. On exam, she has reduced air entry bilaterally. End expiratory wheezing present. First and second heart sounds present. Labs reviewed. Assessment/plan: 1. COPD with exacerbation-continue intravenous steroids. By mouth antibiotics for 5 days. Breathing treatments around the clock. Patient will be changed to inpatient status. High risk due to COPD exacerbation and risk of worsening respiratory failure which may require noninvasive positive pressure ventilation. Expected to be in the hospital for at least overnight. Expected discharge disposition is to home. Anticipate discharge within the next 1-2 days. 2. Chronic hypoxic respiratory failure-continue oxygen supplementation
[2017-02-09] MEDS: MethylPREDNISolone 40 MG/ML VIAL IVP SCH ×2 (16:07→23:28)
--- NOTE | 2017-02-09 17:02 | Electrocardiograph Report ---
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
[2017-02-09] MEDS ORDERED: Levofloxacin 750 MG/150 ML 750 MG/150 ML BAG IVPB SCH (20:00)
[2017-02-09] MEDS: ALPRAZolam 1 MG TABLET PO PRN (20:59)
[2017-02-09] MEDS ORDERED: Insulin DETEMIR 100 UNIT/ML X5UNITS SQ SCH (21:00)
[2017-02-10] MEDS: Ipratropium/Albuterol Neb 3 ML IH SCH ×6 (03:45→23:31)
[2017-02-10] MEDS: *HR* Heparin 5,000 UNIT/ML VIAL SQ SCH ×2 (06:13→16:19)
[2017-02-10] MEDS: Insulin LISPRO 300 UNITS/3 ML VIAL SQ SCH ×4 (07:49→21:43)
[2017-02-10] MEDS: Doxycycline 100 MG CAPSULE PO SCH ×2 (08:31→21:42)
[2017-02-10] MEDS: BuPROPion SR (12 HR) 100 MG TABLET PO SCH (08:31)
[2017-02-10] MEDS: Lisinopril-HCTZ 20-12.5mg TABLET PO SCH (08:31)
[2017-02-10] MEDS: Venlafaxine XR (24 HR) 150 MG CAP.ER.24H PO SCH (08:32)
[2017-02-10] MEDS: MethylPREDNISolone 40 MG/ML VIAL IVP SCH (08:32)
[2017-02-10] MEDS: *HR* Metformin 500 MG TABLET PO SCH (08:32)
[2017-02-10] MEDS: NON-FORMULARY MEDICATION 1 EACH EACH PO SCH (08:34)
--- NOTE | 2017-02-10 09:35 | Internal Med Progress Note ---
Date of Encounter: 02/10/17 Time of Encounter: 08:15 - Assessment and plan (1) Acute exacerbation of chronic obstructive airways disease Current Visit: Yes Status: Acute Assessment and plan: Improving COPD exacerbation. Change steroids to by mouth route. Continue by mouth doxycycline. Continue breathing treatments. Acapella for clearance of secretions. Patient is high risk due to unresolved COPD exacerbation and is at risk of intervention and mechanical ventilation for worsening respiratory failure. (2) Respiratory failure Current Visit: Yes Status: Chronic Assessment and plan: Continue oxygen supplementation. Qualifiers: Chronicity: chronic Respiratory failure complication: hypoxia Qualified Code(s): J96.11 - Chronic respiratory failure with hypoxia (3) Hypertension Current Visit: Yes Status: Chronic Assessment and plan: Controlled blood pressure. Continue home medications. Qualifiers: Hypertension type: essential hypertension Qualified Code(s): I10 - Essential (primary) hypertension (4) Type 2 diabetes mellitus Current Visit: Yes Status: Chronic Assessment and plan: Patient continues to have hypoglycemia. Change Levemir to twice a day. Resume metformin. Reduce the dose of steroids. Sliding scale insulin. 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 She continues to report cough. She also reports intermittent wheezing. Denies any chest pain, lightheadedness or palpitations. - Constitutional Vitals: Temp Pulse Resp BP Pulse Ox 97.4 F L 89 19 118/82 99 02/10/17 07:29 02/10/17 07:29 02/10/17 07:34 02/10/17 07:29 02/10/17 07:34 Exam: Gen.: Lying in bed. No acute distress. Chest: Clear to auscultation bilaterally. No adventitious sounds present. CVS: First and second heart sounds present. No murmurs, rubs or gallops. Abdomen: Soft, nontender, obese. Bowel sounds present. No hepatosplenomegaly. Internal Medicine: Result - Labs CBC & Chem 7: 02/09/17 05:33 02/09/17 05:33 Consult Discharge Plan - Plan Referrals: Codie Lloyd MD [Primary Care Provider] -
[2017-02-10] MEDS: Insulin DETEMIR 100 UNIT/ML X5UNITS SQ SCH ×2 (10:00→21:43)
[2017-02-10] MEDS: ALPRAZolam 1 MG TABLET PO PRN (21:42)
[2017-02-11] MEDS: Ipratropium/Albuterol Neb 3 ML IH SCH ×2 (03:44→07:56)
[2017-02-11 06:31] VITALS: BP 114/77
[2017-02-11] MEDS: *HR* Heparin 5,000 UNIT/ML VIAL SQ SCH (06:31)
[2017-02-11] MEDS: Doxycycline 100 MG CAPSULE PO SCH (07:43)
[2017-02-11] MEDS: Insulin LISPRO 300 UNITS/3 ML VIAL SQ SCH (07:43)
[2017-02-11] MEDS: *HR* Metformin 500 MG TABLET PO SCH (07:43)
[2017-02-11] MEDS: BuPROPion SR (12 HR) 100 MG TABLET PO SCH (07:43)
[2017-02-11] MEDS: Lisinopril-HCTZ 20-12.5mg TABLET PO SCH (07:43)
[2017-02-11] MEDS: Venlafaxine XR (24 HR) 150 MG CAP.ER.24H PO SCH (07:48)
[2017-02-11] MEDS: Insulin DETEMIR 100 UNIT/ML X5UNITS SQ SCH (08:15)
--- NOTE | 2017-02-11 08:31 | Discharge Summary ---
Date of Encounter: 02/11/17 Time of Encounter: 08:27 - Discharge Diagnosis (1) Acute exacerbation of chronic obstructive airways disease Priority: Primary Status: Acute (2) Respiratory failure Priority: Secondary Status: Chronic Qualifiers: Chronicity: chronic Respiratory failure complication: hypoxia Qualified Code(s): J96.11 - Chronic respiratory failure with hypoxia (3) Hypertension Priority: Secondary Status: Chronic Qualifiers: Hypertension type: essential hypertension Qualified Code(s): I10 - Essential (primary) hypertension (4) Type 2 diabetes mellitus Priority: Secondary Status: Chronic Qualifiers: Diabetes mellitus complication status: with hyperglycemia Diabetes mellitus retirement insulin use: without retirement use Qualified Code(s): E11.65 - Type 2 diabetes mellitus with hyperglycemia - Discharge Medications Prescriptions: Doxycycline 100 mg PO BID #7 Metformin HCl [Glucophage] 1,000 mg PO BID #120 tablet predniSONE [PredniSONE] 20 mg PO AD #7 tab Home Medications: ALPRAZolam [Xanax 1 MG Tablet] 1 mg PO BID PRN 09/10/15 [History] Albuterol Sulfate [Proair Hfa] 2 puff IH Q4H PRN 09/10/15 [History] Lisinopril/Hydrochlorothiazide [Zestoretic 20-12.5 mg Tablet] 2 tab PO DAILY [History] Quetiapine Fumarate [Seroquel] 50 mg PO HS 09/10/15 [History] Tiotropium [Spiriva] 18 mcg IH DAILY 09/10/15 [History] Venlafaxine XR (24 HR) [Effexor Xr] 150 mg PO DAILY 09/10/15 [History] buPROPion HCl [Bupropion HCl Sr] 200 mg PO QAM 09/10/15 [History] Albuterol Neb [Proventil Neb] 2.5 mg IH Q6H PRN 09/01/16 [History] Ipratropium/Albuterol Neb [Duoneb] 3 ml IH Q6HR PRN 10/23/16 [History] [place]-3/Dha/Epa/Fish Oil [Fish Oil 1,000 mg Softgel] 1,000 mg PO DAILY 02/08/17 [History] Doxycycline 100 mg PO BID #7 02/11/17 [Rx] Metformin HCl [Glucophage] 1,000 mg PO BID #120 tablet 08/31/17 [Rx] predniSONE [PredniSONE] 20 mg PO AD #7 tab 02/11/17 [Rx] Allergies/Adverse Reactions: 3 Allergy/AdvReac Type Severity Reaction Status Date / Time morphine Allergy Hallucinati Verified 08/31/16 21:28 ng simvastatin AdvReac Cramping Verified 08/31/16 21:28 of the Muscles Date of admission: 02/10/17 12:27 Primary care physician: Codie Lloyd MD Consults: None Discharging clinician: Rudy Walker Anticipated date of discharge: 02/11/17 - Patient Status Disposition: Home, Self-Care Condition: Fair Functional capacity at discharge: independent ambulation Overall status at discharge: patient is progressing back to baseline - Discharge Instructions Follow Up With: Codie Lloyd MD [Primary Care Provider] - (1 week) - Diet and Activity Activity: increase activity as tolerated, resume usual activities as tolerated, wear oxygen at all times Diet: diabetic diet, low fat, low cholesterol, low salt diet Hospital course: Ms. Metcalf is a 71 year old female with a history of COPD on home oxygen, diabetes mellitus, hypertension who presented to the emergency room due to worsening shortness of breath that has been going on for 7 days. She did not have any fever or chills. Chest x-ray was negative for pneumonia. She was admitted with a diagnosis of COPD exacerbation. She was given intravenous steroids and by mouth antibiotics. Her symptoms improved with conservative management. The patient's breathing is much improved and she is back to her baseline. Hence, she has been deemed stable to be discharged home today. She has been given a prescription for steroid taper. - Time Spent with Patient Total time spent providing and/or coordinating discharge services: Greater than 30 minutes (45 min) - Constitutional Vitals: Temp Pulse Resp BP Pulse Ox 98.9 F 85 16 114/77 95 02/11/17 06:30 02/11/17 06:30 02/11/17 07:57 02/11/17 06:30 02/11/17 07:57 Exam: Gen.: Lying in bed. No acute distress. Chest: Clear to auscultation bilaterally. No adventitious sounds present. CVS: First and second heart sounds present. No murmurs, rubs or gallops. Abdomen: Soft, nontender, obese. Bowel sounds present.
[2017-02-11] MEDS ORDERED: predniSONE 20 MG TABLET PO SCH (09:00)
== END 2017-02-11 10:46 | disposition home or self-care (01) | DRG 191 ==
LOC: 2NENU 16:59 → EMEROO 16:59 → 2NENU 20:04
PROVIDERS: ADMIT Internal Medicine Sleep Medicine; ATTEND Internal Medicine Sleep Medicine

== ENCOUNTER 2019-03-13 07:58 | Observation (INO) ==
[2019-03-13] MEDS ORDERED: Ipratropium/Albuterol Neb 3 ML IH ONE (08:02)
[2019-03-13] MEDS ORDERED: methylPREDNISolone 125 MG/2 ML VIAL IVP ONE (08:03)
[2019-03-13 08:15] LABS: Basophils # 0.1 K/mcL (0.0-0.2); Eosinophils # 1.4 K/mcL (0.0-0.6); Eosinophils % 11.9 %; Hematocrit 44.1 % (35.3-44.9); Immature Granulocytes % 0.5 % (0-4); Lymphocytes % 26.1 %; Mean Corpuscular HGB Conc 31.7 g/dL (31.6-35.5); Mean Corpuscular Hemoglobin 29.9 pg (28.0-33.3); Mean Platelet Volume 10.1 fL (9.4-12.4); Monocytes # 0.7 K/mcL (0.0-1.3); Monocytes % 6.4 %; Neutrophils # 6.3 K/mcL (1.6-8.9); Platelet Count 341 K/mcL (140-400); Red Blood Count 4.69 M/mcL (3.82-4.97); Red Cell Distribution Width 13.1 % (11.5-14.5); Segmented Neutrophils % 54.1 %; White Blood Count 11.6 K/mcL (4.3-11.1)
[2019-03-13] MEDS ORDERED: methylPREDNISolone 125 MG/2 ML VIAL ONE (08:21)
[2019-03-13 08:35] LABS: BUN/Creatinine Ratio 22 (6-26); Blood Urea Nitrogen 25 mg/dL (8-23); Calcium 10.3 mg/dL (8.6-10.3); Carbon Dioxide 24 mEq/L (23-29); Chloride 108 mEq/L (98-107); Glucose 208 mg/dL (70-105); Osmolality,Calculated 294 (280-300); Potassium 4.8 mEq/L (3.5-5.1); Sodium 137 mEq/L (136-145); Troponin I < 0.03 ng/mL (< 0.04); eGFR For African Americans 58 (> 60); eGFR For Non-African Americans 48 (> 60)
[2019-03-13] MEDS ORDERED: Azithromycin 500 MG in 0.9 % Sodium Chloride 250 ML IVPB ONE (08:37)
[2019-03-13 09:00] LABS: VBG HCO3 23 mEq/L (21-27); VBG PCO2 52 mmHg (41-51); VBG PH 7.26 pH Units (7.32-7.42); VBG PO2 124 mmHg (25-50)
[2019-03-13] MEDS ORDERED: Naloxone 0.4 MG/ML INJ IVP PRN (10:00)
[2019-03-13] MEDS ORDERED: Acetaminophen 325 MG TABLET PO PRN (10:00)
[2019-03-13] MEDS ORDERED: Ondansetron 4 MG/2 ML VIAL IVP PRN (10:00)
[2019-03-13] MEDS ORDERED: D5% in Water 1,000 ML IVC PRN (10:12)
[2019-03-13] MEDS ORDERED: Dextrose Gel 15 GM/37.5 ML TUBE PO PRN ×2 (10:12)
[2019-03-13] MEDS ORDERED: *HR* Dextrose 50 % in Water (Syg) 50 ML SYRINGE IVP PRN (10:12)
[2019-03-13] MEDS: ALPRAZolam 1 MG TABLET PO PRN ×2 (12:47→22:03)
[2019-03-13] MEDS: Insulin LISPRO 300 UNITS/3 ML VIAL SQ SCH ×2 (13:15→17:09)
[2019-03-13] MEDS: Insulin DETEMIR 100 UNIT/ML X5UNITS SQ SCH ×2 (13:15→22:04)
[2019-03-13] MEDS: *HR* Heparin 5,000 UNIT/ML VIAL SQ SCH ×2 (15:33→22:03)
[2019-03-13] MEDS: Ipratropium/Albuterol Neb 3 ML IH SCH ×2 (15:35→21:46)
[2019-03-13] MEDS ORDERED: Insulin DETEMIR 100 UNIT/ML X5UNITS SQ SCH (21:00)
[2019-03-13] MEDS: MethylPREDNISolone 40 MG/ML VIAL IVP SCH (22:03)
[2019-03-14] MEDS: Ipratropium/Albuterol Neb 3 ML IH SCH ×4 (03:40→21:40)
[2019-03-14 04:44] LABS: Basophils % 0.1 %; Hematocrit 40.6 % (35.3-44.9); Hemoglobin 13.2 g/dL (11.5-15.4); Immature Granulocytes % 1.1 % (0-4); Lymphocytes # 1.1 K/mcL (0.6-4.6); Lymphocytes % 7.2 %; Mean Corpuscular HGB Conc 32.5 g/dL (31.6-35.5); Mean Corpuscular Hemoglobin 30.1 pg (28.0-33.3); Mean Corpuscular Volume 92.5 fL (83.0-100.0); Mean Platelet Volume 10.8 fL (9.4-12.4); Monocytes # 0.2 K/mcL (0.0-1.3); Monocytes % 1.5 %; Neutrophils # 13.5 K/mcL (1.6-8.9); Platelet Count 317 K/mcL (140-400); Red Blood Count 4.39 M/mcL (3.82-4.97); Red Cell Distribution Width 12.8 % (11.5-14.5); Segmented Neutrophils % 90.1 %
[2019-03-14 05:06] LABS: Calcium 10.1 mg/dL (8.6-10.3); Magnesium 1.7 mg/dL (1.6-2.6); Potassium 4.5 mEq/L (3.5-5.1)
[2019-03-14] MEDS: *HR* Heparin 5,000 UNIT/ML VIAL SQ SCH ×3 (06:15→20:41)
[2019-03-14 07:32] LABS: Estimated Average Glucose 203 mg/dl
[2019-03-14] MEDS: Insulin DETEMIR 100 UNIT/ML X5UNITS SQ SCH ×2 (08:39→20:41)
[2019-03-14] MEDS: BuPROPion XL (24 HR) 150 MG TABLET PO SCH (08:39)
[2019-03-14] MEDS: Insulin LISPRO 300 UNITS/3 ML VIAL SQ SCH ×3 (08:39→16:42)
[2019-03-14] MEDS: Venlafaxine XR (24 HR) 150 MG CAP.ER.24H PO SCH (08:40)
[2019-03-14] MEDS: MethylPREDNISolone 40 MG/ML VIAL IVP SCH (08:40)
[2019-03-14] MEDS ORDERED: BUPROPION HCL 200 MG PO SCH (09:00)
[2019-03-14] MEDS ORDERED: Azithromycin 500 MG in 0.9 % Sodium Chloride 250 ML IVPB SCH (09:00)
[2019-03-14] MEDS ORDERED: Lisinopril-HCTZ 20-12.5mg TABLET PO SCH (09:00)
[2019-03-14] MEDS ORDERED: BuPROPion XL (24 HR) 150 MG TABLET PO SCH (09:00)
[2019-03-14] MEDS: ALPRAZolam 1 MG TABLET PO PRN ×2 (11:00→20:41)
[2019-03-15 01:52] LABS: Basophils # 0.1 K/mcL (0.0-0.2); Basophils % 0.3 %; Eosinophils % 0.2 %; Hematocrit 39.5 % (35.3-44.9); Hemoglobin 12.7 g/dL (11.5-15.4); Immature Granulocytes % 0.8 % (0-4); Lymphocytes # 2.4 K/mcL (0.6-4.6); Lymphocytes % 13.4 %; Mean Corpuscular HGB Conc 32.2 g/dL (31.6-35.5); Mean Corpuscular Hemoglobin 30.2 pg (28.0-33.3); Mean Platelet Volume 10.7 fL (9.4-12.4); Monocytes % 5.7 %; Neutrophils # 14.4 K/mcL (1.6-8.9); Platelet Count 304 K/mcL (140-400); Red Cell Distribution Width 12.8 % (11.5-14.5); Segmented Neutrophils % 79.6 %; White Blood Count 18.1 K/mcL (4.3-11.1)
[2019-03-15 02:07] LABS: Calcium 9.5 mg/dL (8.6-10.3); Potassium 3.6 mEq/L (3.5-5.1)
[2019-03-15] MEDS: Ipratropium/Albuterol Neb 3 ML IH SCH ×3 (03:22→15:27)
[2019-03-15] MEDS: *HR* Heparin 5,000 UNIT/ML VIAL SQ SCH ×2 (05:10→16:17)
[2019-03-15] MEDS ORDERED: 0.9 % Sodium Chloride 1,000 ML IVC SCH ×2 (07:15→08:23)
[2019-03-15] MEDS ORDERED: predniSONE 20 MG TABLET PO SCH (09:00)
[2019-03-15] MEDS: Insulin LISPRO 300 UNITS/3 ML VIAL SQ SCH ×2 (09:35→12:21)
[2019-03-15] MEDS ORDERED: Azithromycin 250 MG TABLET PO SCH (10:03)
[2019-03-15] MEDS: Venlafaxine XR (24 HR) 150 MG CAP.ER.24H PO SCH (10:07)
[2019-03-15] MEDS: Insulin DETEMIR 100 UNIT/ML X5UNITS SQ SCH (10:08)
[2019-03-15] MEDS: BuPROPion XL (24 HR) 150 MG TABLET PO SCH (10:08)
[2019-03-15 14:14] LABS: Calcium 9.1 mg/dL (8.6-10.3); Potassium 3.8 mEq/L (3.5-5.1)
[2019-03-15 15:42] VITALS: BP 136/80
== END 2019-03-15 17:31 | disposition home or self-care (01) ==
LOC: EMEROOARM 07:58 → 2ANU 07:58 → SUATTDRO 08:53 → 2ANU 10:01
PROVIDERS: ADMIT Pharmacist; ATTEND Internal Medicine

== ENCOUNTER 2019-05-03 03:51 | Inpatient (IN) ==
[2019-05-03] MEDS ORDERED: Ipratropium/Albuterol Neb 3 ML IH ONE (03:56)
[2019-05-03] MEDS ORDERED: methylPREDNISolone 125 MG/2 ML VIAL IVP ONE (03:56)
[2019-05-03 04:15] LABS: Basophils # 0.1 K/mcL (0.0-0.2); Basophils % 1.4 %; Eosinophils # 1.4 K/mcL (0.0-0.6); Eosinophils % 13.2 %; Hematocrit 39.6 % (35.3-44.9); Hemoglobin 12.8 g/dL (11.5-15.4); Immature Granulocytes % 0.5 % (0-4); Lymphocytes # 2.9 K/mcL (0.6-4.6); Lymphocytes % 28.2 %; Mean Corpuscular HGB Conc 32.3 g/dL (31.6-35.5); Mean Corpuscular Hemoglobin 30.8 pg (28.0-33.3); Mean Corpuscular Volume 95.2 fL (83.0-100.0); Mean Platelet Volume 9.6 fL (9.4-12.4); Monocytes # 0.6 K/mcL (0.0-1.3); Monocytes % 6.2 %; Neutrophils # 5.2 K/mcL (1.6-8.9); Platelet Count 369 K/mcL (140-400); Red Blood Count 4.16 M/mcL (3.82-4.97); Red Cell Distribution Width 13.2 % (11.5-14.5); Segmented Neutrophils % 50.5 %; White Blood Count 10.3 K/mcL (4.3-11.1)
[2019-05-03 04:42] LABS: BUN/Creatinine Ratio 25 (6-26); Blood Urea Nitrogen 38 mg/dL (8-23); Calcium 9.6 mg/dL (8.6-10.3); Carbon Dioxide 28 mEq/L (23-29); Chloride 103 mEq/L (98-107); Glucose 171 mg/dL (70-105); Osmolality,Calculated 305 (280-300); Potassium 3.7 mEq/L (3.5-5.1); Sodium 141 mEq/L (136-145); Troponin I < 0.03 ng/mL (< 0.04); eGFR For African Americans 41 (> 60); eGFR For Non-African Americans 33 (> 60)
[2019-05-03] MEDS ORDERED: Azithromycin 500 MG in 0.9 % Sodium Chloride 250 ML IVPB ONE (05:39)
[2019-05-03] MEDS ORDERED: 0.9 % Sodium Chloride 1,000 ML IVC ONE (05:57)
[2019-05-03 07:39] LABS: VBG HCO3 20 mEq/L (21-27); VBG PCO2 43 mmHg (41-51); VBG PH 7.28 pH Units (7.32-7.42); VBG PO2 165 mmHg (25-50)
[2019-05-03] MEDS: 0.9 % Sodium Chloride 1,000 ML IVC SCH ×2 (08:10→18:06)
[2019-05-03] MEDS ORDERED: Naloxone 0.4 MG/ML INJ IVP PRN (08:13)
[2019-05-03] MEDS ORDERED: Ondansetron 4 MG/2 ML VIAL IVP PRN (08:13)
[2019-05-03] MEDS ORDERED: D5% in Water 1,000 ML IVC PRN (08:19)
[2019-05-03] MEDS ORDERED: *HR* Dextrose 50 % in Water (Syg) 50 ML SYRINGE IVP PRN (08:19)
[2019-05-03] MEDS ORDERED: Dextrose Gel 15 GM/37.5 ML TUBE PO PRN ×2 (08:19)
[2019-05-03 09:13] LABS: Bilirubin,Urine Negative (Negative); Blood,Urine Negative (Negative); Clarity,Urine Clear (Clear); Color,Urine Yellow (Yellow); Glucose,Urine (UA) Normal (Normal); Ketones,Urine Negative (Negative); Leukocyte Esterase,Urine Small (Negative); Nitrite,Urine Negative (Negative); PH,Urine 5.5 pH Units (5.0-8.0); Protein,Urine Trace mg/dL (Neg-Trace); Specific Gravity,Urine 1.016 (1.010-1.025); Urobilinogen,Urine Normal (Normal)
[2019-05-03 09:16] LABS: Bacteria,Urine None Seen per hpf (None-Few); Hyaline Casts,Urine None Seen per lpf (None-Few); Squamous Epithelial Cell,Urine Many per lpf (None-Few)
[2019-05-03 09:18] LABS: INR 0.9; Prothrombin Time 10.1 Seconds (9.4-12.1)
[2019-05-03 09:21] LABS: Activated Partial Thrombo Time 30.5 Seconds (26.0-36.0)
[2019-05-03 10:19] LABS: Estimated Average Glucose 192 mg/dl
[2019-05-03] MEDS: Venlafaxine XR (24 HR) 150 MG CAP.ER.24H PO SCH (10:25)
[2019-05-03] MEDS: cefTRIAXone 1,000 MG in Water for inj. (sterile) 20 ML IVP SCH (10:27)
[2019-05-03] MEDS: Ipratropium/Albuterol Neb 3 ML IH SCH ×3 (10:33→21:43)
[2019-05-03] MEDS: ALPRAZolam 1 MG TABLET PO PRN ×2 (11:55→19:32)
[2019-05-03] MEDS: MethylPREDNISolone 40 MG/ML VIAL IVP SCH ×3 (11:55→23:41)
[2019-05-03] MEDS: Insulin LISPRO 300 UNITS/3 ML VIAL SQ SCH ×3 (11:56→21:10)
[2019-05-03 13:56] LABS: Adenovirus Not Detected (Not Detect); Bordetella Pertussis Not Detected (Not Detect); Chlamydophila pneumoniae Not Detected (Not Detect); Coronavirus 229E Not Detected (Not Detect); Coronavirus HKU1 Not Detected (Not Detect); Coronavirus NL63 Not Detected (Not Detect); Coronavirus OC43 Not Detected (Not Detect); Human Metapneumovirus Not Detected (Not Detect); Human Rhinovirus/Enterovirus Not Detected (Not Detect); Influenza A Subtype 2009 H1 Not Detected (Not Detect); Influenza A Untypeable Not Detected (Not Detect); Influenza B Not Detected (Not Detect); Mycoplasma pneumoniae Not Detected (Not Detect); Parainfluenza Virus 1 Not Detected (Not Detect); Parainfluenza Virus 2 Not Detected (Not Detect); Parainfluenza Virus 3 Not Detected (Not Detect); Parainfluenza Virus 4 Not Detected (Not Detect); Respiratory Syncytial Virus Not Detected (Not Detect)
[2019-05-03] MEDS: Acetylcysteine 10% 2 ML INHSOL IH SCH ×2 (16:08→21:43)
[2019-05-03] MEDS: *HR* Heparin 5,000 UNIT/ML VIAL SQ SCH (18:16)
[2019-05-03] MEDS ORDERED: Albuterol 2.5 MG/3 ML NEBULIZER IH PRN (22:15)
[2019-05-04] MEDS: Ipratropium/Albuterol Neb 3 ML IH SCH ×4 (03:40→21:53)
[2019-05-04 04:37] LABS: Basophils % 0.1 %; Hematocrit 34.9 % (35.3-44.9); Immature Granulocytes % 0.8 % (0-4); Lymphocytes # 0.7 K/mcL (0.6-4.6); Lymphocytes % 5.1 %; Mean Corpuscular HGB Conc 31.8 g/dL (31.6-35.5); Mean Corpuscular Hemoglobin 30.5 pg (28.0-33.3); Mean Corpuscular Volume 95.9 fL (83.0-100.0); Mean Platelet Volume 10.3 fL (9.4-12.4); Monocytes # 0.4 K/mcL (0.0-1.3); Monocytes % 3.1 %; Neutrophils # 12.5 K/mcL (1.6-8.9); Platelet Count 315 K/mcL (140-400); Red Blood Count 3.64 M/mcL (3.82-4.97); Red Cell Distribution Width 13.1 % (11.5-14.5); Segmented Neutrophils % 90.9 %; White Blood Count 13.8 K/mcL (4.3-11.1)
[2019-05-04 04:40] LABS: Hemoglobin 11.1 g/dL (11.5-15.4)
[2019-05-04 05:00] LABS: Albumin 3.7 g/dL (3.5-5.7); Albumin/Globulin Ratio 1.5 (1.1-2.2); Bilirubin,Total 0.2 mg/dL (0.3-1.0); Globulin 2.5 g/dL (2.4-3.5); Potassium 4.1 mEq/L (3.5-5.1); Total Protein 6.2 g/dL (6.4-8.9)
[2019-05-04] MEDS: *HR* Heparin 5,000 UNIT/ML VIAL SQ SCH ×2 (05:50→17:41)
[2019-05-04] MEDS: MethylPREDNISolone 40 MG/ML VIAL IVP SCH ×3 (05:51→22:01)
[2019-05-04] MEDS: 0.9 % Sodium Chloride 1,000 ML IVC SCH ×2 (05:55→22:13)
[2019-05-04] MEDS: Insulin LISPRO 300 UNITS/3 ML VIAL SQ SCH ×4 (08:18→22:31)
[2019-05-04] MEDS: Azithromycin 500 MG in D5% in Water 250 ML IVPB SCH (08:19)
[2019-05-04] MEDS: cefTRIAXone 1,000 MG in Water for inj. (sterile) 20 ML IVP SCH (08:19)
[2019-05-04] MEDS: Venlafaxine XR (24 HR) 150 MG CAP.ER.24H PO SCH (08:19)
[2019-05-04] MEDS: ALPRAZolam 1 MG TABLET PO PRN ×2 (08:32→22:02)
[2019-05-04 09:59] LABS: Magnesium 1.9 mg/dL (1.6-2.6)
[2019-05-04] MEDS: Acetylcysteine 10% 2 ML INHSOL IH SCH ×3 (11:11→21:53)
[2019-05-04 15:05] LABS: ABG Base Excess -1 mEq/L (-2 to 3); ABG HCO3 25 mEq/L (21-27); ABG Oxygen Saturation 94 % (95-98); ABG PCO2 45 mmHg (35-45); ABG PH 7.35 pH Units (7.32-7.45); ABG PO2 76 mmHg (85-104); ABG TCO2 26 mEq/L (20-26)
[2019-05-04] MEDS: Ringers Solution, Lactated 1,000 ML IVC SCH (17:42)
[2019-05-04] MEDS ORDERED: Insulin DETEMIR 100 UNIT/ML X5UNITS SQ SCH (21:00)
[2019-05-05 01:29] LABS: Calcium 9.2 mg/dL (8.6-10.3); Potassium 4.3 mEq/L (3.5-5.1)
[2019-05-05 04:11] LABS: Basophils % 0.1 %; Hematocrit 32.1 % (35.3-44.9); Hemoglobin 10.9 g/dL (11.5-15.4); Immature Granulocytes % 0.8 % (0-4); Lymphocytes # 0.8 K/mcL (0.6-4.6); Lymphocytes % 5.8 %; Mean Corpuscular Hemoglobin 30.8 pg (28.0-33.3); Mean Corpuscular Volume 90.7 fL (83.0-100.0); Mean Platelet Volume 11.3 fL (9.4-12.4); Monocytes # 0.4 K/mcL (0.0-1.3); Monocytes % 3.1 %; Neutrophils # 12.9 K/mcL (1.6-8.9); Platelet Count 297 K/mcL (140-400); Red Blood Count 3.54 M/mcL (3.82-4.97); Red Cell Distribution Width 12.9 % (11.5-14.5); Segmented Neutrophils % 90.2 %; White Blood Count 14.3 K/mcL (4.3-11.1)
[2019-05-05] MEDS: Ringers Solution, Lactated 1,000 ML IVC SCH (04:23)
[2019-05-05] MEDS: Ipratropium/Albuterol Neb 3 ML IH SCH ×4 (04:34→22:31)
[2019-05-05] MEDS: Acetylcysteine 10% 2 ML INHSOL IH SCH ×3 (04:34→22:32)
[2019-05-05] MEDS: MethylPREDNISolone 40 MG/ML VIAL IVP SCH ×3 (06:24→20:39)
[2019-05-05] MEDS: *HR* Heparin 5,000 UNIT/ML VIAL SQ SCH ×2 (06:24→16:49)
[2019-05-05] MEDS: Venlafaxine XR (24 HR) 150 MG CAP.ER.24H PO SCH (08:38)
[2019-05-05] MEDS: Azithromycin 500 MG in D5% in Water 250 ML IVPB SCH (08:39)
[2019-05-05] MEDS: cefTRIAXone 1,000 MG in Water for inj. (sterile) 20 ML IVP SCH (08:43)
[2019-05-05] MEDS: Insulin LISPRO 300 UNITS/3 ML VIAL SQ SCH ×4 (08:44→20:55)
[2019-05-05] MEDS: ALPRAZolam 1 MG TABLET PO PRN ×2 (08:49→20:53)
[2019-05-05] MEDS ORDERED: Ringers Solution, Lactated 1,000 ML IVC SCH (12:45)
[2019-05-05] MEDS ORDERED: Insulin DETEMIR 100 UNIT/ML X5UNITS SQ SCH (21:00)
[2019-05-06 03:48] LABS: BUN/Creatinine Ratio 33 (6-26); Blood Urea Nitrogen 35 mg/dL (8-23); Calcium 8.8 mg/dL (8.6-10.3); Carbon Dioxide 22 mEq/L (23-29); Chloride 105 mEq/L (98-107); Glucose 187 mg/dL (70-105); Osmolality,Calculated 297 (280-300); Potassium 4.3 mEq/L (3.5-5.1); Sodium 137 mEq/L (136-145); eGFR For African Americans > 60 (> 60); eGFR For Non-African Americans 51 (> 60)
[2019-05-06] MEDS: Ipratropium/Albuterol Neb 3 ML IH SCH ×2 (05:08→10:05)
[2019-05-06] MEDS: *HR* Heparin 5,000 UNIT/ML VIAL SQ SCH (05:39)
[2019-05-06 08:02] LABS: Basophils % 0.2 %; Hematocrit 33.6 % (35.3-44.9); Hemoglobin 11.3 g/dL (11.5-15.4); Immature Granulocytes % 1.6 % (0-4); Lymphocytes # 1.6 K/mcL (0.6-4.6); Lymphocytes % 13.5 %; Mean Corpuscular HGB Conc 33.6 g/dL (31.6-35.5); Mean Corpuscular Volume 89.1 fL (83.0-100.0); Mean Platelet Volume 11.5 fL (9.4-12.4); Monocytes # 0.7 K/mcL (0.0-1.3); Monocytes % 5.6 %; Neutrophils # 9.5 K/mcL (1.6-8.9); Platelet Count 252 K/mcL (140-400); Red Blood Count 3.77 M/mcL (3.82-4.97); Red Cell Distribution Width 12.8 % (11.5-14.5); Segmented Neutrophils % 79.1 %
[2019-05-06 08:10] VITALS: BP 141/85
[2019-05-06] MEDS ORDERED: Azithromycin 250 MG TABLET PO SCH (09:00)
[2019-05-06] MEDS: Acetylcysteine 10% 2 ML INHSOL IH SCH (10:06)
[2019-05-06] MEDS: Venlafaxine XR (24 HR) 150 MG CAP.ER.24H PO SCH (11:03)
[2019-05-06] MEDS: MethylPREDNISolone 40 MG/ML VIAL IVP SCH (11:03)
[2019-05-06] MEDS: cefTRIAXone 1,000 MG in Water for inj. (sterile) 20 ML IVP SCH (11:05)
[2019-05-06] MEDS: Insulin LISPRO 300 UNITS/3 ML VIAL SQ SCH (11:05)
[2019-05-06] MEDS: ALPRAZolam 1 MG TABLET PO PRN (11:18)
== END 2019-05-06 15:15 | disposition home or self-care (01) | DRG 193 ==
LOC: 3BNU 03:51 → EMEROOARM 03:51 → 3BNU 06:38
PROVIDERS: ADMIT Internal Medicine; ATTEND Internal Medicine

== ENCOUNTER 2019-08-12 21:38 | Inpatient (IN) ==
[2019-08-12] MEDS ORDERED: Ipratropium/Albuterol Neb 3 ML IH ONE (21:41)
[2019-08-12] MEDS ORDERED: Albuterol 2.5 MG/3 ML NEBULIZER IH ONE (21:41)
[2019-08-12] MEDS ORDERED: methylPREDNISolone 125 MG/2 ML VIAL IVP ONE (21:57)
[2019-08-12] MEDS ORDERED: cefTRIAXone 1,000 MG in Water for inj. (sterile) 10 ML IVP ONE (22:00)
[2019-08-12 22:12] LABS: Basophils # 0.1 K/mcL (0.0-0.2); Eosinophils # 0.8 K/mcL (0.0-0.6); Eosinophils % 7.4 %; Hematocrit 40.9 % (35.3-44.9); Hemoglobin 12.6 g/dL (11.5-15.4); Immature Granulocytes % 0.8 % (0-4); Lymphocytes # 3.4 K/mcL (0.6-4.6); Lymphocytes % 30.7 %; Mean Corpuscular HGB Conc 30.8 g/dL (31.6-35.5); Mean Corpuscular Hemoglobin 29.3 pg (28.0-33.3); Mean Corpuscular Volume 95.1 fL (83.0-100.0); Mean Platelet Volume 10.2 fL (9.4-12.4); Monocytes % 8.7 %; Neutrophils # 5.6 K/mcL (1.6-8.9); Platelet Count 307 K/mcL (140-400); Red Cell Distribution Width 13.1 % (11.5-14.5); Segmented Neutrophils % 51.4 %; White Blood Count 10.9 K/mcL (4.3-11.1)
[2019-08-12] MEDS ORDERED: ALPRAZolam 1 MG TABLET PO ONE (22:20)
[2019-08-12] MEDS ORDERED: ALPRAZolam 0.5 MG TABLET PO ONE ×2 (22:28→22:30)
[2019-08-12 23:07] LABS: Alanine Aminotransferase 9 Units/L (7-52); Albumin 4.2 g/dL (3.5-5.7); Albumin/Globulin Ratio 1.5 (1.1-2.2); Alkaline Phosphatase 159 Units/L (34-104); Aspartate Amino Transferase 9 Units/L (13-39); BUN/Creatinine Ratio 27 (6-26); Bilirubin,Direct 0.1 mg/dL (0.0-0.2); Bilirubin,Indirect 0.2 mg/dL (0.0-1.0); Bilirubin,Total 0.3 mg/dL (0.3-1.0); Blood Urea Nitrogen 34 mg/dL (8-23); Calcium 10.2 mg/dL (8.6-10.3); Carbon Dioxide 28 mEq/L (23-29); Chloride 102 mEq/L (98-107); Globulin 2.8 g/dL (2.4-3.5); Glucose 257 mg/dL (70-105); Osmolality,Calculated 304 (280-300); Potassium 3.8 mEq/L (3.5-5.1); Sodium 139 mEq/L (136-145); eGFR For African Americans 50 (> 60); eGFR For Non-African Americans 41 (> 60)
[2019-08-12 23:08] LABS: Troponin I < 0.03 ng/mL (< 0.04)
[2019-08-13] MEDS ORDERED: Ondansetron 4 MG/2 ML VIAL IVP PRN (00:40)
[2019-08-13] MEDS ORDERED: Acetaminophen 325 MG TABLET PO PRN (00:40)
[2019-08-13] MEDS ORDERED: Naloxone 0.4 MG/ML INJ IVP PRN (00:40)
[2019-08-13] MEDS ORDERED: 0.9 % Sodium Chloride 1,000 ML IVC SCH (00:45)
[2019-08-13] MEDS ORDERED: D5% in Water 1,000 ML IVC PRN (00:46)
[2019-08-13] MEDS ORDERED: Dextrose Gel 15 GM/37.5 ML TUBE PO PRN ×2 (00:46)
[2019-08-13] MEDS ORDERED: *HR* Dextrose 50 % in Water (Syg) 50 ML SYRINGE IVP PRN (00:46)
[2019-08-13] MEDS: *HR* Heparin 5,000 UNIT/ML VIAL SQ SCH ×4 (01:35→20:37)
[2019-08-13 02:47] LABS: Adenovirus Not Detected (Not Detect); Bordetella Pertussis Not Detected (Not Detect); Chlamydophila pneumoniae Not Detected (Not Detect); Coronavirus 229E Not Detected (Not Detect); Coronavirus HKU1 Not Detected (Not Detect); Coronavirus NL63 Not Detected (Not Detect); Coronavirus OC43 Not Detected (Not Detect); Human Metapneumovirus Not Detected (Not Detect); Human Rhinovirus/Enterovirus Not Detected (Not Detect); Influenza A Subtype 2009 H1 Not Detected (Not Detect); Influenza B Not Detected (Not Detect); Mycoplasma pneumoniae Not Detected (Not Detect); Parainfluenza Virus 1 Not Detected (Not Detect); Parainfluenza Virus 2 Not Detected (Not Detect); Parainfluenza Virus 3 Not Detected (Not Detect); Parainfluenza Virus 4 Not Detected (Not Detect); Respiratory Syncytial Virus Not Detected (Not Detect)
[2019-08-13] MEDS ORDERED: Insulin LISPRO 300 UNITS/3 ML VIAL SQ ONE (04:09)
[2019-08-13] MEDS: Ipratropium/Albuterol Neb 3 ML IH SCH ×6 (04:20→23:45)
[2019-08-13 04:42] LABS: Basophils # 0.1 K/mcL (0.0-0.2); Basophils % 0.5 %; Eosinophils % 0.3 %; Hematocrit 39.8 % (35.3-44.9); Hemoglobin 12.5 g/dL (11.5-15.4); Lymphocytes # 0.6 K/mcL (0.6-4.6); Lymphocytes % 5.2 %; Mean Corpuscular HGB Conc 31.4 g/dL (31.6-35.5); Mean Corpuscular Hemoglobin 29.6 pg (28.0-33.3); Mean Corpuscular Volume 94.3 fL (83.0-100.0); Mean Platelet Volume 10.9 fL (9.4-12.4); Monocytes # 0.1 K/mcL (0.0-1.3); Monocytes % 1.2 %; Neutrophils # 10.2 K/mcL (1.6-8.9); Platelet Count 301 K/mcL (140-400); Red Blood Count 4.22 M/mcL (3.82-4.97); Red Cell Distribution Width 12.9 % (11.5-14.5); Segmented Neutrophils % 91.8 %; White Blood Count 11.1 K/mcL (4.3-11.1)
[2019-08-13 05:01] LABS: Calcium 9.8 mg/dL (8.6-10.3); Magnesium 1.6 mg/dL (1.6-2.6); Phosphorous 3.9 mg/dL (2.7-4.5); Potassium 4.2 mEq/L (3.5-5.1)
[2019-08-13] MEDS ORDERED: cefTRIAXone 1,000 MG in 0.9 % Sodium Chloride Mini Bag 100 ML IVPB SCH (09:00)
[2019-08-13] MEDS: MethylPREDNISolone 40 MG/ML VIAL IVP SCH ×3 (09:07→23:37)
[2019-08-13] MEDS: Insulin LISPRO 300 UNITS/3 ML VIAL SQ SCH ×4 (09:07→20:38)
[2019-08-13] MEDS: Azithromycin 500 MG in 0.9 % Sodium Chloride 250 ML IVPB SCH (09:07)
[2019-08-13] MEDS ORDERED: ALPRAZolam 1 MG TABLET PO PRN (09:24)
[2019-08-13] MEDS ORDERED: *HR* Acetylcysteine 20% 600 MG/3 ML ORAL SYRINGE PO SCH (09:30)
[2019-08-13] MEDS: hydrALAZINE 25 MG TABLET PO SCH ×3 (11:57→23:37)
[2019-08-13] MEDS: Venlafaxine XR (24 HR) 150 MG CAP.ER.24H PO SCH (11:59)
[2019-08-13] MEDS: BuPROPion XL (24 HR) 150 MG TABLET PO SCH (11:59)
[2019-08-13] MEDS ORDERED: Insulin DETEMIR 100 UNIT/ML X5UNITS SQ SCH ×2 (12:15→18:30)
[2019-08-13] MEDS: ALPRAZolam 1 MG TABLET PO PRN (12:24)
[2019-08-13] MEDS: Acetylcysteine 10% 2 ML INHSOL IH SCH ×3 (15:15→19:45)
[2019-08-13] MEDS: (Roflumilast [Daliresp] 500 MCG) PO SCH (16:01)
[2019-08-13] MEDS: Insulin DETEMIR 100 UNIT/ML X5UNITS SQ SCH (20:37)
[2019-08-13] MEDS: QUEtiapine Fumarate 25 MG TABLET PO SCH (20:37)
[2019-08-14] MEDS: ALPRAZolam 1 MG TABLET PO PRN ×2 (01:02→11:49)
[2019-08-14] MEDS: Acetylcysteine 10% 2 ML INHSOL IH SCH ×4 (03:31→19:48)
[2019-08-14] MEDS: Ipratropium/Albuterol Neb 3 ML IH SCH ×6 (03:31→23:48)
[2019-08-14] MEDS: *HR* Heparin 5,000 UNIT/ML VIAL SQ SCH ×3 (05:34→22:28)
[2019-08-14 07:14] LABS: Calcium 9.6 mg/dL (8.6-10.3); Potassium 4.7 mEq/L (3.5-5.1)
[2019-08-14] MEDS: Azithromycin 500 MG in 0.9 % Sodium Chloride 250 ML IVPB SCH (07:44)
[2019-08-14] MEDS: Venlafaxine XR (24 HR) 150 MG CAP.ER.24H PO SCH (07:44)
[2019-08-14] MEDS: hydrALAZINE 25 MG TABLET PO SCH (07:44)
[2019-08-14] MEDS: BuPROPion XL (24 HR) 150 MG TABLET PO SCH (07:44)
[2019-08-14] MEDS: MethylPREDNISolone 40 MG/ML VIAL IVP SCH (07:44)
[2019-08-14] MEDS: Insulin LISPRO 300 UNITS/3 ML VIAL SQ SCH ×4 (07:45→22:28)
[2019-08-14] MEDS: (Roflumilast [Daliresp] 500 MCG) PO SCH (07:46)
[2019-08-14] MEDS ORDERED: Lisinopril-HCTZ 20-12.5mg TABLET PO SCH (11:30)
[2019-08-14] MEDS: QUEtiapine Fumarate 25 MG TABLET PO SCH (22:28)
[2019-08-14] MEDS: Insulin DETEMIR 100 UNIT/ML X5UNITS SQ SCH (22:28)
[2019-08-15] MEDS: Ipratropium/Albuterol Neb 3 ML IH SCH ×5 (03:58→19:55)
[2019-08-15] MEDS: Acetylcysteine 10% 2 ML INHSOL IH SCH ×4 (03:59→19:55)
[2019-08-15] MEDS: *HR* Heparin 5,000 UNIT/ML VIAL SQ SCH ×3 (05:46→20:43)
[2019-08-15 06:30] LABS: Calcium 9.8 mg/dL (8.6-10.3); Potassium 3.8 mEq/L (3.5-5.1)
[2019-08-15] MEDS ORDERED: Ringers Solution, Lactated 500 ML IVC ONE ×2 (08:04→08:15)
[2019-08-15] MEDS: predniSONE 20 MG TABLET PO SCH (08:55)
[2019-08-15] MEDS: (Roflumilast [Daliresp] 500 MCG) PO SCH (08:55)
[2019-08-15] MEDS: BuPROPion XL (24 HR) 150 MG TABLET PO SCH (08:55)
[2019-08-15] MEDS: Azithromycin 250 MG TABLET PO SCH (08:55)
[2019-08-15] MEDS: Venlafaxine XR (24 HR) 150 MG CAP.ER.24H PO SCH (08:56)
[2019-08-15] MEDS: ALPRAZolam 1 MG TABLET PO PRN ×2 (08:58→20:46)
[2019-08-15] MEDS: Insulin LISPRO 300 UNITS/3 ML VIAL SQ SCH ×4 (08:59→20:44)
[2019-08-15 13:13] LABS: Basophils % 0.3 %; Eosinophils % 0.2 %; Hematocrit 41.1 % (35.3-44.9); Hemoglobin 12.7 g/dL (11.5-15.4); Immature Granulocytes % 1.6 % (0-4); Lymphocytes # 1.4 K/mcL (0.6-4.6); Lymphocytes % 11.5 %; Mean Corpuscular HGB Conc 30.9 g/dL (31.6-35.5); Mean Corpuscular Hemoglobin 29.5 pg (28.0-33.3); Mean Corpuscular Volume 95.6 fL (83.0-100.0); Mean Platelet Volume 10.7 fL (9.4-12.4); Monocytes # 0.5 K/mcL (0.0-1.3); Monocytes % 4.1 %; Platelet Count 327 K/mcL (140-400); Red Cell Distribution Width 13.2 % (11.5-14.5); Segmented Neutrophils % 82.3 %; White Blood Count 12.1 K/mcL (4.3-11.1)
[2019-08-15 14:40] LABS: Calcium 9.7 mg/dL (8.6-10.3); Potassium 4.8 mEq/L (3.5-5.1)
[2019-08-15] MEDS: QUEtiapine Fumarate 25 MG TABLET PO SCH (20:42)
[2019-08-15] MEDS ORDERED: Insulin DETEMIR 100 UNIT/ML X5UNITS SQ SCH (21:00)
[2019-08-16] MEDS: Ipratropium/Albuterol Neb 3 ML IH SCH ×4 (00:15→11:05)
[2019-08-16 02:09] LABS: Hematocrit 37.8 % (35.3-44.9); Hemoglobin 12.1 g/dL (11.5-15.4); Mean Corpuscular Hemoglobin 30.2 pg (28.0-33.3); Mean Corpuscular Volume 94.3 fL (83.0-100.0); Mean Platelet Volume 10.7 fL (9.4-12.4); Platelet Count 291 K/mcL (140-400); Red Blood Count 4.01 M/mcL (3.82-4.97); White Blood Count 11.9 K/mcL (4.3-11.1)
[2019-08-16 02:31] LABS: Calcium 9.9 mg/dL (8.6-10.3); Magnesium 1.9 mg/dL (1.6-2.6); Potassium 3.9 mEq/L (3.5-5.1)
[2019-08-16] MEDS: Acetylcysteine 10% 2 ML INHSOL IH SCH ×2 (03:56→07:30)
[2019-08-16] MEDS: *HR* Heparin 5,000 UNIT/ML VIAL SQ SCH (05:33)
[2019-08-16 07:39] VITALS: BP 131/88
[2019-08-16] MEDS: Insulin LISPRO 300 UNITS/3 ML VIAL SQ SCH (08:01)
[2019-08-16] MEDS: (Roflumilast [Daliresp] 500 MCG) PO SCH (09:16)
[2019-08-16] MEDS: BuPROPion XL (24 HR) 150 MG TABLET PO SCH (09:24)
[2019-08-16] MEDS: Azithromycin 250 MG TABLET PO SCH (09:24)
[2019-08-16] MEDS: Venlafaxine XR (24 HR) 150 MG CAP.ER.24H PO SCH (09:25)
[2019-08-16] MEDS: predniSONE 20 MG TABLET PO SCH (09:25)
[2019-08-16] MEDS: ALPRAZolam 1 MG TABLET PO PRN (09:27)
== END 2019-08-16 12:46 | disposition home health service (06) | DRG 191 ==
LOC: 2NENU 21:38 → EMEROOARM 21:38 → 2NENU 08-13 00:44 → SUATTDRO 08-13 16:46
PROVIDERS: ADMIT Internal Medicine; ATTEND Internal Medicine

== ENCOUNTER 2019-09-18 23:51 | Inpatient (IN) ==
[2019-09-19] MEDS ORDERED: Ipratropium/Albuterol Neb 3 ML IH ONE (00:08)
[2019-09-19] MEDS ORDERED: methylPREDNISolone 125 MG/2 ML VIAL IVP ONE (00:08)
[2019-09-19 00:51] LABS: Basophils # 0.1 K/mcL (0.0-0.2); Basophils % 0.8 %; Eosinophils # 0.4 K/mcL (0.0-0.6); Eosinophils % 4.3 %; Hematocrit 39.1 % (35.3-44.9); Hemoglobin 12.3 g/dL (11.5-15.4); Immature Granulocytes % 0.8 % (0-4); Lymphocytes # 1.8 K/mcL (0.6-4.6); Lymphocytes % 18.3 %; Mean Corpuscular HGB Conc 31.5 g/dL (31.6-35.5); Mean Corpuscular Hemoglobin 29.7 pg (28.0-33.3); Mean Corpuscular Volume 94.4 fL (83.0-100.0); Mean Platelet Volume 10.8 fL (9.4-12.4); Monocytes # 0.8 K/mcL (0.0-1.3); Neutrophils # 6.8 K/mcL (1.6-8.9); Platelet Count 281 K/mcL (140-400); Red Blood Count 4.14 M/mcL (3.82-4.97); Red Cell Distribution Width 13.1 % (11.5-14.5); Segmented Neutrophils % 67.8 %
[2019-09-19 00:58] LABS: INR 0.9; Prothrombin Time 9.7 Seconds (9.4-12.1)
[2019-09-19 01:00] LABS: ABG Base Excess 2 mEq/L (-2 to 3); ABG HCO3 30 mEq/L (21-27); ABG Oxygen Saturation 99 % (95-98); ABG PCO2 63 mmHg (35-45); ABG PH 7.29 pH Units (7.32-7.45); ABG PO2 156 mmHg (85-104); ABG TCO2 32 mEq/L (20-26)
[2019-09-19 01:01] LABS: Activated Partial Thrombo Time 32.7 Seconds (26.0-36.0)
[2019-09-19 01:16] LABS: Alanine Aminotransferase 13 Units/L (7-52); Albumin 3.9 g/dL (3.5-5.7); Albumin/Globulin Ratio 1.5 (1.1-2.2); Alkaline Phosphatase 184 Units/L (34-104); Aspartate Amino Transferase 12 Units/L (13-39); BUN/Creatinine Ratio 17 (6-26); Bilirubin,Direct 0.1 mg/dL (0.0-0.2); Bilirubin,Indirect 0.1 mg/dL (0.0-1.0); Bilirubin,Total 0.2 mg/dL (0.3-1.0); Blood Urea Nitrogen 19 mg/dL (8-23); Calcium 9.5 mg/dL (8.6-10.3); Carbon Dioxide 30 mEq/L (23-29); Chloride 99 mEq/L (98-107); Globulin 2.6 g/dL (2.4-3.5); Glucose 318 mg/dL (70-105); Osmolality,Calculated 298 (280-300); Potassium 3.9 mEq/L (3.5-5.1); Sodium 137 mEq/L (136-145); Total Protein 6.5 g/dL (6.4-8.9); Troponin I < 0.03 ng/mL (< 0.04); eGFR For African Americans 57 (> 60); eGFR For Non-African Americans 47 (> 60)
[2019-09-19] MEDS ORDERED: Naloxone 0.4 MG/ML INJ IVP PRN (04:22)
[2019-09-19] MEDS ORDERED: *HR* Dextrose 50 % in Water (Syg) 50 ML SYRINGE IVP PRN (04:23)
[2019-09-19] MEDS ORDERED: Dextrose Gel 15 GM/37.5 ML TUBE PO PRN ×2 (04:23)
[2019-09-19] MEDS ORDERED: D5% in Water 1,000 ML IVC PRN (04:23)
[2019-09-19] MEDS ORDERED: Albuterol 2.5 MG/3 ML NEBULIZER IH PRN (04:24)
[2019-09-19] MEDS ORDERED: Azithromycin 500 MG in 0.9 % Sodium Chloride 250 ML IVPB SCH (05:00)
[2019-09-19] MEDS ORDERED: Ipratropium/Albuterol Neb 3 ML IH SCH (05:00)
[2019-09-19] MEDS: *HR* Heparin 5,000 UNIT/ML VIAL SQ SCH ×2 (05:03→17:51)
[2019-09-19] MEDS: ALPRAZolam 1 MG TABLET PO PRN ×2 (05:03→20:13)
[2019-09-19] MEDS: Insulin LISPRO 300 UNITS/3 ML VIAL SQ SCH ×4 (05:04→23:20)
[2019-09-19] MEDS ORDERED: MethylPREDNISolone 40 MG/ML VIAL IVP SCH (06:00)
[2019-09-19] MEDS: BuPROPion XL (24 HR) 150 MG TABLET PO SCH (08:39)
[2019-09-19] MEDS: Tiotropium 18 MCG inhalation IH SCH (09:10)
[2019-09-19] MEDS: Budesonide/Formoterol 160/4.5 1 PUFF INH IH SCH ×2 (11:15→20:03)
[2019-09-19] MEDS: MethylPREDNISolone 40 MG/ML VIAL IVP SCH ×2 (17:50→23:21)
[2019-09-19] MEDS: QUEtiapine Fumarate 25 MG TABLET PO SCH (20:13)
[2019-09-19] MEDS ORDERED: Insulin DETEMIR 100 UNIT/ML X5UNITS SQ SCH (21:00)
[2019-09-20] MEDS: *HR* Heparin 5,000 UNIT/ML VIAL SQ SCH ×2 (04:12→16:06)
[2019-09-20 04:57] LABS: Hematocrit 34.1 % (35.3-44.9); Hemoglobin 11.1 g/dL (11.5-15.4); Mean Corpuscular HGB Conc 32.6 g/dL (31.6-35.5); Mean Corpuscular Hemoglobin 30.2 pg (28.0-33.3); Mean Corpuscular Volume 92.9 fL (83.0-100.0); Platelet Count 260 K/mcL (140-400); Red Blood Count 3.67 M/mcL (3.82-4.97); Red Cell Distribution Width 12.9 % (11.5-14.5)
[2019-09-20 04:58] LABS: White Blood Count 16.1 K/mcL (4.3-11.1)
[2019-09-20 05:13] LABS: Calcium 9.9 mg/dL (8.6-10.3); Magnesium 1.8 mg/dL (1.6-2.6); Potassium 4.3 mEq/L (3.5-5.1)
[2019-09-20] MEDS: Tiotropium 18 MCG inhalation IH SCH (07:45)
[2019-09-20] MEDS: Budesonide/Formoterol 160/4.5 1 PUFF INH IH SCH ×2 (07:48→21:27)
[2019-09-20] MEDS ORDERED: Ringers Solution, Lactated 1,000 ML IVC ONE (07:55)
[2019-09-20] MEDS: Azithromycin 250 MG TABLET PO SCH (08:07)
[2019-09-20] MEDS: predniSONE 20 MG TABLET PO SCH (08:07)
[2019-09-20] MEDS: Insulin LISPRO 300 UNITS/3 ML VIAL SQ SCH ×4 (08:07→20:50)
[2019-09-20] MEDS: BuPROPion XL (24 HR) 150 MG TABLET PO SCH (08:07)
[2019-09-20] MEDS: ALPRAZolam 1 MG TABLET PO PRN ×2 (08:21→16:06)
[2019-09-20 10:19] LABS: Bilirubin,Urine Negative (Negative); Blood,Urine Negative (Negative); Clarity,Urine Clear (Clear); Color,Urine Yellow (Yellow); Glucose,Urine (UA) >=1000 mg/dL (Normal); Ketones,Urine Negative (Negative); Leukocyte Esterase,Urine Negative (Negative); Nitrite,Urine Negative (Negative); PH,Urine 6.5 pH Units (5.0-8.0); Protein,Urine Negative (Neg-Trace); Specific Gravity,Urine 1.021 (1.010-1.025); Urobilinogen,Urine Normal (Normal)
[2019-09-20 15:19] LABS: VBG HCO3 27 mEq/L (21-27); VBG PCO2 46 mmHg (41-51); VBG PH 7.38 pH Units (7.32-7.42); VBG PO2 182 mmHg (25-50)
[2019-09-20] MEDS ORDERED: GuaiFENesin/Codeine Oral Soln 5 ML UDC PO PRN (18:25)
[2019-09-20] MEDS: Ipratropium/Albuterol Neb 3 ML IH SCH ×2 (18:38→21:27)
[2019-09-20] MEDS: QUEtiapine Fumarate 25 MG TABLET PO SCH (20:51)
[2019-09-20] MEDS: Insulin DETEMIR 100 UNIT/ML X5UNITS SQ SCH (21:20)
[2019-09-20] MEDS: Levalbuterol Neb 1.25 MG/3 ML IH SCH (23:26)
[2019-09-21 01:36] LABS: Hematocrit 34.5 % (35.3-44.9); Hemoglobin 11.1 g/dL (11.5-15.4); Mean Corpuscular HGB Conc 32.2 g/dL (31.6-35.5); Mean Corpuscular Hemoglobin 29.8 pg (28.0-33.3); Mean Corpuscular Volume 92.7 fL (83.0-100.0); Platelet Count 286 K/mcL (140-400); Red Blood Count 3.72 M/mcL (3.82-4.97); Red Cell Distribution Width 13.2 % (11.5-14.5); White Blood Count 17.7 K/mcL (4.3-11.1)
[2019-09-21 01:58] LABS: Calcium 9.8 mg/dL (8.6-10.3); Potassium 3.7 mEq/L (3.5-5.1)
[2019-09-21] MEDS: Levalbuterol Neb 1.25 MG/3 ML IH SCH ×3 (03:17→12:05)
[2019-09-21] MEDS: *HR* Heparin 5,000 UNIT/ML VIAL SQ SCH ×2 (05:40→16:41)
[2019-09-21] MEDS: Tiotropium 18 MCG inhalation IH SCH (07:56)
[2019-09-21] MEDS: Budesonide/Formoterol 160/4.5 1 PUFF INH IH SCH ×2 (07:56→20:13)
[2019-09-21] MEDS: Insulin LISPRO 300 UNITS/3 ML VIAL SQ SCH ×4 (09:20→21:22)
[2019-09-21] MEDS: ALPRAZolam 1 MG TABLET PO PRN ×3 (09:21→22:14)
[2019-09-21] MEDS: BuPROPion XL (24 HR) 150 MG TABLET PO SCH (09:21)
[2019-09-21] MEDS: Azithromycin 250 MG TABLET PO SCH (09:22)
[2019-09-21] MEDS: predniSONE 20 MG TABLET PO SCH (09:22)
[2019-09-21] MEDS: 0.9 % Sodium Chloride 1,000 ML IVC SCH (15:18)
[2019-09-21] MEDS ORDERED: Albuterol 2.5 MG/3 ML NEBULIZER IH PRN (15:38)
[2019-09-21] MEDS: Ipratropium/Albuterol Neb 3 ML IH SCH ×3 (16:17→23:02)
[2019-09-21] MEDS: QUEtiapine Fumarate 25 MG TABLET PO SCH (21:22)
[2019-09-21] MEDS: Insulin DETEMIR 100 UNIT/ML X5UNITS SQ SCH (22:14)
[2019-09-22] MEDS: 0.9 % Sodium Chloride 1,000 ML IVC SCH (03:09)
[2019-09-22] MEDS: Ipratropium/Albuterol Neb 3 ML IH SCH ×5 (03:36→19:37)
[2019-09-22] MEDS: *HR* Heparin 5,000 UNIT/ML VIAL SQ SCH ×2 (05:28→16:58)
[2019-09-22] MEDS: Budesonide/Formoterol 160/4.5 1 PUFF INH IH SCH ×2 (07:08→19:36)
[2019-09-22] MEDS: Tiotropium 18 MCG inhalation IH SCH (07:35)
[2019-09-22] MEDS: predniSONE 20 MG TABLET PO SCH (07:36)
[2019-09-22] MEDS: Azithromycin 250 MG TABLET PO SCH (07:36)
[2019-09-22] MEDS: BuPROPion XL (24 HR) 150 MG TABLET PO SCH (07:36)
[2019-09-22] MEDS: ALPRAZolam 1 MG TABLET PO PRN ×2 (07:38→20:10)
[2019-09-22 08:27] LABS: Hematocrit 35.2 % (35.3-44.9); Hemoglobin 11.3 g/dL (11.5-15.4); Mean Corpuscular HGB Conc 32.1 g/dL (31.6-35.5); Mean Corpuscular Hemoglobin 30.1 pg (28.0-33.3); Mean Corpuscular Volume 93.6 fL (83.0-100.0); Mean Platelet Volume 10.4 fL (9.4-12.4); Platelet Count 255 K/mcL (140-400); Red Blood Count 3.76 M/mcL (3.82-4.97); Red Cell Distribution Width 13.2 % (11.5-14.5); White Blood Count 13.2 K/mcL (4.3-11.1)
[2019-09-22 08:47] LABS: Calcium 9.9 mg/dL (8.6-10.3); Potassium 3.6 mEq/L (3.5-5.1)
[2019-09-22] MEDS: Insulin DETEMIR 100 UNIT/ML X5UNITS SQ SCH ×2 (09:06→20:10)
[2019-09-22] MEDS: Insulin LISPRO 300 UNITS/3 ML VIAL SQ SCH ×4 (09:06→20:09)
[2019-09-22] MEDS: QUEtiapine Fumarate 25 MG TABLET PO SCH (20:10)
[2019-09-23] MEDS: Ipratropium/Albuterol Neb 3 ML IH SCH ×3 (00:23→07:46)
[2019-09-23 02:00] LABS: Hematocrit 34.1 % (35.3-44.9); Hemoglobin 10.9 g/dL (11.5-15.4); Mean Corpuscular Hemoglobin 29.8 pg (28.0-33.3); Mean Corpuscular Volume 93.2 fL (83.0-100.0); Mean Platelet Volume 10.9 fL (9.4-12.4); Platelet Count 255 K/mcL (140-400); Red Blood Count 3.66 M/mcL (3.82-4.97); Red Cell Distribution Width 13.2 % (11.5-14.5); White Blood Count 10.8 K/mcL (4.3-11.1)
[2019-09-23 02:05] LABS: Calcium 10.5 mg/dL (8.6-10.3); Potassium 3.5 mEq/L (3.5-5.1)
[2019-09-23] MEDS: *HR* Heparin 5,000 UNIT/ML VIAL SQ SCH (06:02)
[2019-09-23 07:15] VITALS: BP 138/82
[2019-09-23] MEDS: Budesonide/Formoterol 160/4.5 1 PUFF INH IH SCH (07:46)
[2019-09-23] MEDS: Tiotropium 18 MCG inhalation IH SCH (07:51)
[2019-09-23] MEDS: Insulin LISPRO 300 UNITS/3 ML VIAL SQ SCH (08:01)
[2019-09-23] MEDS: Azithromycin 250 MG TABLET PO SCH (08:03)
[2019-09-23] MEDS: predniSONE 20 MG TABLET PO SCH (08:03)
[2019-09-23] MEDS: Insulin DETEMIR 100 UNIT/ML X5UNITS SQ SCH (08:03)
[2019-09-23] MEDS: BuPROPion XL (24 HR) 150 MG TABLET PO SCH (08:03)
[2019-09-23] MEDS: ALPRAZolam 1 MG TABLET PO PRN (08:05)
[2019-09-24] MEDS ORDERED: hydroCHLOROthiazide 25 MG TABLET PO SCH (09:00)
== END 2019-09-23 11:26 | disposition home or self-care (01) | DRG 189 ==
LOC: EMEROOARM 23:51 → 2NNU 23:51 → SUATTDRO 09-19 01:56 → 2NNU 09-19 02:30 → SUATTDRO 09-20 09:11 → 2ANU 09-20 17:19
PROVIDERS: ADMIT Family Medicine; ATTEND Family Medicine

== ENCOUNTER 2019-11-20 13:52 | Inpatient (IN) ==
[2019-11-20] MEDS ORDERED: Ipratropium/Albuterol Neb 3 ML IH ONE (14:46)
[2019-11-20 14:54] LABS: Basophils # 0.1 K/mcL (0.0-0.2); Eosinophils # 0.9 K/mcL (0.0-0.6); Eosinophils % 7.8 %; Hematocrit 36.8 % (35.3-44.9); Hemoglobin 11.9 g/dL (11.5-15.4); Immature Granulocytes % 0.5 % (0-4); Lymphocytes # 0.8 K/mcL (0.6-4.6); Lymphocytes % 7.4 %; Mean Corpuscular HGB Conc 32.3 g/dL (31.6-35.5); Mean Corpuscular Hemoglobin 29.9 pg (28.0-33.3); Mean Corpuscular Volume 92.5 fL (83.0-100.0); Mean Platelet Volume 10.4 fL (9.4-12.4); Monocytes # 0.5 K/mcL (0.0-1.3); Neutrophils # 9.1 K/mcL (1.6-8.9); Platelet Count 288 K/mcL (140-400); Red Blood Count 3.98 M/mcL (3.82-4.97); Segmented Neutrophils % 79.3 %; White Blood Count 11.4 K/mcL (4.3-11.1)
[2019-11-20] MEDS ORDERED: Isovue-370 500 ML BOTTLE IVP ONE (14:58)
[2019-11-20 15:03] LABS: Prothrombin Time 10.9 Seconds (9.4-12.1)
[2019-11-20 15:26] LABS: BUN/Creatinine Ratio 17 (6-26); Blood Urea Nitrogen 20 mg/dL (8-23); Calcium 10.1 mg/dL (8.6-10.3); Carbon Dioxide 25 mEq/L (23-29); Chloride 103 mEq/L (98-107); Glucose 200 mg/dL (70-105); Osmolality,Calculated 298 (280-300); Potassium 3.3 mEq/L (3.5-5.1); Sodium 140 mEq/L (136-145); Troponin I < 0.03 ng/mL (< 0.04); eGFR For African Americans 56 (> 60); eGFR For Non-African Americans 46 (> 60)
[2019-11-20] MEDS ORDERED: 0.9 % Sodium Chloride 1,000 ML IVC STA (15:46)
[2019-11-20] MEDS ORDERED: Azithromycin 500 MG in D5% in Water 250 ML IVPB STA (16:37)
[2019-11-20] MEDS ORDERED: Azithromycin 500 MG VIAL ONE (17:03)
[2019-11-20] MEDS ORDERED: Naloxone 0.4 MG/ML INJ IVP PRN (17:23)
[2019-11-20] MEDS: Insulin LISPRO 300 UNITS/3 ML VIAL SQ SCH (19:58)
[2019-11-20] MEDS ORDERED: Ipratropium/Albuterol Neb 3 ML IH SCH (20:00)
[2019-11-20] MEDS: Ipratropium 1 PUFF INHALER IH SCH (20:40)
[2019-11-20] MEDS ORDERED: methylPREDNISolone 125 MG/2 ML VIAL IVP ONE (22:16)
[2019-11-20] MEDS ORDERED: 0.9 % Sodium Chloride 1,000 ML IVC ONE (22:20)
[2019-11-20] MEDS ORDERED: ALPRAZolam 1 MG TABLET PO ONE (23:57)
[2019-11-21] MEDS: Ipratropium 1 PUFF INHALER IH SCH (00:19)
[2019-11-21] MEDS: MethylPREDNISolone 40 MG/ML VIAL IVP SCH ×2 (01:09→07:51)
[2019-11-21] MEDS: Levalbuterol Neb 1.25 MG/3 ML IH SCH ×7 (02:05→23:58)
[2019-11-21 03:25] LABS: Calcium 9.4 mg/dL (8.6-10.3); Potassium 3.6 mEq/L (3.5-5.1)
[2019-11-21] MEDS ORDERED: 0.9 % Sodium Chloride 1,000 ML IVC ONE (07:00)
[2019-11-21 07:07] LABS: Hematocrit 37.5 % (35.3-44.9); Hemoglobin 11.8 g/dL (11.5-15.4); Mean Corpuscular HGB Conc 31.5 g/dL (31.6-35.5); Mean Corpuscular Hemoglobin 29.2 pg (28.0-33.3); Mean Corpuscular Volume 92.8 fL (83.0-100.0); Mean Platelet Volume 10.9 fL (9.4-12.4); Platelet Count 316 K/mcL (140-400); Red Blood Count 4.04 M/mcL (3.82-4.97); Red Cell Distribution Width 12.9 % (11.5-14.5); White Blood Count 11.1 K/mcL (4.3-11.1)
[2019-11-21] MEDS: ALPRAZolam 1 MG TABLET PO SCH ×3 (07:49→20:39)
[2019-11-21] MEDS: lisinopriL 5 MG TABLET PO SCH (07:50)
[2019-11-21] MEDS: hydroCHLOROthiazide 25 MG TABLET PO SCH (07:50)
[2019-11-21] MEDS: Budesonide/Formoterol 160/4.5 1 PUFF INH IH SCH ×2 (08:10→20:14)
[2019-11-21] MEDS: Tiotropium 18 MCG inhalation IH SCH (08:11)
[2019-11-21] MEDS: Insulin LISPRO 300 UNITS/3 ML VIAL SQ SCH ×4 (08:51→19:48)
[2019-11-21] MEDS ORDERED: (Roflumilast [Daliresp] 500 MCG) PO SCH (09:00)
[2019-11-21] MEDS ORDERED: DESVENLAFAXINE SUCCINATE PO SCH ×2 (09:00→11:15)
[2019-11-21] MEDS ORDERED: *HR* Dextrose 50 % in Water (Syg) 50 ML SYRINGE IVP PRN (09:37)
[2019-11-21] MEDS ORDERED: Dextrose Gel 15 GM/37.5 ML TUBE PO PRN ×2 (09:37)
[2019-11-21] MEDS ORDERED: D5% in Water 1,000 ML IVC PRN (09:37)
[2019-11-21 13:04] LABS: Estimated Average Glucose 220 mg/dl
[2019-11-21] MEDS ORDERED: predniSONE 20 MG TABLET PO SCH (17:00)
[2019-11-21] MEDS: *HR* Rivaroxaban 10 MG TABLET PO SCH (17:56)
[2019-11-21] MEDS: QUEtiapine Fumarate 25 MG TABLET PO SCH (20:39)
[2019-11-21] MEDS ORDERED: Insulin DETEMIR 100 UNIT/ML X5UNITS SQ SCH (21:00)
[2019-11-22] MEDS: Levalbuterol Neb 1.25 MG/3 ML IH SCH ×6 (04:01→23:06)
[2019-11-22 06:57] LABS: Basophils # 0.1 K/mcL (0.0-0.2); Basophils % 0.5 %; Eosinophils # 0.2 K/mcL (0.0-0.6); Eosinophils % 1.3 %; Hematocrit 34.2 % (35.3-44.9); Hemoglobin 10.8 g/dL (11.5-15.4); Immature Granulocytes % 0.6 % (0-4); Lymphocytes # 2.5 K/mcL (0.6-4.6); Lymphocytes % 19.7 %; Mean Corpuscular HGB Conc 31.6 g/dL (31.6-35.5); Mean Corpuscular Hemoglobin 29.3 pg (28.0-33.3); Mean Corpuscular Volume 92.7 fL (83.0-100.0); Mean Platelet Volume 10.4 fL (9.4-12.4); Monocytes # 0.9 K/mcL (0.0-1.3); Monocytes % 7.2 %; Neutrophils # 8.9 K/mcL (1.6-8.9); Platelet Count 289 K/mcL (140-400); Red Blood Count 3.69 M/mcL (3.82-4.97); Red Cell Distribution Width 13.1 % (11.5-14.5); Segmented Neutrophils % 70.7 %; White Blood Count 12.6 K/mcL (4.3-11.1)
[2019-11-22] MEDS: predniSONE 20 MG TABLET PO SCH (08:09)
[2019-11-22] MEDS: hydroCHLOROthiazide 25 MG TABLET PO SCH (08:10)
[2019-11-22] MEDS: ALPRAZolam 1 MG TABLET PO SCH ×3 (08:10→21:19)
[2019-11-22] MEDS: lisinopriL 5 MG TABLET PO SCH (08:10)
[2019-11-22] MEDS: Insulin LISPRO 300 UNITS/3 ML VIAL SQ SCH ×4 (08:17→21:18)
[2019-11-22 08:45] LABS: VBG HCO3 28 mEq/L (21-27); VBG PCO2 48 mmHg (41-51); VBG PH 7.37 pH Units (7.32-7.42); VBG PO2 60 mmHg (25-50)
[2019-11-22] MEDS: Budesonide/Formoterol 160/4.5 1 PUFF INH IH SCH ×2 (11:23→20:31)
[2019-11-22] MEDS: Tiotropium 18 MCG inhalation IH SCH (11:23)
[2019-11-22] MEDS: Azithromycin 250 MG TABLET PO SCH (11:41)
[2019-11-22] MEDS: GuaiFENesin/Dextromethorphan TABLET PO SCH ×2 (11:41→21:19)
[2019-11-22] MEDS: *HR* Rivaroxaban 10 MG TABLET PO SCH (17:23)
[2019-11-22] MEDS ORDERED: Insulin DETEMIR 100 UNIT/ML X5UNITS SQ SCH (21:00)
[2019-11-22] MEDS: QUEtiapine Fumarate 25 MG TABLET PO SCH (21:19)
[2019-11-23] MEDS: Levalbuterol Neb 1.25 MG/3 ML IH SCH ×6 (04:25→23:00)
[2019-11-23 07:24] LABS: Basophils # 0.1 K/mcL (0.0-0.2); Basophils % 0.7 %; Eosinophils # 0.3 K/mcL (0.0-0.6); Eosinophils % 2.5 %; Hematocrit 34.6 % (35.3-44.9); Hemoglobin 10.9 g/dL (11.5-15.4); Immature Granulocytes % 0.8 % (0-4); Lymphocytes # 2.7 K/mcL (0.6-4.6); Lymphocytes % 26.5 %; Mean Corpuscular HGB Conc 31.5 g/dL (31.6-35.5); Mean Corpuscular Hemoglobin 29.5 pg (28.0-33.3); Mean Corpuscular Volume 93.5 fL (83.0-100.0); Mean Platelet Volume 10.6 fL (9.4-12.4); Monocytes # 0.7 K/mcL (0.0-1.3); Monocytes % 7.1 %; Neutrophils # 6.4 K/mcL (1.6-8.9); Platelet Count 277 K/mcL (140-400); Red Cell Distribution Width 13.2 % (11.5-14.5); Segmented Neutrophils % 62.4 %; White Blood Count 10.2 K/mcL (4.3-11.1)
[2019-11-23] MEDS: Tiotropium 18 MCG inhalation IH SCH (07:26)
[2019-11-23] MEDS: Budesonide/Formoterol 160/4.5 1 PUFF INH IH SCH ×2 (07:27→20:08)
[2019-11-23 07:45] LABS: Calcium 9.7 mg/dL (8.6-10.3); Potassium 3.4 mEq/L (3.5-5.1)
[2019-11-23] MEDS: ALPRAZolam 1 MG TABLET PO SCH ×3 (08:13→20:52)
[2019-11-23] MEDS: predniSONE 20 MG TABLET PO SCH (08:13)
[2019-11-23] MEDS: Azithromycin 250 MG TABLET PO SCH (08:13)
[2019-11-23] MEDS: lisinopriL 5 MG TABLET PO SCH (08:14)
[2019-11-23] MEDS: hydroCHLOROthiazide 25 MG TABLET PO SCH (08:14)
[2019-11-23] MEDS: Insulin LISPRO 300 UNITS/3 ML VIAL SQ SCH ×4 (08:14→20:53)
[2019-11-23] MEDS: GuaiFENesin/Dextromethorphan TABLET PO SCH ×2 (08:14→20:51)
[2019-11-23] MEDS ORDERED: Magnesium Sulfate 1 GM/102 ML PIGGYBACK IVPB ONE (09:01)
[2019-11-23] MEDS ORDERED: Ringers Solution, Lactated 1,000 ML IVC SCH (09:15)
[2019-11-23] MEDS: MethylPREDNISolone 40 MG/ML VIAL IVP SCH (15:00)
[2019-11-23] MEDS: *HR* Rivaroxaban 10 MG TABLET PO SCH (17:50)
[2019-11-23] MEDS: QUEtiapine Fumarate 25 MG TABLET PO SCH (20:52)
[2019-11-23] MEDS ORDERED: Insulin DETEMIR 100 UNIT/ML X5UNITS SQ SCH (21:00)
[2019-11-23] MEDS ORDERED: predniSONE 20 MG TABLET PO SCH (21:00)
[2019-11-23] MEDS ORDERED: Insulin LISPRO 300 UNITS/3 ML VIAL SQ STA (23:44)
[2019-11-24] MEDS: MethylPREDNISolone 40 MG/ML VIAL IVP SCH ×2 (00:01→07:35)
[2019-11-24] MEDS ORDERED: Insulin LISPRO 300 UNITS/3 ML VIAL SQ ONE (00:33)
[2019-11-24] MEDS: Levalbuterol Neb 1.25 MG/3 ML IH SCH ×2 (03:36→07:40)
[2019-11-24 04:18] LABS: Basophils % 0.2 %; Hematocrit 35.6 % (35.3-44.9); Hemoglobin 11.6 g/dL (11.5-15.4); Immature Granulocytes % 1.1 % (0-4); Lymphocytes # 0.8 K/mcL (0.6-4.6); Lymphocytes % 6.4 %; Mean Corpuscular HGB Conc 32.6 g/dL (31.6-35.5); Mean Corpuscular Hemoglobin 29.6 pg (28.0-33.3); Mean Corpuscular Volume 90.8 fL (83.0-100.0); Mean Platelet Volume 10.6 fL (9.4-12.4); Monocytes # 0.4 K/mcL (0.0-1.3); Monocytes % 3.4 %; Neutrophils # 11.2 K/mcL (1.6-8.9); Platelet Count 302 K/mcL (140-400); Red Blood Count 3.92 M/mcL (3.82-4.97); Red Cell Distribution Width 12.9 % (11.5-14.5); Segmented Neutrophils % 88.9 %; White Blood Count 12.6 K/mcL (4.3-11.1)
[2019-11-24] MEDS: Insulin LISPRO 300 UNITS/3 ML VIAL SQ SCH ×2 (07:35→11:39)
[2019-11-24] MEDS: Budesonide/Formoterol 160/4.5 1 PUFF INH IH SCH (07:40)
[2019-11-24] MEDS: Tiotropium 18 MCG inhalation IH SCH (07:40)
[2019-11-24] MEDS: ALPRAZolam 1 MG TABLET PO SCH ×2 (08:36→14:20)
[2019-11-24] MEDS: Azithromycin 250 MG TABLET PO SCH (08:36)
[2019-11-24] MEDS: GuaiFENesin/Dextromethorphan TABLET PO SCH (08:36)
[2019-11-24 14:13] VITALS: BP 141/74
== END 2019-11-24 15:44 | disposition home health service (06) | DRG 189 ==
LOC: 2NENU 13:52 → EMEROOARM 13:52 → SUATTDRO 17:32 → 2NENU 18:51 → 3ANU 11-21 01:35 → UNDODISIN 11-24 13:01
PROVIDERS: ADMIT Student in an Organized Health Care Education/Training Program; ATTEND Pharmacist

== ENCOUNTER 2020-04-17 17:34 | Inpatient (IN) ==
[2020-04-17] MEDS ORDERED: Ipratropium/Albuterol Neb 3 ML ONE (17:48)
[2020-04-17] MEDS ORDERED: methylPREDNISolone 125 MG/2 ML VIAL IVP ONE (17:50)
[2020-04-17] MEDS ORDERED: Ipratropium/Albuterol Neb 3 ML IH ONE (17:50)
[2020-04-17 18:21] LABS: Basophils # 0.1 K/mcL (0.0-0.2); Basophils % 0.8 %; Eosinophils # 0.8 K/mcL (0.0-0.6); Eosinophils % 9.1 %; Hematocrit 38.3 % (35.3-44.9); Hemoglobin 12.2 g/dL (11.5-15.4); Lymphocytes # 2.4 K/mcL (0.6-4.6); Lymphocytes % 26.9 %; Mean Corpuscular HGB Conc 31.9 g/dL (31.6-35.5); Mean Corpuscular Hemoglobin 29.3 pg (28.0-33.3); Mean Corpuscular Volume 91.8 fL (83.0-100.0); Mean Platelet Volume 10.4 fL (9.4-12.4); Monocytes # 0.6 K/mcL (0.0-1.3); Monocytes % 6.3 %; Platelet Count 358 K/mcL (140-400); Red Blood Count 4.17 M/mcL (3.82-4.97); Segmented Neutrophils % 55.9 %
[2020-04-17 19:01] LABS: BUN/Creatinine Ratio 17 (6-26); Blood Urea Nitrogen 23 mg/dL (8-23); Calcium 9.4 mg/dL (8.6-10.3); Carbon Dioxide 24 mEq/L (23-29); Chloride 102 mEq/L (98-107); Glucose 367 mg/dL (70-105); Osmolality,Calculated 305 (280-300); Potassium 3.8 mEq/L (3.5-5.1); Sodium 138 mEq/L (136-145); Troponin I < 0.03 ng/mL (< 0.04); eGFR For African Americans 47 (> 60); eGFR For Non-African Americans 39 (> 60)
[2020-04-17] MEDS ORDERED: 0.9 % Sodium Chloride 1,000 ML IVC ONE (19:41)
[2020-04-17] MEDS ORDERED: Azithromycin 500 MG in 0.9 % Sodium Chloride 250 ML IVPB ONE (19:42)
[2020-04-17] MEDS ORDERED: D5% in Water 1,000 ML IVC PRN (21:52)
[2020-04-17] MEDS ORDERED: Dextrose Gel 15 GM/37.5 ML TUBE PO PRN ×2 (21:52)
[2020-04-17] MEDS ORDERED: *HR* Dextrose 50 % in Water (Vial) 50 ML VIAL IVP PRN (21:52)
[2020-04-17] MEDS: Ipratropium/Albuterol Neb 3 ML IH SCH (23:16)
[2020-04-17] MEDS ORDERED: ALPRAZolam 1 MG TABLET PO ONE (23:48)
[2020-04-18] MEDS: Insulin DETEMIR 100 UNIT/ML X5UNITS SQ SCH ×3 (00:21→21:32)
[2020-04-18] MEDS: MethylPREDNISolone 40 MG/ML VIAL IVP SCH ×5 (00:23→22:53)
[2020-04-18 01:50] LABS: Basophils # 0.1 K/mcL (0.0-0.2); Basophils % 0.5 %; Eosinophils % 0.2 %; Immature Granulocytes % 1.5 % (0-4); Lymphocytes # 0.4 K/mcL (0.6-4.6); Lymphocytes % 3.8 %; Mean Corpuscular HGB Conc 32.4 g/dL (31.6-35.5); Mean Corpuscular Hemoglobin 29.6 pg (28.0-33.3); Mean Corpuscular Volume 91.1 fL (83.0-100.0); Mean Platelet Volume 10.6 fL (9.4-12.4); Monocytes # 0.1 K/mcL (0.0-1.3); Monocytes % 0.5 %; Neutrophils # 8.8 K/mcL (1.6-8.9); Platelet Count 327 K/mcL (140-400); Red Blood Count 4.06 M/mcL (3.82-4.97); Red Cell Distribution Width 12.9 % (11.5-14.5); Segmented Neutrophils % 93.5 %; White Blood Count 9.4 K/mcL (4.3-11.1)
[2020-04-18 02:15] LABS: Albumin 3.8 g/dL (3.5-5.7); Albumin/Globulin Ratio 1.5 (1.1-2.2); Bilirubin,Total 0.2 mg/dL (0.3-1.0); Calcium 8.9 mg/dL (8.6-10.3); Globulin 2.6 g/dL (2.4-3.5); Potassium 4.6 mEq/L (3.5-5.1); Total Protein 6.4 g/dL (6.4-8.9)
[2020-04-18] MEDS: Insulin LISPRO 300 UNITS/3 ML VIAL SQ SCH ×7 (04:06→21:33)
[2020-04-18] MEDS ORDERED: Acetaminophen 325 MG TABLET PO PRN (04:28)
[2020-04-18] MEDS: Ipratropium/Albuterol Neb 3 ML IH SCH ×4 (05:16→22:02)
[2020-04-18] MEDS: lisinopriL 5 MG TABLET PO SCH (09:40)
[2020-04-18] MEDS: BuPROPion XL (24 HR) 150 MG TABLET PO SCH (09:40)
[2020-04-18] MEDS: Venlafaxine XR (24 HR) 150 MG CAP.ER.24H PO SCH (09:46)
[2020-04-18] MEDS: Budesonide/Formoterol 160/4.5 1 PUFF INH IH SCH ×2 (10:54→22:02)
[2020-04-18] MEDS ORDERED: Insulin LISPRO 300 UNITS/3 ML VIAL SQ SCH ×3 (11:30→21:00)
[2020-04-18] MEDS: Roflumilast [Daliresp] 500 MCG PO SCH (12:01)
[2020-04-18] MEDS: ALPRAZolam 1 MG TABLET PO PRN ×2 (14:41→21:32)
[2020-04-18] MEDS: *HR* Heparin 5,000 UNIT/ML VIAL SQ SCH ×2 (14:41→21:32)
[2020-04-18] MEDS: QUEtiapine Fumarate 25 MG TABLET PO SCH (21:32)
[2020-04-18] MEDS: Azithromycin 500 MG in 0.9 % Sodium Chloride 250 ML IVPB SCH (21:33)
[2020-04-19] MEDS: Ipratropium/Albuterol Neb 3 ML IH SCH ×4 (03:52→21:23)
[2020-04-19 05:59] LABS: Basophils % 0.2 %; Hematocrit 35.3 % (35.3-44.9); Hemoglobin 11.1 g/dL (11.5-15.4); Immature Granulocytes % 1.6 % (0-4); Lymphocytes # 0.7 K/mcL (0.6-4.6); Lymphocytes % 3.5 %; Mean Corpuscular HGB Conc 31.4 g/dL (31.6-35.5); Mean Corpuscular Hemoglobin 29.1 pg (28.0-33.3); Mean Corpuscular Volume 92.7 fL (83.0-100.0); Mean Platelet Volume 10.9 fL (9.4-12.4); Monocytes # 0.4 K/mcL (0.0-1.3); Monocytes % 1.9 %; Platelet Count 332 K/mcL (140-400); Red Blood Count 3.81 M/mcL (3.82-4.97); Red Cell Distribution Width 13.2 % (11.5-14.5); Segmented Neutrophils % 92.8 %
[2020-04-19 06:04] LABS: Neutrophils # 17.3 K/mcL (1.6-8.9); White Blood Count 18.6 K/mcL (4.3-11.1)
[2020-04-19 06:07] LABS: Calcium 9.6 mg/dL (8.6-10.3); Potassium 4.4 mEq/L (3.5-5.1)
[2020-04-19] MEDS: *HR* Heparin 5,000 UNIT/ML VIAL SQ SCH ×3 (06:08→21:12)
[2020-04-19] MEDS: MethylPREDNISolone 40 MG/ML VIAL IVP SCH ×3 (06:08→21:13)
[2020-04-19] MEDS ORDERED: 0.9 % Sodium Chloride 1,000 ML IVC SCH (07:45)
[2020-04-19] MEDS: BuPROPion XL (24 HR) 150 MG TABLET PO SCH (07:55)
[2020-04-19] MEDS: lisinopriL 5 MG TABLET PO SCH (07:55)
[2020-04-19] MEDS: ALPRAZolam 1 MG TABLET PO PRN ×2 (07:55→21:12)
[2020-04-19] MEDS: Venlafaxine XR (24 HR) 150 MG CAP.ER.24H PO SCH (07:55)
[2020-04-19] MEDS: Roflumilast [Daliresp] 500 MCG PO SCH (07:56)
[2020-04-19] MEDS: Insulin LISPRO 300 UNITS/3 ML VIAL SQ SCH ×4 (07:56→21:13)
[2020-04-19] MEDS: Insulin DETEMIR 100 UNIT/ML X5UNITS SQ SCH ×2 (07:56→21:14)
[2020-04-19 08:17] LABS: Estimated Average Glucose 275 mg/dl
[2020-04-19] MEDS: Budesonide/Formoterol 160/4.5 1 PUFF INH IH SCH ×2 (10:35→21:23)
[2020-04-19] MEDS: QUEtiapine Fumarate 25 MG TABLET PO SCH (21:12)
[2020-04-19] MEDS: Azithromycin 500 MG in 0.9 % Sodium Chloride 250 ML IVPB SCH (21:15)
[2020-04-20] MEDS: Insulin LISPRO 300 UNITS/3 ML VIAL SQ SCH ×5 (00:54→20:02)
[2020-04-20] MEDS ORDERED: Insulin LISPRO 300 UNITS/3 ML VIAL SQ ONE (02:44)
[2020-04-20] MEDS ORDERED: Insulin LISPRO 300 UNITS/3 ML VIAL SQ SCH (02:45)
[2020-04-20 03:10] LABS: Basophils % 0.2 %; Hematocrit 36.9 % (35.3-44.9); Hemoglobin 11.4 g/dL (11.5-15.4); Immature Granulocytes % 3.1 % (0-4); Lymphocytes # 0.7 K/mcL (0.6-4.6); Lymphocytes % 3.6 %; Mean Corpuscular HGB Conc 30.9 g/dL (31.6-35.5); Mean Corpuscular Hemoglobin 28.9 pg (28.0-33.3); Mean Corpuscular Volume 93.7 fL (83.0-100.0); Mean Platelet Volume 10.8 fL (9.4-12.4); Monocytes # 0.5 K/mcL (0.0-1.3); Monocytes % 2.5 %; Neutrophils # 17.5 K/mcL (1.6-8.9); Platelet Count 340 K/mcL (140-400); Red Blood Count 3.94 M/mcL (3.82-4.97); Segmented Neutrophils % 90.6 %; White Blood Count 19.3 K/mcL (4.3-11.1)
[2020-04-20 03:15] LABS: Calcium 9.4 mg/dL (8.6-10.3); Potassium 4.7 mEq/L (3.5-5.1)
[2020-04-20] MEDS: Ipratropium/Albuterol Neb 3 ML IH SCH ×4 (03:54→22:19)
[2020-04-20] MEDS: *HR* Heparin 5,000 UNIT/ML VIAL SQ SCH ×3 (05:46→22:58)
[2020-04-20] MEDS: MethylPREDNISolone 40 MG/ML VIAL IVP SCH ×3 (05:47→22:58)
[2020-04-20] MEDS: Venlafaxine XR (24 HR) 150 MG CAP.ER.24H PO SCH (09:24)
[2020-04-20] MEDS: Insulin DETEMIR 100 UNIT/ML X5UNITS SQ SCH ×2 (09:24→20:02)
[2020-04-20] MEDS: BuPROPion XL (24 HR) 150 MG TABLET PO SCH (09:24)
[2020-04-20] MEDS: Roflumilast [Daliresp] 500 MCG PO SCH (09:27)
[2020-04-20] MEDS: ALPRAZolam 1 MG TABLET PO PRN ×3 (09:29→22:58)
[2020-04-20] MEDS: Budesonide/Formoterol 160/4.5 1 PUFF INH IH SCH ×2 (10:31→22:19)
[2020-04-20] MEDS ORDERED: *HR* Labetalol 20 MG/4 ML SYRINGE IVP ONE (16:07)
[2020-04-20] MEDS: QUEtiapine Fumarate 25 MG TABLET PO SCH (20:02)
[2020-04-20] MEDS: Azithromycin 500 MG in 0.9 % Sodium Chloride 250 ML IVPB SCH (22:58)
[2020-04-21] MEDS: Ipratropium/Albuterol Neb 3 ML IH SCH ×4 (04:45→22:56)
[2020-04-21 05:07] LABS: Hemoglobin 11.8 g/dL (11.5-15.4); Mean Corpuscular HGB Conc 31.9 g/dL (31.6-35.5); Mean Corpuscular Hemoglobin 29.3 pg (28.0-33.3); Mean Corpuscular Volume 91.8 fL (83.0-100.0); Mean Platelet Volume 11.7 fL (9.4-12.4); Monocytes # 0.7 K/mcL (0.0-1.3); Platelet Count 273 K/mcL (140-400); Red Blood Count 4.03 M/mcL (3.82-4.97); Red Cell Distribution Width 12.9 % (11.5-14.5); White Blood Count 16.3 K/mcL (4.3-11.1)
[2020-04-21 05:15] LABS: Calcium 9.4 mg/dL (8.6-10.3); Potassium 4.6 mEq/L (3.5-5.1)
[2020-04-21] MEDS: MethylPREDNISolone 40 MG/ML VIAL IVP SCH ×3 (05:34→20:32)
[2020-04-21] MEDS: *HR* Heparin 5,000 UNIT/ML VIAL SQ SCH ×3 (05:34→20:33)
[2020-04-21 05:38] LABS: Neutrophils # 14.7 K/mcL (1.6-8.9)
[2020-04-21 05:39] LABS: Platelet Estimate Normal (Normal); Toxic Vacuolation Present (Not Present)
[2020-04-21] MEDS: Roflumilast [Daliresp] 500 MCG PO SCH (07:31)
[2020-04-21] MEDS: Insulin DETEMIR 100 UNIT/ML X5UNITS SQ SCH ×2 (07:37→19:19)
[2020-04-21] MEDS: Venlafaxine XR (24 HR) 150 MG CAP.ER.24H PO SCH (07:37)
[2020-04-21] MEDS: BuPROPion XL (24 HR) 150 MG TABLET PO SCH (07:37)
[2020-04-21] MEDS: ALPRAZolam 1 MG TABLET PO PRN ×2 (07:37→16:48)
[2020-04-21] MEDS: Insulin LISPRO 300 UNITS/3 ML VIAL SQ SCH ×5 (08:19→22:18)
[2020-04-21] MEDS: Budesonide/Formoterol 160/4.5 1 PUFF INH IH SCH ×2 (11:43→22:56)
[2020-04-21] MEDS ORDERED: Furosemide 20 MG/2 ML VIAL IVP ONE (14:50)
[2020-04-21] MEDS ORDERED: Insulin LISPRO 300 UNITS/3 ML VIAL SQ SCH (16:39)
[2020-04-21] MEDS: Azithromycin 500 MG in 0.9 % Sodium Chloride 250 ML IVPB SCH (20:33)
[2020-04-21] MEDS: QUEtiapine Fumarate 25 MG TABLET PO SCH (20:33)
[2020-04-22 03:59] LABS: Hematocrit 39.4 % (35.3-44.9); Hemoglobin 12.6 g/dL (11.5-15.4); Mean Corpuscular Hemoglobin 29.4 pg (28.0-33.3); Mean Corpuscular Volume 91.8 fL (83.0-100.0); Mean Platelet Volume 10.7 fL (9.4-12.4); Platelet Count 350 K/mcL (140-400); Red Blood Count 4.29 M/mcL (3.82-4.97); Red Cell Distribution Width 12.8 % (11.5-14.5); White Blood Count 18.3 K/mcL (4.3-11.1)
[2020-04-22] MEDS: Ipratropium/Albuterol Neb 3 ML IH SCH ×3 (04:03→15:49)
[2020-04-22 04:18] LABS: Calcium 9.4 mg/dL (8.6-10.3); Potassium 3.9 mEq/L (3.5-5.1)
[2020-04-22] MEDS: *HR* Heparin 5,000 UNIT/ML VIAL SQ SCH ×2 (04:56→15:16)
[2020-04-22] MEDS: MethylPREDNISolone 40 MG/ML VIAL IVP SCH ×2 (04:56→15:16)
[2020-04-22 05:21] LABS: Lymphocytes # 2.2 K/mcL (0.6-4.6); Monocytes # 1.5 K/mcL (0.0-1.3); Neutrophils # 13.9 K/mcL (1.6-8.9); Platelet Estimate Normal (Normal); Reactive Lymphocytes Present (Not Present); Toxic Granulation Present (Not Present); Toxic Vacuolation Present (Not Present)
[2020-04-22 06:49] VITALS: BP 121/74
[2020-04-22] MEDS: Insulin LISPRO 300 UNITS/3 ML VIAL SQ SCH ×2 (07:11→11:19)
[2020-04-22] MEDS: Venlafaxine XR (24 HR) 150 MG CAP.ER.24H PO SCH (07:22)
[2020-04-22] MEDS: Roflumilast [Daliresp] 500 MCG PO SCH (07:22)
[2020-04-22] MEDS: BuPROPion XL (24 HR) 150 MG TABLET PO SCH (07:22)
[2020-04-22] MEDS: Insulin DETEMIR 100 UNIT/ML X5UNITS SQ SCH (07:22)
[2020-04-22] MEDS: ALPRAZolam 1 MG TABLET PO PRN (07:29)
[2020-04-22] MEDS: Budesonide/Formoterol 160/4.5 1 PUFF INH IH SCH (10:50)
== END 2020-04-22 16:08 | disposition home or self-care (01) | DRG 190 ==
LOC: 2ANU 17:34 → EMEROOARM 17:34 → SUATTDRO 21:13 → 2ANU 22:03
PROVIDERS: ADMIT Internal Medicine; ATTEND Family Medicine

== ENCOUNTER 2020-07-20 13:56 | Inpatient (IN) ==
[2020-07-20] MEDS ORDERED: Ipratropium/Albuterol Neb 3 ML IH ONE (14:05)
[2020-07-20] MEDS ORDERED: methylPREDNISolone 125 MG/2 ML VIAL IVP ONE (14:05)
[2020-07-20] MEDS ORDERED: 0.9 % Sodium Chloride 500 ML IVC ONE ×2 (14:05→15:28)
[2020-07-20 14:51] LABS: Basophils # 0.1 K/mcL (0.0-0.2); Basophils % 0.9 %; Eosinophils # 0.4 K/mcL (0.0-0.6); Hematocrit 38.1 % (35.3-44.9); Hemoglobin 12.1 g/dL (11.5-15.4); Immature Granulocytes % 0.6 % (0-4); Lymphocytes # 1.4 K/mcL (0.6-4.6); Lymphocytes % 17.6 %; Mean Corpuscular HGB Conc 31.8 g/dL (31.6-35.5); Mean Corpuscular Hemoglobin 30.1 pg (28.0-33.3); Mean Corpuscular Volume 94.8 fL (83.0-100.0); Mean Platelet Volume 10.2 fL (9.4-12.4); Monocytes # 0.7 K/mcL (0.0-1.3); Monocytes % 8.1 %; Neutrophils # 5.4 K/mcL (1.6-8.9); Platelet Count 295 K/mcL (140-400); Red Blood Count 4.02 M/mcL (3.82-4.97); Red Cell Distribution Width 12.7 % (11.5-14.5); Segmented Neutrophils % 67.8 %
[2020-07-20 14:53] LABS: VBG HCO3 28 mEq/L (21-27); VBG PCO2 45 mmHg (41-51); VBG PO2 110 mmHg (25-50)
[2020-07-20] MEDS ORDERED: Azithromycin 500 MG in 0.9 % Sodium Chloride 250 ML IVPB ONE (14:53)
[2020-07-20] MEDS ORDERED: cefTRIAXone 1,000 MG in Water for inj. (sterile) 10 ML IVP ONE (14:53)
[2020-07-20 14:59] LABS: Prothrombin Time 11.4 Seconds (9.4-12.1)
[2020-07-20 15:02] LABS: Activated Partial Thrombo Time 29.3 Seconds (26.0-36.0)
[2020-07-20 15:12] LABS: Bilirubin,Urine Negative (Negative); Blood,Urine Negative (Negative); Clarity,Urine Clear (Clear); Color,Urine Colorless (Yellow); Glucose,Urine (UA) 300 mg/dL (Normal); Ketones,Urine Negative (Negative); Leukocyte Esterase,Urine Negative (Negative); Nitrite,Urine Negative (Negative); PH,Urine 6.5 pH Units (5.0-8.0); Protein,Urine Trace mg/dL (Neg-Trace); RBC,Urine 0-3 per hpf (0-3); Specific Gravity,Urine 1.014 (1.010-1.025); Squamous Epithelial Cell,Urine Few per hpf (None-Few); Urobilinogen,Urine Normal (Normal); WBC,Urine 0-3 per hpf (0-3)
[2020-07-20 15:16] LABS: BUN/Creatinine Ratio 19 (6-26); Blood Urea Nitrogen 21 mg/dL (8-23); Calcium 9.9 mg/dL (8.6-10.3); Carbon Dioxide 25 mEq/L (23-29); Chloride 104 mEq/L (98-107); Glucose 344 mg/dL (70-105); Magnesium 1.9 mg/dL (1.6-2.6); Osmolality,Calculated 303 (280-300); Potassium 3.7 mEq/L (3.5-5.1); Sodium 138 mEq/L (136-145); Troponin I < 0.03 ng/mL (< 0.04); eGFR For African Americans 59 (> 60); eGFR For Non-African Americans 49 (> 60)
[2020-07-20 15:30] LABS: Thyroid Stimulating Hormone 1.388 mcIU/mL (0.340-5.600)
[2020-07-20 15:43] LABS: Adenovirus Not Detected (Not Detect); Bordetella Pertussis Not Detected (Not Detect); Chlamydophila pneumoniae Not Detected (Not Detect); Coronavirus 229E Not Detected (Not Detect); Coronavirus HKU1 Not Detected (Not Detect); Coronavirus NL63 Not Detected (Not Detect); Coronavirus OC43 Not Detected (Not Detect); Human Metapneumovirus Not Detected (Not Detect); Human Rhinovirus/Enterovirus Not Detected (Not Detect); Influenza A Subtype 2009 H1 Not Detected (Not Detect); Influenza B Not Detected (Not Detect); Mycoplasma pneumoniae Not Detected (Not Detect); Parainfluenza Virus 1 Not Detected (Not Detect); Parainfluenza Virus 2 Not Detected (Not Detect); Parainfluenza Virus 3 Not Detected (Not Detect); Parainfluenza Virus 4 Not Detected (Not Detect); Respiratory Syncytial Virus Not Detected (Not Detect); SARS-CoV-2 Not Detected (Not Detect)
[2020-07-20] MEDS ORDERED: Naloxone 0.4 MG/ML INJ IVP PRN (16:51)
[2020-07-20] MEDS ORDERED: D5% in Water 1,000 ML IVC PRN (16:52)
[2020-07-20] MEDS ORDERED: Dextrose Gel 15 GM/37.5 ML TUBE PO PRN ×2 (16:52)
[2020-07-20] MEDS ORDERED: *HR* Dextrose 50 % in Water (Vial) 50 ML VIAL IVP PRN (16:52)
[2020-07-20] MEDS: Insulin LISPRO 300 UNITS/3 ML VIAL SUBQ SCH (20:57)
[2020-07-20] MEDS: *HR* Heparin 5,000 UNIT/ML VIAL SQ SCH (20:57)
[2020-07-20] MEDS: Ipratropium/Albuterol Neb 3 ML IH PRN (21:22)
[2020-07-20] MEDS ORDERED: ALPRAZolam 1 MG TABLET PO ONE (22:15)
[2020-07-20] MEDS: MethylPREDNISolone 40 MG/ML VIAL IVP SCH (22:25)
[2020-07-21 02:14] LABS: Basophils % 0.2 %; Hematocrit 36.7 % (35.3-44.9); Hemoglobin 11.8 g/dL (11.5-15.4); Immature Granulocytes % 0.5 % (0-4); Lymphocytes # 0.4 K/mcL (0.6-4.6); Lymphocytes % 3.7 %; Mean Corpuscular HGB Conc 32.2 g/dL (31.6-35.5); Mean Corpuscular Hemoglobin 29.9 pg (28.0-33.3); Mean Corpuscular Volume 93.1 fL (83.0-100.0); Mean Platelet Volume 10.1 fL (9.4-12.4); Monocytes # 0.1 K/mcL (0.0-1.3); Monocytes % 0.7 %; Neutrophils # 11.1 K/mcL (1.6-8.9); Platelet Count 282 K/mcL (140-400); Red Blood Count 3.94 M/mcL (3.82-4.97); Red Cell Distribution Width 12.6 % (11.5-14.5); Segmented Neutrophils % 94.9 %; White Blood Count 11.7 K/mcL (4.3-11.1)
[2020-07-21 02:34] LABS: Calcium 10.1 mg/dL (8.6-10.3); Potassium 3.8 mEq/L (3.5-5.1)
[2020-07-21] MEDS: Ipratropium/Albuterol Neb 3 ML IH PRN ×3 (03:14→20:37)
[2020-07-21] MEDS: *HR* Heparin 5,000 UNIT/ML VIAL SQ SCH ×3 (04:35→19:49)
[2020-07-21] MEDS: hydroCHLOROthiazide 25 MG TABLET PO SCH (08:20)
[2020-07-21] MEDS: BuPROPion XL (24 HR) 150 MG TABLET PO SCH (08:21)
[2020-07-21] MEDS: lisinopriL 5 MG TABLET PO SCH (08:22)
[2020-07-21] MEDS: Insulin LISPRO 300 UNITS/3 ML VIAL SUBQ SCH ×4 (08:23→19:49)
[2020-07-21] MEDS: MethylPREDNISolone 40 MG/ML VIAL IVP SCH ×3 (08:23→23:44)
[2020-07-21] MEDS: Venlafaxine XR (24 HR) 150 MG CAP.ER.24H PO SCH (08:25)
[2020-07-21] MEDS: Insulin DETEMIR 100 UNIT/ML X5UNITS SUBQ SCH ×2 (08:43→19:47)
[2020-07-21] MEDS ORDERED: NON-FORMULARY MEDICATION 1 EACH EACH (Roflumilast [Daliresp] 500 MCG) PO SCH (09:00)
[2020-07-21] MEDS: Acetaminophen 325 MG TABLET PO PRN ×2 (09:10→16:07)
[2020-07-21] MEDS: ALPRAZolam 1 MG TABLET PO PRN ×2 (09:11→19:46)
[2020-07-21] MEDS: Tiotropium 10 INH DOSE IH SCH (11:24)
[2020-07-21] MEDS: Azithromycin 500 MG in 0.9 % Sodium Chloride 250 ML IVPB SCH (12:06)
[2020-07-21] MEDS: QUEtiapine Fumarate 25 MG TABLET PO SCH (19:46)
[2020-07-22] MEDS: *HR* Heparin 5,000 UNIT/ML VIAL SQ SCH ×3 (04:57→20:46)
[2020-07-22 05:12] LABS: Basophils % 0.1 %; Hematocrit 35.5 % (35.3-44.9); Hemoglobin 11.6 g/dL (11.5-15.4); Immature Granulocytes % 0.6 % (0-4); Lymphocytes # 0.7 K/mcL (0.6-4.6); Lymphocytes % 3.9 %; Mean Corpuscular HGB Conc 32.7 g/dL (31.6-35.5); Mean Corpuscular Hemoglobin 30.2 pg (28.0-33.3); Mean Corpuscular Volume 92.4 fL (83.0-100.0); Monocytes # 0.6 K/mcL (0.0-1.3); Monocytes % 3.6 %; Platelet Count 317 K/mcL (140-400); Red Blood Count 3.84 M/mcL (3.82-4.97); Red Cell Distribution Width 12.6 % (11.5-14.5); Segmented Neutrophils % 91.8 %
[2020-07-22 05:13] LABS: Neutrophils # 16.2 K/mcL (1.6-8.9); White Blood Count 17.6 K/mcL (4.3-11.1)
[2020-07-22 05:30] LABS: Calcium 10.8 mg/dL (8.6-10.3)
[2020-07-22] MEDS ORDERED: Insulin DETEMIR 100 UNIT/ML X5UNITS SUBQ SCH (09:00)
[2020-07-22] MEDS: hydroCHLOROthiazide 25 MG TABLET PO SCH (09:08)
[2020-07-22] MEDS: MethylPREDNISolone 40 MG/ML VIAL IVP SCH (09:09)
[2020-07-22] MEDS: Gabapentin 300 MG CAPSULE PO SCH ×3 (09:09→20:38)
[2020-07-22] MEDS: BuPROPion XL (24 HR) 150 MG TABLET PO SCH (09:09)
[2020-07-22] MEDS: lisinopriL 5 MG TABLET PO SCH (09:09)
[2020-07-22] MEDS: Venlafaxine XR (24 HR) 150 MG CAP.ER.24H PO SCH (09:10)
[2020-07-22] MEDS: Insulin LISPRO 300 UNITS/3 ML VIAL SUBQ SCH ×4 (09:10→20:36)
[2020-07-22] MEDS: Insulin DETEMIR 100 UNIT/ML X5UNITS SUBQ SCH ×2 (09:19→20:37)
[2020-07-22] MEDS: ALPRAZolam 1 MG TABLET PO PRN ×2 (09:19→20:38)
[2020-07-22] MEDS: Tiotropium 10 INH DOSE IH SCH (09:57)
[2020-07-22] MEDS: Azithromycin 500 MG in 0.9 % Sodium Chloride 250 ML IVPB SCH (11:47)
[2020-07-22] MEDS: QUEtiapine Fumarate 25 MG TABLET PO SCH (20:38)
[2020-07-23] MEDS: *HR* Heparin 5,000 UNIT/ML VIAL SQ SCH ×3 (05:20→19:58)
[2020-07-23 05:27] LABS: Basophils % 0.2 %; Eosinophils % 0.1 %; Hematocrit 35.6 % (35.3-44.9); Hemoglobin 11.4 g/dL (11.5-15.4); Immature Granulocytes % 0.8 % (0-4); Lymphocytes % 15.8 %; Mean Corpuscular Hemoglobin 29.9 pg (28.0-33.3); Mean Corpuscular Volume 93.4 fL (83.0-100.0); Mean Platelet Volume 10.1 fL (9.4-12.4); Monocytes # 0.9 K/mcL (0.0-1.3); Monocytes % 6.8 %; Neutrophils # 9.8 K/mcL (1.6-8.9); Platelet Count 321 K/mcL (140-400); Red Blood Count 3.81 M/mcL (3.82-4.97); Red Cell Distribution Width 12.7 % (11.5-14.5); Segmented Neutrophils % 76.3 %; White Blood Count 12.9 K/mcL (4.3-11.1)
[2020-07-23 05:35] LABS: Calcium 10.4 mg/dL (8.6-10.3); Potassium 3.6 mEq/L (3.5-5.1)
[2020-07-23] MEDS: Tiotropium 10 INH DOSE IH SCH (07:53)
[2020-07-23] MEDS: Insulin DETEMIR 100 UNIT/ML X5UNITS SUBQ SCH ×2 (08:19→19:58)
[2020-07-23] MEDS: Venlafaxine XR (24 HR) 150 MG CAP.ER.24H PO SCH (08:20)
[2020-07-23] MEDS: Insulin LISPRO 300 UNITS/3 ML VIAL SUBQ SCH ×4 (08:20→19:59)
[2020-07-23] MEDS: Gabapentin 300 MG CAPSULE PO SCH ×3 (08:20→19:57)
[2020-07-23] MEDS: predniSONE 20 MG TABLET PO SCH (08:20)
[2020-07-23] MEDS: hydroCHLOROthiazide 25 MG TABLET PO SCH (08:20)
[2020-07-23] MEDS: BuPROPion XL (24 HR) 150 MG TABLET PO SCH (08:20)
[2020-07-23] MEDS: ALPRAZolam 1 MG TABLET PO PRN ×2 (08:34→20:03)
[2020-07-23] MEDS: Azithromycin 500 MG in 0.9 % Sodium Chloride 250 ML IVPB SCH (12:23)
[2020-07-23] MEDS: QUEtiapine Fumarate 25 MG TABLET PO SCH (19:57)
[2020-07-24] MEDS: *HR* Heparin 5,000 UNIT/ML VIAL SQ SCH ×3 (05:03→20:37)
[2020-07-24 06:27] LABS: Basophils % 0.4 %; Eosinophils # 0.1 K/mcL (0.0-0.6); Hematocrit 37.7 % (35.3-44.9); Immature Granulocytes % 1.1 % (0-4); Lymphocytes # 2.6 K/mcL (0.6-4.6); Lymphocytes % 25.4 %; Mean Corpuscular HGB Conc 31.8 g/dL (31.6-35.5); Mean Corpuscular Hemoglobin 29.3 pg (28.0-33.3); Mean Corpuscular Volume 92.2 fL (83.0-100.0); Mean Platelet Volume 9.7 fL (9.4-12.4); Monocytes # 0.8 K/mcL (0.0-1.3); Monocytes % 7.8 %; Neutrophils # 6.7 K/mcL (1.6-8.9); Platelet Count 343 K/mcL (140-400); Red Blood Count 4.09 M/mcL (3.82-4.97); Red Cell Distribution Width 12.6 % (11.5-14.5); Segmented Neutrophils % 64.3 %; White Blood Count 10.4 K/mcL (4.3-11.1)
[2020-07-24 06:43] LABS: Potassium 3.3 mEq/L (3.5-5.1)
[2020-07-24] MEDS: Insulin LISPRO 300 UNITS/3 ML VIAL SUBQ SCH ×4 (07:59→20:30)
[2020-07-24] MEDS: ALPRAZolam 1 MG TABLET PO PRN ×2 (08:28→20:30)
[2020-07-24] MEDS: lisinopriL 5 MG TABLET PO SCH (08:28)
[2020-07-24] MEDS: BuPROPion XL (24 HR) 150 MG TABLET PO SCH (08:28)
[2020-07-24] MEDS: predniSONE 20 MG TABLET PO SCH (08:29)
[2020-07-24] MEDS: Venlafaxine XR (24 HR) 150 MG CAP.ER.24H PO SCH (08:29)
[2020-07-24] MEDS: hydroCHLOROthiazide 25 MG TABLET PO SCH (08:29)
[2020-07-24] MEDS: Gabapentin 300 MG CAPSULE PO SCH ×3 (08:29→20:30)
[2020-07-24] MEDS: Insulin DETEMIR 100 UNIT/ML X5UNITS SUBQ SCH ×2 (08:36→20:30)
[2020-07-24] MEDS: Ipratropium/Albuterol Neb 3 ML IH SCH ×4 (09:28→22:32)
[2020-07-24] MEDS: Tiotropium 10 INH DOSE IH SCH (09:36)
[2020-07-24] MEDS: QUEtiapine Fumarate 25 MG TABLET PO SCH (20:30)
[2020-07-25] MEDS: Ipratropium/Albuterol Neb 3 ML IH SCH ×2 (03:06→08:52)
[2020-07-25] MEDS: *HR* Heparin 5,000 UNIT/ML VIAL SQ SCH (06:15)
[2020-07-25 07:12] LABS: Basophils # 0.1 K/mcL (0.0-0.2); Basophils % 0.4 %; Eosinophils # 0.3 K/mcL (0.0-0.6); Eosinophils % 2.4 %; Hematocrit 37.4 % (35.3-44.9); Hemoglobin 12.2 g/dL (11.5-15.4); Immature Granulocytes % 1.7 % (0-4); Lymphocytes # 2.9 K/mcL (0.6-4.6); Lymphocytes % 25.1 %; Mean Corpuscular HGB Conc 32.6 g/dL (31.6-35.5); Mean Corpuscular Hemoglobin 30.1 pg (28.0-33.3); Mean Corpuscular Volume 92.3 fL (83.0-100.0); Mean Platelet Volume 9.7 fL (9.4-12.4); Monocytes # 0.9 K/mcL (0.0-1.3); Monocytes % 7.4 %; Neutrophils # 7.3 K/mcL (1.6-8.9); Platelet Count 359 K/mcL (140-400); Red Blood Count 4.05 M/mcL (3.82-4.97); Red Cell Distribution Width 12.6 % (11.5-14.5); White Blood Count 11.5 K/mcL (4.3-11.1)
[2020-07-25 07:29] VITALS: BP 107/67
[2020-07-25 07:44] LABS: Potassium 3.4 mEq/L (3.5-5.1)
[2020-07-25] MEDS: Insulin LISPRO 300 UNITS/3 ML VIAL SUBQ SCH (08:00)
[2020-07-25] MEDS: predniSONE 20 MG TABLET PO SCH (08:07)
[2020-07-25] MEDS: Venlafaxine XR (24 HR) 150 MG CAP.ER.24H PO SCH (08:07)
[2020-07-25] MEDS: Gabapentin 300 MG CAPSULE PO SCH (08:07)
[2020-07-25] MEDS: BuPROPion XL (24 HR) 150 MG TABLET PO SCH (08:07)
[2020-07-25] MEDS: hydroCHLOROthiazide 25 MG TABLET PO SCH (08:08)
[2020-07-25] MEDS: lisinopriL 5 MG TABLET PO SCH (08:08)
[2020-07-25] MEDS: Insulin DETEMIR 100 UNIT/ML X5UNITS SUBQ SCH (08:10)
[2020-07-25] MEDS: Tiotropium 10 INH DOSE IH SCH (08:54)
[2020-07-25 12:42] LABS: Adenovirus Not Detected (Not Detect); Bordetella Pertussis Not Detected (Not Detect); Chlamydophila pneumoniae Not Detected (Not Detect); Coronavirus 229E Not Detected (Not Detect); Coronavirus HKU1 Not Detected (Not Detect); Coronavirus NL63 Not Detected (Not Detect); Coronavirus OC43 Not Detected (Not Detect); Human Metapneumovirus Not Detected (Not Detect); Human Rhinovirus/Enterovirus Not Detected (Not Detect); Influenza A Subtype 2009 H1 Not Detected (Not Detect); Influenza B Not Detected (Not Detect); Mycoplasma pneumoniae Not Detected (Not Detect); Parainfluenza Virus 1 Not Detected (Not Detect); Parainfluenza Virus 2 Not Detected (Not Detect); Parainfluenza Virus 3 Not Detected (Not Detect); Parainfluenza Virus 4 Not Detected (Not Detect); Respiratory Syncytial Virus Not Detected (Not Detect); SARS-CoV-2 Not Detected (Not Detect)
== END 2020-07-25 15:05 | DRG 190 ==
LOC: EMEROOARM 13:56 → 3BNU 13:56 → SUATTDRO 07-22 15:24
PROVIDERS: ADMIT Internal Medicine; ATTEND Internal Medicine

== ENCOUNTER 2020-11-19 13:37 | Observation (INO) ==
[2020-11-19] MEDS ORDERED: Ipratropium/Albuterol Neb 3 ML IH ONE (13:55)
[2020-11-19] MEDS ORDERED: methylPREDNISolone 125 MG/2 ML VIAL IVP ONE (13:55)
[2020-11-19 14:45] LABS: BUN/Creatinine Ratio 24 (6-26); Blood Urea Nitrogen 25 mg/dL (8-23); Calcium 9.2 mg/dL (8.6-10.3); Carbon Dioxide 25 mEq/L (23-29); Chloride 108 mEq/L (98-107); Glucose 182 mg/dL (70-105); Osmolality,Calculated 297 (280-300); Potassium 4.3 mEq/L (3.5-5.1); Sodium 139 mEq/L (136-145); Troponin I < 0.03 ng/mL (< 0.04); eGFR For African Americans > 60 (> 60); eGFR For Non-African Americans 51 (> 60)
[2020-11-19 15:16] LABS: Basophils # 0.1 K/mcL (0.0-0.2); Basophils % 0.4 %; Eosinophils # 0.5 K/mcL (0.0-0.6); Eosinophils % 3.3 %; Hematocrit 40.4 % (35.3-44.9); Hemoglobin 12.3 g/dL (11.5-15.4); Immature Granulocytes % 0.4 % (0-4); Lymphocytes # 3.9 K/mcL (0.6-4.6); Lymphocytes % 28.1 %; Mean Corpuscular HGB Conc 30.4 g/dL (31.6-35.5); Mean Corpuscular Hemoglobin 29.2 pg (28.0-33.3); Mean Platelet Volume 10.2 fL (9.4-12.4); Monocytes # 0.8 K/mcL (0.0-1.3); Monocytes % 5.6 %; Neutrophils # 8.6 K/mcL (1.6-8.9); Platelet Count 289 K/mcL (140-400); Red Blood Count 4.21 M/mcL (3.82-4.97); Red Cell Distribution Width 14.2 % (11.5-14.5); Segmented Neutrophils % 62.2 %; White Blood Count 13.7 K/mcL (4.3-11.1)
[2020-11-19] MEDS ORDERED: Azithromycin 500 MG in 0.9 % Sodium Chloride 250 ML IVPB ONE (15:33)
[2020-11-19] MEDS ORDERED: cefTRIAXone 1,000 MG in Water for inj. (sterile) 10 ML IVP ONE (15:33)
[2020-11-19] MEDS ORDERED: Naloxone 0.4 MG/ML INJ IVP PRN (16:27)
[2020-11-19] MEDS ORDERED: Ondansetron 4 MG/2 ML VIAL IVP PRN (16:27)
[2020-11-19] MEDS ORDERED: D5% in Water 1,000 ML IVC PRN (16:29)
[2020-11-19] MEDS ORDERED: *HR* Dextrose 50 % in Water (Vial) 50 ML VIAL IVP PRN (16:29)
[2020-11-19] MEDS ORDERED: Dextrose Gel 15 GM/37.5 ML TUBE PO PRN ×2 (16:29)
[2020-11-19] MEDS: Insulin LISPRO 300 UNITS/3 ML VIAL SUBQ SCH (18:06)
[2020-11-19] MEDS: ALPRAZolam 1 MG TABLET PO PRN (20:31)
[2020-11-19] MEDS: Gabapentin 300 MG CAPSULE PO SCH (20:55)
[2020-11-19] MEDS: QUEtiapine Fumarate 25 MG TABLET PO SCH (20:55)
[2020-11-19] MEDS ORDERED: Insulin DETEMIR 100 UNIT/ML X5UNITS SUBQ SCH (21:00)
[2020-11-19] MEDS ORDERED: Insulin LISPRO 300 UNITS/3 ML VIAL SUBQ SCH (21:00)
[2020-11-19] MEDS: Ipratropium/Albuterol Neb 3 ML IH SCH (21:53)
[2020-11-20] MEDS: Ipratropium/Albuterol Neb 3 ML IH SCH ×4 (03:39→22:15)
[2020-11-20 06:11] LABS: Basophils % 0.1 %; Hematocrit 40.6 % (35.3-44.9); Hemoglobin 12.7 g/dL (11.5-15.4); Immature Granulocytes % 0.7 % (0-4); Lymphocytes # 0.7 K/mcL (0.6-4.6); Lymphocytes % 6.3 %; Mean Corpuscular HGB Conc 31.3 g/dL (31.6-35.5); Mean Corpuscular Hemoglobin 30.5 pg (28.0-33.3); Mean Corpuscular Volume 97.4 fL (83.0-100.0); Mean Platelet Volume 11.4 fL (9.4-12.4); Monocytes # 0.3 K/mcL (0.0-1.3); Monocytes % 2.9 %; Neutrophils # 10.1 K/mcL (1.6-8.9); Platelet Count 239 K/mcL (140-400); Red Blood Count 4.17 M/mcL (3.82-4.97); White Blood Count 11.2 K/mcL (4.3-11.1)
[2020-11-20 06:51] LABS: Calcium 9.2 mg/dL (8.6-10.3); Magnesium 1.8 mg/dL (1.6-2.6); Potassium 4.3 mEq/L (3.5-5.1)
[2020-11-20] MEDS: Insulin LISPRO 300 UNITS/3 ML VIAL SUBQ SCH ×4 (07:31→17:13)
[2020-11-20] MEDS: Gabapentin 300 MG CAPSULE PO SCH ×2 (07:32→20:04)
[2020-11-20] MEDS: MethylPREDNISolone 40 MG/ML VIAL IVP SCH ×2 (07:32→17:14)
[2020-11-20] MEDS: Insulin DETEMIR 100 UNIT/ML X5UNITS SUBQ SCH ×2 (12:29→20:04)
[2020-11-20] MEDS: Azithromycin 250 MG TABLET PO SCH (12:33)
[2020-11-20] MEDS: ALPRAZolam 1 MG TABLET PO PRN ×2 (12:33→20:04)
[2020-11-20] MEDS ORDERED: cefTRIAXone 1,000 MG in Water for inj. (sterile) 10 ML IVPB SCH (17:00)
[2020-11-20] MEDS ORDERED: Azithromycin 500 MG in 0.9 % Sodium Chloride 250 ML IVPB SCH (17:00)
[2020-11-20] MEDS: QUEtiapine Fumarate 25 MG TABLET PO SCH (20:03)
[2020-11-20] MEDS ORDERED: Insulin LISPRO 300 UNITS/3 ML VIAL SUBQ SCH (21:00)
[2020-11-21] MEDS: Ipratropium/Albuterol Neb 3 ML IH SCH ×2 (04:25→10:25)
[2020-11-21] MEDS: MethylPREDNISolone 40 MG/ML VIAL IVP SCH (05:20)
[2020-11-21] MEDS: Gabapentin 300 MG CAPSULE PO SCH (07:54)
[2020-11-21] MEDS: Azithromycin 250 MG TABLET PO SCH (07:54)
[2020-11-21] MEDS: Insulin LISPRO 300 UNITS/3 ML VIAL SUBQ SCH ×2 (07:57→13:43)
[2020-11-21] MEDS: Insulin DETEMIR 100 UNIT/ML X5UNITS SUBQ SCH (07:57)
[2020-11-21] MEDS: ALPRAZolam 1 MG TABLET PO PRN (08:03)
[2020-11-21 11:05] VITALS: BP 144/86
[2020-11-21 14:45] LABS: Estimated Average Glucose 203 mg/dl; Hemoglobin A1C 8.7 %
== END 2020-11-21 14:47 | disposition home health service (06) ==
LOC: 3BNU 13:37 → EMEROOARM 13:37 → SUATTDRO 16:39 → 3BNU 17:19
PROVIDERS: ADMIT Internal Medicine; ATTEND Registered Nurse

== ENCOUNTER 2020-12-01 19:51 | Inpatient (IN) ==
[2020-12-01] MEDS ORDERED: methylPREDNISolone 125 MG/2 ML VIAL IVP ONE (20:40)
[2020-12-01] MEDS ORDERED: Ipratropium/Albuterol Neb 3 ML IH ONE (20:40)
[2020-12-01 21:05] LABS: Basophils # 0.1 K/mcL (0.0-0.2); Basophils % 0.9 %; Eosinophils # 0.8 K/mcL (0.0-0.6); Eosinophils % 8.3 %; Hematocrit 40.9 % (35.3-44.9); Immature Granulocytes % 0.6 % (0-4); Lymphocytes # 2.6 K/mcL (0.6-4.6); Lymphocytes % 28.1 %; Mean Corpuscular HGB Conc 31.8 g/dL (31.6-35.5); Mean Corpuscular Hemoglobin 30.2 pg (28.0-33.3); Mean Corpuscular Volume 94.9 fL (83.0-100.0); Mean Platelet Volume 10.3 fL (9.4-12.4); Monocytes # 0.8 K/mcL (0.0-1.3); Monocytes % 8.6 %; Platelet Count 262 K/mcL (140-400); Red Blood Count 4.31 M/mcL (3.82-4.97); Red Cell Distribution Width 13.6 % (11.5-14.5); Segmented Neutrophils % 53.5 %; White Blood Count 9.3 K/mcL (4.3-11.1)
[2020-12-01 21:12] LABS: INR 0.9; Prothrombin Time 10.9 Seconds (9.4-12.1)
[2020-12-01 21:31] LABS: Alanine Aminotransferase 16 Units/L (7-52); Albumin 3.8 g/dL (3.5-5.7); Albumin/Globulin Ratio 1.6 (1.1-2.2); Alkaline Phosphatase 133 Units/L (34-104); Aspartate Amino Transferase 13 Units/L (13-39); BUN/Creatinine Ratio 16 (6-26); Bilirubin,Indirect 0.2 mg/dL (0.0-1.0); Bilirubin,Total 0.2 mg/dL (0.3-1.0); Blood Urea Nitrogen 19 mg/dL (8-23); Calcium 9.5 mg/dL (8.6-10.3); Carbon Dioxide 29 mEq/L (23-29); Chloride 105 mEq/L (98-107); Globulin 2.4 g/dL (2.4-3.5); Glucose 239 mg/dL (70-105); Osmolality,Calculated 306 (280-300); Potassium 3.5 mEq/L (3.5-5.1); Sodium 143 mEq/L (136-145); Total Protein 6.2 g/dL (6.4-8.9); Troponin I < 0.03 ng/mL (< 0.04); eGFR For African Americans 55 (> 60); eGFR For Non-African Americans 45 (> 60)
[2020-12-01] MEDS ORDERED: Acetaminophen 325 MG TABLET PO PRN ×2 (22:29→22:39)
[2020-12-01] MEDS ORDERED: Naloxone 0.4 MG/ML INJ IVP PRN (22:29)
[2020-12-01] MEDS ORDERED: Ondansetron 4 MG/2 ML VIAL IVP PRN (22:29)
[2020-12-01] MEDS ORDERED: Ipratropium/Albuterol Neb 3 ML IH PRN (22:31)
[2020-12-02] MEDS: ALPRAZolam 1 MG TABLET PO PRN ×2 (00:07→14:40)
[2020-12-02] MEDS: QUEtiapine Fumarate 25 MG TABLET PO SCH ×2 (00:08→19:50)
[2020-12-02] MEDS ORDERED: *HR* Dextrose 50 % in Water (Vial) 50 ML VIAL IVP PRN (00:14)
[2020-12-02] MEDS ORDERED: Dextrose Gel 15 GM/37.5 ML TUBE PO PRN ×2 (00:14)
[2020-12-02] MEDS ORDERED: D5% in Water 1,000 ML IVC PRN (00:14)
[2020-12-02] MEDS ORDERED: Insulin LISPRO 300 UNITS/3 ML VIAL SUBQ SCH (00:15)
[2020-12-02] MEDS: Insulin LISPRO 300 UNITS/3 ML VIAL SUBQ SCH ×7 (00:32→19:51)
[2020-12-02 01:24] LABS: Influenza A PCR Negative (Negative); Influenza B PCR Negative (Negative); Resp. Syncytial Virus PCR Negative (Negative)
[2020-12-02 01:25] LABS: SARS-CoV-2 by PCR (In House) Negative (Negative)
[2020-12-02 02:32] LABS: Basophils # 0.1 K/mcL (0.0-0.2); Basophils % 0.6 %; Eosinophils # 0.1 K/mcL (0.0-0.6); Eosinophils % 0.6 %; Hematocrit 38.4 % (35.3-44.9); Hemoglobin 11.9 g/dL (11.5-15.4); Immature Granulocytes % 2.4 % (0-4); Lymphocytes # 0.3 K/mcL (0.6-4.6); Lymphocytes % 3.6 %; Mean Corpuscular Hemoglobin 29.6 pg (28.0-33.3); Mean Corpuscular Volume 95.5 fL (83.0-100.0); Mean Platelet Volume 10.4 fL (9.4-12.4); Monocytes # 0.2 K/mcL (0.0-1.3); Monocytes % 1.8 %; Neutrophils # 8.1 K/mcL (1.6-8.9); Platelet Count 248 K/mcL (140-400); Red Blood Count 4.02 M/mcL (3.82-4.97); Red Cell Distribution Width 13.6 % (11.5-14.5); White Blood Count 8.9 K/mcL (4.3-11.1)
[2020-12-02 02:53] LABS: Magnesium 1.7 mg/dL (1.6-2.6); Potassium 3.8 mEq/L (3.5-5.1)
[2020-12-02] MEDS: Budesonide/Formoterol 160/4.5 1 PUFF INH IH SCH ×3 (07:27→22:11)
[2020-12-02] MEDS: Gabapentin 300 MG CAPSULE PO SCH ×2 (08:16→19:50)
[2020-12-02] MEDS: Venlafaxine XR (24 HR) 150 MG CAP.ER.24H PO SCH (08:16)
[2020-12-02] MEDS: BuPROPion XL (24 HR) 150 MG TABLET PO SCH (08:16)
[2020-12-02] MEDS: predniSONE 20 MG TABLET PO SCH (08:17)
[2020-12-02] MEDS: hydroCHLOROthiazide 25 MG TABLET PO SCH (08:19)
[2020-12-02] MEDS: lisinopriL 5 MG TABLET PO SCH (08:19)
[2020-12-02] MEDS ORDERED: Insulin DETEMIR 100 UNIT/ML X5UNITS SUBQ SCH (09:00)
[2020-12-02] MEDS ORDERED: *HR* Enoxaparin 30 MG/0.3 ML SYRINGE SQ SCH (09:00)
[2020-12-02] MEDS ORDERED: Ipratropium/Albuterol Neb 3 ML ONE (11:07)
[2020-12-02] MEDS: Ipratropium/Albuterol Neb 3 ML IH SCH ×3 (11:14→22:11)
[2020-12-02] MEDS: Insulin DETEMIR 100 UNIT/ML X5UNITS SUBQ SCH (14:33)
[2020-12-03] MEDS: Ipratropium/Albuterol Neb 3 ML IH SCH ×4 (03:53→22:04)
[2020-12-03 05:52] LABS: Basophils % 0.2 %; Eosinophils % 0.1 %; Hematocrit 38.2 % (35.3-44.9); Hemoglobin 11.7 g/dL (11.5-15.4); Mean Corpuscular HGB Conc 30.6 g/dL (31.6-35.5); Mean Corpuscular Hemoglobin 29.1 pg (28.0-33.3); Mean Platelet Volume 10.8 fL (9.4-12.4); Monocytes # 1.2 K/mcL (0.0-1.3); Monocytes % 6.7 %; Platelet Count 227 K/mcL (140-400); Red Blood Count 4.02 M/mcL (3.82-4.97); Red Cell Distribution Width 13.5 % (11.5-14.5)
[2020-12-03 05:55] LABS: Neutrophils # 14.7 K/mcL (1.6-8.9); White Blood Count 18.2 K/mcL (4.3-11.1)
[2020-12-03 06:09] LABS: Calcium 9.8 mg/dL (8.6-10.3); Potassium 3.4 mEq/L (3.5-5.1)
[2020-12-03] MEDS: hydroCHLOROthiazide 25 MG TABLET PO SCH (07:34)
[2020-12-03] MEDS: Venlafaxine XR (24 HR) 150 MG CAP.ER.24H PO SCH (07:34)
[2020-12-03] MEDS: lisinopriL 5 MG TABLET PO SCH (07:35)
[2020-12-03] MEDS: predniSONE 20 MG TABLET PO SCH (07:35)
[2020-12-03] MEDS: Gabapentin 300 MG CAPSULE PO SCH ×2 (07:35→21:18)
[2020-12-03] MEDS: *HR* Enoxaparin 40 MG/0.4 ML SYRINGE SQ SCH (07:35)
[2020-12-03] MEDS: BuPROPion XL (24 HR) 150 MG TABLET PO SCH (07:35)
[2020-12-03] MEDS: Insulin LISPRO 300 UNITS/3 ML VIAL SUBQ SCH ×4 (07:42→21:19)
[2020-12-03] MEDS: Insulin DETEMIR 100 UNIT/ML X5UNITS SUBQ SCH (07:46)
[2020-12-03] MEDS ORDERED: Patient Taking Own Medication 1 EACH PO SCH (09:00)
[2020-12-03] MEDS: Tiotropium 10 INH DOSE IH SCH (11:09)
[2020-12-03] MEDS: Budesonide/Formoterol 160/4.5 1 PUFF INH IH SCH ×2 (11:09→22:05)
[2020-12-03] MEDS: QUEtiapine Fumarate 25 MG TABLET PO SCH (21:18)
[2020-12-03] MEDS: ALPRAZolam 1 MG TABLET PO PRN (21:18)
[2020-12-04] MEDS: Ipratropium/Albuterol Neb 3 ML IH SCH ×4 (04:03→23:02)
[2020-12-04 05:08] LABS: Eosinophils % 0.7 %; Hematocrit 38.8 % (35.3-44.9)
[2020-12-04 05:10] LABS: Basophils # 0.1 K/mcL (0.0-0.2); Basophils % 0.6 %; Eosinophils # 0.1 K/mcL (0.0-0.6); Hemoglobin 12.1 g/dL (11.5-15.4); Immature Granulocytes % 1.2 % (0-4); Lymphocytes # 2.7 K/mcL (0.6-4.6); Lymphocytes % 17.3 %; Mean Corpuscular HGB Conc 31.2 g/dL (31.6-35.5); Mean Corpuscular Hemoglobin 29.3 pg (28.0-33.3); Mean Corpuscular Volume 93.9 fL (83.0-100.0); Mean Platelet Volume 11.6 fL (9.4-12.4); Monocytes # 1.1 K/mcL (0.0-1.3); Monocytes % 7.2 %; Neutrophils # 11.4 K/mcL (1.6-8.9); Platelet Count 196 K/mcL (140-400); Red Blood Count 4.13 M/mcL (3.82-4.97); Red Cell Distribution Width 13.8 % (11.5-14.5); White Blood Count 15.6 K/mcL (4.3-11.1)
[2020-12-04 05:40] LABS: Calcium 9.9 mg/dL (8.6-10.3); Potassium 3.4 mEq/L (3.5-5.1)
[2020-12-04] MEDS: *HR* Enoxaparin 40 MG/0.4 ML SYRINGE SQ SCH (07:47)
[2020-12-04] MEDS: Gabapentin 300 MG CAPSULE PO SCH ×2 (07:48→20:38)
[2020-12-04] MEDS: hydroCHLOROthiazide 25 MG TABLET PO SCH (07:48)
[2020-12-04] MEDS: Venlafaxine XR (24 HR) 150 MG CAP.ER.24H PO SCH (07:48)
[2020-12-04] MEDS: predniSONE 20 MG TABLET PO SCH (07:49)
[2020-12-04] MEDS: BuPROPion XL (24 HR) 150 MG TABLET PO SCH (07:49)
[2020-12-04] MEDS: lisinopriL 5 MG TABLET PO SCH (07:49)
[2020-12-04] MEDS: Insulin LISPRO 300 UNITS/3 ML VIAL SUBQ SCH ×4 (09:01→20:37)
[2020-12-04] MEDS: Insulin DETEMIR 100 UNIT/ML X5UNITS SUBQ SCH (09:01)
[2020-12-04] MEDS: Tiotropium 10 INH DOSE IH SCH (10:36)
[2020-12-04] MEDS: Budesonide/Formoterol 160/4.5 1 PUFF INH IH SCH ×2 (10:36→23:02)
[2020-12-04] MEDS ORDERED: Azithromycin 500 MG in 0.9 % Sodium Chloride 250 ML IVPB SCH (12:00)
[2020-12-04] MEDS: ALPRAZolam 1 MG TABLET PO PRN ×2 (13:49→20:36)
[2020-12-04] MEDS: QUEtiapine Fumarate 25 MG TABLET PO SCH (20:36)
[2020-12-05] MEDS: Ipratropium/Albuterol Neb 3 ML IH SCH ×2 (04:23→10:51)
[2020-12-05] MEDS ORDERED: *HR* Enoxaparin 30 MG/0.3 ML SYRINGE SQ SCH (06:00)
[2020-12-05 07:34] VITALS: BP 119/79
[2020-12-05] MEDS: lisinopriL 5 MG TABLET PO SCH (08:15)
[2020-12-05] MEDS: hydroCHLOROthiazide 25 MG TABLET PO SCH (08:15)
[2020-12-05] MEDS: Gabapentin 300 MG CAPSULE PO SCH (08:15)
[2020-12-05] MEDS: BuPROPion XL (24 HR) 150 MG TABLET PO SCH (08:15)
[2020-12-05] MEDS: Insulin LISPRO 300 UNITS/3 ML VIAL SUBQ SCH (08:15)
[2020-12-05] MEDS: Venlafaxine XR (24 HR) 150 MG CAP.ER.24H PO SCH (08:16)
[2020-12-05] MEDS: Insulin DETEMIR 100 UNIT/ML X5UNITS SUBQ SCH (08:16)
[2020-12-05] MEDS: predniSONE 20 MG TABLET PO SCH (08:16)
[2020-12-05] MEDS: ALPRAZolam 1 MG TABLET PO PRN (08:23)
[2020-12-05] MEDS: Budesonide/Formoterol 160/4.5 1 PUFF INH IH SCH (10:51)
[2020-12-05] MEDS: Tiotropium 10 INH DOSE IH SCH (10:54)
== END 2020-12-05 12:58 | disposition home health service (06) | DRG 190 ==
LOC: EMEROOARM 19:51 → 3BNU 19:51 → SUATTDRO 22:34 → 3BNU 23:18 → SUATTDRO 12-02 15:56
PROVIDERS: ADMIT Internal Medicine; ATTEND Registered Nurse

== ENCOUNTER 2021-01-01 20:00 | Observation (INO) ==
[2021-01-01] MEDS ORDERED: Isovue-370 500 ML BOTTLE IVP ONE (21:26)
[2021-01-01] MEDS ORDERED: Acetaminophen 325 MG TABLET PO STA (21:31)
[2021-01-01 21:43] LABS: Basophils # 0.1 K/mcL (0.0-0.2); Basophils % 0.7 %; Eosinophils # 0.5 K/mcL (0.0-0.6); Eosinophils % 3.3 %; Hematocrit 38.9 % (35.3-44.9); Hemoglobin 11.9 g/dL (11.5-15.4); Immature Granulocytes % 1.2 % (0-4); Lymphocytes # 1.5 K/mcL (0.6-4.6); Lymphocytes % 10.3 %; Mean Corpuscular HGB Conc 30.6 g/dL (31.6-35.5); Mean Corpuscular Hemoglobin 29.5 pg (28.0-33.3); Mean Corpuscular Volume 96.3 fL (83.0-100.0); Mean Platelet Volume 10.6 fL (9.4-12.4); Monocytes # 0.9 K/mcL (0.0-1.3); Monocytes % 6.2 %; Neutrophils # 11.2 K/mcL (1.6-8.9); Platelet Count 283 K/mcL (140-400); Red Blood Count 4.04 M/mcL (3.82-4.97); Red Cell Distribution Width 13.7 % (11.5-14.5); Segmented Neutrophils % 78.3 %; White Blood Count 14.3 K/mcL (4.3-11.1)
[2021-01-01] MEDS ORDERED: Ipratropium/Albuterol Neb 3 ML IH ONE (21:55)
[2021-01-01 22:03] LABS: Albumin 3.7 g/dL (3.5-5.7); Albumin/Globulin Ratio 1.5 (1.1-2.2); Bilirubin,Direct 0.1 mg/dL (0.0-0.2); Bilirubin,Indirect 0.2 mg/dL (0.0-1.0); Bilirubin,Total 0.3 mg/dL (0.3-1.0); Calcium 9.6 mg/dL (8.6-10.3); Globulin 2.5 g/dL (2.4-3.5); Potassium 3.7 mEq/L (3.5-5.1); Total Protein 6.2 g/dL (6.4-8.9); Troponin I 0.05 ng/mL (< 0.04)
[2021-01-01 23:00] LABS: Bacteria,Urine Few per hpf (None-Few); Bilirubin,Urine Negative (Negative); Blood,Urine Large (Negative); Clarity,Urine Clear (Clear); Color,Urine Light-Yellow (Yellow); Glucose,Urine (UA) 500 mg/dL (Normal); Ketones,Urine 10 mg/dL (Negative); Leukocyte Esterase,Urine Negative (Negative); Mucus,Urine Few per lpf (None-Few); Nitrite,Urine Negative (Negative); Protein,Urine Trace mg/dL (Neg-Trace); RBC,Urine 50-100 per hpf (0-3); Specific Gravity,Urine 1.017 (1.010-1.025); Urobilinogen,Urine Normal (Normal)
[2021-01-01] MEDS ORDERED: 0.9 % Sodium Chloride 500 ML IVC STA (23:42)
[2021-01-02] MEDS ORDERED: Ondansetron 4 MG/2 ML VIAL IVP PRN (02:22)
[2021-01-02] MEDS ORDERED: Naloxone 0.4 MG/ML INJ IVP PRN (02:22)
[2021-01-02] MEDS ORDERED: *HR* Promethazine 25 MG/ML VIAL IM PRN (02:22)
[2021-01-02] MEDS ORDERED: *HR* HYDROcodone/Acet 5/325 mg TABLET PO PRN (02:22)
[2021-01-02] MEDS ORDERED: Acetaminophen 325 MG TABLET PO PRN (02:22)
[2021-01-02] MEDS ORDERED: *HR* Dextrose 50 % in Water (Vial) 50 ML VIAL IVP PRN (02:24)
[2021-01-02] MEDS ORDERED: Dextrose Gel 15 GM/37.5 ML TUBE PO PRN ×2 (02:24)
[2021-01-02] MEDS ORDERED: D5% in Water 1,000 ML IVC PRN (02:24)
[2021-01-02] MEDS: 0.9 % Sodium Chloride 1,000 ML IVC SCH ×2 (02:46→16:31)
[2021-01-02 06:31] LABS: Basophils # 0.1 K/mcL (0.0-0.2); Basophils % 0.4 %; Eosinophils # 0.1 K/mcL (0.0-0.6); Eosinophils % 1.2 %; Hematocrit 36.6 % (35.3-44.9); Hemoglobin 11.5 g/dL (11.5-15.4); Immature Granulocytes % 1.1 % (0-4); Lymphocytes # 1.2 K/mcL (0.6-4.6); Lymphocytes % 10.3 %; Mean Corpuscular HGB Conc 31.4 g/dL (31.6-35.5); Mean Corpuscular Hemoglobin 29.7 pg (28.0-33.3); Mean Corpuscular Volume 94.6 fL (83.0-100.0); Mean Platelet Volume 10.3 fL (9.4-12.4); Monocytes # 0.7 K/mcL (0.0-1.3); Monocytes % 5.9 %; Neutrophils # 9.2 K/mcL (1.6-8.9); Platelet Count 261 K/mcL (140-400); Red Blood Count 3.87 M/mcL (3.82-4.97); Red Cell Distribution Width 13.5 % (11.5-14.5); Segmented Neutrophils % 81.1 %; White Blood Count 11.3 K/mcL (4.3-11.1)
[2021-01-02 06:39] LABS: Potassium 3.7 mEq/L (3.5-5.1)
[2021-01-02] MEDS ORDERED: Tiotropium 10 INH DOSE IH ONE (07:30)
[2021-01-02] MEDS: Tiotropium 10 INH DOSE IH SCH (07:36)
[2021-01-02] MEDS: Budesonide/Formoterol 160/4.5 1 PUFF INH IH SCH ×2 (07:37→19:43)
[2021-01-02] MEDS: Insulin LISPRO 300 UNITS/3 ML VIAL SUBQ SCH ×3 (07:45→17:41)
[2021-01-02] MEDS: hydroCHLOROthiazide 25 MG TABLET PO SCH (10:27)
[2021-01-02] MEDS: BuPROPion XL (24 HR) 150 MG TABLET PO SCH (10:27)
[2021-01-02] MEDS: lisinopriL 5 MG TABLET PO SCH (10:27)
[2021-01-02] MEDS: Venlafaxine XR (24 HR) 150 MG CAP.ER.24H PO SCH (10:27)
[2021-01-02] MEDS: Gabapentin 300 MG CAPSULE PO SCH ×2 (10:27→21:50)
[2021-01-02] MEDS: (Roflumilast [Daliresp] 500 MCG PO SCH (10:34)
[2021-01-02] MEDS: ALPRAZolam 1 MG TABLET PO PRN (13:28)
[2021-01-02] MEDS ORDERED: Ipratropium/Albuterol Neb 3 ML IH PRN (16:50)
[2021-01-02] MEDS ORDERED: QUEtiapine Fumarate 25 MG TABLET PO SCH (21:00)
[2021-01-02] MEDS ORDERED: Insulin LISPRO 300 UNITS/3 ML VIAL SUBQ SCH (21:00)
[2021-01-02] MEDS ORDERED: Insulin DETEMIR 100 UNIT/ML X5UNITS SUBQ SCH (21:00)
[2021-01-03 02:19] LABS: Basophils # 0.1 K/mcL (0.0-0.2); Basophils % 0.6 %; Eosinophils # 0.4 K/mcL (0.0-0.6); Eosinophils % 4.5 %; Hematocrit 35.3 % (35.3-44.9); Immature Granulocytes % 1.4 % (0-4); Lymphocytes # 2.1 K/mcL (0.6-4.6); Lymphocytes % 27.8 %; Mean Corpuscular HGB Conc 31.2 g/dL (31.6-35.5); Mean Corpuscular Hemoglobin 29.7 pg (28.0-33.3); Mean Corpuscular Volume 95.4 fL (83.0-100.0); Monocytes # 0.6 K/mcL (0.0-1.3); Monocytes % 7.3 %; Neutrophils # 4.5 K/mcL (1.6-8.9); Platelet Count 238 K/mcL (140-400); Red Cell Distribution Width 13.6 % (11.5-14.5); Segmented Neutrophils % 58.4 %; White Blood Count 7.7 K/mcL (4.3-11.1)
[2021-01-03 02:48] LABS: Calcium 9.2 mg/dL (8.6-10.3); Potassium 3.3 mEq/L (3.5-5.1)
[2021-01-03] MEDS: Insulin LISPRO 300 UNITS/3 ML VIAL SUBQ SCH ×3 (07:42→17:48)
[2021-01-03] MEDS: Tiotropium 10 INH DOSE IH SCH (09:37)
[2021-01-03] MEDS: Budesonide/Formoterol 160/4.5 1 PUFF INH IH SCH (09:37)
[2021-01-03] MEDS: (Roflumilast [Daliresp] 500 MCG PO SCH (09:57)
[2021-01-03] MEDS: ALPRAZolam 1 MG TABLET PO PRN (09:59)
[2021-01-03] MEDS: Gabapentin 300 MG CAPSULE PO SCH (10:00)
[2021-01-03] MEDS: Venlafaxine XR (24 HR) 150 MG CAP.ER.24H PO SCH (10:00)
[2021-01-03] MEDS: hydroCHLOROthiazide 25 MG TABLET PO SCH (10:00)
[2021-01-03] MEDS: 0.9 % Sodium Chloride 1,000 ML IVC SCH (10:00)
[2021-01-03] MEDS: lisinopriL 5 MG TABLET PO SCH (10:01)
[2021-01-03] MEDS: BuPROPion XL (24 HR) 150 MG TABLET PO SCH (10:01)
[2021-01-03] MEDS ORDERED: Ondansetron 4 MG/2 ML VIAL ONE (15:38)
[2021-01-03] MEDS ORDERED: *HR* Propofol 200 MG/20 ML VIAL IVP ONE (15:38)
[2021-01-03] MEDS ORDERED: Lidocaine -MPF 2% 2 ML VIAL ONE (15:38)
[2021-01-03] MEDS ORDERED: *HR* FentaNYL (PF) 100 MCG/2 ML VIAL ONE (15:38)
[2021-01-03] MEDS ORDERED: *HR* HYDROmorphone 2 MG TABLET PO PRN (16:38)
[2021-01-03] MEDS ORDERED: *HR* Labetalol 20 MG/4 ML SYRINGE IVP PRN (16:38)
[2021-01-03] MEDS ORDERED: Ondansetron 4 MG/2 ML VIAL IVP PRN ×2 (16:38→17:45)
[2021-01-03] MEDS ORDERED: Acetaminophen IV 1,000 MG/100 ML BAG IVPB ONE (16:38)
[2021-01-03] MEDS ORDERED: Promethazine 6.25 MG in Water for inj. (sterile) 20 ML IVPB PRN (16:38)
[2021-01-03] MEDS ORDERED: *HR* OxyCODONE Immed Rel 5 MG TABLET PO PRN (16:38)
[2021-01-03] MEDS ORDERED: *HR* HYDROmorphone (PF) 1 MG/ML SYRINGE IVP PRN (16:38)
[2021-01-03 17:18] VITALS: TEMP 97.9
[2021-01-03 17:23] VITALS: BP 130/82; PULSE 92; O2SAT 94
[2021-01-03] MEDS ORDERED: Dextrose Gel 15 GM/37.5 ML TUBE PO PRN ×2 (17:45)
[2021-01-03] MEDS ORDERED: *HR* Promethazine 25 MG/ML VIAL IM PRN (17:45)
[2021-01-03] MEDS ORDERED: *HR* HYDROcodone/Acet 5/325 mg TABLET PO PRN (17:45)
[2021-01-03] MEDS ORDERED: *HR* Dextrose 50 % in Water (Vial) 50 ML VIAL IVP PRN (17:45)
[2021-01-03] MEDS ORDERED: ALPRAZolam 1 MG TABLET PO PRN (17:45)
[2021-01-03] MEDS ORDERED: Ipratropium/Albuterol Neb 3 ML IH PRN (17:45)
[2021-01-03] MEDS ORDERED: 0.9 % Sodium Chloride 1,000 ML IVC SCH (17:45)
[2021-01-03] MEDS ORDERED: Acetaminophen 325 MG TABLET PO PRN (17:45)
[2021-01-03] MEDS ORDERED: D5% in Water 1,000 ML IVC PRN (17:45)
[2021-01-03] MEDS ORDERED: Naloxone 0.4 MG/ML INJ IVP PRN (17:45)
[2021-01-03] MEDS ORDERED: QUEtiapine Fumarate 25 MG TABLET PO SCH (21:00)
[2021-01-03] MEDS ORDERED: Insulin DETEMIR 100 UNIT/ML X5UNITS SUBQ SCH (21:00)
[2021-01-03] MEDS ORDERED: Insulin LISPRO 300 UNITS/3 ML VIAL SUBQ SCH (21:00)
[2021-01-03] MEDS ORDERED: Gabapentin 300 MG CAPSULE PO SCH (21:00)
[2021-01-03] MEDS ORDERED: Budesonide/Formoterol 160/4.5 1 PUFF INH IH SCH (22:00)
[2021-01-04] MEDS ORDERED: Insulin LISPRO 300 UNITS/3 ML VIAL SUBQ SCH (07:30)
[2021-01-04] MEDS ORDERED: Venlafaxine XR (24 HR) 150 MG CAP.ER.24H PO SCH (09:00)
[2021-01-04] MEDS ORDERED: BuPROPion XL (24 HR) 150 MG TABLET PO SCH (09:00)
[2021-01-04] MEDS ORDERED: hydroCHLOROthiazide 25 MG TABLET PO SCH (09:00)
[2021-01-04] MEDS ORDERED: lisinopriL 5 MG TABLET PO SCH (09:00)
[2021-01-04] MEDS ORDERED: Tiotropium 10 INH DOSE IH SCH (10:00)
== END 2021-01-03 19:27 | disposition home or self-care (01) ==
LOC: 3ANU 20:00 → EMEROOARM 20:00 → 3ANU 01-02 01:49
PROVIDERS: ADMIT Internal Medicine; ATTEND Internal Medicine

== ENCOUNTER 2021-01-09 21:08 | Inpatient (IN) ==
[2021-01-09] MEDS ORDERED: methylPREDNISolone 125 MG/2 ML VIAL IVP ONE (21:13)
[2021-01-09] MEDS ORDERED: Furosemide 40 MG/4 ML VIAL IVP ONE (21:13)
[2021-01-09] MEDS ORDERED: Ipratropium/Albuterol Neb 3 ML IH PRN (21:15)
[2021-01-09 22:08] LABS: Basophils # 0.1 K/mcL (0.0-0.2); Basophils % 1.2 %; Eosinophils # 0.6 K/mcL (0.0-0.6); Eosinophils % 6.6 %; Hematocrit 40.9 % (35.3-44.9); Hemoglobin 12.8 g/dL (11.5-15.4); Immature Granulocytes % 1.3 % (0-4); Lymphocytes # 2.1 K/mcL (0.6-4.6); Lymphocytes % 23.6 %; Mean Corpuscular HGB Conc 31.3 g/dL (31.6-35.5); Mean Corpuscular Hemoglobin 29.7 pg (28.0-33.3); Mean Corpuscular Volume 94.9 fL (83.0-100.0); Mean Platelet Volume 10.1 fL (9.4-12.4); Monocytes # 0.7 K/mcL (0.0-1.3); Monocytes % 7.5 %; Neutrophils # 5.4 K/mcL (1.6-8.9); Platelet Count 355 K/mcL (140-400); Red Blood Count 4.31 M/mcL (3.82-4.97); Red Cell Distribution Width 13.4 % (11.5-14.5); Segmented Neutrophils % 59.8 %
[2021-01-09 22:15] LABS: Prothrombin Time 11.7 Seconds (9.4-12.1)
[2021-01-09 22:27] LABS: Alanine Aminotransferase 14 Units/L (7-52); Albumin/Globulin Ratio 1.5 (1.1-2.2); Alkaline Phosphatase 105 Units/L (34-104); Aspartate Amino Transferase 12 Units/L (13-39); BUN/Creatinine Ratio 14 (6-26); Bilirubin,Indirect 0.3 mg/dL (0.0-1.0); Bilirubin,Total 0.3 mg/dL (0.3-1.0); Blood Urea Nitrogen 16 mg/dL (8-23); Calcium 10.5 mg/dL (8.6-10.3); Carbon Dioxide 33 mEq/L (23-29); Chloride 102 mEq/L (98-107); Globulin 2.6 g/dL (2.4-3.5); Glucose 293 mg/dL (70-105); Osmolality,Calculated 308 (280-300); Potassium 3.1 mEq/L (3.5-5.1); Sodium 143 mEq/L (136-145); Total Protein 6.6 g/dL (6.4-8.9); Troponin I < 0.03 ng/mL (< 0.04); eGFR For African Americans 58 (> 60); eGFR For Non-African Americans 48 (> 60)
[2021-01-09] MEDS ORDERED: Potassium Chloride Elixir 20 MEQ/15 ML UDC PO ONE (22:45)
[2021-01-09 23:22] LABS: Bacteria,Urine Few per hpf (None-Few); Bilirubin,Urine Negative (Negative); Blood,Urine Moderate (Negative); Clarity,Urine Clear (Clear); Color,Urine Colorless (Yellow); Glucose,Urine (UA) 100 mg/dL (Normal); Ketones,Urine Negative (Negative); Leukocyte Esterase,Urine Small (Negative); Mucus,Urine Few per lpf (None-Few); Nitrite,Urine Negative (Negative); Protein,Urine Negative (Neg-Trace); RBC,Urine 15-30 per hpf (0-3); Specific Gravity,Urine 1.006 (1.010-1.025); Squamous Epithelial Cell,Urine Few per hpf (None-Few); Transitional Epi Cells,Urine Few per hpf (None-Few); Urobilinogen,Urine Normal (Normal)
[2021-01-10 01:02] LABS: Adenovirus Not Detected (Not Detect); Bordetella Pertussis Not Detected (Not Detect); Chlamydophila pneumoniae Not Detected (Not Detect); Coronavirus 229E Not Detected (Not Detect); Coronavirus HKU1 Not Detected (Not Detect); Coronavirus NL63 Not Detected (Not Detect); Coronavirus OC43 Not Detected (Not Detect); Human Metapneumovirus Not Detected (Not Detect); Human Rhinovirus/Enterovirus Not Detected (Not Detect); Influenza A Subtype 2009 H1 Not Detected (Not Detect); Influenza B Not Detected (Not Detect); Mycoplasma pneumoniae Not Detected (Not Detect); Parainfluenza Virus 1 Not Detected (Not Detect); Parainfluenza Virus 2 Not Detected (Not Detect); Parainfluenza Virus 3 Not Detected (Not Detect); Parainfluenza Virus 4 Not Detected (Not Detect); Respiratory Syncytial Virus Not Detected (Not Detect); SARS-CoV-2 Not Detected (Not Detect)
[2021-01-10] MEDS ORDERED: methylPREDNISolone 125 MG/2 ML VIAL IVP ONE (01:04)
[2021-01-10] MEDS ORDERED: Potassium Chloride 20 MEQ, Lidocaine 1% 2 ML in 0.9 % Sodium Chloride 250 ML IVPB ONE (01:18)
[2021-01-10] MEDS ORDERED: *HR* Dextrose 50 % in Water (Vial) 50 ML VIAL IVP PRN (01:19)
[2021-01-10] MEDS ORDERED: Dextrose Gel 15 GM/37.5 ML TUBE PO PRN ×2 (01:19)
[2021-01-10] MEDS ORDERED: D5% in Water 1,000 ML IVC PRN (01:19)
[2021-01-10] MEDS ORDERED: Acetaminophen 325 MG TABLET PO PRN (01:20)
[2021-01-10] MEDS ORDERED: Naloxone 0.4 MG/ML INJ IVP PRN (01:20)
[2021-01-10 01:30] LABS: ABG Base Excess 5 mEq/L (-2 to 3); ABG HCO3 31 mEq/L (21-27); ABG Oxygen Saturation 96 % (95-98); ABG PCO2 52 mmHg (35-45); ABG PH 7.38 pH Units (7.32-7.45); ABG PO2 82 mmHg (85-104); ABG TCO2 33 mEq/L (20-26)
[2021-01-10 02:07] LABS: Hematocrit 41.5 % (35.3-44.9); Mean Corpuscular HGB Conc 31.3 g/dL (31.6-35.5); Mean Corpuscular Hemoglobin 29.8 pg (28.0-33.3); Mean Corpuscular Volume 95.2 fL (83.0-100.0); Mean Platelet Volume 10.2 fL (9.4-12.4); Platelet Count 345 K/mcL (140-400); Red Blood Count 4.36 M/mcL (3.82-4.97); Red Cell Distribution Width 13.2 % (11.5-14.5); White Blood Count 10.7 K/mcL (4.3-11.1)
[2021-01-10 02:34] LABS: BUN/Creatinine Ratio 16 (6-26); Blood Urea Nitrogen 18 mg/dL (8-23); Calcium 10.3 mg/dL (8.6-10.3); Carbon Dioxide 28 mEq/L (23-29); Chloride 100 mEq/L (98-107); Chol/HDL Ratio 5.4 (0-4.9); Cholesterol 211 mg/dL (< 200); Glucose 472 mg/dL (70-105); HDL Cholesterol 39 mg/dL (40-59); LDL Cholesterol,Calculated 120 mg/dL (< 100); Magnesium 1.5 mg/dL (1.6-2.6); Osmolality,Calculated 311 (280-300); Potassium 4.1 mEq/L (3.5-5.1); Sodium 139 mEq/L (136-145); Triglycerides 259 mg/dL (< 150); Troponin I < 0.03 ng/mL (< 0.04); eGFR For African Americans 57 (> 60); eGFR For Non-African Americans 47 (> 60)
[2021-01-10] MEDS: Levalbuterol Neb 1.25 MG/3 ML IH SCH ×6 (03:46→23:35)
[2021-01-10] MEDS ORDERED: 0.9 % Sodium Chloride 250 ML ONE (04:36)
[2021-01-10] MEDS: Azithromycin 500 MG in 0.9 % Sodium Chloride 250 ML IVPB SCH (04:48)
[2021-01-10] MEDS: *HR* Heparin 5,000 UNIT/ML VIAL SQ SCH ×3 (05:22→20:59)
[2021-01-10] MEDS ORDERED: Insulin LISPRO 300 UNITS/3 ML VIAL SUBQ SCH ×2 (06:00→21:00)
[2021-01-10] MEDS: Insulin DETEMIR 100 UNIT/ML X5UNITS SUBQ SCH ×2 (09:30→20:53)
[2021-01-10] MEDS: methylPREDNISolone 125 MG/2 ML VIAL IVP SCH ×2 (09:31→18:05)
[2021-01-10] MEDS: Insulin LISPRO 300 UNITS/3 ML VIAL SUBQ SCH ×2 (11:59→16:18)
[2021-01-10] MEDS: ALPRAZolam 1 MG TABLET PO PRN (11:59)
[2021-01-10] MEDS: hydroCHLOROthiazide 25 MG TABLET PO SCH (12:58)
[2021-01-10] MEDS: Ipratropium Neb 0.5 MG NEBULIZER IH SCH ×3 (15:04→23:35)
[2021-01-10] MEDS: Tiotropium 10 INH DOSE IH SCH (15:44)
[2021-01-10] MEDS: Budesonide/Formoterol 160/4.5 1 PUFF INH IH SCH (19:44)
[2021-01-10] MEDS: QUEtiapine Fumarate 25 MG TABLET PO SCH (20:48)
[2021-01-10] MEDS: Gabapentin 300 MG CAPSULE PO SCH (20:59)
[2021-01-11] MEDS ORDERED: 0.9 % Sodium Chloride 250 ML ONE (01:57)
[2021-01-11] MEDS: methylPREDNISolone 125 MG/2 ML VIAL IVP SCH ×3 (02:14→16:47)
[2021-01-11] MEDS: Azithromycin 500 MG in 0.9 % Sodium Chloride 250 ML IVPB SCH (02:17)
[2021-01-11 02:58] LABS: Hematocrit 36.6 % (35.3-44.9); Hemoglobin 11.5 g/dL (11.5-15.4); Mean Corpuscular HGB Conc 31.4 g/dL (31.6-35.5); Mean Corpuscular Hemoglobin 29.3 pg (28.0-33.3); Mean Corpuscular Volume 93.1 fL (83.0-100.0); Mean Platelet Volume 10.6 fL (9.4-12.4); Platelet Count 339 K/mcL (140-400); Red Blood Count 3.93 M/mcL (3.82-4.97); Red Cell Distribution Width 13.2 % (11.5-14.5)
[2021-01-11 03:01] LABS: White Blood Count 17.3 K/mcL (4.3-11.1)
[2021-01-11 03:17] LABS: Calcium 9.9 mg/dL (8.6-10.3); Potassium 3.9 mEq/L (3.5-5.1)
[2021-01-11 03:21] LABS: Estimated Average Glucose 217 mg/dl; Hemoglobin A1C 9.2 %
[2021-01-11] MEDS: Ipratropium Neb 0.5 MG NEBULIZER IH SCH ×6 (03:41→23:36)
[2021-01-11] MEDS: Levalbuterol Neb 1.25 MG/3 ML IH SCH ×6 (03:41→23:36)
[2021-01-11] MEDS: *HR* Heparin 5,000 UNIT/ML VIAL SQ SCH ×3 (05:20→20:58)
[2021-01-11] MEDS: Tiotropium 10 INH DOSE IH SCH (07:25)
[2021-01-11] MEDS: Budesonide/Formoterol 160/4.5 1 PUFF INH IH SCH ×2 (07:25→19:47)
[2021-01-11] MEDS: BuPROPion XL (24 HR) 150 MG TABLET PO SCH (07:58)
[2021-01-11] MEDS: lisinopriL 5 MG TABLET PO SCH (07:58)
[2021-01-11] MEDS: hydroCHLOROthiazide 25 MG TABLET PO SCH (07:58)
[2021-01-11] MEDS: Venlafaxine XR (24 HR) 150 MG CAP.ER.24H PO SCH (07:58)
[2021-01-11] MEDS: Gabapentin 300 MG CAPSULE PO SCH ×2 (07:58→20:56)
[2021-01-11] MEDS: Insulin LISPRO 300 UNITS/3 ML VIAL SUBQ SCH ×4 (07:59→21:02)
[2021-01-11] MEDS: Insulin DETEMIR 100 UNIT/ML X5UNITS SUBQ SCH ×2 (08:05→21:01)
[2021-01-11] MEDS ORDERED: Insulin DETEMIR 100 UNIT/ML X5UNITS SUBQ STA (08:27)
[2021-01-11] MEDS: 0.9 % Sodium Chloride 1,000 ML IVC SCH ×2 (08:50→21:09)
[2021-01-11] MEDS ORDERED: (Roflumilast [Daliresp] 500 MCG Tablet) PO SCH (09:00)
[2021-01-11] MEDS: ALPRAZolam 1 MG TABLET PO PRN (20:55)
[2021-01-11] MEDS: QUEtiapine Fumarate 25 MG TABLET PO SCH (20:56)
[2021-01-12] MEDS ORDERED: 0.9 % Sodium Chloride 250 ML ONE (01:15)
[2021-01-12] MEDS: methylPREDNISolone 125 MG/2 ML VIAL IVP SCH (01:29)
[2021-01-12] MEDS: Azithromycin 500 MG in 0.9 % Sodium Chloride 250 ML IVPB SCH (01:32)
[2021-01-12] MEDS: Levalbuterol Neb 1.25 MG/3 ML IH SCH ×6 (03:54→23:43)
[2021-01-12] MEDS: Ipratropium Neb 0.5 MG NEBULIZER IH SCH ×6 (03:54→23:43)
[2021-01-12 05:46] LABS: Basophils % 0.2 %; Hematocrit 35.8 % (35.3-44.9); Hemoglobin 11.1 g/dL (11.5-15.4); Immature Granulocytes % 2.2 % (0-4); Lymphocytes # 0.8 K/mcL (0.6-4.6); Lymphocytes % 4.7 %; Mean Corpuscular Hemoglobin 29.4 pg (28.0-33.3); Mean Platelet Volume 10.8 fL (9.4-12.4); Monocytes # 0.5 K/mcL (0.0-1.3); Monocytes % 2.7 %; Neutrophils # 15.3 K/mcL (1.6-8.9); Platelet Count 325 K/mcL (140-400); Red Blood Count 3.77 M/mcL (3.82-4.97); Segmented Neutrophils % 90.2 %
[2021-01-12] MEDS: *HR* Heparin 5,000 UNIT/ML VIAL SQ SCH ×3 (05:47→21:19)
[2021-01-12 06:05] LABS: Calcium 8.9 mg/dL (8.6-10.3); Potassium 3.6 mEq/L (3.5-5.1)
[2021-01-12] MEDS: Budesonide/Formoterol 160/4.5 1 PUFF INH IH SCH ×2 (07:24→19:17)
[2021-01-12] MEDS: Tiotropium 10 INH DOSE IH SCH (07:24)
[2021-01-12] MEDS: Gabapentin 300 MG CAPSULE PO SCH ×2 (08:27→21:19)
[2021-01-12] MEDS: lisinopriL 5 MG TABLET PO SCH (08:27)
[2021-01-12] MEDS: Venlafaxine XR (24 HR) 150 MG CAP.ER.24H PO SCH (08:27)
[2021-01-12] MEDS: Insulin LISPRO 300 UNITS/3 ML VIAL SUBQ SCH ×4 (08:27→21:20)
[2021-01-12] MEDS: hydroCHLOROthiazide 25 MG TABLET PO SCH (08:27)
[2021-01-12] MEDS: BuPROPion XL (24 HR) 150 MG TABLET PO SCH (08:27)
[2021-01-12] MEDS: Insulin DETEMIR 100 UNIT/ML X5UNITS SUBQ SCH ×2 (08:28→21:20)
[2021-01-12] MEDS: MethylPREDNISolone 40 MG/ML VIAL IVP SCH ×2 (08:28→18:30)
[2021-01-12] MEDS: ALPRAZolam 1 MG TABLET PO PRN ×2 (10:31→18:33)
[2021-01-12] MEDS: 0.9 % Sodium Chloride 1,000 ML IVC SCH (11:49)
[2021-01-12] MEDS ORDERED: Insulin DETEMIR 100 UNIT/ML X5UNITS SUBQ STA (12:50)
[2021-01-12] MEDS: QUEtiapine Fumarate 25 MG TABLET PO SCH (21:19)
[2021-01-13] MEDS: 0.9 % Sodium Chloride 1,000 ML IVC SCH ×3 (00:45→21:37)
[2021-01-13] MEDS: MethylPREDNISolone 40 MG/ML VIAL IVP SCH ×3 (01:25→21:25)
[2021-01-13] MEDS: Azithromycin 500 MG in 0.9 % Sodium Chloride 250 ML IVPB SCH (01:25)
[2021-01-13] MEDS: Levalbuterol Neb 1.25 MG/3 ML IH SCH ×5 (03:28→20:05)
[2021-01-13] MEDS: Ipratropium Neb 0.5 MG NEBULIZER IH SCH ×5 (03:28→20:05)
[2021-01-13] MEDS: *HR* Heparin 5,000 UNIT/ML VIAL SQ SCH ×3 (05:08→21:25)
[2021-01-13 06:22] LABS: Calcium 9.2 mg/dL (8.6-10.3); Potassium 3.8 mEq/L (3.5-5.1)
[2021-01-13 06:49] LABS: Basophils % 0.3 %; Hematocrit 36.4 % (35.3-44.9); Hemoglobin 11.9 g/dL (11.5-15.4); Immature Granulocytes % 3.7 % (0-4); Lymphocytes # 0.7 K/mcL (0.6-4.6); Lymphocytes % 4.7 %; Mean Corpuscular HGB Conc 32.7 g/dL (31.6-35.5); Mean Corpuscular Hemoglobin 30.1 pg (28.0-33.3); Mean Platelet Volume 10.9 fL (9.4-12.4); Monocytes # 0.6 K/mcL (0.0-1.3); Monocytes % 3.9 %; Neutrophils # 13.3 K/mcL (1.6-8.9); Platelet Count 304 K/mcL (140-400); Red Blood Count 3.96 M/mcL (3.82-4.97); Red Cell Distribution Width 12.8 % (11.5-14.5); Segmented Neutrophils % 87.4 %; White Blood Count 15.2 K/mcL (4.3-11.1)
[2021-01-13 06:51] LABS: Mean Corpuscular Volume 91.9 fL (83.0-100.0)
[2021-01-13] MEDS: Budesonide/Formoterol 160/4.5 1 PUFF INH IH SCH ×2 (07:13→20:05)
[2021-01-13] MEDS: Tiotropium 10 INH DOSE IH SCH (07:16)
[2021-01-13] MEDS: Insulin DETEMIR 100 UNIT/ML X5UNITS SUBQ SCH ×2 (08:53→21:41)
[2021-01-13] MEDS: Gabapentin 300 MG CAPSULE PO SCH ×2 (08:56→21:26)
[2021-01-13] MEDS: ALPRAZolam 1 MG TABLET PO PRN ×2 (08:56→21:38)
[2021-01-13] MEDS: BuPROPion XL (24 HR) 150 MG TABLET PO SCH (08:56)
[2021-01-13] MEDS: Venlafaxine XR (24 HR) 150 MG CAP.ER.24H PO SCH (08:56)
[2021-01-13] MEDS: lisinopriL 5 MG TABLET PO SCH (08:56)
[2021-01-13] MEDS: hydroCHLOROthiazide 25 MG TABLET PO SCH (08:56)
[2021-01-13] MEDS: Insulin LISPRO 300 UNITS/3 ML VIAL SUBQ SCH ×4 (08:58→21:27)
[2021-01-13] MEDS ORDERED: Insulin DETEMIR 100 UNIT/ML X5UNITS SUBQ STA (10:43)
[2021-01-13] MEDS: QUEtiapine Fumarate 25 MG TABLET PO SCH (21:26)
[2021-01-14] MEDS: Ipratropium Neb 0.5 MG NEBULIZER IH SCH ×7 (00:11→23:47)
[2021-01-14] MEDS: Levalbuterol Neb 1.25 MG/3 ML IH SCH ×7 (00:11→23:47)
[2021-01-14] MEDS ORDERED: 0.9 % Sodium Chloride 250 ML ONE ×2 (02:20→02:25)
[2021-01-14] MEDS: Azithromycin 500 MG in 0.9 % Sodium Chloride 250 ML IVPB SCH (02:31)
[2021-01-14 03:47] LABS: Hemoglobin 12.1 g/dL (11.5-15.4); Mean Corpuscular HGB Conc 32.7 g/dL (31.6-35.5); Mean Corpuscular Hemoglobin 30.2 pg (28.0-33.3); Mean Corpuscular Volume 92.3 fL (83.0-100.0); Platelet Count 321 K/mcL (140-400); Red Blood Count 4.01 M/mcL (3.82-4.97); Red Cell Distribution Width 12.8 % (11.5-14.5); White Blood Count 16.2 K/mcL (4.3-11.1)
[2021-01-14 04:05] LABS: Calcium 9.1 mg/dL (8.6-10.3); Potassium 3.4 mEq/L (3.5-5.1)
[2021-01-14 04:38] LABS: Anisocytosis 1+ (Not Present); Lymphocytes # 0.7 K/mcL (0.6-4.6); Monocytes # 0.3 K/mcL (0.0-1.3); Neutrophils # 14.6 K/mcL (1.6-8.9); Platelet Estimate Normal (Normal)
[2021-01-14] MEDS: *HR* Heparin 5,000 UNIT/ML VIAL SQ SCH ×3 (05:14→21:17)
[2021-01-14] MEDS: Budesonide/Formoterol 160/4.5 1 PUFF INH IH SCH ×2 (07:24→20:00)
[2021-01-14] MEDS: Tiotropium 10 INH DOSE IH SCH (07:26)
[2021-01-14] MEDS: Insulin LISPRO 300 UNITS/3 ML VIAL SUBQ SCH ×4 (08:22→21:17)
[2021-01-14] MEDS: BuPROPion XL (24 HR) 150 MG TABLET PO SCH (08:23)
[2021-01-14] MEDS: 0.9 % Sodium Chloride 1,000 ML IVC SCH ×3 (08:23→21:18)
[2021-01-14] MEDS: lisinopriL 5 MG TABLET PO SCH (08:23)
[2021-01-14] MEDS: Venlafaxine XR (24 HR) 150 MG CAP.ER.24H PO SCH (08:23)
[2021-01-14] MEDS: hydroCHLOROthiazide 25 MG TABLET PO SCH (08:23)
[2021-01-14] MEDS: Gabapentin 300 MG CAPSULE PO SCH ×2 (08:23→21:17)
[2021-01-14] MEDS: MethylPREDNISolone 40 MG/ML VIAL IVP SCH ×2 (08:23→21:16)
[2021-01-14] MEDS: Insulin DETEMIR 100 UNIT/ML X5UNITS SUBQ SCH ×2 (08:25→21:19)
[2021-01-14] MEDS: ALPRAZolam 1 MG TABLET PO PRN ×2 (11:22→21:17)
[2021-01-14] MEDS: QUEtiapine Fumarate 25 MG TABLET PO SCH (21:18)
[2021-01-15 03:48] LABS: Basophils # 0.1 K/mcL (0.0-0.2); Basophils % 0.7 %; Eosinophils % 0.1 %; Hematocrit 37.4 % (35.3-44.9); Hemoglobin 12.2 g/dL (11.5-15.4); Immature Granulocytes % 6.2 % (0-4); Lymphocytes # 1.2 K/mcL (0.6-4.6); Lymphocytes % 6.7 %; Mean Corpuscular HGB Conc 32.6 g/dL (31.6-35.5); Mean Corpuscular Hemoglobin 30.3 pg (28.0-33.3); Mean Corpuscular Volume 92.8 fL (83.0-100.0); Mean Platelet Volume 11.3 fL (9.4-12.4); Monocytes % 5.8 %; Nucleated Red Blood Cells 0.2 /100 WBC (0); Platelet Count 302 K/mcL (140-400); Red Blood Count 4.03 M/mcL (3.82-4.97); Red Cell Distribution Width 13.1 % (11.5-14.5); Segmented Neutrophils % 80.5 %; White Blood Count 17.7 K/mcL (4.3-11.1)
[2021-01-15 03:57] LABS: Calcium 9.2 mg/dL (8.6-10.3); Potassium 4.1 mEq/L (3.5-5.1)
[2021-01-15 03:59] LABS: Neutrophils # 14.3 K/mcL (1.6-8.9)
[2021-01-15] MEDS: Levalbuterol Neb 1.25 MG/3 ML IH SCH ×3 (03:59→10:53)
[2021-01-15] MEDS: Ipratropium Neb 0.5 MG NEBULIZER IH SCH ×3 (03:59→10:53)
[2021-01-15] MEDS: 0.9 % Sodium Chloride 1,000 ML IVC SCH (04:08)
[2021-01-15 04:17] LABS: Anisocytosis 1+ (Not Present); Platelet Estimate Normal (Normal)
[2021-01-15] MEDS: *HR* Heparin 5,000 UNIT/ML VIAL SQ SCH (05:38)
[2021-01-15] MEDS: Budesonide/Formoterol 160/4.5 1 PUFF INH IH SCH (07:30)
[2021-01-15] MEDS: Insulin LISPRO 300 UNITS/3 ML VIAL SUBQ SCH ×2 (08:41→12:04)
[2021-01-15] MEDS: Gabapentin 300 MG CAPSULE PO SCH (08:41)
[2021-01-15] MEDS: BuPROPion XL (24 HR) 150 MG TABLET PO SCH (08:41)
[2021-01-15] MEDS: Venlafaxine XR (24 HR) 150 MG CAP.ER.24H PO SCH (08:42)
[2021-01-15] MEDS: Insulin DETEMIR 100 UNIT/ML X5UNITS SUBQ SCH (08:55)
[2021-01-15] MEDS ORDERED: predniSONE 20 MG TABLET PO SCH (09:00)
[2021-01-15 11:35] VITALS: BP 151/82; PULSE 85; TEMP 97.9; O2SAT 96
== END 2021-01-15 14:52 | disposition hospice, home (50) | DRG 189 ==
LOC: EMEROOARM 21:08 → 2ANU 21:08 → SUATTDRO 23:41 → 2ANU 01-10 00:22
PROVIDERS: ADMIT Student in an Organized Health Care Education/Training Program; ATTEND Family Medicine

== ENCOUNTER 2021-02-20 20:53 | Inpatient (IN) ==
[2021-02-20] MEDS ORDERED: methylPREDNISolone 125 MG/2 ML VIAL ONE (20:58)
[2021-02-20] MEDS ORDERED: Ipratropium/Albuterol Neb 3 ML ONE (20:58)
[2021-02-20] MEDS ORDERED: Azithromycin 500 MG in 0.9 % Sodium Chloride 250 ML IVPB ONE (21:00)
[2021-02-20] MEDS ORDERED: Ipratropium/Albuterol Neb 3 ML IH ONE ×2 (21:00→21:15)
[2021-02-20] MEDS ORDERED: methylPREDNISolone 125 MG/2 ML VIAL IVP ONE ×2 (21:00→21:15)
[2021-02-20 21:24] LABS: ABG Base Excess 5 mEq/L (-2 to 3); ABG HCO3 35 mEq/L (21-27); ABG Oxygen Saturation 83 % (95-98); ABG PCO2 74 mmHg (35-45); ABG PH 7.28 pH Units (7.32-7.45); ABG PO2 55 mmHg (85-104); ABG TCO2 37 mEq/L (20-26)
[2021-02-20 21:29] LABS: Basophils # 0.3 K/mcL (0.0-0.2); Basophils % 1.5 %; Eosinophils # 1.5 K/mcL (0.0-0.6); Eosinophils % 8.6 %; Hematocrit 41.9 % (35.3-44.9); Hemoglobin 13.3 g/dL (11.5-15.4); Immature Granulocytes % 0.8 % (0-4); Lymphocytes # 2.3 K/mcL (0.6-4.6); Lymphocytes % 13.5 %; Mean Corpuscular HGB Conc 31.7 g/dL (31.6-35.5); Mean Corpuscular Volume 94.4 fL (83.0-100.0); Mean Platelet Volume 10.2 fL (9.4-12.4); Monocytes # 1.1 K/mcL (0.0-1.3); Monocytes % 6.6 %; Neutrophils # 11.8 K/mcL (1.6-8.9); Platelet Count 422 K/mcL (140-400); Red Blood Count 4.44 M/mcL (3.82-4.97); Red Cell Distribution Width 13.4 % (11.5-14.5); White Blood Count 17.1 K/mcL (4.3-11.1)
[2021-02-20 21:36] LABS: Prothrombin Time 11.6 Seconds (9.4-12.1)
[2021-02-20 21:39] LABS: Activated Partial Thrombo Time 35.4 Seconds (26.0-36.0)
[2021-02-20 21:55] LABS: Albumin 4.4 g/dL (3.5-5.7); Albumin/Globulin Ratio 1.7 (1.1-2.2); Bilirubin,Indirect 0.4 mg/dL (0.0-1.0); Bilirubin,Total 0.4 mg/dL (0.3-1.0); Calcium 10.1 mg/dL (8.6-10.3); Globulin 2.6 g/dL (2.4-3.5); Potassium 3.3 mEq/L (3.5-5.1); Troponin I 0.05 ng/mL (< 0.04)
[2021-02-20] MEDS ORDERED: Isovue-370 500 ML BOTTLE IVP ONE (22:28)
[2021-02-20] MEDS ORDERED: Albuterol 2.5 MG/3 ML NEBULIZER AER ONE (22:45)
[2021-02-21] MEDS ORDERED: ALPRAZolam 0.5 MG TABLET PO ONE (00:01)
[2021-02-21] MEDS ORDERED: Aspirin 325 MG TABLET PO ONE (00:01)
[2021-02-21 00:34] LABS: Influenza A PCR Negative (Negative); Influenza B PCR Negative (Negative); Resp. Syncytial Virus PCR Negative (Negative)
[2021-02-21 00:36] LABS: SARS-CoV-2 by PCR (In House) Negative (Negative)
[2021-02-21 01:22] LABS: ABG Base Excess 3 mEq/L (-2 to 3); ABG HCO3 31 mEq/L (21-27); ABG Oxygen Saturation 85 % (95-98); ABG PCO2 63 mmHg (35-45); ABG PO2 57 mmHg (85-104); ABG TCO2 33 mEq/L (20-26); Blood Gas Modality avaps; Blood Gas VT 420 cc
[2021-02-21] MEDS ORDERED: Dextrose Gel 15 GM/37.5 ML TUBE PO PRN ×2 (02:25)
[2021-02-21] MEDS ORDERED: Naloxone 0.4 MG/ML INJ IVP PRN (02:25)
[2021-02-21] MEDS ORDERED: *HR* Dextrose 50 % in Water (Vial) 50 ML VIAL IVP PRN (02:25)
[2021-02-21] MEDS ORDERED: D5% in Water 1,000 ML IVC PRN (02:25)
[2021-02-21] MEDS ORDERED: Acetaminophen IV 500 MG/50 ML BAG IVPB ONE (02:40)
[2021-02-21] MEDS ORDERED: Potassium Chloride 20 MEQ, Lidocaine 1% 2 ML in 0.9 % Sodium Chloride 250 ML IVPB ONE (02:47)
[2021-02-21] MEDS ORDERED: Perflutren Lipid Microsphere 1.3 ML in 0.9 % Sodium Chloride 8.7 ML IVP PRN (03:11)
[2021-02-21] MEDS: Levalbuterol Neb 1.25 MG/3 ML IH SCH ×6 (04:15→23:36)
[2021-02-21 05:59] LABS: Hematocrit 38.9 % (35.3-44.9); Hemoglobin 12.1 g/dL (11.5-15.4); Mean Corpuscular HGB Conc 31.1 g/dL (31.6-35.5); Mean Corpuscular Volume 96.5 fL (83.0-100.0); Mean Platelet Volume 10.7 fL (9.4-12.4); Platelet Count 353 K/mcL (140-400); Red Blood Count 4.03 M/mcL (3.82-4.97); Red Cell Distribution Width 13.3 % (11.5-14.5); White Blood Count 11.7 K/mcL (4.3-11.1)
[2021-02-21] MEDS ORDERED: Famotidine 20 MG/2 ML VIAL IVP SCH (06:00)
[2021-02-21 06:19] LABS: ABG Base Excess 2 mEq/L (-2 to 3); ABG HCO3 29 mEq/L (21-27); ABG Oxygen Saturation 99 % (95-98); ABG PCO2 60 mmHg (35-45); ABG PO2 176 mmHg (85-104); ABG TCO2 31 mEq/L (20-26); Blood Gas VT 420 cc
[2021-02-21 06:35] LABS: Calcium 9.5 mg/dL (8.6-10.3); Chol/HDL Ratio 4.8 (0-4.9); Magnesium 2.1 mg/dL (1.6-2.6)
[2021-02-21 06:46] LABS: Estimated Average Glucose 220 mg/dl; Hemoglobin A1C 9.3 %
[2021-02-21] MEDS: Insulin LISPRO 300 UNITS/3 ML VIAL SUBQ SCH ×4 (07:50→20:16)
[2021-02-21] MEDS: *HR* Heparin 5,000 UNIT/ML VIAL SQ SCH ×3 (07:51→20:11)
[2021-02-21] MEDS: methylPREDNISolone 125 MG/2 ML VIAL IVP SCH ×4 (07:52→23:25)
[2021-02-21] MEDS: ALPRAZolam 1 MG TABLET PO PRN ×2 (10:33→19:20)
[2021-02-21] MEDS ORDERED: *HR* LORazepam 2 MG/ML VIAL IVP ONE (19:04)
[2021-02-21] MEDS: Azithromycin 500 MG in 0.9 % Sodium Chloride 250 ML IVPB SCH (20:08)
[2021-02-22] MEDS: *HR* Heparin 5,000 UNIT/ML VIAL SQ SCH ×3 (03:18→21:38)
[2021-02-22] MEDS: ALPRAZolam 1 MG TABLET PO PRN (03:28)
[2021-02-22] MEDS: methylPREDNISolone 125 MG/2 ML VIAL IVP SCH ×4 (03:39→23:06)
[2021-02-22] MEDS: Levalbuterol Neb 1.25 MG/3 ML IH SCH ×6 (03:39→23:37)
[2021-02-22] MEDS ORDERED: QUEtiapine Fumarate 25 MG TABLET PO ONE (03:45)
[2021-02-22] MEDS ORDERED: *HR* LORazepam 2 MG/ML VIAL IVP ONE ×2 (04:52→09:08)
[2021-02-22 07:15] LABS: Hematocrit 37.3 % (35.3-44.9); Mean Corpuscular HGB Conc 32.2 g/dL (31.6-35.5); Mean Corpuscular Hemoglobin 30.7 pg (28.0-33.3); Mean Corpuscular Volume 95.4 fL (83.0-100.0); Mean Platelet Volume 10.4 fL (9.4-12.4); Platelet Count 332 K/mcL (140-400); Red Blood Count 3.91 M/mcL (3.82-4.97); Red Cell Distribution Width 13.4 % (11.5-14.5); White Blood Count 17.4 K/mcL (4.3-11.1)
[2021-02-22] MEDS ORDERED: Ipratropium/Albuterol Neb 3 ML IH PRN (07:29)
[2021-02-22 07:34] LABS: Calcium 9.6 mg/dL (8.6-10.3); Potassium 3.6 mEq/L (3.5-5.1)
[2021-02-22] MEDS: Insulin LISPRO 300 UNITS/3 ML VIAL SUBQ SCH ×4 (08:24→21:39)
[2021-02-22] MEDS: Gabapentin 300 MG CAPSULE PO SCH ×2 (08:25→21:43)
[2021-02-22] MEDS: Aspirin 81 MG TAB.CHEW PO SCH (08:25)
[2021-02-22] MEDS: BuPROPion XL (24 HR) 150 MG TABLET PO SCH (08:25)
[2021-02-22] MEDS: Venlafaxine XR (24 HR) 150 MG CAP.ER.24H PO SCH (08:26)
[2021-02-22] MEDS: hydroCHLOROthiazide 25 MG TABLET PO SCH (08:26)
[2021-02-22] MEDS: *HR* Glimepiride 4 MG TABLET PO SCH (08:28)
[2021-02-22] MEDS: Famotidine 20 MG/2 ML VIAL IVP SCH (08:29)
[2021-02-22] MEDS: (Roflumilast [Daliresp] 500 MCG Tablet) PO SCH (08:29)
[2021-02-22] MEDS: lisinopriL 5 MG TABLET PO SCH (08:29)
[2021-02-22] MEDS ORDERED: Furosemide 20 MG TABLET PO SCH (09:00)
[2021-02-22] MEDS: Insulin DETEMIR 100 UNIT/ML X5UNITS SUBQ SCH ×2 (10:46→21:38)
[2021-02-22] MEDS: Tiotropium 10 INH DOSE IH SCH (11:00)
[2021-02-22] MEDS: QUEtiapine Fumarate 25 MG TABLET PO SCH ×2 (12:23→21:43)
[2021-02-22] MEDS: Ipratropium/Albuterol Neb 3 ML IH PRN (13:28)
[2021-02-22] MEDS ORDERED: QUEtiapine Fumarate 25 MG TABLET PO SCH (21:00)
[2021-02-22] MEDS: Azithromycin 500 MG in 0.9 % Sodium Chloride 250 ML IVPB SCH (21:42)
[2021-02-23] MEDS: Levalbuterol Neb 1.25 MG/3 ML IH SCH ×6 (03:19→23:34)
[2021-02-23] MEDS: methylPREDNISolone 125 MG/2 ML VIAL IVP SCH ×4 (05:21→23:29)
[2021-02-23] MEDS: *HR* Heparin 5,000 UNIT/ML VIAL SQ SCH ×3 (05:21→23:29)
[2021-02-23 05:51] LABS: Basophils % 0.2 %; Hematocrit 38.1 % (35.3-44.9); Hemoglobin 12.1 g/dL (11.5-15.4); Immature Granulocytes % 1.8 % (0-4); Lymphocytes # 0.8 K/mcL (0.6-4.6); Lymphocytes % 4.7 %; Mean Corpuscular HGB Conc 31.8 g/dL (31.6-35.5); Mean Corpuscular Hemoglobin 30.1 pg (28.0-33.3); Mean Corpuscular Volume 94.8 fL (83.0-100.0); Mean Platelet Volume 10.7 fL (9.4-12.4); Monocytes # 0.4 K/mcL (0.0-1.3); Monocytes % 2.5 %; Neutrophils # 14.4 K/mcL (1.6-8.9); Platelet Count 344 K/mcL (140-400); Red Blood Count 4.02 M/mcL (3.82-4.97); Red Cell Distribution Width 13.2 % (11.5-14.5); Segmented Neutrophils % 90.8 %; White Blood Count 15.8 K/mcL (4.3-11.1)
[2021-02-23 06:06] LABS: Calcium 9.7 mg/dL (8.6-10.3); Potassium 3.4 mEq/L (3.5-5.1)
[2021-02-23] MEDS: Tiotropium 10 INH DOSE IH SCH (07:31)
[2021-02-23] MEDS: Insulin LISPRO 300 UNITS/3 ML VIAL SUBQ SCH ×4 (08:47→20:41)
[2021-02-23] MEDS: Aspirin 81 MG TAB.CHEW PO SCH (08:48)
[2021-02-23] MEDS: QUEtiapine Fumarate 25 MG TABLET PO SCH ×2 (08:48→20:42)
[2021-02-23] MEDS: Venlafaxine XR (24 HR) 150 MG CAP.ER.24H PO SCH (08:49)
[2021-02-23] MEDS: *HR* Glimepiride 4 MG TABLET PO SCH (08:49)
[2021-02-23] MEDS: Gabapentin 300 MG CAPSULE PO SCH ×2 (08:49→20:42)
[2021-02-23] MEDS: BuPROPion XL (24 HR) 150 MG TABLET PO SCH (08:49)
[2021-02-23] MEDS: lisinopriL 5 MG TABLET PO SCH (08:49)
[2021-02-23] MEDS: (Roflumilast [Daliresp] 500 MCG Tablet) PO SCH (08:50)
[2021-02-23] MEDS: Famotidine 20 MG/2 ML VIAL IVP SCH (08:50)
[2021-02-23] MEDS: hydroCHLOROthiazide 25 MG TABLET PO SCH (09:02)
[2021-02-23] MEDS: Insulin DETEMIR 100 UNIT/ML X5UNITS SUBQ SCH ×2 (09:05→20:42)
[2021-02-23] MEDS: Azithromycin 500 MG in 0.9 % Sodium Chloride 250 ML IVPB SCH (20:42)
[2021-02-23] MEDS: *HR* LORazepam 2 MG/ML VIAL IVP PRN (20:46)
[2021-02-24] MEDS: Levalbuterol Neb 1.25 MG/3 ML IH SCH ×6 (03:42→23:50)
[2021-02-24] MEDS: methylPREDNISolone 125 MG/2 ML VIAL IVP SCH ×2 (05:37→12:18)
[2021-02-24] MEDS: *HR* Heparin 5,000 UNIT/ML VIAL SQ SCH ×3 (05:37→20:25)
[2021-02-24] MEDS: Tiotropium 10 INH DOSE IH SCH (07:21)
[2021-02-24] MEDS: Insulin LISPRO 300 UNITS/3 ML VIAL SUBQ SCH ×6 (07:45→20:20)
[2021-02-24] MEDS: Insulin DETEMIR 100 UNIT/ML X5UNITS SUBQ SCH ×2 (07:46→20:23)
[2021-02-24] MEDS: Aspirin 81 MG TAB.CHEW PO SCH (07:47)
[2021-02-24] MEDS: Venlafaxine XR (24 HR) 150 MG CAP.ER.24H PO SCH (07:47)
[2021-02-24] MEDS: hydroCHLOROthiazide 25 MG TABLET PO SCH (07:47)
[2021-02-24] MEDS: BuPROPion XL (24 HR) 150 MG TABLET PO SCH (07:48)
[2021-02-24] MEDS: Gabapentin 300 MG CAPSULE PO SCH ×2 (07:48→20:29)
[2021-02-24] MEDS: QUEtiapine Fumarate 25 MG TABLET PO SCH ×2 (07:48→20:30)
[2021-02-24] MEDS: *HR* Glimepiride 4 MG TABLET PO SCH (07:49)
[2021-02-24] MEDS: (Roflumilast [Daliresp] 500 MCG Tablet) PO SCH (08:57)
[2021-02-24] MEDS: Famotidine 20 MG/2 ML VIAL IVP SCH (09:15)
[2021-02-24 13:31] LABS: Calcium 9.6 mg/dL (8.6-10.3); Potassium 3.7 mEq/L (3.5-5.1)
[2021-02-24] MEDS: MethylPREDNISolone 40 MG/ML VIAL IVP SCH (16:47)
[2021-02-24] MEDS: *HR* LORazepam 2 MG/ML VIAL IVP PRN (16:51)
[2021-02-24] MEDS: Azithromycin 500 MG in 0.9 % Sodium Chloride 250 ML IVPB SCH (20:27)
[2021-02-24] MEDS ORDERED: Insulin LISPRO 300 UNITS/3 ML VIAL SUBQ SCH (21:00)
[2021-02-24] MEDS ORDERED: Insulin Human Regular 5 UNIT in 0.9 % Sodium Chloride 10 ML IV ONE (22:16)
[2021-02-25] MEDS: MethylPREDNISolone 40 MG/ML VIAL IVP SCH
[2021-02-25] MEDS: Levalbuterol Neb 1.25 MG/3 ML IH SCH ×6 (03:53→23:35)
[2021-02-25] MEDS: *HR* Heparin 5,000 UNIT/ML VIAL SQ SCH ×3 (05:26→20:12)
[2021-02-25] MEDS: Venlafaxine XR (24 HR) 150 MG CAP.ER.24H PO SCH (08:25)
[2021-02-25] MEDS: BuPROPion XL (24 HR) 150 MG TABLET PO SCH (08:25)
[2021-02-25] MEDS: Aspirin 81 MG TAB.CHEW PO SCH (08:25)
[2021-02-25] MEDS: QUEtiapine Fumarate 25 MG TABLET PO SCH ×2 (08:25→20:03)
[2021-02-25] MEDS: Gabapentin 300 MG CAPSULE PO SCH ×2 (08:26→20:03)
[2021-02-25] MEDS: Insulin LISPRO 300 UNITS/3 ML VIAL SUBQ SCH ×4 (08:27→20:04)
[2021-02-25] MEDS: Insulin DETEMIR 100 UNIT/ML X5UNITS SUBQ SCH ×2 (08:27→20:04)
[2021-02-25] MEDS: *HR* Glimepiride 4 MG TABLET PO SCH (08:28)
[2021-02-25] MEDS: *HR* LORazepam 2 MG/ML VIAL IVP PRN (08:43)
[2021-02-25] MEDS ORDERED: predniSONE 20 MG TABLET PO SCH (09:00)
[2021-02-25] MEDS: Ipratropium/Albuterol Neb 3 ML IH PRN (11:20)
[2021-02-25 11:41] LABS: Calcium 9.2 mg/dL (8.6-10.3); Potassium 3.5 mEq/L (3.5-5.1)
[2021-02-25 11:48] LABS: Bilirubin,Urine Negative (Negative); Blood,Urine Negative (Negative); Clarity,Urine Clear (Clear); Color,Urine Colorless (Yellow); Glucose,Urine (UA) 500 mg/dL (Normal); Ketones,Urine Negative (Negative); Leukocyte Esterase,Urine Negative (Negative); Mucus,Urine Few per lpf (None-Few); Nitrite,Urine Negative (Negative); PH,Urine 6.5 pH Units (5.0-8.0); Protein,Urine Negative (Neg-Trace); RBC,Urine 0-3 per hpf (0-3); Specific Gravity,Urine 1.017 (1.010-1.025); Squamous Epithelial Cell,Urine Few per hpf (None-Few); Urobilinogen,Urine Normal (Normal); WBC,Urine 0-3 per hpf (0-3)
[2021-02-25] MEDS: Tiotropium 10 INH DOSE IH SCH (13:59)
[2021-02-25] MEDS: ALPRAZolam 1 MG TABLET PO PRN ×2 (14:04→20:04)
[2021-02-25 16:39] LABS: Adenovirus Not Detected (Not Detect); Bordetella Pertussis Not Detected (Not Detect); Chlamydophila pneumoniae Not Detected (Not Detect); Coronavirus 229E Not Detected (Not Detect); Coronavirus HKU1 Not Detected (Not Detect); Coronavirus NL63 Not Detected (Not Detect); Coronavirus OC43 Not Detected (Not Detect); Human Metapneumovirus Not Detected (Not Detect); Human Rhinovirus/Enterovirus Not Detected (Not Detect); Influenza A Subtype 2009 H1 Not Detected (Not Detect); Influenza B Not Detected (Not Detect); Mycoplasma pneumoniae Not Detected (Not Detect); Parainfluenza Virus 1 Not Detected (Not Detect); Parainfluenza Virus 2 Not Detected (Not Detect); Parainfluenza Virus 3 Not Detected (Not Detect); Parainfluenza Virus 4 Not Detected (Not Detect); Respiratory Syncytial Virus Not Detected (Not Detect); SARS-CoV-2 Not Detected (Not Detect)
[2021-02-25 19:53] VITALS: BP 163/89; PULSE 93; TEMP 98
[2021-02-25 23:37] VITALS: O2SAT 95
== END 2021-02-26 00:15 | disposition other institution (70) | DRG 189 ==
LOC: EMEROOARM 20:53 → 2ANU 20:53 → SUATTDRO 02-21 03:48 → 2ANU 02-21 05:14
PROVIDERS: ADMIT Internal Medicine; ATTEND Hospitalist

== ENCOUNTER 2021-03-28 11:17 | Inpatient (IN) ==
[2021-03-28] MEDS ORDERED: methylPREDNISolone 125 MG/2 ML VIAL IVP ONE (11:22)
[2021-03-28] MEDS ORDERED: 0.9 % Sodium Chloride 1,000 ML IVC ONE (11:22)
[2021-03-28] MEDS ORDERED: Ipratropium/Albuterol Neb 3 ML IH ONE (11:22)
[2021-03-28] MEDS ORDERED: Acetaminophen 325 MG TABLET PO ONE (11:28)
[2021-03-28 12:14] LABS: Basophils # 0.1 K/mcL (0.0-0.2); Basophils % 0.7 %; Eosinophils % 0.1 %; Hematocrit 38.4 % (35.3-44.9); Hemoglobin 11.9 g/dL (11.5-15.4); Immature Granulocytes % 2.8 % (0-4); Lymphocytes # 1.7 K/mcL (0.6-4.6); Lymphocytes % 11.6 %; Mean Corpuscular Volume 96.7 fL (83.0-100.0); Mean Platelet Volume 10.2 fL (9.4-12.4); Monocytes # 1.9 K/mcL (0.0-1.3); Monocytes % 12.4 %; Neutrophils # 10.9 K/mcL (1.6-8.9); Platelet Count 370 K/mcL (140-400); Red Blood Count 3.97 M/mcL (3.82-4.97); Red Cell Distribution Width 13.3 % (11.5-14.5); Segmented Neutrophils % 72.4 %
[2021-03-28 12:46] LABS: Alanine Aminotransferase 12 Units/L (7-52); Albumin 3.6 g/dL (3.5-5.7); Albumin/Globulin Ratio 1.2 (1.1-2.2); Alkaline Phosphatase 65 Units/L (34-104); Aspartate Amino Transferase 14 Units/L (13-39); BUN/Creatinine Ratio 24 (6-26); Bilirubin,Direct 0.1 mg/dL (0.0-0.2); Bilirubin,Indirect 0.3 mg/dL (0.0-1.0); Bilirubin,Total 0.4 mg/dL (0.3-1.0); Blood Urea Nitrogen 29 mg/dL (8-23); Calcium 9.9 mg/dL (8.6-10.3); Carbon Dioxide 29 mEq/L (23-29); Chloride 97 mEq/L (98-107); Creatine Kinase 345 Units/L (30-223); Glucose 258 mg/dL (70-105); Osmolality,Calculated 297 (280-300); Potassium 3.5 mEq/L (3.5-5.1); Sodium 136 mEq/L (136-145); Total Protein 6.6 g/dL (6.4-8.9); Troponin I < 0.03 ng/mL (< 0.04); eGFR For African Americans 52 (> 60); eGFR For Non-African Americans 43 (> 60)
[2021-03-28 13:22] LABS: Adenovirus Not Detected (Not Detect); Coronavirus 229E Not Detected (Not Detect); Coronavirus HKU1 Not Detected (Not Detect); Coronavirus NL63 Not Detected (Not Detect); Coronavirus OC43 Not Detected (Not Detect); Human Metapneumovirus Not Detected (Not Detect); Human Rhinovirus/Enterovirus Not Detected (Not Detect); Influenza A Subtype 2009 H1 Not Detected (Not Detect); SARS-CoV-2 Not Detected (Not Detect)
[2021-03-28 13:23] LABS: Bordetella Pertussis Not Detected (Not Detect); Chlamydophila pneumoniae Not Detected (Not Detect); Influenza B Not Detected (Not Detect); Mycoplasma pneumoniae Not Detected (Not Detect); Parainfluenza Virus 1 Not Detected (Not Detect); Parainfluenza Virus 2 Not Detected (Not Detect); Parainfluenza Virus 3 Not Detected (Not Detect); Parainfluenza Virus 4 Not Detected (Not Detect); Respiratory Syncytial Virus Not Detected (Not Detect)
[2021-03-28 13:25] LABS: Bacteria,Urine Few per hpf (None-Few); Bilirubin,Urine Negative (Negative); Blood,Urine Moderate (Negative); Clarity,Urine Turbid (Clear); Color,Urine Yellow (Yellow); Glucose,Urine (UA) Normal (Normal); Ketones,Urine Negative (Negative); Leukocyte Esterase,Urine Large (Negative); Mucus,Urine Few per lpf (None-Few); Nitrite,Urine Negative (Negative); PH,Urine 5.5 pH Units (5.0-8.0); Protein,Urine 30 mg/dL (Neg-Trace); Renal Epithelial Cells,Urine Few per hpf (None-Few); Specific Gravity,Urine 1.018 (1.010-1.025); Squamous Epithelial Cell,Urine Few per hpf (None-Few); Transitional Epi Cells,Urine Moderate per hpf (None-Few); Urobilinogen,Urine Normal (Normal); WBC,Urine 30-50 per hpf (0-3)
[2021-03-28] MEDS ORDERED: cefTRIAXone 1,000 MG in Water for inj. (sterile) 10 ML IVP ONE (13:47)
[2021-03-28] MEDS ORDERED: Azithromycin 250 MG TABLET PO ONE (14:05)
[2021-03-28] MEDS ORDERED: Ipratropium/Albuterol Neb 3 ML IH PRN (14:42)
[2021-03-28] MEDS ORDERED: Acetaminophen 325 MG TABLET PO PRN (14:50)
[2021-03-28] MEDS ORDERED: Naloxone 0.4 MG/ML INJ IVP PRN (14:50)
[2021-03-28] MEDS ORDERED: Ondansetron 4 MG/2 ML VIAL IVP PRN (14:50)
[2021-03-28] MEDS ORDERED: Melatonin 3 MG TABLET PO PRN (14:50)
[2021-03-28 15:31] LABS: VBG HCO3 27 mEq/L (21-27); VBG PCO2 45 mmHg (41-51); VBG PH 7.38 pH Units (7.32-7.42); VBG PO2 103 mmHg (25-50)
[2021-03-28] MEDS: Levalbuterol Neb 1.25 MG/3 ML IH SCH ×2 (17:38→21:29)
[2021-03-28] MEDS: *HR* Heparin 5,000 UNIT/ML VIAL SQ SCH (18:18)
[2021-03-28] MEDS: QUEtiapine Fumarate 25 MG TABLET PO SCH (19:25)
[2021-03-28] MEDS: Gabapentin 300 MG CAPSULE PO SCH (19:25)
[2021-03-28] MEDS: ALPRAZolam 1 MG TABLET PO PRN (19:28)
[2021-03-28] MEDS: Insulin DETEMIR 100 UNIT/ML X5UNITS SUBQ SCH (20:38)
[2021-03-28] MEDS: Budesonide/Formoterol 160/4.5 1 PUFF INH IH SCH ×2 (21:29→21:30)
[2021-03-29] MEDS: Levalbuterol Neb 1.25 MG/3 ML IH SCH ×7 (00:28→20:31)
[2021-03-29] MEDS: *HR* Heparin 5,000 UNIT/ML VIAL SQ SCH ×2 (05:29→14:14)
[2021-03-29] MEDS: Budesonide/Formoterol 160/4.5 1 PUFF INH IH SCH ×3 (07:36→20:31)
[2021-03-29 07:42] LABS: Hematocrit 36.6 % (35.3-44.9); Hemoglobin 11.4 g/dL (11.5-15.4); Mean Corpuscular HGB Conc 31.1 g/dL (31.6-35.5); Mean Corpuscular Hemoglobin 29.5 pg (28.0-33.3); Mean Corpuscular Volume 94.6 fL (83.0-100.0); Mean Platelet Volume 10.4 fL (9.4-12.4); Platelet Count 404 K/mcL (140-400); Red Blood Count 3.87 M/mcL (3.82-4.97); White Blood Count 13.6 K/mcL (4.3-11.1)
[2021-03-29 08:03] LABS: Calcium 9.9 mg/dL (8.6-10.3); Phosphorous 2.8 mg/dL (2.7-4.5); Potassium 3.7 mEq/L (3.5-5.1)
[2021-03-29] MEDS: Venlafaxine XR (24 HR) 75 MG CAP.ER.24H PO SCH (08:28)
[2021-03-29] MEDS: predniSONE 20 MG TABLET PO SCH (08:29)
[2021-03-29] MEDS: Azithromycin 250 MG TABLET PO SCH (08:30)
[2021-03-29] MEDS: BuPROPion XL (24 HR) 150 MG TABLET PO SCH (08:30)
[2021-03-29] MEDS: cefTRIAXone 1,000 MG in Water for inj. (sterile) 10 ML IVP SCH (08:31)
[2021-03-29] MEDS: Gabapentin 300 MG CAPSULE PO SCH ×2 (08:31→20:19)
[2021-03-29] MEDS: Furosemide 20 MG TABLET PO SCH (08:31)
[2021-03-29] MEDS: lisinopriL 5 MG TABLET PO SCH (08:31)
[2021-03-29] MEDS: Insulin DETEMIR 100 UNIT/ML X5UNITS SUBQ SCH ×2 (08:49→20:19)
[2021-03-29] MEDS: Tiotropium 10 INH DOSE IH SCH (11:22)
[2021-03-29] MEDS: polyethylene glycoL 3350 17 GM POWD.PACK PO SCH (14:13)
[2021-03-29] MEDS ORDERED: D5% in Water 1,000 ML IVC PRN (16:00)
[2021-03-29] MEDS ORDERED: *HR* Dextrose 50 % in Water (Syg) 50 ML SYRINGE IVP PRN (16:00)
[2021-03-29] MEDS ORDERED: Dextrose Gel 15 GM/37.5 ML TUBE PO PRN ×2 (16:00)
[2021-03-29] MEDS: Insulin LISPRO 300 UNITS/3 ML VIAL SUBQ SCH ×2 (18:27→20:21)
[2021-03-29] MEDS: QUEtiapine Fumarate 25 MG TABLET PO SCH (20:19)
[2021-03-29] MEDS: ALPRAZolam 1 MG TABLET PO PRN (20:22)
[2021-03-30] MEDS: Levalbuterol Neb 1.25 MG/3 ML IH SCH ×6 (04:50→23:48)
[2021-03-30] MEDS: *HR* Heparin 5,000 UNIT/ML VIAL SQ SCH ×2 (05:22→17:22)
[2021-03-30] MEDS: Budesonide/Formoterol 160/4.5 1 PUFF INH IH SCH ×2 (07:38→19:24)
[2021-03-30] MEDS: Insulin LISPRO 300 UNITS/3 ML VIAL SUBQ SCH ×4 (08:00→21:48)
[2021-03-30] MEDS: Insulin DETEMIR 100 UNIT/ML X5UNITS SUBQ SCH ×2 (08:01→21:48)
[2021-03-30] MEDS: lisinopriL 5 MG TABLET PO SCH (08:20)
[2021-03-30] MEDS: BuPROPion XL (24 HR) 150 MG TABLET PO SCH (08:20)
[2021-03-30] MEDS: Azithromycin 250 MG TABLET PO SCH (08:20)
[2021-03-30] MEDS: predniSONE 20 MG TABLET PO SCH (08:21)
[2021-03-30] MEDS: Venlafaxine XR (24 HR) 75 MG CAP.ER.24H PO SCH (08:22)
[2021-03-30] MEDS: Furosemide 20 MG TABLET PO SCH (08:22)
[2021-03-30] MEDS: Gabapentin 300 MG CAPSULE PO SCH ×2 (08:22→21:47)
[2021-03-30] MEDS: polyethylene glycoL 3350 17 GM POWD.PACK PO SCH (08:23)
[2021-03-30] MEDS: cefTRIAXone 1,000 MG in Water for inj. (sterile) 10 ML IVP SCH (08:23)
[2021-03-30] MEDS: ALPRAZolam 1 MG TABLET PO PRN ×2 (08:33→23:03)
[2021-03-30] MEDS: Tiotropium 10 INH DOSE IH SCH (13:27)
[2021-03-30] MEDS ORDERED: *HR* LORazepam 2 MG/ML VIAL IVP STA (17:51)
[2021-03-30] MEDS: QUEtiapine Fumarate 25 MG TABLET PO SCH (21:47)
[2021-03-31] MEDS: Levalbuterol Neb 1.25 MG/3 ML IH SCH ×5 (04:13→20:21)
[2021-03-31] MEDS: *HR* Heparin 5,000 UNIT/ML VIAL SQ SCH ×2 (05:18→18:00)
[2021-03-31] MEDS: Insulin LISPRO 300 UNITS/3 ML VIAL SUBQ SCH ×4 (07:18→19:45)
[2021-03-31] MEDS: Budesonide/Formoterol 160/4.5 1 PUFF INH IH SCH ×2 (07:38→20:22)
[2021-03-31] MEDS: BuPROPion XL (24 HR) 150 MG TABLET PO SCH (08:40)
[2021-03-31] MEDS: Furosemide 20 MG TABLET PO SCH (08:41)
[2021-03-31] MEDS: lisinopriL 5 MG TABLET PO SCH (08:41)
[2021-03-31] MEDS: Venlafaxine XR (24 HR) 75 MG CAP.ER.24H PO SCH (08:41)
[2021-03-31] MEDS: Azithromycin 250 MG TABLET PO SCH (08:41)
[2021-03-31] MEDS: predniSONE 20 MG TABLET PO SCH (08:41)
[2021-03-31] MEDS: Cefdinir 300 MG CAPSULE PO SCH ×2 (08:41→19:45)
[2021-03-31] MEDS: Gabapentin 300 MG CAPSULE PO SCH ×2 (08:46→19:46)
[2021-03-31] MEDS: polyethylene glycoL 3350 17 GM POWD.PACK PO SCH (08:46)
[2021-03-31] MEDS: ALPRAZolam 1 MG TABLET PO PRN ×2 (08:56→19:45)
[2021-03-31] MEDS: Insulin DETEMIR 100 UNIT/ML X5UNITS SUBQ SCH ×2 (08:56→21:47)
[2021-03-31] MEDS: Tiotropium 10 INH DOSE IH SCH (13:26)
[2021-03-31] MEDS: QUEtiapine Fumarate 25 MG TABLET PO SCH (19:45)
[2021-04-01] MEDS: Levalbuterol Neb 1.25 MG/3 ML IH SCH ×6 (00:05→20:46)
[2021-04-01] MEDS: *HR* Heparin 5,000 UNIT/ML VIAL SQ SCH ×2 (05:33→17:14)
[2021-04-01 06:11] LABS: Basophils # 0.1 K/mcL (0.0-0.2); Basophils % 0.7 %; Eosinophils % 0.2 %; Hematocrit 37.2 % (35.3-44.9); Hemoglobin 11.6 g/dL (11.5-15.4); Immature Granulocytes % 2.9 % (0-4); Lymphocytes # 2.4 K/mcL (0.6-4.6); Lymphocytes % 20.7 %; Mean Corpuscular HGB Conc 31.2 g/dL (31.6-35.5); Mean Corpuscular Hemoglobin 29.3 pg (28.0-33.3); Mean Corpuscular Volume 93.9 fL (83.0-100.0); Mean Platelet Volume 9.9 fL (9.4-12.4); Monocytes # 0.9 K/mcL (0.0-1.3); Monocytes % 7.7 %; Platelet Count 438 K/mcL (140-400); Red Blood Count 3.96 M/mcL (3.82-4.97); Red Cell Distribution Width 12.9 % (11.5-14.5); Segmented Neutrophils % 67.8 %; White Blood Count 11.7 K/mcL (4.3-11.1)
[2021-04-01 06:34] LABS: BUN/Creatinine Ratio 30 (6-26); Blood Urea Nitrogen 31 mg/dL (8-23); Carbon Dioxide 34 mEq/L (23-29); Chloride 102 mEq/L (98-107); Potassium 3.4 mEq/L (3.5-5.1); Sodium 142 mEq/L (136-145); eGFR For African Americans > 60 (> 60)
[2021-04-01 06:35] LABS: Calcium 9.9 mg/dL (8.6-10.3); Glucose 112 mg/dL (70-105); Osmolality,Calculated 301 (280-300); eGFR For Non-African Americans 52 (> 60)
[2021-04-01] MEDS: Insulin LISPRO 300 UNITS/3 ML VIAL SUBQ SCH ×4 (07:17→21:02)
[2021-04-01] MEDS: polyethylene glycoL 3350 17 GM POWD.PACK PO SCH (08:15)
[2021-04-01] MEDS: Venlafaxine XR (24 HR) 75 MG CAP.ER.24H PO SCH (08:27)
[2021-04-01] MEDS: Cefdinir 300 MG CAPSULE PO SCH ×2 (08:27→21:00)
[2021-04-01] MEDS: BuPROPion XL (24 HR) 150 MG TABLET PO SCH (08:27)
[2021-04-01] MEDS: ALPRAZolam 1 MG TABLET PO PRN ×2 (08:27→21:12)
[2021-04-01] MEDS: Gabapentin 300 MG CAPSULE PO SCH ×2 (08:27→21:00)
[2021-04-01] MEDS: Azithromycin 250 MG TABLET PO SCH (08:28)
[2021-04-01] MEDS: lisinopriL 5 MG TABLET PO SCH (08:28)
[2021-04-01] MEDS: predniSONE 20 MG TABLET PO SCH (08:28)
[2021-04-01] MEDS: Furosemide 20 MG TABLET PO SCH (08:28)
[2021-04-01] MEDS: Insulin DETEMIR 100 UNIT/ML X5UNITS SUBQ SCH ×2 (08:31→21:02)
[2021-04-01] MEDS: Budesonide/Formoterol 160/4.5 1 PUFF INH IH SCH ×2 (08:53→20:45)
[2021-04-01] MEDS: Tiotropium 10 INH DOSE IH SCH (09:00)
[2021-04-01] MEDS ORDERED: MethylPREDNISolone 40 MG/ML VIAL IVP ONE (14:29)
[2021-04-01] MEDS: QUEtiapine Fumarate 25 MG TABLET PO SCH (21:00)
[2021-04-02] MEDS: Levalbuterol Neb 1.25 MG/3 ML IH SCH ×6 (00:07→20:40)
[2021-04-02] MEDS: *HR* Heparin 5,000 UNIT/ML VIAL SQ SCH ×2 (05:13→16:18)
[2021-04-02 05:29] LABS: Basophils # 0.1 K/mcL (0.0-0.2); Basophils % 0.6 %; Hemoglobin 11.8 g/dL (11.5-15.4); Immature Granulocytes % 4.2 % (0-4); Lymphocytes # 1.9 K/mcL (0.6-4.6); Lymphocytes % 13.6 %; Mean Corpuscular HGB Conc 31.9 g/dL (31.6-35.5); Mean Corpuscular Hemoglobin 29.6 pg (28.0-33.3); Mean Corpuscular Volume 92.7 fL (83.0-100.0); Mean Platelet Volume 9.8 fL (9.4-12.4); Monocytes # 0.8 K/mcL (0.0-1.3); Monocytes % 5.8 %; Neutrophils # 10.5 K/mcL (1.6-8.9); Platelet Count 431 K/mcL (140-400); Red Blood Count 3.99 M/mcL (3.82-4.97); Red Cell Distribution Width 12.7 % (11.5-14.5); Segmented Neutrophils % 75.8 %; White Blood Count 13.9 K/mcL (4.3-11.1)
[2021-04-02 05:49] LABS: BUN/Creatinine Ratio 31 (6-26); Blood Urea Nitrogen 29 mg/dL (8-23); Calcium 9.9 mg/dL (8.6-10.3); Carbon Dioxide 32 mEq/L (23-29); Chloride 102 mEq/L (98-107); Glucose 166 mg/dL (70-105); Magnesium 1.9 mg/dL (1.6-2.6); Osmolality,Calculated 298 (280-300); Phosphorous 3.3 mg/dL (2.7-4.5); Sodium 139 mEq/L (136-145); eGFR For African Americans > 60 (> 60); eGFR For Non-African Americans 59 (> 60)
[2021-04-02 06:40] VITALS: TEMP 97.9
[2021-04-02] MEDS: Insulin LISPRO 300 UNITS/3 ML VIAL SUBQ SCH ×3 (08:35→16:17)
[2021-04-02] MEDS: Budesonide/Formoterol 160/4.5 1 PUFF INH IH SCH ×2 (08:36→20:41)
[2021-04-02] MEDS ORDERED: predniSONE 20 MG TABLET PO SCH (09:00)
[2021-04-02] MEDS: Insulin DETEMIR 100 UNIT/ML X5UNITS SUBQ SCH (09:27)
[2021-04-02] MEDS: BuPROPion XL (24 HR) 150 MG TABLET PO SCH (09:28)
[2021-04-02] MEDS: Cefdinir 300 MG CAPSULE PO SCH (09:28)
[2021-04-02] MEDS: Venlafaxine XR (24 HR) 75 MG CAP.ER.24H PO SCH (09:28)
[2021-04-02] MEDS: Gabapentin 300 MG CAPSULE PO SCH (09:28)
[2021-04-02] MEDS: polyethylene glycoL 3350 17 GM POWD.PACK PO SCH (09:28)
[2021-04-02] MEDS: Furosemide 20 MG TABLET PO SCH (09:28)
[2021-04-02] MEDS: lisinopriL 5 MG TABLET PO SCH (09:28)
[2021-04-02] MEDS: ALPRAZolam 1 MG TABLET PO PRN (09:35)
[2021-04-02] MEDS: Tiotropium 10 INH DOSE IH SCH (09:35)
[2021-04-02 12:21] VITALS: BP 130/78; PULSE 88
[2021-04-02 13:26] LABS: Adenovirus Not Detected (Not Detect); Bordetella Pertussis Not Detected (Not Detect); Chlamydophila pneumoniae Not Detected (Not Detect); Coronavirus 229E Not Detected (Not Detect); Coronavirus HKU1 Not Detected (Not Detect); Coronavirus NL63 Not Detected (Not Detect); Coronavirus OC43 Not Detected (Not Detect); Human Metapneumovirus Not Detected (Not Detect); Human Rhinovirus/Enterovirus Not Detected (Not Detect); Influenza A Subtype 2009 H1 Not Detected (Not Detect); Influenza B Not Detected (Not Detect); Mycoplasma pneumoniae Not Detected (Not Detect); Parainfluenza Virus 1 Not Detected (Not Detect); Parainfluenza Virus 2 Not Detected (Not Detect); Parainfluenza Virus 3 Not Detected (Not Detect); Parainfluenza Virus 4 Not Detected (Not Detect); Respiratory Syncytial Virus Not Detected (Not Detect); SARS-CoV-2 Not Detected (Not Detect)
[2021-04-02 16:04] VITALS: O2SAT 94
== END 2021-04-02 20:30 | DRG 871 ==
LOC: 3BNU 11:17 → EMEROOARM 11:17 → SUATTDRO 17:01 → 3BNU 17:42 → SUATTDRO 03-30 13:30
PROVIDERS: ADMIT Internal Medicine; ATTEND Internal Medicine

== ENCOUNTER 2021-04-17 11:52 | Inpatient (IN) ==
[2021-04-17] MEDS ORDERED: Isovue-370 500 ML BOTTLE IVP ONE (13:24)
[2021-04-17] MEDS ORDERED: Ipratropium/Albuterol Neb 3 ML IH ONE (13:26)
[2021-04-17 13:59] LABS: Basophils % 0.2 %; Eosinophils # 0.2 K/mcL (0.0-0.6); Eosinophils % 1.2 %; Hematocrit 37.9 % (35.3-44.9); Immature Granulocytes % 0.5 % (0-4); Lymphocytes # 0.8 K/mcL (0.6-4.6); Lymphocytes % 6.2 %; Mean Corpuscular HGB Conc 31.7 g/dL (31.6-35.5); Mean Corpuscular Hemoglobin 29.8 pg (28.0-33.3); Mean Platelet Volume 10.2 fL (9.4-12.4); Monocytes # 0.8 K/mcL (0.0-1.3); Monocytes % 6.2 %; Neutrophils # 11.1 K/mcL (1.6-8.9); Platelet Count 285 K/mcL (140-400); Red Blood Count 4.03 M/mcL (3.82-4.97); Red Cell Distribution Width 13.3 % (11.5-14.5); Segmented Neutrophils % 85.7 %
[2021-04-17 14:22] LABS: Alanine Aminotransferase 15 Units/L (7-52); Albumin 3.5 g/dL (3.5-5.7); Albumin/Globulin Ratio 1.1 (1.1-2.2); Alkaline Phosphatase 73 Units/L (34-104); Aspartate Amino Transferase 15 Units/L (13-39); BUN/Creatinine Ratio 15 (6-26); Bilirubin,Indirect 0.4 mg/dL (0.0-1.0); Bilirubin,Total 0.4 mg/dL (0.3-1.0); Blood Urea Nitrogen 17 mg/dL (8-23); Calcium 10.3 mg/dL (8.6-10.3); Carbon Dioxide 32 mEq/L (23-29); Chloride 96 mEq/L (98-107); Globulin 3.1 g/dL (2.4-3.5); Glucose 173 mg/dL (70-105); Osmolality,Calculated 290 (280-300); Potassium 3.5 mEq/L (3.5-5.1); Sodium 137 mEq/L (136-145); Total Protein 6.6 g/dL (6.4-8.9); Troponin I < 0.03 ng/mL (< 0.04); eGFR For African Americans 56 (> 60); eGFR For Non-African Americans 46 (> 60)
[2021-04-17 14:54] LABS: Influenza A PCR Negative (Negative); Influenza B PCR Negative (Negative); Resp. Syncytial Virus PCR Negative (Negative); SARS-CoV-2 by PCR (In House) Negative (Negative)
[2021-04-17] MEDS ORDERED: *HR* Heparin 5,000 UNIT/ML VIAL IVP PRN ×2 (17:43)
[2021-04-17] MEDS ORDERED: Acetaminophen 325 MG TABLET PO PRN (17:43)
[2021-04-17] MEDS ORDERED: Ibuprofen 400 MG TABLET PO PRN (17:43)
[2021-04-17] MEDS ORDERED: *HR* Heparin 5,000 UNIT/ML VIAL IVP ONE (17:43)
[2021-04-17] MEDS ORDERED: Naloxone 0.4 MG/ML INJ IVP PRN (17:43)
[2021-04-17] MEDS ORDERED: Heparin 25,000UNIT/250ML 1/2NS 25,000 UNIT/250 ML IV.SOLN IVC SCH (17:45)
[2021-04-17] MEDS ORDERED: Vancomycin 1,250 MG/262.5 ML IV.SOLN IVPB SCH (18:00)
[2021-04-17] MEDS ORDERED: Piperacillin/Tazobactam 3.375 GM in 0.9 % Sodium Chloride Mini Bag 100 ML IVPB SCH (18:00)
[2021-04-17] MEDS ORDERED: Vancomycin 1,500 MG/265 ML IV.SOLN IVPB ONE (18:12)
[2021-04-17] MEDS ORDERED: *HR* Dextrose 50 % in Water (Syg) 50 ML SYRINGE IVP PRN (18:35)
[2021-04-17] MEDS ORDERED: D5% in Water 1,000 ML IVC PRN (18:35)
[2021-04-17] MEDS ORDERED: Dextrose Gel 15 GM/37.5 ML TUBE PO PRN ×2 (18:35)
[2021-04-17 21:46] LABS: Hematocrit 33.2 % (35.3-44.9); Hemoglobin 10.8 g/dL (11.5-15.4); Mean Corpuscular HGB Conc 32.5 g/dL (31.6-35.5); Mean Corpuscular Hemoglobin 30.3 pg (28.0-33.3); Mean Corpuscular Volume 93.3 fL (83.0-100.0); Mean Platelet Volume 9.8 fL (9.4-12.4); Platelet Count 279 K/mcL (140-400); Red Blood Count 3.56 M/mcL (3.82-4.97); Red Cell Distribution Width 13.2 % (11.5-14.5); White Blood Count 12.2 K/mcL (4.3-11.1)
[2021-04-17 21:53] LABS: Heparin anti-factor XA UFH < 0.04 IU/mL (0.30-0.70)
[2021-04-17 21:54] LABS: INR 1.1; Prothrombin Time 12.7 Seconds (9.4-12.1)
[2021-04-17] MEDS: Cefepime HCl 1,000 MG in 0.9 % Sodium Chloride Mini Bag 100 ML IVPB SCH (22:17)
[2021-04-17] MEDS: *HR* Heparin 5,000 UNIT/ML VIAL SQ SCH (22:26)
[2021-04-18 00:48] LABS: Basophils % 0.2 %; Eosinophils # 0.2 K/mcL (0.0-0.6); Eosinophils % 1.4 %; Hematocrit 33.7 % (35.3-44.9); Hemoglobin 10.9 g/dL (11.5-15.4); Immature Granulocytes % 0.4 % (0-4); Lymphocytes # 1.5 K/mcL (0.6-4.6); Lymphocytes % 11.7 %; Mean Corpuscular HGB Conc 32.3 g/dL (31.6-35.5); Mean Corpuscular Hemoglobin 30.2 pg (28.0-33.3); Mean Corpuscular Volume 93.4 fL (83.0-100.0); Mean Platelet Volume 9.8 fL (9.4-12.4); Monocytes % 7.8 %; Neutrophils # 9.7 K/mcL (1.6-8.9); Platelet Count 287 K/mcL (140-400); Red Blood Count 3.61 M/mcL (3.82-4.97); Red Cell Distribution Width 13.2 % (11.5-14.5); Segmented Neutrophils % 78.5 %; White Blood Count 12.4 K/mcL (4.3-11.1)
[2021-04-18 01:09] LABS: BUN/Creatinine Ratio 20 (6-26); Blood Urea Nitrogen 19 mg/dL (8-23); Calcium 9.6 mg/dL (8.6-10.3); Carbon Dioxide 27 mEq/L (23-29); Chloride 101 mEq/L (98-107); Chol/HDL Ratio 3.9 (0-4.9); Cholesterol 167 mg/dL (< 200); Glucose 167 mg/dL (70-105); HDL Cholesterol 43 mg/dL (40-59); LDL Cholesterol,Calculated 103 mg/dL (< 100); Magnesium 1.7 mg/dL (1.6-2.6); Osmolality,Calculated 292 (280-300); Phosphorous 3.4 mg/dL (2.7-4.5); Potassium 3.5 mEq/L (3.5-5.1); Sodium 138 mEq/L (136-145); Triglycerides 107 mg/dL (< 150); eGFR For African Americans > 60 (> 60); eGFR For Non-African Americans 56 (> 60)
[2021-04-18] MEDS: *HR* Heparin 5,000 UNIT/ML VIAL SQ SCH ×3 (06:40→20:27)
[2021-04-18] MEDS ORDERED: NON-FORMULARY MEDICATION 1 EACH EACH (Albuterol Sulfate 8.5 GM Hfa.Aer.Ad) IH PRN (08:12)
[2021-04-18] MEDS ORDERED: *HR* Glimepiride 2 MG TABLET PO SCH (09:00)
[2021-04-18] MEDS ORDERED: Vancomycin 750 MG VIAL ONE ×2 (09:53→20:14)
[2021-04-18] MEDS ORDERED: 0.9 % Sodium Chloride 250 ML ONE ×3 (09:53→20:14)
[2021-04-18] MEDS ORDERED: Tiotropium 10 INH DOSE IH SCH (10:00)
[2021-04-18] MEDS: Cefepime HCl 1,000 MG in 0.9 % Sodium Chloride Mini Bag 100 ML IVPB SCH (10:02)
[2021-04-18] MEDS: Ipratropium/Albuterol Neb 3 ML IH SCH ×5 (10:35→23:39)
[2021-04-18] MEDS: MethylPREDNISolone 40 MG/ML VIAL IVP SCH ×2 (10:49→17:27)
[2021-04-18] MEDS: Fluticasone Propionate Nasal 50 MCG/SPRAY BOTTLE NS SCH ×2 (10:50→20:27)
[2021-04-18] MEDS: Gabapentin 300 MG CAPSULE PO SCH ×2 (10:56→20:27)
[2021-04-18] MEDS: Azithromycin 250 MG TABLET PO SCH (10:57)
[2021-04-18] MEDS: Furosemide 20 MG TABLET PO SCH (10:57)
[2021-04-18] MEDS: lisinopriL 5 MG TABLET PO SCH (11:06)
[2021-04-18] MEDS: Vancomycin 750 MG VIAL ONE ×2 (12:07→12:27)
[2021-04-18] MEDS ORDERED: Lidocaine Viscous Oral Soln 15 ML SOLUTION ONE (13:45)
[2021-04-18] MEDS ORDERED: *HR* FentaNYL (PF) 100 MCG/2 ML VIAL ONE (13:57)
[2021-04-18] MEDS ORDERED: *HR* Midazolam HCl 5 MG/5 ML VIAL IVP ONE ×2 (13:57→14:32)
[2021-04-18] MEDS ORDERED: *HR* FentaNYL (PF) 100 MCG/2 ML VIAL IVP ONE (14:32)
[2021-04-18] MEDS ORDERED: Lidocaine Viscous Oral Soln 15 ML SOLUTION MM ONE (14:32)
[2021-04-18] MEDS: Cefepime HCl 2,000 MG in Water for inj. (sterile) 20 ML IVP SCH (17:26)
[2021-04-18] MEDS: Vancomycin 1,250 MG/262.5 ML IV.SOLN IVPB SCH (20:27)
[2021-04-18] MEDS: traZODone 50 MG TABLET PO SCH ×2 (20:27→20:40)
[2021-04-19] MEDS: Ipratropium/Albuterol Neb 3 ML IH SCH ×6 (03:56→23:32)
[2021-04-19 05:07] LABS: Basophils % 0.1 %; Hematocrit 33.7 % (35.3-44.9); Immature Granulocytes % 0.5 % (0-4); Lymphocytes # 0.5 K/mcL (0.6-4.6); Lymphocytes % 6.6 %; Mean Corpuscular HGB Conc 32.6 g/dL (31.6-35.5); Mean Corpuscular Hemoglobin 29.8 pg (28.0-33.3); Mean Corpuscular Volume 91.3 fL (83.0-100.0); Mean Platelet Volume 10.2 fL (9.4-12.4); Monocytes # 0.2 K/mcL (0.0-1.3); Monocytes % 2.8 %; Neutrophils # 7.1 K/mcL (1.6-8.9); Platelet Count 296 K/mcL (140-400); Red Blood Count 3.69 M/mcL (3.82-4.97); Red Cell Distribution Width 12.8 % (11.5-14.5); White Blood Count 7.9 K/mcL (4.3-11.1)
[2021-04-19 05:12] LABS: BUN/Creatinine Ratio 33 (6-26); Blood Urea Nitrogen 32 mg/dL (8-23); Carbon Dioxide 28 mEq/L (23-29); Chloride 99 mEq/L (98-107); Sodium 138 mEq/L (136-145)
[2021-04-19 05:13] LABS: Calcium 9.6 mg/dL (8.6-10.3); Glucose 377 mg/dL (70-105); Osmolality,Calculated 308 (280-300); eGFR For African Americans > 60 (> 60); eGFR For Non-African Americans 56 (> 60)
[2021-04-19] MEDS: *HR* Heparin 5,000 UNIT/ML VIAL SQ SCH ×3 (05:51→21:03)
[2021-04-19] MEDS: Cefepime HCl 2,000 MG in Water for inj. (sterile) 20 ML IVP SCH ×2 (05:51→17:21)
[2021-04-19] MEDS: lisinopriL 5 MG TABLET PO SCH (08:59)
[2021-04-19] MEDS: Furosemide 20 MG TABLET PO SCH (08:59)
[2021-04-19] MEDS: Gabapentin 300 MG CAPSULE PO SCH ×2 (08:59→21:03)
[2021-04-19] MEDS: Azithromycin 250 MG TABLET PO SCH (08:59)
[2021-04-19] MEDS: MethylPREDNISolone 40 MG/ML VIAL IVP SCH ×4 (08:59→23:34)
[2021-04-19] MEDS: ALPRAZolam 1 MG TABLET PO PRN ×2 (09:02→21:32)
[2021-04-19] MEDS: Fluticasone Propionate Nasal 50 MCG/SPRAY BOTTLE NS SCH ×2 (09:02→21:10)
[2021-04-19] MEDS: Insulin LISPRO 300 UNITS/3 ML VIAL SUBQ SCH ×2 (17:05→21:10)
[2021-04-19] MEDS ORDERED: 0.9 % Sodium Chloride 250 ML ONE (20:47)
[2021-04-19] MEDS ORDERED: Vancomycin 750 MG VIAL ONE (20:47)
[2021-04-19] MEDS: traZODone 50 MG TABLET PO SCH (21:03)
[2021-04-19] MEDS: Vancomycin 1,500 MG/265 ML IV.SOLN IVPB SCH (21:36)
[2021-04-19 22:15] LABS: Estimated Average Glucose 226 mg/dl; Hemoglobin A1C 9.5 %
[2021-04-19] MEDS: Vancomycin 1,250 MG/262.5 ML IV.SOLN IVPB SCH (23:33)
[2021-04-20] MEDS ORDERED: Insulin LISPRO 300 UNITS/3 ML VIAL SUBQ ONE (01:22)
[2021-04-20] MEDS ORDERED: Insulin DETEMIR 100 UNIT/ML X5UNITS SUBQ ONE (01:22)
[2021-04-20] MEDS: Ipratropium/Albuterol Neb 3 ML IH SCH ×6 (04:17→23:20)
[2021-04-20] MEDS: Cefepime HCl 2,000 MG in Water for inj. (sterile) 20 ML IVP SCH (06:00)
[2021-04-20] MEDS: *HR* Heparin 5,000 UNIT/ML VIAL SQ SCH ×3 (06:00→20:12)
[2021-04-20 06:06] LABS: Hematocrit 35.8 % (35.3-44.9); Hemoglobin 11.1 g/dL (11.5-15.4); Immature Granulocytes % 0.3 % (0-4); Lymphocytes # 0.6 K/mcL (0.6-4.6); Lymphocytes % 5.9 %; Mean Corpuscular Hemoglobin 28.9 pg (28.0-33.3); Mean Corpuscular Volume 93.2 fL (83.0-100.0); Mean Platelet Volume 10.7 fL (9.4-12.4); Monocytes # 0.4 K/mcL (0.0-1.3); Monocytes % 4.3 %; Neutrophils # 8.7 K/mcL (1.6-8.9); Platelet Count 247 K/mcL (140-400); Red Blood Count 3.84 M/mcL (3.82-4.97); Red Cell Distribution Width 12.7 % (11.5-14.5); Segmented Neutrophils % 89.5 %; White Blood Count 9.7 K/mcL (4.3-11.1)
[2021-04-20 06:24] LABS: BUN/Creatinine Ratio 38 (6-26); Blood Urea Nitrogen 39 mg/dL (8-23); Calcium 10.2 mg/dL (8.6-10.3); Carbon Dioxide 28 mEq/L (23-29); Chloride 100 mEq/L (98-107); Glucose 411 mg/dL (70-105); Osmolality,Calculated 307 (280-300); Potassium 3.7 mEq/L (3.5-5.1); Sodium 135 mEq/L (136-145); eGFR For African Americans > 60 (> 60); eGFR For Non-African Americans 52 (> 60)
[2021-04-20] MEDS ORDERED: levoFLOXacin 750 MG TABLET PO SCH (09:00)
[2021-04-20] MEDS: predniSONE 20 MG TABLET PO SCH (09:51)
[2021-04-20] MEDS: Fluticasone Propionate Nasal 50 MCG/SPRAY BOTTLE NS SCH ×2 (09:51→20:12)
[2021-04-20] MEDS: Gabapentin 300 MG CAPSULE PO SCH ×2 (09:51→20:11)
[2021-04-20] MEDS: lisinopriL 5 MG TABLET PO SCH (09:51)
[2021-04-20] MEDS: Furosemide 20 MG TABLET PO SCH (09:51)
[2021-04-20] MEDS: Insulin LISPRO 300 UNITS/3 ML VIAL SUBQ SCH ×4 (09:51→20:12)
[2021-04-20 12:02] LABS: ABG Base Excess 4 mEq/L (-2 to 3); ABG HCO3 29 mEq/L (21-27); ABG Oxygen Saturation 94 % (95-98); ABG PCO2 45 mmHg (35-45); ABG PH 7.42 pH Units (7.32-7.45); ABG PO2 69 mmHg (85-104); ABG TCO2 30 mEq/L (20-26)
[2021-04-20] MEDS: traZODone 50 MG TABLET PO SCH (20:12)
[2021-04-20] MEDS: Vancomycin 1,500 MG/265 ML IV.SOLN IVPB SCH (20:13)
[2021-04-20] MEDS: ALPRAZolam 1 MG TABLET PO PRN (20:16)
[2021-04-20] MEDS ORDERED: Melatonin 3 MG TABLET PO ONE (23:28)
[2021-04-21] MEDS: Ipratropium/Albuterol Neb 3 ML IH SCH ×4 (03:41→15:33)
[2021-04-21] MEDS: *HR* Heparin 5,000 UNIT/ML VIAL SQ SCH ×2 (05:34→14:25)
[2021-04-21 07:44] LABS: Basophils % 0.1 %; Hematocrit 31.4 % (35.3-44.9); Hemoglobin 10.3 g/dL (11.5-15.4); Immature Granulocytes % 0.6 % (0-4); Lymphocytes # 1.2 K/mcL (0.6-4.6); Lymphocytes % 14.9 %; Mean Corpuscular HGB Conc 32.8 g/dL (31.6-35.5); Mean Corpuscular Hemoglobin 29.9 pg (28.0-33.3); Mean Platelet Volume 10.4 fL (9.4-12.4); Monocytes # 0.6 K/mcL (0.0-1.3); Monocytes % 7.6 %; Neutrophils # 5.9 K/mcL (1.6-8.9); Platelet Count 280 K/mcL (140-400); Red Blood Count 3.45 M/mcL (3.82-4.97); Red Cell Distribution Width 12.7 % (11.5-14.5); Segmented Neutrophils % 76.8 %; White Blood Count 7.7 K/mcL (4.3-11.1)
[2021-04-21 08:31] LABS: Calcium 9.8 mg/dL (8.6-10.3); Potassium 3.4 mEq/L (3.5-5.1)
[2021-04-21] MEDS ORDERED: Insulin DETEMIR 100 UNIT/ML X5UNITS SUBQ SCH ×2 (09:00→21:00)
[2021-04-21] MEDS: Gabapentin 300 MG CAPSULE PO SCH (09:53)
[2021-04-21] MEDS: lisinopriL 5 MG TABLET PO SCH (09:53)
[2021-04-21] MEDS: Furosemide 20 MG TABLET PO SCH (09:53)
[2021-04-21] MEDS: predniSONE 20 MG TABLET PO SCH (09:54)
[2021-04-21] MEDS: ALPRAZolam 1 MG TABLET PO PRN (09:54)
[2021-04-21] MEDS: Fluticasone Propionate Nasal 50 MCG/SPRAY BOTTLE NS SCH (09:54)
[2021-04-21] MEDS: Insulin LISPRO 300 UNITS/3 ML VIAL SUBQ SCH ×3 (09:55→16:15)
[2021-04-21 11:39] VITALS: BP 131/48; PULSE 82; TEMP 97.5; O2SAT 98
[2021-04-21 15:37] LABS: Influenza A PCR Negative (Negative); Influenza B PCR Negative (Negative); Resp. Syncytial Virus PCR Negative (Negative)
[2021-04-21 15:41] LABS: SARS-CoV-2 by PCR (In House) Negative (Negative)
[2021-04-22] MEDS ORDERED: levoFLOXacin 750 MG TABLET PO SCH (09:00)
== END 2021-04-21 16:32 | DRG 205 ==
LOC: 2ANU 11:52 → EMEROOARM 11:52 → SUATTDRO 17:25 → 2ANU 20:03 → SUATTDRO 04-18 13:17
PROVIDERS: ADMIT Internal Medicine; ATTEND Internal Medicine